=== PATIENT | female | born 1965 | race Caucasian/White ===

== ENCOUNTER 2019-02-25 14:38 | Emergency (ER) | payer OTHER, SELFPAY ==
--- NOTE | 2019-02-25 14:57 | DI.RAD.S_ITS ---
PROCEDURE: XR CHEST 2V INDICATIONS: shortness of breath TECHNIQUE: 2 views of the chest were acquired. COMPARISON: [facility], CT, CHEST ANGIO-PE, 11/30/2010, 11:03. [facility], CR, CHEST 2 VIEW, 10/16/2010, 7:54. FINDINGS: Surgical changes and devices: There is a right-sided central line seen, with the tip overlying the inferior aspect of the superior vena cava. Sternotomy wires are seen. Lungs and pleura: Interstitial prominence is seen throughout. No chelly, focal infiltrates are seen. No large pneumothorax or large pleural effusions are seen. Mediastinum: Mediastinal contours are highly abnormal, with masslike prominence seen on both sides, which has progressed over time. There is at least moderate cardiomegaly seen. Bones and chest wall: Age-appropriate bony degenerative changes are seen. No suspicious bony abnormalities. Soft tissues appear unremarkable. IMPRESSION: Cardiomegaly and any grossly abnormal mediastinal silhouette. This is felt most likely to be related to grossly enlarged pulmonary arteries. Please correlate with known patient history. If clinically appropriate, please consider a dedicated chest CT with IV contrast for further evaluation. Interstitial prominence is seen throughout. The interstitial prominence is nonspecific, yet may be related to pulmonary edema. Dictated by: Kg De Jesus M.D. on 02/25/2019 at 14:48 Approved by: Kg De Jesus M.D. on 02/25/2019 at 14:51
[2019-02-25 15:00] VITALS: BP 115/84; PULSE 96; RESP 24; O2SAT 100
[2019-02-25] MEDS: ALBUTEROL/IPRATROPIUM 3 ML AMPUL INH ×2 (15:02→15:31)
[2019-02-25 15:03] VITALS: PULSE 96; RESP 24; O2SAT 100
--- NOTE | 2019-02-25 15:14 | ED_ITS ---
HPI - General Adult General Chief complaint: Shortness of Breath/Dyspnea Stated complaint: difficulty breathing Time Seen by Provider: 02/25/19 15:02 Source: patient Mode of arrival: Ambulatory Limitations: no limitations History of Present Illness HPI narrative: 53-year-old female with a prior history of pulmonary embolisms require bring a embolectomy and subsequent diagnosis of pulmonary hypertension here for evaluation of shortness of breath. She also has a history of asthma. Has a albuterol inhaler at home that is empty and she has been using another nail that she states has not worked as well. She states that she normally has no problems with asthma. She was recently exposed to viral illness from her daughter which she thinks triggered the symptoms that brought her in today. She also just finished a course of azithromycin provided by her primary doctor for this respiratory illness Related Data Previous Rx's Medication Instructions Recorded albuterol sulfate 2 puff INHALATION Q4-6H PRN #18 02/25/19 gram prednisone 20 mg PO DAILY 5 Days #5 tab 02/25/19 Allergies Allergy/AdvReac Type Severity Reaction Status Date / Time No Known Drug Allergies Allergy Verified 02/25/19 15:29 Review of Systems Constitutional Constitutional: Denies fever(s) Cardiovascular Cardiovascular: Denies chest pain, Reports dyspnea and Reports dyspnea on exertion Respiratory Respiratory: Reports chest congestion, Reports cough, Reports excessive phlegm production, Reports dyspnea and Reports dyspnea on exertion Gastrointestinal Gastrointestinal: Denies abdominal pain, Denies nausea and Denies vomiting Genitourinary Genitourinary: Denies dysuria Musculoskeletal Musculoskeletal: Denies myalgias and Denies arthralgias Integumentary/Breasts Skin/Breast: Denies rash Neurologic Neurologic: Denies behavioral changes Psychiatric Psychiatric: Denies behavioral changes Hematologic/Lymphatic Hematologic/Lymphatic: Denies easy bleeding and Denies easy bruising Patient History Medical History Asthma (Acute) Pulmonary embolism (Acute) Pulmonary hypertension (Acute) Social History Smoking Status: Current every day smoker Exam Initial Vital Signs Initial Vital Signs: Vital Signs Pulse Rate 96 H 02/25/19 15:00 Respiratory Rate 24 02/25/19 15:00 Blood Pressure 115/84 02/25/19 15:00 Pulse Oximetry 100 02/25/19 15:00 Const General: cooperative, comfortable and well developed Orientation: alert and awake HENMT Head: normal to inspection and normocephalic Resp Effort & Inspection: labored Auscultation: rhonchi and wheezes Cardio Rate: regular rate Rhythm: regular rhythm GI Inspection: non-distended Palpation: soft Skin Lesions: no lesions Rashes: no rashes Neuro General: alert and awake Cognition: normal cognition Speech: speech normal Extrem General: normal to inspection and capillary refill normal Psych Appearance: grossly normal and well kempt Course Orders Ordered: ED Orders 02/25/19 14:57 XR chest 2V Stat Measure peak expiratory flow ONCE RT Consult Eval and Treat Now 02/25/19 15:07 Complete Blood Count AUTO DIFF Stat Comprehensive Metabolic Panel Stat Lactate (Lactic Acid) Stat 02/25/19 15:49 EKG-12 Lead Stat Discontinued Medications Albuterol/Ipratropium (Duoneb) 3 ml INH NOW ONE Stop: 02/25/19 14:59 Last Admin: 02/25/19 15:02 Dose: 3 ml Documented by: OLU Albuterol/Ipratropium (Duoneb) 3 ml INH NOW ONE Stop: 02/25/19 15:29 Last Admin: 02/25/19 15:31 Dose: 3 ml Documented by: OLU Vital Signs Vital signs: Vital Signs - 8 hr 02/25/19 15:00 02/25/19 15:03 02/25/19 15:28 Temperature 98.5 F Pulse Rate 96 H 96 H Respiratory Rate 24 24 Blood Pressure 115/84 Blood Pressure [Left Arm] Pulse Oximetry 100 100 02/25/19 15:30 02/25/19 16:08 Temperature Pulse Rate 97 H 100 H Respiratory Rate 24 29 H Blood Pressure Blood Pressure [Left Arm] 95/83 Pulse Oximetry 95 97 Medical Decision Making Lab Data Lab results reviewed: Yes I reviewed the patient's lab results. Result diagrams: 02/25/19 15:07 02/25/19 15:07 Labs: Lab Results 02/25/19 02/25/19 02/25/19 Range/Units 15:07 15:07 15:07 WBC 7.7 (4.5-11.0) X10^3/uL RBC 5.57 H (4.0-5.2) X10^6/uL Hgb 15.4 (12.0-16.0) g/dL Hct 46.7 H (36-46) % MCV 83.9 (80-100) fL MCH 27.7 (26-34) PG MCHC 33.0 (30-36) % RDW 13.8 (11.6-14.8) % Plt Count 185 (150-400) X10^3/uL Neut % (Auto) 58.3 (50-75) % Lymph % (Auto) 30.4 (25-40) % [place] % (Auto) 9.0 (3-14) % Eos % (Auto) 1.3 L (2-4) % Baso % (Auto) 1.0 (0-2) % Neut # (Auto) 4500 (1509-5582) /uL Lymph # (Auto) 2300 (5127-2567) /uL [place] # (Auto) 700 (0-900) /uL Eos # (Auto) 100 (0-450) /uL Baso # (Auto) 100 (0-100) /uL Sodium 135 L (137-145) mmol/L Potassium 4.4 (3.4-5.1) mmol/L Chloride 105 (98-107) mmol/L Carbon Dioxide 23 (22-32) mmol/L BUN 17 (7-17) mg/dL Creatinine 0.70 (0.52-1.04) mg/dL Estimated GFR > 60.0 (>60) mL/min BUN/Creatinine Ratio 24.3 H (6-22) Glucose 95 (70-100) mg/dL Lactate 1.2 (0.7-2.1) mmol/L Calcium 9.2 (8.4-10.2) mg/dL Total Bilirubin 0.7 (0.2-1.3) mg/dL AST 35 (14-36) IU/L ALT 32 (<35) IU/L Alkaline Phosphatase 53 (38-126) U/L Total Protein 6.4 (6.3-8.2) g/dL Albumin 3.8 (3.5-5.0) g/dL Globulin 2.6 (1.7-4.1) g/dL Albumin/Globulin Ratio 1.5 (1.0-2.8) Imaging Data Chest x-ray: Radiologist's impression: [place] [id number] XRay Report Signed Patient: Dagmar Lawrence EMR#: [id number] : 1965Acct:[id number] Age/Sex: 53 / FDate of Service: 02/25/19 Loc: ED Accession Number: [id number] Procedure: XR chest 2V Ordering Provider: Benigno Guerra D.O. PROCEDURE: XR CHEST 2V INDICATIONS: shortness of breath TECHNIQUE: 2 views of the chest were acquired. COMPARISON: [facility], CT, CHEST ANGIO-PE, 11/30/2010, 11:03. [facility], CR, CHEST 2 VIEW, 10/16/2010, 7:54. FINDINGS: Surgical changes and devices: There is a right-sided central line seen, with the tip overlying the inferior aspect of the superior vena cava. Sternotomy wires are seen. Lungs and pleura: Interstitial prominence is seen throughout. No chelly, focal infiltrates are seen. No large pneumothorax or large pleural effusions are seen. Mediastinum: Mediastinal contours are highly abnormal, with masslike prominence seen on both sides, which has progressed over time. There is at least moderate cardiomegaly seen. Bones and chest wall: Age-appropriate bony degenerative changes are seen. No suspicious bony abnormalities. Soft tissues appear unremarkable. IMPRESSION: Cardiomegaly and any grossly abnormal mediastinal silhouette. This is felt most likely to be related to grossly enlarged pulmonary arteries. Please correlate with known patient history. If clinically appropriate, please consider a dedicated chest CT with IV contrast for further evaluation. Interstitial prominence is seen throughout. The interstitial prominence is nonspecific, yet may be related to pulmonary edema. Dictated by: Kg De Jesus M.D. on 02/25/2019 at 14:48 Approved by: Kg De Jesus M.D. on 02/25/2019 at 14:51 ECG Data Attestation: I personally reviewed and interpreted this ECG as follows: Prior ECG tracings: not available for review Interpretation: Significant motion artifact Sinus rhythm Ventricular rate of 97 Difficult to interpret rest of EKG due to motion artifact MDM Narrative Medical decision making narrative: Patient improved after 2 nebulizers. Is not hypoxic. Patient states that she feels better. She is finishing a course of what initially she said was azithromycin but now turns out to be amoxicillin. I do feel that a short course of steroids may be beneficial for her. Will send home with a prescription for albuterol inhaler. She was given return precautions and follow-up instructions. She expressed understanding and agreement plan. Discharge Plan Departure Patient Disposition: Home Clinical Impression: Asthma with exacerbation Qualifiers: Asthma severity: unspecified severity Asthma persistence: unspecified Qualified Code(s): J45.901 - Unspecified asthma with (acute) exacerbation Instructions: DI for Asthma -- Adult Activity Restrictions/Additional Instructions: Recommend that you contact [phone] talk with the health information resources director here at the hospital to help you establish a primary provider. You can also contact the [facility] at [phone]. Use the albuterol as directed as needed. Continue the rest her medications as directed. Return to the emergency department for any new or worsening symptoms. Your prescriptions were transmitted to the [facility] here on [address] Prescriptions: New prednisone 20 mg tablet 20 mg PO DAILY 5 Days Qty: 5 RF: 0 albuterol sulfate 90 mcg/actuation HFA aerosol inhaler 2 puff INHALATION Q4-6H PRN (Reason: shortness of breath or wheezing) Qty: 18 RF: 0
[2019-02-25 15:17] LABS: Add Manual Diff / Slide Review NO; Basophils Absolute Auto 100 /uL (0-100); Eosinophils Absolute Auto 100 /uL (0-450); Eosinophils Percent Auto 1.3 % (2-4); Hematocrit 46.7 % (36-46); Hemoglobin 15.4 g/dL (12.0-16.0); Lymphocytes Absolute Auto 2300 /uL (1100-4500); Lymphocytes Percent Auto 30.4 % (25-40); Mean Corpuscular Hemoglobin 27.7 PG (26-34); Mean Corpuscular Volume 83.9 fL (80-100); Monocytes Absolute Auto 700 /uL (0-900); Neutrophils Absolute Auto 4500 /uL (1500-7000); Neutrophils Percent Auto 58.3 % (50-75); Platelet Count 185 X10^3/uL (150-400); Red Blood Cell Count 5.57 X10^6/uL (4.0-5.2); Red Cell Distribution Width 13.8 % (11.6-14.8); White Blood Cell Count 7.7 X10^3/uL (4.5-11.0)
[2019-02-25 15:28] VITALS: TEMP 36.9
[2019-02-25 15:30] VITALS: PULSE 97; RESP 24; O2SAT 95
[2019-02-25 15:33] LABS: Alanine Aminotransferase 32 IU/L (<35); Albumin 3.8 g/dL (3.5-5.0); Albumin Globulin Ratio 1.5 (1.0-2.8); Alkaline Phosphatase 53 U/L (38-126); Aspartate Aminotransferase 35 IU/L (14-36); BUN Creatinine Ratio 24.3 (6-22); Bilirubin Total 0.7 mg/dL (0.2-1.3); Blood Urea Nitrogen 17 mg/dL (7-17); Calcium 9.2 mg/dL (8.4-10.2); Carbon Dioxide 23 mmol/L (22-32); Chloride 105 mmol/L (98-107); Estimated Glomerular Filt Rate > 60.0 mL/min (>60); Globulin 2.6 g/dL (1.7-4.1); Glucose 95 mg/dL (70-100); HEMOLYSIS 19 (0-50); Potassium 4.4 mmol/L (3.4-5.1); Sodium 135 mmol/L (137-145); Total Protein 6.4 g/dL (6.3-8.2)
[2019-02-25 15:34] LABS: Lactate (Lactic Acid) 1.2 mmol/L (0.7-2.1)
--- NOTE | 2019-02-25 15:47 | PC.NURSE ---
known history of pulmonary htn.
[2019-02-25 16:08] VITALS: BP 95/83; PULSE 100; RESP 29; O2SAT 97
== END 2019-02-25 16:33 | disposition home or self-care (01) ==
PROVIDERS: Emergency Provider Emergency Medicine
DX: J45.901 Unspecified asthma with (acute) exacerbation (principal)
CPT/HCPCS: 36415; 71046; 80053; 83605; 85025; 93005; 94640; 99283; 99285

== ENCOUNTER → 2019-06-02 11:53 | Outpatient (CLI) | payer OTHER, SELFPAY | PROVIDERS: PCP Nurse Practitioner Family; Visit Provider Nurse Practitioner Family | DX: R21 Rash and other nonspecific skin eruption (principal) | CPT/HCPCS: 87220 ==

== ENCOUNTER → 2019-06-02 12:04 | Outpatient (CLI) | payer OTHER, SELFPAY ==
[2019-06-02 12:44] LABS: BUN Creatinine Ratio 24.3 (6-22); Blood Urea Nitrogen 17 mg/dL (7-17); Calcium 9.1 mg/dL (8.4-10.2); Carbon Dioxide 29 mmol/L (22-32); Chloride 102 mmol/L (98-107); Estimated Glomerular Filt Rate > 60.0 mL/min (>60); Glucose 91 mg/dL (70-100); HEMOLYSIS < 15 (0-50); Potassium 4.2 mmol/L (3.4-5.1); Sodium 138 mmol/L (137-145)
[2019-06-02 12:52] LABS: NT-proBNP (BNP-Adult 18+) 1830 pg/mL (<125)
== END ==
PROVIDERS: PCP Nurse Practitioner Family; Referring Provider Internal Medicine Cardiovascular Disease; Visit Provider Internal Medicine Cardiovascular Disease
DX: I50.22 Chronic systolic (congestive) heart failure (principal); R21 Rash and other nonspecific skin eruption
CPT/HCPCS: 36415; 80048; 83880; 87220

== ENCOUNTER → 2019-07-14 11:42 | Outpatient (CLI) | payer OTHER, SELFPAY | PROVIDERS: PCP Nurse Practitioner Family; Referring Provider Nurse Practitioner Family; Visit Provider Nurse Practitioner Family | DX: Z01.818 Encounter for other preprocedural examination (principal) | CPT/HCPCS: 80307; 80323 ==

== ENCOUNTER → 2019-10-13 12:46 | Outpatient (CLI) | payer OTHER, SELFPAY | PROVIDERS: PCP Nurse Practitioner Family; Referring Provider Nurse Practitioner Family; Visit Provider Nurse Practitioner Family | DX: Z13.820 Encounter for screening for osteoporosis (principal); Z78.0 Asymptomatic menopausal state | CPT/HCPCS: 77080 ==

== ENCOUNTER → 2019-11-06 14:42 | Outpatient (CLI) | payer OTHER, SELFPAY ==
--- NOTE | 2019-11-06 14:44 | DI.MG.S_ITS ---
BILATERAL DIGITAL SCREENING MAMMOGRAM 3D/2D WITH CAD: 11/06/2019 CLINICAL: Baseline exam. Routine screening. No prior exams were available for comparison. The tissue of both breasts is heterogeneously dense. This may lower the sensitivity of mammography. Current study was also evaluated with a Computer Aided Detection (CAD) system. There are benign calcifications in both breasts. Minimal dependent and symmetric skin thickening bilaterally. No significant masses, calcifications, or other findings are seen in either breast. IMPRESSION: There is no mammographic evidence of malignancy. Minimal dependent and symmetric skin thickening bilaterally is most likely due to mild edema in this patient scheduled for heart and lung transplant. Recommend clinical correlation. The patient was called directly by Dr. Field at 10:35 AM on 11/08/2019. The patient denies new acute symptoms of shortness of breath. A 1 year screening mammogram is recommended. This exam was interpreted at Station ID: [id number]. NOTE: For mammograms, a report in lay terms will be sent to the patient. Approximately 15% of breast malignancies will not be visualized mammographically. In the management of a palpable breast mass, a negative mammogram must not discourage biopsy of a clinically suspicious lesion. Electronically Signed By: Be Field M.D. slc/:11/08/2019 10:37:53 copy to: Surinder Saunders MD, [facility] letter sent: Normal Exam ACR BI-RADS Category 2: Benign Finding(s) 3342F
== END ==
PROVIDERS: PCP Nurse Practitioner Family; Referring Provider Nurse Practitioner Family; Visit Provider Nurse Practitioner Family
DX: Z12.31 Encounter for screening mammogram for malignant neoplasm of breast (principal)
CPT/HCPCS: 77063; 77067

== ENCOUNTER → 2020-01-05 17:47 | Outpatient (CLI) | payer OTHER, MEDICAID, SELFPAY ==
[2020-01-08 03:22] LABS: Cotinine Negative ng/mL (Cutoff=300)
== END ==
PROVIDERS: PCP Nurse Practitioner Family; Referring Provider Nurse Practitioner Family; Visit Provider Nurse Practitioner Family
DX: Z01.818 Encounter for other preprocedural examination (principal)
CPT/HCPCS: 80321

== ENCOUNTER → 2020-02-04 14:09 | Outpatient (CLI) | payer OTHER, MEDICAID, SELFPAY | PROVIDERS: PCP Nurse Practitioner Family; Referring Provider Nurse Practitioner Family; Visit Provider Nurse Practitioner Family | DX: Z01.818 Encounter for other preprocedural examination (principal); I50.20 Unspecified systolic (congestive) heart failure | CPT/HCPCS: 80307 ==

== ENCOUNTER 2020-03-31 00:04 | Emergency (ER) | payer OTHER, MEDICAID, SELFPAY ==
[2020-03-31] VITALS (44 sets, daily range): BP systolic 82–118; BP diastolic 50–65; PULSE 70–120; RESP 15–99; O2SAT 83–100
--- NOTE | 2020-03-31 00:12 | DI.RAD.S_ITS ---
PROCEDURE: XR CHEST 1V INDICATIONS: Dyspnea TECHNIQUE: One view of the chest was acquired. COMPARISON: [facility], CT, CHEST ANGIO-PE, 11/30/2010, 11:03. [facility], CR, XR CHEST 2V, 02/25/2019, 14:54. FINDINGS: Surgical changes and devices: Central venous catheter, median sternotomy wires and left neck surgical clips are stable. Lungs and pleura: Lungs are clear. No pleural effusions or pneumothorax. Mediastinum: Heart is enlarged. Marked enlargement of the central pulmonary arteries and possible aneurysmal dilatation of the descending thoracic aorta stable compared to the prior exam.. Bones and chest wall: No suspicious bony lesions. Overlying soft tissues appear unremarkable. IMPRESSION: Stable examination compared to February 25, 2019. No lung consolidation or pleural effusions. Dictated by: Tamica Yoder MD, PhD on 03/31/2020 at 9:12 Approved by: Tamica Yoder MD, PhD on 03/31/2020 at 9:14
[2020-03-31 00:29] LABS: HCO3 ABG 24 mmol/L (22-26); PCO2 ABG 44.3 mmHg (35-45); PO2 ABG 90 mmHg (80-100); TCO2 ABG 26 mmol/L (21-31); pH ABG 7.35 (7.35-7.45)
[2020-03-31 00:30] LABS: Fractionated Inspired Oxygen 50; Oxygen Saturation ABG 96 % (95-100)
[2020-03-31 00:43] LABS: Add Manual Diff / Slide Review NO; Basophils Absolute Auto 100 /uL (0-100); Basophils Percent Auto 0.7 % (0-2); Eosinophils Absolute Auto 100 /uL (0-450); Eosinophils Percent Auto 1.4 % (2-4); Hematocrit 44.1 % (36-46); Hemoglobin 14.1 g/dL (12.0-16.0); Lymphocytes Absolute Auto 1500 /uL (1100-4500); Lymphocytes Percent Auto 14.2 % (25-40); Mean Corpuscular Volume 87.5 fL (80-100); Monocytes Absolute Auto 800 /uL (0-900); Monocytes Percent Auto 7.9 % (3-14); Neutrophils Absolute Auto 7900 /uL (1500-7000); Neutrophils Percent Auto 75.8 % (50-75); Platelet Count 131 X10^3/uL (150-400); Red Blood Cell Count 5.04 X10^6/uL (4.0-5.2); Red Cell Distribution Width 14.4 % (11.6-14.8); White Blood Cell Count 10.4 X10^3/uL (4.5-11.0)
[2020-03-31 00:48] LABS: INR 1.7 (0.9-1.3); Prothrombin Time 19.9 SECONDS (10.1-12.7)
--- NOTE | 2020-03-31 00:50 | ED.SOB ---
HPI - SOB/Dyspnea <Hossein Sapp MD - Last Filed: 03/31/20 15:43> General Chief Complaint: Shortness of Breath/Dyspnea Stated Complaint: shortness of breath Time Seen by Provider: 03/31/20 00:11 Source: patient, family and EMS Mode of arrival: EMS History of Present Illness HPI Narrative: Patient brought in by ambulance from home for complaints of dyspnea. No chest pain. Was hypoxic on arrival by EMS at home. 79% room air. Improved with 6 L nasal cannula to 92%. Patient states feels much better. Is not on home oxygen. Does have history of asthma. Is on [facility] wait list for heart transplant. History of pulmonary hypertension. History of blood clots in the lungs. Is on warfarin. Patient states granddaughter was sick last week and now she has the same symptoms. Nonproductive cough. Short of breath with exertion. No chest pain. Patient speaking easily at this time with nasal cannula. Patient took home nebulizer prior to arrival. Patient states tested negative for COVID and the last week MD Complaint: shortness of breath and cough Related Data Home Medications Medication Instructions Recorded Confirmed clopidogrel 75 mg tablet 75 mg PO DAILY 04/27/19 03/31/20 remodulin SUBCUT (VIA WEARABLE INJECTR) 04/27/19 01/28/20 spironolactone PO 04/27/19 01/28/20 warfarin 6 mg tablet 6 mg PO DAILY 04/27/19 03/31/20 furosemide 20 mg tablet 20 mg PO BID 11/10/19 03/31/20 riociguat 2.5 mg tablet 2.5 mg PO ONCE 11/10/19 01/28/20 riociguat [Adempas] 2.5 mg 03/31/20 warfarin 03/31/20 Previous Rx's Medication Instructions Recorded albuterol sulfate 90 mcg/actuation 2 puff INHALATION Q4-6H PRN #18 06/07/19 aerosol inhaler gram varicella-zoster glycoE [id number] 0.5 ml IM ONCE #1 each 09/30/19 adj(PF) 50 mcg/0.5 mL IM susp, kit lorazepam 0.5 mg tablet 0.5 mg PO DAILY PRN #2 tab 01/28/20 Allergies Allergy/AdvReac Type Severity Reaction Status Date / Time adhesive tape Allergy Intermediate rash Verified 03/31/20 00:17 bupropion [From Wellbutrin] AdvReac Severe mood Verified 03/31/20 00:17 Review of Systems <Hossein Sapp MD - Last Filed: 03/31/20 15:43> Review of Systems Narrative: GENERAL: Denies chills, fatigue, malaise, fever, sweats. HEENT: Denies sinus pain, ear pain, sore throat, difficulty swallowing RESPIRATORY: Complains dyspnea, cough, no hemoptysis CARDIOVASCULAR: Denies chest pain, palpitations, edema, GASTROINTESTINAL: Denies nausea, vomiting, abdominal pain, diarrhea, constipation, melena. : Denies dysuria, frequency, hematuria MUSCULOSKELETAL: denies muscle or bony pain SKIN: Denies rash, skin lesions NEUROLOGIC: Denies weakness, headache, numbness, change in speech, confusion PSYCHIATRIC: No SI or HI or hallucinations ROS Unobtainable: All systems reviewed & are unremarkable except as noted in HPI and below Patient History <Hossein Sapp MD - Last Filed: 03/31/20 15:43> Medical History Anxiety Asthma Encounter for routine gynecological examination Encounter for wellness examination in adult History of blood clots (~2009) History of myocardial infarction (03/2019) 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 (2018) LV dysfunction (2018) Menopause Osteopenia after menopause (10/2019) Osteoporosis (10/2019) Pre-procedural examination Pulmonary embolism (2009) Pulmonary hypertension (2009) Situational anxiety Systolic heart failure (~2018) Vision disturbance (09/2019) Social History Smoking Status: Former smoker second hand exposure: No alcohol intake: current substance use type: marijuana Smoking Status: Former smoker alcohol intake frequency: a few times a week Substance Use Type: does not use Exam <Hossein Sapp MD - Last Filed: 03/31/20 15:43> Narrative Exam Narrative: GENERAL: patient appears stated age. Well-nourished, well-developed patient, in no distress, not toxic not dyspneic HEAD: Normocephalic. EYES: Pupils equal round and reactive. No scleral icterus. No injection no discharge ENT: Mucous membranes moist. No drooling no tongue elevation no trismus no malocclusion NECK: Trachea midline. Non tender CARDIOVASCULAR: Regular rate and rhythm without murmurs, gallops, or rubs. RESPIRATORY: Coarse lung sounds bilaterally. Speaking near full sentences. Breath sounds equal bilaterally. Diffuse bilateral wheezes, and rhonchi. GASTROINTESTINAL: Abdomen soft, non-tender, nondistended. EXTREMITIES: No gross deformities. BACK: Nontender without deformity or crepitance. No flank tenderness. NEURO: AOx4. SKIN: Warm and dry PSYCH: Not anxious, is cooperative Initial Vital Signs Initial Vital Signs: Vital Signs Pulse Rate 120 H 03/31/20 00:11 Respiratory Rate 26 H 03/31/20 00:11 Blood Pressure 118/64 03/31/20 00:11 Pulse Oximetry 93 03/31/20 00:11 <Keyona Joel DO - Last Filed: 03/31/20 19:04> Initial Vital Signs Initial Vital Signs: Vital Signs Pulse Rate 120 H 03/31/20 00:11 Respiratory Rate 26 H 03/31/20 00:11 Blood Pressure 118/64 03/31/20 00:11 Pulse Oximetry 93 03/31/20 00:11 Course <Hossein Sapp MD - Last Filed: 03/31/20 15:43> Course Course Narrative: Breathing easier with nasal cannula. Speaking full sentences. Family at bedside. Decision to Admit Date: 03/31/20 Decision to Admit time: 01:37 Orders Ordered: ED Orders 03/31/20 13:34 CT angio chest PE protocol Stat Heparin Sodium/Dextrose (Heparin Drip) 25,000 unit in 500 mls @ 24 mls/hr IV CONT JESSY; Protocol Last Admin: 03/31/20 18:22 Dose: 1,200 units/hr, 24 mls/hr Documented by: CARLOS Discontinued Medications Albuterol (Albuterol 2.5 Mg/3 Ml Neb (Adult)) 2.5 mg INH NOW ONE Stop: 03/31/20 03:04 Last Admin: 03/31/20 03:04 Dose: 2.5 mg Documented by: BERNICE Albuterol (Albuterol 2.5 Mg/3 Ml Neb (Adult)) 2.5 mg INH NOW ONE Stop: 03/31/20 10:49 Last Admin: 03/31/20 10:50 Dose: 2.5 mg Documented by: STEPHANIE Heparin Sodium (Porcine) (Heparin 5,000 Unit/Ml Vial) 4,800 unit 80 unit/kg (4800 unit) IV NOW ONE Stop: 03/31/20 17:30 Last Admin: 03/31/20 18:17 Dose: 4,800 unit Documented by: CARLOS Hydromorphone HCl (Hydromorphone 0.5 Mg Inj) 0.5 mg IV NOW ONE Stop: 03/31/20 08:25 Last Admin: 03/31/20 09:32 Dose: 0.5 mg Documented by: CARLOS Hydromorphone HCl (Hydromorphone 0.5 Mg Inj) 0.5 mg IV NOW ONE Stop: 03/31/20 15:49 Last Admin: 03/31/20 15:55 Dose: 0.5 mg Documented by: CARLOS Hydromorphone HCl (Hydromorphone 0.5 Mg Inj) 0.5 mg IV NOW ONE Stop: 03/31/20 19:00 Ceftriaxone Sodium/Dextrose (Rocephin) 1 gm in 50 mls @ 100 mls/hr IV NOW ONE Stop: 03/31/20 01:24 Last Infusion: 03/31/20 01:35 Dose: 0 mls/hr Documented by: Admin: 03/31/20 01:04 Dose: 100 mls/hr Documented by: GABINO Azithromycin 500 mg/ Dextrose 250 mls @ 250 mls/hr IV NOW ONE Stop: 03/31/20 00:56 Last Infusion: 03/31/20 02:53 Dose: 0 mls/hr Documented by: Admin: 03/31/20 01:37 Dose: 250 mls/hr Documented by: JOHN Methylprednisolone (Methylprednisolone 125 Mg/2 Ml Vial) 125 mg IV NOW ONE Stop: 03/31/20 00:12 Last Admin: 03/31/20 01:04 Dose: 125 mg Documented by: GABINO Morphine Sulfate (Morphine 4 Mg/Ml Inj) 4 mg IV NOW ONE Stop: 03/31/20 01:39 Last Admin: 03/31/20 01:53 Dose: 4 mg Documented by: ELTON Ondansetron HCl (Ondansetron 4 Mg/2 Ml Inj) 4 mg IV NOW ONE Stop: 03/31/20 01:45 Last Admin: 03/31/20 01:53 Dose: 4 mg Documented by: ELTON Ondansetron HCl (Ondansetron 4 Mg/2 Ml Inj) 4 mg IV NOW ONE Stop: 03/31/20 19:00 Reevaluation(s) Reevaluation #1: Reviewed results with patient and family. They agree for transfer to [facility] for continuity of care. Breathing much easier with nasal cannula. Time: 01:37 Consultations Consultation #1: Spoke with [facility] hospitalist, dr rodrigues, will accept pt but bed pending... likely 11 am Time: 03:35 Vital Signs Vital signs: Vital Signs - 8 hr 03/31/20 11:30 03/31/20 12:00 03/31/20 12:23 Pulse Rate 86 84 90 Respiratory Rate 22 24 23 Blood Pressure 100/56 L Pulse Oximetry 99 99 95 03/31/20 12:30 03/31/20 13:00 03/31/20 13:30 Pulse Rate 86 87 85 Respiratory Rate 24 18 21 Blood Pressure 97/53 L 99/52 L Pulse Oximetry 100 100 99 03/31/20 14:05 03/31/20 14:06 03/31/20 14:30 Pulse Rate 92 H 89 88 Respiratory Rate 28 H Blood Pressure 94/54 L Pulse Oximetry 96 97 95 03/31/20 15:00 03/31/20 15:15 03/31/20 15:30 Pulse Rate 82 83 84 Respiratory Rate 27 H 33 H 36 H Blood Pressure 88/52 L 86/52 L Pulse Oximetry 98 98 98 03/31/20 16:00 Pulse Rate 85 Respiratory Rate Blood Pressure 92/64 Pulse Oximetry 98 <Keyona Joel, - Last Filed: 03/31/20 19:04> Orders Ordered: ED Orders 03/31/20 13:34 CT angio chest PE protocol Stat Heparin Sodium/Dextrose (Heparin Drip) 25,000 unit in 500 mls @ 24 mls/hr IV CONT JESSY; Protocol Last Admin: 03/31/20 18:22 Dose: 1,200 units/hr, 24 mls/hr Documented by: FRANTZANCE Discontinued Medications Albuterol (Albuterol 2.5 Mg/3 Ml Neb (Adult)) 2.5 mg INH NOW ONE Stop: 03/31/20 03:04 Last Admin: 03/31/20 03:04 Dose: 2.5 mg Documented by: BERNICE Albuterol (Albuterol 2.5 Mg/3 Ml Neb (Adult)) 2.5 mg INH NOW ONE Stop: 03/31/20 10:49 Last Admin: 03/31/20 10:50 Dose: 2.5 mg Documented by: STEPHANIE Heparin Sodium (Porcine) (Heparin 5,000 Unit/Ml Vial) 4,800 unit 80 unit/kg (4800 unit) IV NOW ONE Stop: 03/31/20 17:30 Last Admin: 03/31/20 18:17 Dose: 4,800 unit Documented by: CARLOS Hydromorphone HCl (Hydromorphone 0.5 Mg Inj) 0.5 mg IV NOW ONE Stop: 03/31/20 08:25 Last Admin: 03/31/20 09:32 Dose: 0.5 mg Documented by: CARLOS Hydromorphone HCl (Hydromorphone 0.5 Mg Inj) 0.5 mg IV NOW ONE Stop: 03/31/20 15:49 Last Admin: 03/31/20 15:55 Dose: 0.5 mg Documented by: CARLOS Hydromorphone HCl (Hydromorphone 0.5 Mg Inj) 0.5 mg IV NOW ONE Stop: 03/31/20 19:00 Ceftriaxone Sodium/Dextrose (Rocephin) 1 gm in 50 mls @ 100 mls/hr IV NOW ONE Stop: 03/31/20 01:24 Last Infusion: 03/31/20 01:35 Dose: 0 mls/hr Documented by: Admin: 03/31/20 01:04 Dose: 100 mls/hr Documented by: GABINO Azithromycin 500 mg/ Dextrose 250 mls @ 250 mls/hr IV NOW ONE Stop: 03/31/20 00:56 Last Infusion: 03/31/20 02:53 Dose: 0 mls/hr Documented by: Admin: 03/31/20 01:37 Dose: 250 mls/hr Documented by: JOHN Methylprednisolone (Methylprednisolone 125 Mg/2 Ml Vial) 125 mg IV NOW ONE Stop: 03/31/20 00:12 Last Admin: 03/31/20 01:04 Dose: 125 mg Documented by: GABINO Morphine Sulfate (Morphine 4 Mg/Ml Inj) 4 mg IV NOW ONE Stop: 03/31/20 01:39 Last Admin: 03/31/20 01:53 Dose: 4 mg Documented by: ELTON Ondansetron HCl (Ondansetron 4 Mg/2 Ml Inj) 4 mg IV NOW ONE Stop: 03/31/20 01:45 Last Admin: 03/31/20 01:53 Dose: 4 mg Documented by: ELTON Ondansetron HCl (Ondansetron 4 Mg/2 Ml Inj) 4 mg IV NOW ONE Stop: 03/31/20 19:00 Vital Signs Vital signs: Vital Signs - 8 hr 03/31/20 11:30 03/31/20 12:00 03/31/20 12:23 Pulse Rate 86 84 90 Respiratory Rate 22 24 23 Blood Pressure 100/56 L Pulse Oximetry 99 99 95 03/31/20 12:30 03/31/20 13:00 03/31/20 13:30 Pulse Rate 86 87 85 Respiratory Rate 24 18 21 Blood Pressure 97/53 L 99/52 L Pulse Oximetry 100 100 99 03/31/20 14:05 03/31/20 14:06 03/31/20 14:30 Pulse Rate 92 H 89 88 Respiratory Rate 28 H Blood Pressure 94/54 L Pulse Oximetry 96 97 95 03/31/20 15:00 03/31/20 15:15 03/31/20 15:30 Pulse Rate 82 83 84 Respiratory Rate 27 H 33 H 36 H Blood Pressure 88/52 L 86/52 L Pulse Oximetry 98 98 98 03/31/20 16:00 Pulse Rate 85 Respiratory Rate Blood Pressure 92/64 Pulse Oximetry 98 MDM - SOB/Dyspnea <Hossein Sapp MD - Last Filed: 03/31/20 15:43> Differential Diagnosis Differential diagnosis: Likely congestive heart failure, community acquired pneumonia and asthma with exacerbation Lab Data Attestation: I reviewed the patient's lab results. Result diagrams: 03/31/20 00:30 03/31/20 00:30 Labs: Lab Results 03/31/20 03/31/20 03/31/20 Range/Units 00:19 00:30 00:30 WBC 10.4 (4.5-11.0) X10^3/uL RBC 5.04 (4.0-5.2) X10^6/uL Hgb 14.1 (12.0-16.0) g/dL Hct 44.1 (36-46) % MCV 87.5 (80-100) fL MCH 28.0 (26-34) PG MCHC 32.0 (30-36) % RDW 14.4 (11.6-14.8) % Plt Count 131 L (150-400) X10^3/uL Neut % (Auto) 75.8 H (50-75) % Lymph % (Auto) 14.2 L (25-40) % [place] % (Auto) 7.9 (3-14) % Eos % (Auto) 1.4 L (2-4) % Baso % (Auto) 0.7 (0-2) % Neut # (Auto) 7900 H (6907-5601) /uL Lymph # (Auto) 1500 (5298-9878) /uL [place] # (Auto) 800 (0-900) /uL Eos # (Auto) 100 (0-450) /uL Baso # (Auto) 100 (0-100) /uL PT 19.9 H (10.1-12.7) SECONDS INR 1.7 H (0.9-1.3) APTT 33 (26.4-36.2) SECONDS ABG pH 7.35 (7.35-7.45) ABG pCO2 44.3 (35-45) mmHg ABG pO2 90 (80-100) mmHg ABG HCO3 24 (22-26) mmol/L ABG Total CO2 26 (21-31) mmol/L ABG O2 Saturation 96 (95-100) % ABG Base Excess -1.0 (-2-2) mmol/L FiO2 50 Sodium (137-145) mmol/L Potassium (3.4-5.1) mmol/L Chloride (98-107) mmol/L Carbon Dioxide (22-32) mmol/L BUN (7-17) mg/dL Creatinine (0.52-1.04) mg/dL Estimated GFR (>60) mL/min BUN/Creatinine Ratio (6-22) Glucose (70-100) mg/dL Lactate (0.7-2.1) mmol/L Calcium (8.4-10.2) mg/dL Magnesium (1.6-2.3) mg/dL Total Bilirubin (0.2-1.3) mg/dL AST (14-36) IU/L ALT (<35) IU/L Alkaline Phosphatase (38-126) U/L Total Creatine Kinase (30-135) U/L CK-MB (CK-2) (<2.37) ng/mL CK-MB (CK-2) Rel Index (1.5-5.0) % Troponin I (0.01-0.034) ng/mL NT-Pro-B Natriuret Pep (<125) pg/mL Total Protein (6.3-8.2) g/dL Albumin (3.5-5.0) g/dL Globulin (1.7-4.1) g/dL Albumin/Globulin Ratio (1.0-2.8) Procalcitonin (<0.5) ng/mL COVID-19 PCR (Negative) 03/31/20 03/31/20 03/31/20 Range/Units 00:30 00:30 00:30 WBC (4.5-11.0) X10^3/uL RBC (4.0-5.2) X10^6/uL Hgb (12.0-16.0) g/dL Hct (36-46) % MCV (80-100) fL MCH (26-34) PG MCHC (30-36) % RDW (11.6-14.8) % Plt Count (150-400) X10^3/uL Neut % (Auto) (50-75) % Lymph % (Auto) (25-40) % [place] % (Auto) (3-14) % Eos % (Auto) (2-4) % Baso % (Auto) (0-2) % Neut # (Auto) (3583-0100) /uL Lymph # (Auto) (6544-9047) /uL [place] # (Auto) (0-900) /uL Eos # (Auto) (0-450) /uL Baso # (Auto) (0-100) /uL PT (10.1-12.7) SECONDS INR (0.9-1.3) APTT (26.4-36.2) SECONDS ABG pH (7.35-7.45) ABG pCO2 (35-45) mmHg ABG pO2 (80-100) mmHg ABG HCO3 (22-26) mmol/L ABG Total CO2 (21-31) mmol/L ABG O2 Saturation (95-100) % ABG Base Excess (-2-2) mmol/L FiO2 Sodium (137-145) mmol/L Potassium (3.4-5.1) mmol/L Chloride (98-107) mmol/L Carbon Dioxide (22-32) mmol/L BUN (7-17) mg/dL Creatinine (0.52-1.04) mg/dL Estimated GFR (>60) mL/min BUN/Creatinine Ratio (6-22) Glucose (70-100) mg/dL Lactate 1.3 (0.7-2.1) mmol/L Calcium (8.4-10.2) mg/dL Magnesium 2.1 (1.6-2.3) mg/dL Total Bilirubin (0.2-1.3) mg/dL AST (14-36) IU/L ALT (<35) IU/L Alkaline Phosphatase (38-126) U/L Total Creatine Kinase 103 (30-135) U/L CK-MB (CK-2) 2.28 (<2.37) ng/mL CK-MB (CK-2) Rel Index 2.2 (1.5-5.0) % Troponin I < 0.012 (0.01-0.034) ng/mL NT-Pro-B Natriuret Pep 2290 H (<125) pg/mL Total Protein (6.3-8.2) g/dL Albumin (3.5-5.0) g/dL Globulin (1.7-4.1) g/dL Albumin/Globulin Ratio (1.0-2.8) Procalcitonin < 0.05 (<0.5) ng/mL COVID-19 PCR (Negative) 03/31/20 03/31/20 Range/Units 00:30 01:05 WBC (4.5-11.0) X10^3/uL RBC (4.0-5.2) X10^6/uL Hgb (12.0-16.0) g/dL Hct (36-46) % MCV (80-100) fL MCH (26-34) PG MCHC (30-36) % RDW (11.6-14.8) % Plt Count (150-400) X10^3/uL Neut % (Auto) (50-75) % Lymph % (Auto) (25-40) % [place] % (Auto) (3-14) % Eos % (Auto) (2-4) % Baso % (Auto) (0-2) % Neut # (Auto) (7878-5119) /uL Lymph # (Auto) (2704-5794) /uL [place] # (Auto) (0-900) /uL Eos # (Auto) (0-450) /uL Baso # (Auto) (0-100) /uL PT (10.1-12.7) SECONDS INR (0.9-1.3) APTT (26.4-36.2) SECONDS ABG pH (7.35-7.45) ABG pCO2 (35-45) mmHg ABG pO2 (80-100) mmHg ABG HCO3 (22-26) mmol/L ABG Total CO2 (21-31) mmol/L ABG O2 Saturation (95-100) % ABG Base Excess (-2-2) mmol/L FiO2 Sodium 136 L (137-145) mmol/L Potassium 4.5 (3.4-5.1) mmol/L Chloride 105 (98-107) mmol/L Carbon Dioxide 24 (22-32) mmol/L BUN 33 H (7-17) mg/dL Creatinine 0.82 (0.52-1.04) mg/dL Estimated GFR > 60.0 (>60) mL/min BUN/Creatinine Ratio 40.2 H (6-22) Glucose 108 H (70-100) mg/dL Lactate (0.7-2.1) mmol/L Calcium 9.6 (8.4-10.2) mg/dL Magnesium (1.6-2.3) mg/dL Total Bilirubin 0.7 (0.2-1.3) mg/dL AST 29 (14-36) IU/L ALT 18 (<35) IU/L Alkaline Phosphatase 74 (38-126) U/L Total Creatine Kinase (30-135) U/L CK-MB (CK-2) (<2.37) ng/mL CK-MB (CK-2) Rel Index (1.5-5.0) % Troponin I (0.01-0.034) ng/mL NT-Pro-B Natriuret Pep (<125) pg/mL Total Protein 7.8 (6.3-8.2) g/dL Albumin 4.4 (3.5-5.0) g/dL Globulin 3.4 (1.7-4.1) g/dL Albumin/Globulin Ratio 1.3 (1.0-2.8) Procalcitonin (<0.5) ng/mL COVID-19 PCR Negative (Negative) Imaging Data Chest x-ray: Radiologist's Impression: X-ray results faxed. Stable enlarged cardio mediastinal silhouette with markedly abnormal contour status post median sternotomy. No pneumothorax. No pleural effusion no opacity. ECG Data Attestation: I personally reviewed and interpreted this ECG as follows: Interpretation: Sinus tachycardia rate 122. No ST elevation depression. MDM Narrative Medical decision making narrative: Appropriate transfer [facility], for continued care <Keyona Joel, - Last Filed: 03/31/20 19:04> Lab Data Attestation: I reviewed the patient's lab results. Labs: Lab Results 03/31/20 03/31/20 03/31/20 Range/Units 00:19 00:30 00:30 WBC 10.4 (4.5-11.0) X10^3/uL RBC 5.04 (4.0-5.2) X10^6/uL Hgb 14.1 (12.0-16.0) g/dL Hct 44.1 (36-46) % MCV 87.5 (80-100) fL MCH 28.0 (26-34) PG MCHC 32.0 (30-36) % RDW 14.4 (11.6-14.8) % Plt Count 131 L (150-400) X10^3/uL Neut % (Auto) 75.8 H (50-75) % Lymph % (Auto) 14.2 L (25-40) % [place] % (Auto) 7.9 (3-14) % Eos % (Auto) 1.4 L (2-4) % Baso % (Auto) 0.7 (0-2) % Neut # (Auto) 7900 H (3472-0846) /uL Lymph # (Auto) 1500 (6580-2504) /uL [place] # (Auto) 800 (0-900) /uL Eos # (Auto) 100 (0-450) /uL Baso # (Auto) 100 (0-100) /uL PT 19.9 H (10.1-12.7) SECONDS INR 1.7 H (0.9-1.3) APTT 33 (26.4-36.2) SECONDS ABG pH 7.35 (7.35-7.45) ABG pCO2 44.3 (35-45) mmHg ABG pO2 90 (80-100) mmHg ABG HCO3 24 (22-26) mmol/L ABG Total CO2 26 (21-31) mmol/L ABG O2 Saturation 96 (95-100) % ABG Base Excess -1.0 (-2-2) mmol/L FiO2 50 Sodium (137-145) mmol/L Potassium (3.4-5.1) mmol/L Chloride (98-107) mmol/L Carbon Dioxide (22-32) mmol/L BUN (7-17) mg/dL Creatinine (0.52-1.04) mg/dL Estimated GFR (>60) mL/min BUN/Creatinine Ratio (6-22) Glucose (70-100) mg/dL Lactate (0.7-2.1) mmol/L Calcium (8.4-10.2) mg/dL Magnesium (1.6-2.3) mg/dL Total Bilirubin (0.2-1.3) mg/dL AST (14-36) IU/L ALT (<35) IU/L Alkaline Phosphatase (38-126) U/L Total Creatine Kinase (30-135) U/L CK-MB (CK-2) (<2.37) ng/mL CK-MB (CK-2) Rel Index (1.5-5.0) % Troponin I (0.01-0.034) ng/mL NT-Pro-B Natriuret Pep (<125) pg/mL Total Protein (6.3-8.2) g/dL Albumin (3.5-5.0) g/dL Globulin (1.7-4.1) g/dL Albumin/Globulin Ratio (1.0-2.8) Procalcitonin (<0.5) ng/mL COVID-19 PCR (Negative) 03/31/20 03/31/20 03/31/20 Range/Units 00:30 00:30 00:30 WBC (4.5-11.0) X10^3/uL RBC (4.0-5.2) X10^6/uL Hgb (12.0-16.0) g/dL Hct (36-46) % MCV (80-100) fL MCH (26-34) PG MCHC (30-36) % RDW (11.6-14.8) % Plt Count (150-400) X10^3/uL Neut % (Auto) (50-75) % Lymph % (Auto) (25-40) % [place] % (Auto) (3-14) % Eos % (Auto) (2-4) % Baso % (Auto) (0-2) % Neut # (Auto) (6562-7207) /uL Lymph # (Auto) (1758-0503) /uL [place] # (Auto) (0-900) /uL Eos # (Auto) (0-450) /uL Baso # (Auto) (0-100) /uL PT (10.1-12.7) SECONDS INR (0.9-1.3) APTT (26.4-36.2) SECONDS ABG pH (7.35-7.45) ABG pCO2 (35-45) mmHg ABG pO2 (80-100) mmHg ABG HCO3 (22-26) mmol/L ABG Total CO2 (21-31) mmol/L ABG O2 Saturation (95-100) % ABG Base Excess (-2-2) mmol/L FiO2 Sodium (137-145) mmol/L Potassium (3.4-5.1) mmol/L Chloride (98-107) mmol/L Carbon Dioxide (22-32) mmol/L BUN (7-17) mg/dL Creatinine (0.52-1.04) mg/dL Estimated GFR (>60) mL/min BUN/Creatinine Ratio (6-22) Glucose (70-100) mg/dL Lactate 1.3 (0.7-2.1) mmol/L Calcium (8.4-10.2) mg/dL Magnesium 2.1 (1.6-2.3) mg/dL Total Bilirubin (0.2-1.3) mg/dL AST (14-36) IU/L ALT (<35) IU/L Alkaline Phosphatase (38-126) U/L Total Creatine Kinase 103 (30-135) U/L CK-MB (CK-2) 2.28 (<2.37) ng/mL CK-MB (CK-2) Rel Index 2.2 (1.5-5.0) % Troponin I < 0.012 (0.01-0.034) ng/mL NT-Pro-B Natriuret Pep 2290 H (<125) pg/mL Total Protein (6.3-8.2) g/dL Albumin (3.5-5.0) g/dL Globulin (1.7-4.1) g/dL Albumin/Globulin Ratio (1.0-2.8) Procalcitonin < 0.05 (<0.5) ng/mL COVID-19 PCR (Negative) 03/31/20 03/31/20 Range/Units 00:30 01:05 WBC (4.5-11.0) X10^3/uL RBC (4.0-5.2) X10^6/uL Hgb (12.0-16.0) g/dL Hct (36-46) % MCV (80-100) fL MCH (26-34) PG MCHC (30-36) % RDW (11.6-14.8) % Plt Count (150-400) X10^3/uL Neut % (Auto) (50-75) % Lymph % (Auto) (25-40) % [place] % (Auto) (3-14) % Eos % (Auto) (2-4) % Baso % (Auto) (0-2) % Neut # (Auto) (0867-8148) /uL Lymph # (Auto) (0367-1361) /uL [place] # (Auto) (0-900) /uL Eos # (Auto) (0-450) /uL Baso # (Auto) (0-100) /uL PT (10.1-12.7) SECONDS INR (0.9-1.3) APTT (26.4-36.2) SECONDS ABG pH (7.35-7.45) ABG pCO2 (35-45) mmHg ABG pO2 (80-100) mmHg ABG HCO3 (22-26) mmol/L ABG Total CO2 (21-31) mmol/L ABG O2 Saturation (95-100) % ABG Base Excess (-2-2) mmol/L FiO2 Sodium 136 L (137-145) mmol/L Potassium 4.5 (3.4-5.1) mmol/L Chloride 105 (98-107) mmol/L Carbon Dioxide 24 (22-32) mmol/L BUN 33 H (7-17) mg/dL Creatinine 0.82 (0.52-1.04) mg/dL Estimated GFR > 60.0 (>60) mL/min BUN/Creatinine Ratio 40.2 H (6-22) Glucose 108 H (70-100) mg/dL Lactate (0.7-2.1) mmol/L Calcium 9.6 (8.4-10.2) mg/dL Magnesium (1.6-2.3) mg/dL Total Bilirubin 0.7 (0.2-1.3) mg/dL AST 29 (14-36) IU/L ALT 18 (<35) IU/L Alkaline Phosphatase 74 (38-126) U/L Total Creatine Kinase (30-135) U/L CK-MB (CK-2) (<2.37) ng/mL CK-MB (CK-2) Rel Index (1.5-5.0) % Troponin I (0.01-0.034) ng/mL NT-Pro-B Natriuret Pep (<125) pg/mL Total Protein 7.8 (6.3-8.2) g/dL Albumin 4.4 (3.5-5.0) g/dL Globulin 3.4 (1.7-4.1) g/dL Albumin/Globulin Ratio 1.3 (1.0-2.8) Procalcitonin (<0.5) ng/mL COVID-19 PCR Negative (Negative) Imaging Data CT scan - chest: Radiologist's Impression: PROCEDURE: CT ANGIO CHEST PE PROTOCOL INDICATIONS: hypoxia TECHNIQUE: After the administration of intravenous contrast, 2 mm thick sections acquired from the pulmonary apices to the posterior costophrenic angles. 3-dimensional maximum intensity projection (MIP) coronal and sagittal reformats were then acquired through the thorax. For radiation dose reduction, the following was used: automated exposure control, adjustment of mA and/or kV according to patient size. COMPARISON: [facility], CR, XR CHEST 1V, 03/31/2020, 0:22. CT, THORAX WITH CONTRAST, 11/01/2010, 10:48. [facility], CT, CHEST ANGIO-PE, 11/30/2010, 11:03. FINDINGS: Image quality: Excellent. Pulmonary arteries: Pulmonary arteries are markedly enlarged. The main pulmonary outflow tract measures 9.1 cm in diameter. The right main pulmonary artery measures 6.3 cm and the main left pulmonary artery measures 5.3 cm. There are mural thrombi and calcification involving the main, lobar and segmental arteries bilaterally. The findings are most likely secondary to chronic central pulmonary embolism although a degree of acute pulmonary embolism superimposed on chronic pulmonary embolism may be present. Lungs and pleura: There are no findings to suggest acute pulmonary infarcts.Lungs are clear. There are right middle lobe and bilateral lower lobe atelectasis. No pleural effusions or pneumothorax. Central and peripheral airways are patent. Mediastinum: Heart size is moderately increased. There is marked right ventricular dilation. No pericardial effusion. No mediastinal or hilar adenopathy. Thoracic aorta is normal in caliber and enhancement. Esophagus is normal in caliber, without hiatal hernia. Bones and chest wall: No suspicious bony lesions. Ribs and thoracic spine appear intact throughout. Thyroid gland is normal. No axillary or supraclavicular adenopathy. Abdomen: There is contrast reflux into IVC and hepatic veins. Visualized upper abdominal solid organs appear normal in the early arterial phase of enhancement. IMPRESSION: 1. The CT findings are consistent with chronic thrombo embolic pulmonary hypertension with markedly dilated central pulmonary vasculature with the main pulmonary outflow tract measures 9 cm and main pulmonary arteries measuring 5-6 cm. There are mural thrombi within the left and right main pulmonary arteries with associated pulmonary artery wall calcification. Mild degree of acute PE superimposed on chronic PE cannot be excluded. 2. No findings to suggest acute pulmonary infarcts. 3. Right middle lobe and bilateral lower lobe atelectasis. 4. IV contrast reflux into IVC and hepatic veins consistent with right heart strain. The result was discussed with Dr. Joel. Dictated by: Claude Amaro M.D. on 03/31/2020 at 14:48 MDM Narrative Medical decision making narrative: Patient signed out to me by lance crewmember/mlrs sergeant provider. Waiting for bed to be available at 11:00 a.m.. I seen evaluated patient myself appears comfortable despite blood pressure in the 80s. Awake alert and talking states she always has low blood pressure. I was given morphine 4 mg for some abdominal pain she takes hydromorphone 2 mg tablets at home for it. She states she is not normally on home oxygen we have attempted weaning her down but is still requiring about 8 L nasal cannula. She overall appears comfortable. INR is subtherapeutic at 1.7. Will CT for PE. Discussed case with Dr. Reyes at [facility], would like to wait for CT results also no medical beds are available that there may be some ICU beds depending on her clinical status. CT does reveal possible acute on chronic multiple pulmonary emboli with markedly dilated central pulmonary vasculature with main pulmonary outflow tract measures 9 cm. I discussed case with Dr. estrada hospitalist here and requests that patient is very complicated and needs to be transferred to [facility]. Spoke with MICU doctor Dr. mead, patient is able to ambulate on 5 L nasal cannula without dropping her O2. Her baseline blood pressures are low at this time does not meet acute criteria, but does agree patient needs to be transferred to [place] Dr. Reyes finally accepts patient waiting for bed Discharge Plan Departure Patient Disposition: [facility] Clinical Impression: Hypoxia Pulmonary embolism Qualifiers: Pulmonary embolism type: unspecified Chronicity: unspecified Acute cor pulmonale presence: unspecified Qualified Code(s): I26.99 - Other pulmonary embolism without acute cor pulmonale Prescriptions: No Action albuterol sulfate 90 mcg/actuation HFA aerosol inhaler 2 puff INHALATION Q4-6H PRN (Reason: shortness of breath or wheezing) Qty: 18 RF: 0 clopidogrel [Plavix] 75 mg tablet 75 mg PO DAILY RF: 0 warfarin [Coumadin] 6 mg tablet 6 mg PO DAILY RF: 0 remodulin auto-injector subcut (via wearable injectr) RF: 0 spironolactone PO RF: 0 Adempas 2.5 mg tablet 2.5 mg PO ONCE RF: 0 furosemide 20 mg tablet 20 mg PO BID RF: 0 lorazepam 0.5 mg tablet 0.5 mg PO DAILY PRN (Reason: anxiety) Qty: 2 RF: 0 Shingrix (PF) 50 mcg/0.5 mL suspension for reconstitution 0.5 ml IM ONCE Qty: 1 RF: 0 Adempas 2.5 mg tablet 2.5 mg RF: 0 warfarin 6 mg tablet RF: 0 Referrals: Tawana Aceves ARNP [Primary Care Provider] -
[2020-03-31 00:51] LABS: PTT Partial Thromboplastin Tim 33 SECONDS (26.4-36.2)
[2020-03-31 00:53] LABS: Lactate (Lactic Acid) 1.3 mmol/L (0.7-2.1)
[2020-03-31] MEDS: CEFTRIAXONE 1 GM/50 ML FROZ.PIGGY IV (01:04)
[2020-03-31] MEDS: methylPREDNISolone 125 MG/2 ML VIAL IV (01:04)
[2020-03-31 01:09] LABS: Alanine Aminotransferase 18 IU/L (<35); Albumin 4.4 g/dL (3.5-5.0); Albumin Globulin Ratio 1.3 (1.0-2.8); Alkaline Phosphatase 74 U/L (38-126); Aspartate Aminotransferase 29 IU/L (14-36); BUN Creatinine Ratio 40.2 (6-22); Bilirubin Total 0.7 mg/dL (0.2-1.3); Blood Urea Nitrogen 33 mg/dL (7-17); Calcium 9.6 mg/dL (8.4-10.2); Carbon Dioxide 24 mmol/L (22-32); Chloride 105 mmol/L (98-107); Creatine Kinase 103 U/L (30-135); Estimated Glomerular Filt Rate > 60.0 mL/min (>60); Globulin 3.4 g/dL (1.7-4.1); Glucose 108 mg/dL (70-100); HEMOLYSIS 26 (0-50); Magnesium 2.1 mg/dL (1.6-2.3); Potassium 4.5 mmol/L (3.4-5.1); Sodium 136 mmol/L (137-145); Total Protein 7.8 g/dL (6.3-8.2)
[2020-03-31 01:21] LABS: NT-proBNP (BNP-Adult 18+) 2290 pg/mL (<125); Troponin I < 0.012 ng/mL (0.01-0.034)
[2020-03-31 01:24] LABS: CKMB % Relative Index 2.2 % (1.5-5.0); Creatine Kinase MB 2.28 ng/mL (<2.37)
[2020-03-31 01:25] LABS: Procalcitonin < 0.05 ng/mL (<0.5)
[2020-03-31] MEDS: AZITHROMYCIN 500 MG in DEXTROSE 5% IN WATER 250 ML IV (01:37)
[2020-03-31 01:49] LABS: COVID19 -Nasal RAPID Negative (Negative)
[2020-03-31] MEDS: ONDANSETRON 4 MG/2 ML INJ IV ×2 (01:53→19:03)
[2020-03-31] MEDS: MORPHINE 4 MG/ML INJ IV (01:53)
[2020-03-31] MEDS: ALBUTEROL 2.5 MG/3 ML NEB (ADULT) INH ×2 (03:04→10:50)
--- NOTE | 2020-03-31 05:55 | PC.NURSE ---
Pt's sbp in the 80s. pt denies any symptoms, states her bp is normally in the 80s. Provider aware. no new orders.
[2020-03-31] MEDS: HYDROMORPHONE 0.5 MG INJ IV ×3 (09:32→19:03)
--- NOTE | 2020-03-31 09:56 | PC.NURSE ---
patient says she would like a breathing treatment . She is aware that will let us know at 1100 what the bed situation is. Her government gauger is at the . She says she is on a lung transplant list
--- NOTE | 2020-03-31 13:16 | PC.NURSE ---
hospital staff talked with our MD Said they were still working on a bed for admission Patient made aware
--- NOTE | 2020-03-31 13:34 | DI.CT.S_ITS ---
PROCEDURE: CT ANGIO CHEST PE PROTOCOL INDICATIONS: hypoxia TECHNIQUE: After the administration of intravenous contrast, 2 mm thick sections acquired from the pulmonary apices to the posterior costophrenic angles. 3-dimensional maximum intensity projection (MIP) coronal and sagittal reformats were then acquired through the thorax. For radiation dose reduction, the following was used: automated exposure control, adjustment of mA and/or kV according to patient size. COMPARISON: [facility], CR, XR CHEST 1V, 03/31/2020, 0:22. CT, THORAX WITH CONTRAST, 11/01/2010, 10:48. [facility], CT, CHEST ANGIO-PE, 11/30/2010, 11:03. FINDINGS: Image quality: Excellent. Pulmonary arteries: Pulmonary arteries are markedly enlarged. The main pulmonary outflow tract measures 9.1 cm in diameter. The right main pulmonary artery measures 6.3 cm and the main left pulmonary artery measures 5.3 cm. There are mural thrombi and calcification involving the main, lobar and segmental arteries bilaterally. The findings are most likely secondary to chronic central pulmonary embolism although a degree of acute pulmonary embolism superimposed on chronic pulmonary embolism may be present. Lungs and pleura: There are no findings to suggest acute pulmonary infarcts.Lungs are clear. There are right middle lobe and bilateral lower lobe atelectasis. No pleural effusions or pneumothorax. Central and peripheral airways are patent. Mediastinum: Heart size is moderately increased. There is marked right ventricular dilation. No pericardial effusion. No mediastinal or hilar adenopathy. Thoracic aorta is normal in caliber and enhancement. Esophagus is normal in caliber, without hiatal hernia. Bones and chest wall: No suspicious bony lesions. Ribs and thoracic spine appear intact throughout. Thyroid gland is normal. No axillary or supraclavicular adenopathy. Abdomen: There is contrast reflux into IVC and hepatic veins. Visualized upper abdominal solid organs appear normal in the early arterial phase of enhancement. IMPRESSION: 1. The CT findings are consistent with chronic thrombo embolic pulmonary hypertension with markedly dilated central pulmonary vasculature with the main pulmonary outflow tract measures 9 cm and main pulmonary arteries measuring 5-6 cm. There are mural thrombi within the left and right main pulmonary arteries with associated pulmonary artery wall calcification. Mild degree of acute PE superimposed on chronic PE cannot be excluded. 2. No findings to suggest acute pulmonary infarcts. 3. Right middle lobe and bilateral lower lobe atelectasis. 4. IV contrast reflux into IVC and hepatic veins consistent with right heart strain. The result was discussed with Dr. Joel. Dictated by: Claude Amaro M.D. on 03/31/2020 at 14:48 Approved by: Claude Amaro M.D. on 03/31/2020 at 15:20
--- NOTE | 2020-03-31 13:43 | PC.NURSE ---
oxygen delivery per humidified at 8Lper minute with 02 sats at 100% now Turned down to 6L/minute
[2020-03-31] MEDS: HEPARIN 5,000 UNIT/ML VIAL 4800 UNIT IV (18:17)
[2020-03-31] MEDS: HEPARIN DRIP 25,000 UNIT/500 ML IV.SOLN 24 UNIT IV (18:22)
--- NOTE | 2020-05-26 14:51 | PC.NURSE ---
heparin drip started at 1730 on 03/31/20 and was infusing on admission to the floor. Stop time for being watched in ED is 1905 with 36cc infused
== END 2020-03-31 19:05 | disposition short-term general hospital (02) ==
PROVIDERS: Emergency Medicine; Emergency Provider Emergency Medicine; PCP Nurse Practitioner Family
DX: R09.02 Hypoxemia (principal); I26.99 Other pulmonary embolism without acute cor pulmonale; I27.22 Pulmonary hypertension due to left heart disease; R05 Cough; Z79.01 Long term (current) use of anticoagulants
CPT/HCPCS: 36415; 36600; 71045; 71275; 80053; 82550; 82553; 82805; 83605; 83735; 83880; 84145; 84484; 85025; 85610; 85730; 87040; 87635; 93005; 93010; 94640; 96365; 96367; 96375; 96376; 99285; J1170; J1644; J2270; J2405; J2930; J7613

== ENCOUNTER → 2020-05-04 11:27 | Outpatient (CLI) | payer OTHER, MEDICAID, SELFPAY ==
[2020-05-06 07:14] LABS: Cotinine Negative ng/mL (Cutoff=300)
== END ==
PROVIDERS: PCP Nurse Practitioner Family; Referring Provider Nurse Practitioner Family; Visit Provider Nurse Practitioner Family
DX: Z01.818 Encounter for other preprocedural examination (principal)
CPT/HCPCS: 80321

== ENCOUNTER → 2020-05-29 12:14 | Outpatient (CLI) | payer OTHER, MEDICAID, SELFPAY | PROVIDERS: PCP Nurse Practitioner Family; Visit Provider Family Medicine | DX: L02.91 Cutaneous abscess, unspecified (principal) | CPT/HCPCS: 87070; 87077; 87147; 87186; 87205 ==

== ENCOUNTER → 2020-07-10 13:01 | Outpatient (CLI) | payer OTHER, MEDICAID, SELFPAY ==
[2020-07-12 12:39] LABS: Cotinine Negative ng/mL (Cutoff=300)
== END ==
PROVIDERS: PCP Nurse Practitioner Family; Referring Provider Nurse Practitioner Family; Visit Provider Nurse Practitioner Family
DX: I27.20 Pulmonary hypertension, unspecified (principal); I50.22 Chronic systolic (congestive) heart failure; Z01.818 Encounter for other preprocedural examination
CPT/HCPCS: 80321

== ENCOUNTER → 2020-08-07 13:11 | Outpatient (CLI) | payer OTHER, MEDICAID, SELFPAY ==
[2020-08-07 16:42] LABS: COVID19 -Nasal RAPID Negative (Negative)
== END ==
PROVIDERS: PCP Family Medicine; Referring Provider Physician Assistant; Visit Provider Physician Assistant
DX: Z01.812 Encounter for preprocedural laboratory examination (principal); Z20.822 Contact with and (suspected) exposure to COVID-19
CPT/HCPCS: 87635

== ENCOUNTER → 2020-11-06 08:35 | Outpatient (CLI) | payer OTHER, MEDICAID, SELFPAY ==
[2020-11-06 12:07] LABS: COVID-19 CEPHEID PCR (VTM/NP) Negative (Negative)
== END ==
PROVIDERS: PCP Family Medicine; Visit Provider Physician Assistant
DX: Z20.822 Contact with and (suspected) exposure to COVID-19 (principal)
CPT/HCPCS: U0003

== ENCOUNTER → 2020-11-10 11:41 | Outpatient (CLI) | payer OTHER, MEDICAID, SELFPAY ==
[2020-11-10 12:48] LABS: Add Manual Diff / Slide Review NO; Basophils Absolute Auto 100 /uL (0-100); Basophils Percent Auto 1.4 % (0-2); Eosinophils Absolute Auto 100 /uL (0-450); Eosinophils Percent Auto 2.1 % (2-4); Hematocrit 44.8 % (36-46); Hemoglobin 14.3 g/dL (12.0-16.0); Lymphocytes Absolute Auto 1700 /uL (1100-4500); Lymphocytes Percent Auto 32.6 % (25-40); Mean Corpuscular HGB Conc 31.8 % (30-36); Mean Corpuscular Volume 84.6 fL (80-100); Monocytes Absolute Auto 400 /uL (0-900); Monocytes Percent Auto 8.1 % (3-14); Neutrophils Absolute Auto 3000 /uL (1500-7000); Neutrophils Percent Auto 55.8 % (50-75); Platelet Count 124 X10^3/uL (150-400); Red Blood Cell Count 5.29 X10^6/uL (4.0-5.2); Red Cell Distribution Width 14.5 % (11.6-14.8); White Blood Cell Count 5.4 X10^3/uL (4.5-11.0)
[2020-11-10 12:58] LABS: Alanine Aminotransferase 39 IU/L (<35); Albumin 4.4 g/dL (3.5-5.0); Albumin Globulin Ratio 1.5 (1.0-2.8); Alkaline Phosphatase 63 U/L (38-126); Aspartate Aminotransferase 41 IU/L (14-36); BUN Creatinine Ratio 26.5 (6-22); Bilirubin Total 0.6 mg/dL (0.2-1.3); Blood Urea Nitrogen 18 mg/dL (7-17); Calcium 9.7 mg/dL (8.4-10.2); Carbon Dioxide 29 mmol/L (22-32); Chloride 103 mmol/L (98-107); Estimated Glomerular Filt Rate > 60.0 mL/min (>60); Glucose 98 mg/dL (70-100); HEMOLYSIS < 15 (0-50); Lactate Dehydrogenase 429 U/L (313-618); Sodium 138 mmol/L (137-145); Total Protein 7.4 g/dL (6.3-8.2)
[2020-11-10 17:09] LABS: Vitamin D 25 Hydroxy (D3) 33.6 ng/mL (30.0-100.0)
== END ==
PROVIDERS: PCP Family Medicine; Referring Provider Family Medicine; Visit Provider Family Medicine
DX: I25.5 Ischemic cardiomyopathy (principal); I27.20 Pulmonary hypertension, unspecified; I50.22 Chronic systolic (congestive) heart failure
CPT/HCPCS: 36415; 80053; 82306; 83615; 85025

== ENCOUNTER → 2020-11-28 13:09 | Outpatient (CLI) | payer OTHER, MEDICAID, SELFPAY ==
--- NOTE | 2020-11-28 13:14 | DI.RAD.S_ITS ---
PROCEDURE: XR CHEST 2V INDICATIONS: CHF with fluid retention TECHNIQUE: 2 views of the chest were acquired. COMPARISON: [facility], CT, CT ANGIO CHEST PE PROTOCOL, 03/31/2020, 13:51. [facility], CR, XR CHEST 1V, 03/31/2020, 0:22. FINDINGS: Surgical changes and devices: Median sternotomy wires. Right IJ CVL redemonstrated with tip projected over the mid to lower SVC. Lungs and pleura: Lungs are clear. No pleural effusions or pneumothorax. Mediastinum: Cardiomegaly redemonstrated and there is marked enlargement of the central pulmonary arteries and aneurysmal dilatation of the descending thoracic aorta which appears similar to prior examination dated 03/31/2020. Bones and chest wall: No suspicious bony abnormalities. Soft tissues appear unremarkable. IMPRESSION: 1. Stable chest compared to 03/31/2020. Dictated by: Ethan Harris [facility] Interpreted: Kt Rojas MD on 11/28/2020 at 13:35 Transcribed by: IGNACIO on 11/28/2020 at 13:38 Approved by: Brando Body M.D. on 11/29/2020 at 13:36
[2020-11-30 07:50] LABS: Cotinine Negative ng/mL (Cutoff=300)
== END ==
PROVIDERS: PCP Family Medicine; Referring Provider Family Medicine; Visit Provider Family Medicine
DX: I25.5 Ischemic cardiomyopathy (principal); I27.20 Pulmonary hypertension, unspecified; I50.22 Chronic systolic (congestive) heart failure; I51.9 Heart disease, unspecified; I50.20 Unspecified systolic (congestive) heart failure
CPT/HCPCS: 71046; 80321

== ENCOUNTER → 2021-05-28 13:12 | Outpatient (CLI) | payer OTHER, MEDICAID, SELFPAY ==
[2021-05-28 14:08] LABS: Add Manual Diff / Slide Review NO; Basophils Absolute Auto 100 /uL (0-100); Basophils Percent Auto 1.8 % (0-2); Eosinophils Absolute Auto 100 /uL (0-450); Eosinophils Percent Auto 3.3 % (2-4); Hematocrit 44.2 % (36-46); Hemoglobin 14.3 g/dL (12.0-16.0); Lymphocytes Absolute Auto 1500 /uL (1100-4500); Lymphocytes Percent Auto 32.4 % (25-40); Mean Corpuscular HGB Conc 32.3 % (30-36); Mean Corpuscular Hemoglobin 27.3 PG (26-34); Mean Corpuscular Volume 84.5 fL (80-100); Monocytes Absolute Auto 300 /uL (0-900); Neutrophils Absolute Auto 2500 /uL (1500-7000); Neutrophils Percent Auto 55.5 % (50-75); Platelet Count 114 X10^3/uL (150-400); Red Blood Cell Count 5.23 X10^6/uL (4.0-5.2); White Blood Cell Count 4.5 X10^3/uL (4.5-11.0)
[2021-05-28 14:30] LABS: Alanine Aminotransferase 27 IU/L (<35); Albumin 4.3 g/dL (3.5-5.0); Albumin Globulin Ratio 1.5 (1.0-2.8); Alkaline Phosphatase 47 U/L (38-126); Aspartate Aminotransferase 34 IU/L (14-36); Bilirubin Total 0.7 mg/dL (0.2-1.3); Blood Urea Nitrogen 15 mg/dL (7-17); Calcium 9.1 mg/dL (8.4-10.2); Carbon Dioxide 32 mmol/L (22-32); Chloride 102 mmol/L (98-107); Estimated Glomerular Filt Rate > 60.0 mL/min (>60); Globulin 2.8 g/dL (1.7-4.1); Glucose 82 mg/dL (70-100); HEMOLYSIS 32 (0-50); Potassium 4.9 mmol/L (3.4-5.1); Sodium 138 mmol/L (137-145); Total Protein 7.1 g/dL (6.3-8.2)
== END ==
PROVIDERS: PCP Family Medicine; Referring Provider Family Medicine; Visit Provider Family Medicine
DX: I51.9 Heart disease, unspecified (principal); Z78.0 Asymptomatic menopausal state; Z79.01 Long term (current) use of anticoagulants; I50.22 Chronic systolic (congestive) heart failure
CPT/HCPCS: 36415; 80053; 85025

== ENCOUNTER → 2021-10-11 13:14 | Outpatient (CLI) | payer OTHER, MEDICAID, SELFPAY ==
--- NOTE | 2021-10-11 13:17 | DI.RAD.S_ITS ---
PROCEDURE: XR CHEST 2V INDICATIONS: asthma exasterbation in COPD TECHNIQUE: 2 views of the chest were acquired. COMPARISON: [facility], CT, CT ANGIO CHEST PE PROTOCOL, 03/31/2020, 13:51. [facility], CR, XR CHEST 2V, 11/28/2020, 13:16. [facility], CR, XR CHEST 1V, 03/31/2020, 0:22. FINDINGS: Surgical changes and devices: Right internal jugular central venous catheter tip projects near the superior cavoatrial junction. Median sternotomy wires are present. Lungs and pleura: No definite acute airspace opacity visualized. No pleural effusion or pneumothorax. Mediastinum: Mediastinal and hilar contours appear similar to before with marked enlargement of the main and both pulmonary arteries better visualized by CT. Cardiac silhouette is enlarged as before. Bones and chest wall: No suspicious bony abnormalities. Soft tissues appear unremarkable. IMPRESSION: No acute cardiopulmonary abnormality. Dictated by: Artie Womack M.D. on 10/11/2021 at 16:55 Approved by: Artie Womack M.D. on 10/11/2021 at 17:01
== END ==
PROVIDERS: PCP Family Medicine; Referring Provider Nurse Practitioner; Visit Provider Nurse Practitioner
DX: J44.1 Chronic obstructive pulmonary disease with (acute) exacerbation (principal)
CPT/HCPCS: 71046

== ENCOUNTER 2021-10-11 19:57 | Inpatient (IN) | payer OTHER, SELFPAY ==
[2021-10-11] VITALS (13 sets, daily range): BP systolic 105–127; BP diastolic 66–79; PULSE 107–115; RESP 10–31; TEMP 36.9; O2SAT 91–98; BMI 21.8
--- NOTE | 2021-10-11 20:05 | DI.RAD.S_ITS ---
PROCEDURE: XR CHEST 1V INDICATIONS: shortness of breath TECHNIQUE: One view of the chest was acquired. COMPARISON: [facility], CR, XR CHEST 2V, 11/28/2020, 13:16. [facility], CT, CT ANGIO CHEST PE PROTOCOL, 03/31/2020, 13:51. [facility], CR, XR CHEST 2V, 10/11/2021, 13:13. FINDINGS: Surgical changes and devices: Postsurgical changes redemonstrated in the mediastinum. A right internal jugular catheter appears unchanged in position. Lungs and pleura: There is hyperinflation of the lungs with flattening of the hemidiaphragms compatible with COPD. There are medial right basilar opacities redemonstrated likely representing atelectasis or scarring. No definite acute consolidation. No pleural effusions or pneumothorax. Mediastinum: Mediastinal contours appear unchanged, with marked enlargement of the pulmonary arteries redemonstrated as seen on prior CT. Heart size is enlarged. Bones and chest wall: No suspicious bony lesions. Overlying soft tissues appear unremarkable. IMPRESSION: 1. Findings compatible with COPD redemonstrated without definite acute airspace opacities. 2. Indistinct medial right basilar opacities redemonstrated likely representing atelectasis or scarring. 3. Marked enlargement of the pulmonary arteries redemonstrated as seen on the prior CT. Dictated by: Miles Barker M.D. on 10/11/2021 at 20:59 Approved by: Miles Barker M.D. on 10/11/2021 at 21:06
[2021-10-11] MEDS: ALBUTEROL/IPRATROPIUM 3 ML AMPUL INH (20:10)
[2021-10-11] MEDS: ALBUTEROL 2.5 MG/3 ML NEB (ADULT) INH ×2 (20:10→23:06)
--- NOTE | 2021-10-11 20:13 | ED_ITS ---
HPI - SOB/Dyspnea General Chief Complaint: Shortness of Breath/Dyspnea Stated Complaint: Difficulty breathing,hx asthma/COPD Time Seen by Provider: 10/11/21 20:06 History of Present Illness HPI Narrative: Patient brought in by ambulance. at bedside. Complains of asthma exacerbation for the past 3 days. Has as needed nasal cannula oxygen at home but has been requiring continuously. Has been using her breathing treatments extensively without resolved. Denies any recent illness fever chills cough cold or congestion. She states it has been the weather that has triggered her asthma that started this past weekend with very hot weather and prior to that the rainy weather but now the wind has really made her asthma worse. 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 Received DuoNeb by EMS prior to arrival. Is on monitor. Receiving another breathing treatment by respiratory therapy now. Solu-Medrol ordered. Patient is sitting up. Protecting airway. In no distress. Has audible wheezing though. Related Data Home Medications Medication Instructions Recorded Confirmed remodulin See Rx Instructions .Route .COMPLEX 04/27/19 10/12/21 riociguat 2.5 mg tablet (Adempas) 2.5 mg PO BID 11/10/19 10/12/21 rosuvastatin 20 mg tablet 20 mg PO DAILY 11/10/20 10/12/21 sacubitril 24 mg-valsartan 26 mg 1 tab PO BID 11/10/20 10/12/21 tablet (Entresto) cholecalciferol (vitamin D3) 25 25 mcg PO DAILY 06/12/21 10/12/21 mcg (1,000 unit) capsule (Vitamin D3) warfarin 6 mg tablet See Rx Instructions .Route .COMPLEX 08/20/21 10/12/21 clopidogrel 75 mg PO DAILY 10/12/21 10/12/21 Previous Rx's Medication Instructions Recorded alendronate 70 mg tablet 70 mg PO QWEEK #56 tabs 11/10/20 furosemide 20 mg tablet See Rx Instructions .Route 09/10/21 .COMPLEX #180 tabs hydromorphone 2 mg tablet 2 mg PO Q6H PRN pain #90 tabs 09/25/21 albuterol sulfate 90 mcg/actuation See Rx Instructions .Route 10/03/21 aerosol inhaler .COMPLEX #18 grams albuterol sulfate 2.5 mg/3 mL 2.5 mg (3 mL) inhalation Q4-6H PRN 10/11/21 (0.083 %) solution for nebulization shortness of breath or wheezing, cough #180 mL benzonatate 100 mg capsule 100 mg PO BID-TID PRN cough #20 10/11/21 caps doxycycline hyclate 100 mg capsule 100 mg PO BID #20 caps 10/11/21 prednisone 20 mg tablet 40 mg PO DAILY #8 tabs 10/11/21 Allergies Allergy/AdvReac Type Severity Reaction Status Date / Time adhesive tape Allergy Intermediate rash Verified 08/22/21 13:45 bupropion [From Wellbutrin] AdvReac Severe mood Verified 08/22/21 13:45 Review of Systems Review of Systems Narrative: GENERAL: Denies chills, fatigue, malaise, fever, sweats. HEENT: Denies sinus pain, ear pain, sore throat RESPIRATORY: Positive for dyspnea, and wheezing CARDIOVASCULAR: Denies chest pain, palpitations GASTROINTESTINAL: Denies nausea, vomiting, abdominal pain : Denies dysuria, frequency, hematuria MUSCULOSKELETAL: denies muscle or bony pain SKIN: Denies rash, skin lesions NEUROLOGIC: Denies weakness, numbness ROS Unobtainable: All systems reviewed & are unremarkable except as noted in HPI and below Patient History Medical History Anxiety Asthma Chronic back pain Encounter for routine gynecological examination Encounter for wellness examination in adult History of blood clots (~2009) History of myocardial infarction (03/2019) 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 LV dysfunction (2018) Menopause Osteopenia after menopause (10/2019) Osteoporosis (10/2019) Pre-procedural examination Pulmonary embolism (2009) Pulmonary hypertension (2009) Situational anxiety Systolic heart failure (~2018) Vision disturbance (09/2019) Social History household members: significant other Smoking Status: Former smoker second hand exposure: No alcohol intake: former substance use type: marijuana Smoking Status: Former smoker alcohol intake frequency: a few times a week Substance Use Type: does not use Exam Narrative Exam Narrative: GENERAL: in no distress, not toxic not dyspneic HEAD: Normocephalic. EYES: Pupils equal round No scleral icterus. ENT: Mucous membranes moist. NECK: Trachea midline. CARDIOVASCULAR: Regular rate and rhythm without murmurs RESPIRATORY: Diminished lung sounds bilaterally upper and lower lobes with diffuse wheezing. Speaking near full sentences. GASTROINTESTINAL: Abdomen soft, non-tender EXTREMITIES: No gross deformities. BACK: No flank tenderness. NEURO: AOx4. SKIN: Warm and dry PSYCH: Not anxious, is cooperative Initial Vital Signs Initial Vital Signs: Vital Signs Temperature 98.5 F 10/11/21 20:02 Pulse Rate 113 H 10/11/21 20:02 Respiratory Rate 28 H 10/11/21 20:02 Blood Pressure 112/79 10/11/21 20:02 Pulse Oximetry 97 10/11/21 20:02 Oxygen Delivery Method 10/11/21 20:02 Oxygen Flow Rate 3 10/11/21 20:02 Course Course Course Narrative: No new issues during course of stay Decision to Admit Date: 10/11/21 Decision to Admit time: 23:33 Orders Ordered: Acetaminophen (Acetaminophen 325 Mg Tablet) 650 mg PO Q6HR PRN PRN Reason: Fever/Mild Pain (1-3) Last Admin: 10/17/21 05:59 Dose: 650 mg Documented By: Admin: 10/16/21 20:41 Dose: 650 mg Documented By: RAFA Albuterol (Albuterol 2.5 Mg/3 Ml Neb (Adult)) 2.5 mg INH [id number] PRN PRN Reason: Shortness Of Breath Last Admin: 10/15/21 02:03 Dose: 2.5 mg Documented By: KALLIE Albuterol/Ipratropium (Albuterol/Ipratropium 3 Ml Ampul) 3 ml INH [id number] JESSY Last Admin: 10/17/21 07:07 Dose: 3 ml Documented By: Admin: 10/16/21 22:43 Dose: 3 ml Documented By: Admin: 10/16/21 19:10 Dose: 3 ml Documented By: Admin: 10/16/21 15:26 Dose: 3 ml Documented By: Admin: 10/16/21 11:14 Dose: 3 ml Documented By: Admin: 10/16/21 08:25 Dose: 3 ml Documented By: Admin: 10/15/21 22:40 Dose: 3 ml Documented By: Admin: 10/15/21 19:16 Dose: 3 ml Documented By: Admin: 10/15/21 15:20 Dose: 3 ml Documented By: Admin: 10/15/21 11:19 Dose: 3 ml Documented By: Admin: 10/15/21 08:21 Dose: 3 ml Documented By: Admin: 10/14/21 23:18 Dose: 3 ml Documented By: Admin: 10/14/21 19:12 Dose: 3 ml Documented By: Admin: 10/14/21 13:41 Dose: 3 ml Documented By: Admin: 10/14/21 11:19 Dose: 3 ml Documented By: Admin: 10/14/21 08:17 Dose: 3 ml Documented By: Admin: 10/14/21 07:32 Dose: Not Given Documented By: Admin: 10/13/21 19:57 Dose: 3 ml Documented By: Admin: 10/13/21 15:31 Dose: 3 ml Documented By: Admin: 10/13/21 10:49 Dose: 3 ml Documented By: Admin: 10/13/21 08:45 Dose: 3 ml Documented By: Admin: 10/13/21 02:46 Dose: 3 ml Documented By: Admin: 10/12/21 23:56 Dose: 3 ml Documented By: Admin: 10/12/21 23:53 Dose: 3 ml Documented By: Admin: 10/12/21 18:11 Dose: 3 ml Documented By: Admin: 10/12/21 14:14 Dose: 3 ml Documented By: Admin: 10/12/21 11:24 Dose: 3 ml Documented By: Admin: 10/12/21 06:56 Dose: 3 ml Documented By: KALLIE Atorvastatin Calcium (Atorvastatin 20 Mg Tablet) 40 mg PO DAILY JESSY Last Admin: 10/17/21 08:26 Dose: 40 mg Documented By: Admin: 10/16/21 09:43 Dose: 40 mg Documented By: Admin: 10/15/21 10:22 Dose: 40 mg Documented By: Admin: 10/14/21 08:18 Dose: 40 mg Documented By: Admin: 10/13/21 09:25 Dose: 40 mg Documented By: Admin: 10/12/21 08:20 Dose: 40 mg Documented By: JLN Benzonatate (Benzonatate 100 Mg Capsule) 100 mg PO TID PRN PRN Reason: Cough Last Admin: 10/15/21 16:48 Dose: 100 mg Documented By: Admin: 10/15/21 10:37 Dose: 100 mg Documented By: Admin: 10/14/21 11:08 Dose: 100 mg Documented By: Admin: 10/13/21 02:46 Dose: 100 mg Documented By: Admin: 10/12/21 08:20 Dose: 100 mg Documented By: Admin: 10/12/21 02:41 Dose: 100 mg Documented By: MIKALA Budesonide (Budesonide 0.5 Mg/2 Ml Neb) 0.5 mg INH RTBID REPLACED BY [facility] Last Admin: 10/17/21 07:07 Dose: 0.5 mg Documented By: Admin: 10/16/21 19:10 Dose: 0.5 mg Documented By: KAYLEY Guaifenesin (Guaifenesin Er 600 Mg Tab) 1,200 mg PO BID REPLACED BY [facility] Last Admin: 10/17/21 08:26 Dose: 1,200 mg Documented By: Admin: 10/16/21 20:41 Dose: 1,200 mg Documented By: Admin: 10/16/21 09:43 Dose: 1,200 mg Documented By: Admin: 10/15/21 21:47 Dose: 1,200 mg Documented By: Admin: 10/15/21 14:23 Dose: 600 mg Documented By: MARIVEL Heparin Sodium (Porcine) (Heparin Flush (Cl/Picc/Mid-Line) 50 Unit/5 Ml Syringe) 50 unit IV BID REPLACED BY [facility] Last Admin: 10/17/21 08:26 Dose: 50 unit Documented By: Admin: 10/16/21 20:47 Dose: 50 unit Documented By: RAFA Hydromorphone HCl (Hydromorphone 2 Mg Tablet) 2 mg PO Q6H PRN PRN Reason: pain Last Admin: 10/14/21 11:08 Dose: 2 mg Documented By: Admin: 10/13/21 10:38 Dose: 2 mg Documented By: Admin: 10/13/21 00:00 Dose: 2 mg Documented By: Admin: 10/12/21 14:16 Dose: 2 mg Documented By: Admin: 10/12/21 08:19 Dose: 2 mg Documented By: Admin: 10/12/21 02:41 Dose: 2 mg Documented By: MIKALA Dextrose (D10w) 250 mls @ 999 mls/hr IV PRN PRN PRN Reason: Hypoglycemia Last Infusion: 10/14/21 11:16 Dose: 0 mls/hr Documented By: Admin: 10/14/21 10:53 Dose: 999 mls/hr Documented By: LIZ Multivitamins 10 ml/ Chromium/Copper/Manganese/Seleni/Zn 1 ml/ Amino Acids/Electrolytes 1,011 mls @ 42.125 mls/hr IV 1800 JESSY Stop: 10/17/21 17:59 Last Admin: 10/16/21 17:55 Dose: 42.125 mls/hr Documented By: CAMI Lorazepam (Lorazepam 1 Mg Tablet) 1 mg PO Q6HR PRN PRN Reason: Anxiety Last Admin: 10/17/21 01:58 Dose: 1 mg Documented By: Admin: 10/15/21 16:45 Dose: 1 mg Documented By: Admin: 10/15/21 11:00 Dose: 1 mg Documented By: Admin: 10/14/21 15:53 Dose: 1 mg Documented By: Admin: 10/14/21 08:15 Dose: 1 mg Documented By: Admin: 10/13/21 22:29 Dose: 1 mg Documented By: Admin: 10/13/21 11:23 Dose: 1 mg Documented By: Admin: 10/13/21 00:00 Dose: 1 mg Documented By: Admin: 10/12/21 14:16 Dose: 1 mg Documented By: HILDA Morphine Sulfate (Morphine 2 Mg/Ml Inj) 2 mg IV Q2HR PRN PRN Reason: Pain, Moderate (4-6) Last Admin: 10/15/21 17:08 Dose: 2 mg Documented By: Admin: 10/15/21 09:09 Dose: 1 mg Documented By: Admin: 10/14/21 02:29 Dose: 2 mg Documented By: Admin: 10/14/21 00:00 Dose: 2 mg Documented By: Admin: 10/13/21 21:58 Dose: 2 mg Documented By: Admin: 10/13/21 18:18 Dose: 2 mg Documented By: Admin: 10/13/21 03:03 Dose: 2 mg Documented By: MIKALA Adempas (Riociguat) (2.5 Mg Tab) 2.5 mg PO BID JESSY Last Admin: 10/17/21 08:27 Dose: 2.5 mg Documented By: Admin: 10/16/21 20:44 Dose: 2.5 mg Documented By: Admin: 10/16/21 09:44 Dose: 2.5 mg Documented By: Admin: 10/15/21 21:24 Dose: Not Given Documented By: Admin: 10/15/21 10:23 Dose: 2.5 mg Documented By: Admin: 10/14/21 20:22 Dose: 2.5 mg Documented By: Admin: 10/14/21 08:18 Dose: 2.5 mg Documented By: Admin: 10/13/21 21:51 Dose: 2.5 mg Documented By: Admin: 10/13/21 09:26 Dose: 2.5 mg Documented By: Admin: 10/12/21 19:48 Dose: 2.5 mg Documented By: Admin: 10/12/21 14:27 Dose: 2.5 mg Documented By: HILDA Entresto (Sacubitril -Valsartan 24-26 Mg Tab) 1 tab PO BID REPLACED BY [facility] Last Admin: 10/17/21 08:27 Dose: 1 tab Documented By: Admin: 10/16/21 20:43 Dose: 1 tab Documented By: Admin: 10/16/21 09:44 Dose: 1 tab Documented By: Admin: 10/15/21 21:24 Dose: Not Given Documented By: Admin: 10/15/21 10:23 Dose: 1 tab Documented By: Admin: 10/14/21 20:22 Dose: 1 tab Documented By: Admin: 10/14/21 08:18 Dose: 1 tab Documented By: Admin: 10/13/21 21:50 Dose: 1 tab Documented By: Admin: 10/13/21 09:27 Dose: 1 tab Documented By: Admin: 10/12/21 19:48 Dose: 1 tab Documented By: Admin: 10/12/21 14:27 Dose: 1 tab Documented By: HILDA Remodulin ( (Treprostinil) Pump) 0 each IV CONT JESSY Last Admin: 10/12/21 11:49 Dose: Not Given Documented By: HILDA Home Med Storage 0 each PO PRN PRN PRN Reason: HOME MED STORAGE Ondansetron HCl (Ondansetron 4 Mg/2 Ml Inj) 4 mg IV Q8HR PRN PRN Reason: Nausea And Vomiting Last Admin: 10/16/21 13:27 Dose: 4 mg Documented By: Admin: 10/13/21 18:23 Dose: 4 mg Documented By: Admin: 10/13/21 11:18 Dose: 4 mg Documented By: Admin: 10/13/21 01:12 Dose: 4 mg Documented By: MIKALA Sodium Chloride (Sodium Chloride 0.9% Flush) 10 ml IV PRN PRN PRN Reason: Flush Last Admin: 10/14/21 02:29 Dose: 10 ml Documented By: Admin: 10/14/21 00:01 Dose: 10 ml Documented By: Admin: 10/13/21 21:59 Dose: 10 ml Documented By: LILIBETH Sodium Chloride (Sodium Chloride 0.9% Flush) 10 ml IV BID REPLACED BY [facility] Last Admin: 10/17/21 08:29 Dose: 10 ml Documented By: Admin: 10/16/21 21:56 Dose: 10 ml Documented By: Admin: 10/16/21 09:44 Dose: 10 ml Documented By: Admin: 10/15/21 21:48 Dose: 10 ml Documented By: Admin: 10/15/21 11:20 Dose: 10 ml Documented By: Admin: 10/14/21 20:50 Dose: 10 ml Documented By: Admin: 10/14/21 08:17 Dose: 10 ml Documented By: Admin: 10/13/21 21:51 Dose: 10 ml Documented By: Admin: 10/13/21 09:27 Dose: 10 ml Documented By: Admin: 10/12/21 19:49 Dose: 10 ml Documented By: Admin: 10/12/21 08:21 Dose: 10 ml Documented By: HILDA Warfarin Sodium (Warfarin 2 Mg Tablet) 6 mg PO 1700 REPLACED BY [facility] Last Admin: 10/16/21 17:53 Dose: 6 mg Documented By: CAMI Discontinued Medications Albuterol (Albuterol 2.5 Mg/3 Ml Neb (Adult)) 2.5 mg INH NOW ONE Stop: 10/11/21 20:11 Last Admin: 10/11/21 20:10 Dose: 2.5 mg Documented By: TV Albuterol (Albuterol 2.5 Mg/3 Ml Neb (Adult)) 5 mg INH NOW ONE Stop: 10/11/21 20:55 Last Admin: 10/11/21 21:00 Dose: 5 mg Documented By: TV Albuterol (Albuterol 2.5 Mg/3 Ml Neb (Adult)) 2.5 mg INH [id number] PRN PRN Reason: Shortness Of Breath Last Admin: 10/11/21 23:06 Dose: 2.5 mg Documented By: TV Albuterol (Albuterol Hfa Mdi 60 Puff/8 Gm Inhaler) 2 puff INH RTQ4HR PRN PRN Reason: Shortness Of Breath Or Wheezing Albuterol (Albuterol 2.5 Mg/3 Ml Neb (Adult)) 2.5 mg INH Q4H PRN PRN Reason: shortness of breath or wheezing, cough Last Admin: 10/12/21 08:38 Dose: 2.5 mg Documented By: Admin: 10/12/21 02:30 Dose: 2.5 mg Documented By: TV Albuterol (Albuterol 2.5 Mg/3 Ml Neb (Adult)) 2.5 mg INH [id number] JESSY Last Admin: 10/12/21 10:31 Dose: Not Given Documented By: KALLIE Albuterol/Ipratropium (Albuterol/Ipratropium 3 Ml Ampul) 3 ml INH NOW ONE Stop: 10/11/21 20:11 Last Admin: 10/11/21 20:10 Dose: 3 ml Documented By: KAYLEY Albuterol/Ipratropium (Albuterol/Ipratropium 3 Ml Ampul) 3 ml INH RTQ4HR PRN PRN Reason: Shortness Of Breath Dextrose (Dextrose 50 % In Water 25 Gm/50 Ml Syringe) 25 gm IV NOW ONE Stop: 10/14/21 09:48 Last Admin: 10/14/21 11:21 Dose: Not Given Documented By: LIZ Diphenhydramine HCl (Diphenhydramine 25 Mg Tablet) 25 mg PO NOW ONE Stop: 10/16/21 09:48 Last Admin: 10/16/21 09:59 Dose: 25 mg Documented By: CAMI Enoxaparin Sodium (Enoxaparin 30 Mg/0.3 Ml Syringe) 30 mg SUBCUT DAILY REPLACED BY [facility] Furosemide (Furosemide 20 Mg/2 Ml Vial) 20 mg IV DAILY REPLACED BY [facility] Last Admin: 10/14/21 08:19 Dose: 20 mg Documented By: Admin: 10/13/21 09:25 Dose: 20 mg Documented By: Guaifenesin (Guaifenesin Er 600 Mg Tab) 600 mg PO Q12HR PRN PRN Reason: Cough Last Admin: 10/14/21 00:00 Dose: 600 mg Documented By: Admin: 10/13/21 11:18 Dose: 600 mg Documented By: Sodium Chloride (Normal Saline 0.9%) 1,000 mls @ 60 mls/hr IV CONT JESSY Last Infusion: 10/12/21 06:58 Dose: 0 mls/hr Documented By: Admin: 10/12/21 04:13 Dose: 60 mls/hr Documented By: MIKALA Azithromycin 500 mg/ Dextrose 250 mls @ 250 mls/hr IV Q24H JESSY Stop: 10/16/21 11:59 Last Infusion: 10/16/21 14:43 Dose: 0 mls/hr Documented By: Admin: 10/16/21 11:42 Dose: 250 mls/hr Documented By: Infusion: 10/15/21 17:09 Dose: 0 mls/hr Documented By: Admin: 10/15/21 10:27 Dose: 250 mls/hr Documented By: Infusion: 10/14/21 14:33 Dose: 0 mls/hr Documented By: Admin: 10/14/21 13:14 Dose: 250 mls/hr Documented By: Infusion: 10/13/21 20:03 Dose: 0 mls/hr Documented By: Admin: 10/13/21 10:39 Dose: 250 mls/hr Documented By: Infusion: 10/12/21 12:45 Dose: 0 mls/hr Documented By: Admin: 10/12/21 11:42 Dose: 250 mls/hr Documented By: HILDA Calcium Gluconate 4.65 meq/ (Sodium Chloride) 60 mls @ 180 mls/hr IV NOW ONE Stop: 10/14/21 10:06 Last Infusion: 10/14/21 11:21 Dose: 0 mls/hr Documented By: Admin: 10/14/21 10:58 Dose: 180 mls/hr Documented By: LIZ Dextrose (Dextrose 5% Water) 1,000 mls @ 75 mls/hr IV CONT JESSY Stop: 10/14/21 14:59 Last Infusion: 10/14/21 16:10 Dose: 0 mls/hr Documented By: Admin: 10/14/21 11:10 Dose: 75 mls/hr Documented By: LIZ Insulin Human Regular (Insulin Regular 100 Unit/Ml 3 Ml Vial) 10 unit IV NOW ONE Stop: 10/14/21 09:48 Last Admin: 10/14/21 10:58 Dose: 10 unit Documented By: LIZ Co-signed By: MARIVEL Lorazepam (Lorazepam 2 Mg/Ml Inj) 0.5 mg IV NOW ONE Stop: 10/11/21 21:44 Last Admin: 10/11/21 21:47 Dose: 0.5 mg Documented By: GETACHEW Methylprednisolone (Methylprednisolone 125 Mg/2 Ml Vial) 125 mg IV NOW ONE Stop: 10/11/21 20:11 Last Admin: 10/11/21 20:14 Dose: 125 mg Documented By: JATINDER Midodrine (Midodrine Hcl 5 Mg Tablet) 5 mg PO NOW ONE Stop: 10/15/21 21:18 Last Admin: 10/15/21 21:47 Dose: 5 mg Documented By: RAFA Morphine Sulfate (Morphine 4 Mg/Ml Inj) 2 mg IV NOW ONE Stop: 10/11/21 20:41 Last Admin: 10/11/21 20:43 Dose: 2 mg Documented By: JATINDER Ondansetron HCl (Ondansetron 4 Mg/2 Ml Inj) 4 mg IV NOW ONE Stop: 10/11/21 20:41 Last Admin: 10/11/21 20:43 Dose: 4 mg Documented By: JATINDER Prednisone (Prednisone 20 Mg Tablet) 40 mg PO DAILY REPLACED BY [facility] Stop: 10/16/21 08:59 Last Admin: 10/15/21 10:22 Dose: 40 mg Documented By: Admin: 10/14/21 08:19 Dose: 40 mg Documented By: Admin: 10/13/21 09:25 Dose: 40 mg Documented By: Admin: 10/12/21 08:19 Dose: 40 mg Documented By: HILDA Warfarin Sodium (Warfarin 1 Mg Tablet) 3 mg PO DAILY@1700 REPLACED BY [facility] Warfarin Sodium (Warfarin 1 Mg Tablet) 3 mg PO DAILY@1700 REPLACED BY [facility] Stop: 10/15/21 17:01 Last Admin: 10/15/21 17:11 Dose: 3 mg Documented By: MARIVEL Reevaluation(s) Reevaluation #1: Patient and partner agree for admit. Patient protecting airway without difficulty. Tolerating BiPAP. Consultations Consultation #1: Reviewed with hospitalist, michelle Sawyer admit Time: 23:34 Vital Signs Vital signs: Vital Signs - 8 hr 10/11/21 20:02 10/11/21 20:30 10/11/21 20:10 Temperature 98.5 F Pulse Rate 113 H 115 H Respiratory Rate 28 H 30 H Blood Pressure 112/79 127/71 Pulse Oximetry 97 94 94 Oxygen Delivery Method Nasal Cannula Nasal Cannula Nasal Cannula Oxygen Flow Rate 3 2 Fraction of Inspired Oxygen 10/11/21 21:00 10/11/21 21:00 10/11/21 20:52 Temperature Pulse Rate 111 H Respiratory Rate 28 H Blood Pressure Pulse Oximetry 98 97 Oxygen Delivery Method BiPAP Oxygen Flow Rate Fraction of Inspired Oxygen 28 28 10/11/21 21:00 10/11/21 21:00 10/11/21 21:30 Temperature Pulse Rate 109 H Respiratory Rate 29 H Blood Pressure 124/69 112/72 Pulse Oximetry 98 Oxygen Delivery Method Oxygen Flow Rate Fraction of Inspired Oxygen 10/11/21 21:30 10/11/21 22:33 10/11/21 22:35 Temperature Pulse Rate 109 H Respiratory Rate 26 H Blood Pressure Pulse Oximetry 96 93 Oxygen Delivery Method BiPAP Oxygen Flow Rate Fraction of Inspired Oxygen 35 35 10/11/21 23:07 10/11/21 23:07 Temperature Pulse Rate Respiratory Rate Blood Pressure Pulse Oximetry 93 Oxygen Delivery Method BiPAP Oxygen Flow Rate Fraction of Inspired Oxygen 35 35 MDM - SOB/Dyspnea Differential Diagnosis Differential diagnosis: Likely acute exacerbation of chronic obstructive airways disease, congestive heart failure, community acquired pneumonia, asthma with exacerbation, pulmonary embolism and other (Asthma exacerbation) Lab Data Result diagrams: 10/17/21 05:40 10/17/21 05:40 Labs: Lab Results 10/11/21 10/11/21 10/11/21 Range/Units 20:03 20:03 20:03 WBC 7.0 (4.5-11.0) X10^3/uL RBC 5.12 (4.0-5.2) X10^6/uL Hgb 14.3 (12.0-16.0) g/dL Hct 43.9 (36-46) % MCV 85.8 (80-100) fL MCH 27.9 (26-34) PG MCHC 32.5 (30-36) % RDW 14.5 (11.6-14.8) % Plt Count 110 L (150-400) X10^3/uL Neut % (Auto) 71.8 (50-75) % Lymph % (Auto) 18.3 L (25-40) % Henry % (Auto) 8.1 (3-14) % Eos % (Auto) 0.8 L (2-4) % Baso % (Auto) 1.0 (0-2) % Neut # (Auto) 5000 (5515-0005) /uL Lymph # (Auto) 1300 (7214-1738) /uL Henry # (Auto) 600 (0-900) /uL Eos # (Auto) 100 (0-450) /uL Baso # (Auto) 100 (0-100) /uL PT 66.4 H (10.1-12.7) SECONDS INR 5.7 H* (0.9-1.3) ABG pH (7.35-7.45) ABG pCO2 (35-45) mmHg ABG pO2 (80-100) mmHg ABG HCO3 (22-26) mmol/L ABG Total CO2 (21-31) mmol/L ABG O2 Saturation (95-100) % ABG Base Excess (-2-2) mmol/L FiO2 Sodium 138 (137-145) mmol/L Potassium 4.1 (3.4-5.1) mmol/L Chloride 101 (98-107) mmol/L Carbon Dioxide 31 (22-32) mmol/L BUN 21 H (7-17) mg/dL Creatinine 0.69 (0.52-1.04) mg/dL Estimated GFR > 60 (>60) mL/min BUN/Creatinine Ratio 30.4 H (6-22) Glucose 97 (70-100) mg/dL Lactate (0.7-2.1) mmol/L Calcium 9.0 (8.4-10.2) mg/dL Total Bilirubin 0.6 (0.2-1.3) mg/dL AST 28 (14-36) IU/L ALT 20 (<35) IU/L Alkaline Phosphatase 63 (38-126) U/L NT-Pro-B Natriuret Pep 1720 H (<125) pg/mL Total Protein 7.5 (6.3-8.2) g/dL Albumin 4.6 (3.5-5.0) g/dL Globulin 2.9 (1.7-4.1) g/dL Albumin/Globulin Ratio 1.6 (1.0-2.8) Chlamy pneumoniae PCR (Not Detect) Adenovirus (PCR) (Not Detect) B. pertussis DNA (PCR) (Not Detecte) B.parapertussis DNA PCR (Not Detecte) Coronavirus OC43 (PCR) (Not Detect) Coronavirus HKU1 (PCR) (Not Detect) Coronavirus 229E (PCR) (Not Detect) SARS-CoV-2 (PCR) (Negative) Coronavirus NL63 (PCR) (Not Detect) Human Metapneumovir PCR (Not Detect) Influenza Type A (PCR) (Not Detect) Influenza Type B (PCR) (Not Detect) M. pneumoniae (PCR) (Not Detect) Parainfluenza 1 (PCR) (Not Detect) Parainfluenza 2 (PCR) (Not Detect) Parainfluenza 3 (PCR) (Not Detect) Parainfluenza 4 (PCR) (Not Detect) RSV (PCR) (Not Detect) Entero/Rhino (PCR) (Not Detect) 10/11/21 10/11/21 10/11/21 Range/Units 20:03 20:03 20:29 WBC (4.5-11.0) X10^3/uL RBC (4.0-5.2) X10^6/uL Hgb (12.0-16.0) g/dL Hct (36-46) % MCV (80-100) fL MCH (26-34) PG MCHC (30-36) % RDW (11.6-14.8) % Plt Count (150-400) X10^3/uL Neut % (Auto) (50-75) % Lymph % (Auto) (25-40) % Henry % (Auto) (3-14) % Eos % (Auto) (2-4) % Baso % (Auto) (0-2) % Neut # (Auto) (7325-7323) /uL Lymph # (Auto) (0595-6903) /uL Henry # (Auto) (0-900) /uL Eos # (Auto) (0-450) /uL Baso # (Auto) (0-100) /uL PT (10.1-12.7) SECONDS INR (0.9-1.3) ABG pH (7.35-7.45) ABG pCO2 (35-45) mmHg ABG pO2 (80-100) mmHg ABG HCO3 (22-26) mmol/L ABG Total CO2 (21-31) mmol/L ABG O2 Saturation (95-100) % ABG Base Excess (-2-2) mmol/L FiO2 Sodium (137-145) mmol/L Potassium (3.4-5.1) mmol/L Chloride (98-107) mmol/L Carbon Dioxide (22-32) mmol/L BUN (7-17) mg/dL Creatinine (0.52-1.04) mg/dL Estimated GFR (>60) mL/min BUN/Creatinine Ratio (6-22) Glucose (70-100) mg/dL Lactate 1.4 (0.7-2.1) mmol/L Calcium (8.4-10.2) mg/dL Total Bilirubin (0.2-1.3) mg/dL AST (14-36) IU/L ALT (<35) IU/L Alkaline Phosphatase (38-126) U/L NT-Pro-B Natriuret Pep (<125) pg/mL Total Protein (6.3-8.2) g/dL Albumin (3.5-5.0) g/dL Globulin (1.7-4.1) g/dL Albumin/Globulin Ratio (1.0-2.8) Chlamy pneumoniae PCR Not detected (Not Detect) Adenovirus (PCR) Not detected (Not Detect) B. pertussis DNA (PCR) Not detected (Not Detecte) B.parapertussis DNA PCR Not detected (Not Detecte) Coronavirus OC43 (PCR) Not detected (Not Detect) Coronavirus HKU1 (PCR) Not detected (Not Detect) Coronavirus 229E (PCR) Not detected (Not Detect) SARS-CoV-2 (PCR) Negative Not detected (Negative) Coronavirus NL63 (PCR) Not detected (Not Detect) Human Metapneumovir PCR Not detected (Not Detect) Influenza Type A (PCR) Not detected (Not Detect) Influenza Type B (PCR) Not detected (Not Detect) M. pneumoniae (PCR) Not detected (Not Detect) Parainfluenza 1 (PCR) Not detected (Not Detect) Parainfluenza 2 (PCR) Not detected (Not Detect) Parainfluenza 3 (PCR) Not detected (Not Detect) Parainfluenza 4 (PCR) Not detected (Not Detect) RSV (PCR) Not detected (Not Detect) Entero/Rhino (PCR) Not detected (Not Detect) 10/11/21 Range/Units 22:45 WBC (4.5-11.0) X10^3/uL RBC (4.0-5.2) X10^6/uL Hgb (12.0-16.0) g/dL Hct (36-46) % MCV (80-100) fL MCH (26-34) PG MCHC (30-36) % RDW (11.6-14.8) % Plt Count (150-400) X10^3/uL Neut % (Auto) (50-75) % Lymph % (Auto) (25-40) % Henry % (Auto) (3-14) % Eos % (Auto) (2-4) % Baso % (Auto) (0-2) % Neut # (Auto) (6864-6553) /uL Lymph # (Auto) (0569-7517) /uL Henry # (Auto) (0-900) /uL Eos # (Auto) (0-450) /uL Baso # (Auto) (0-100) /uL PT (10.1-12.7) SECONDS INR (0.9-1.3) ABG pH 7.27 L* (7.35-7.45) ABG pCO2 71.1 H* (35-45) mmHg ABG pO2 90 (80-100) mmHg ABG HCO3 33 H (22-26) mmol/L ABG Total CO2 35 H (21-31) mmol/L ABG O2 Saturation 95 (95-100) % ABG Base Excess 6.0 H (-2-2) mmol/L FiO2 35 Sodium (137-145) mmol/L Potassium (3.4-5.1) mmol/L Chloride (98-107) mmol/L Carbon Dioxide (22-32) mmol/L BUN (7-17) mg/dL Creatinine (0.52-1.04) mg/dL Estimated GFR (>60) mL/min BUN/Creatinine Ratio (6-22) Glucose (70-100) mg/dL Lactate (0.7-2.1) mmol/L Calcium (8.4-10.2) mg/dL Total Bilirubin (0.2-1.3) mg/dL AST (14-36) IU/L ALT (<35) IU/L Alkaline Phosphatase (38-126) U/L NT-Pro-B Natriuret Pep (<125) pg/mL Total Protein (6.3-8.2) g/dL Albumin (3.5-5.0) g/dL Globulin (1.7-4.1) g/dL Albumin/Globulin Ratio (1.0-2.8) Chlamy pneumoniae PCR (Not Detect) Adenovirus (PCR) (Not Detect) B. pertussis DNA (PCR) (Not Detecte) B.parapertussis DNA PCR (Not Detecte) Coronavirus OC43 (PCR) (Not Detect) Coronavirus HKU1 (PCR) (Not Detect) Coronavirus 229E (PCR) (Not Detect) SARS-CoV-2 (PCR) (Negative) Coronavirus NL63 (PCR) (Not Detect) Human Metapneumovir PCR (Not Detect) Influenza Type A (PCR) (Not Detect) Influenza Type B (PCR) (Not Detect) M. pneumoniae (PCR) (Not Detect) Parainfluenza 1 (PCR) (Not Detect) Parainfluenza 2 (PCR) (Not Detect) Parainfluenza 3 (PCR) (Not Detect) Parainfluenza 4 (PCR) (Not Detect) RSV (PCR) (Not Detect) Entero/Rhino (PCR) (Not Detect) Imaging Data Chest x-ray: Radiologist's Impression: [address] [address] XRay Report Signed Patient: Dagmar Lawrence MR#: [id number] : 1965 Acct:[id number] Age/Sex: 56 / F Date of Service: 10/11/21 Loc: ED Accession Number: [id number] ?? Procedure: XR chest 2V Ordering Provider: Hossein Sapp MD PROCEDURE:? XR CHEST 1V ? INDICATIONS:? shortness of breath ? TECHNIQUE:? One view of the chest was acquired.? ? COMPARISON:? [facility], CR, XR CHEST 2V, 11/28/2020, 13:16.? [facility], CT, CT ANGIO CHEST PE PROTOCOL, 03/31/2020, 13:51.? [facility], CR, XR CHEST 2V, 10/11/2021, 13:13. ? FINDINGS:? ? Surgical changes and devices:? Postsurgical changes redemonstrated in the mediastinum.? A right internal jugular catheter appears unchanged in position. ? Lungs and pleura:? There is hyperinflation of the lungs with flattening of the hemidiaphragms compatible with COPD.? There are medial right basilar opacities redemonstrated likely representing atelectasis or scarring.? No definite acute consolidation.? No pleural effusions or pneumothorax.? ? Mediastinum:? Mediastinal contours appear unchanged, with marked enlargement of the pulmonary arteries redemonstrated as seen on prior CT.? Heart size is enlarged.? ? Bones and chest wall:? No suspicious bony lesions.? Overlying soft tissues appear unremarkable.? ? IMPRESSION:? ? 1. Findings compatible with COPD redemonstrated without definite acute airspace opacities.? ? 2. Indistinct medial right basilar opacities redemonstrated likely representing atelectasis or scarring. ? 3. Marked enlargement of the pulmonary arteries redemonstrated as seen on the prior CT. ? ? Dictated by: Miles Barker M.D. on 10/11/2021 at 20:59 ? ? Approved by: Miles Barker M.D. on 10/11/2021 at 21:06 ? ECG Data Interpretation: Sinus tachycardia rate [address] elevation depression MDM Narrative Medical decision making narrative: Appropriate for admission to ICU as patient requiring supportive care/BiPAP. Patient tolerating BiPAP very well. She does not want to be intubated. She would like to try BiPAP. Reviewed with hospitalist and agrees for admit for ICU. Critical Care Time Critical Care Time Attestation: Critical Care Time 35 minutes: Critical care time is separate from other billable procedures. This critical care time includes consultation with family and other consulting doctors, review of records, and interpretation of data from labs, EKGs, imaging, etc. Discharge Plan Departure Patient Disposition: Admitted as Observation Clinical Impression: Asthma exacerbation, Respiratory failure Admit Date/Time: 10/11/21 23:33 Admit Provider: Digna Clemons
[2021-10-11 20:14] LABS: Add Manual Diff / Slide Review NO; Basophils Absolute Auto 100 /uL (0-100); Eosinophils Absolute Auto 100 /uL (0-450); Eosinophils Percent Auto 0.8 % (2-4); Hematocrit 43.9 % (36-46); Hemoglobin 14.3 g/dL (12.0-16.0); Lymphocytes Absolute Auto 1300 /uL (1100-4500); Lymphocytes Percent Auto 18.3 % (25-40); Mean Corpuscular HGB Conc 32.5 % (30-36); Mean Corpuscular Hemoglobin 27.9 PG (26-34); Mean Corpuscular Volume 85.8 fL (80-100); Monocytes Absolute Auto 600 /uL (0-900); Monocytes Percent Auto 8.1 % (3-14); Neutrophils Absolute Auto 5000 /uL (1500-7000); Neutrophils Percent Auto 71.8 % (50-75); Platelet Count 110 X10^3/uL (150-400); Red Blood Cell Count 5.12 X10^6/uL (4.0-5.2); Red Cell Distribution Width 14.5 % (11.6-14.8)
[2021-10-11] MEDS: methylPREDNISolone 125 MG/2 ML VIAL IV (20:14)
[2021-10-11 20:19] LABS: Prothrombin Time 66.4 SECONDS (10.1-12.7)
[2021-10-11 20:21] LABS: INR 5.7 (0.9-1.3)
[2021-10-11 20:23] LABS: Alanine Aminotransferase 20 IU/L (<35); Albumin 4.6 g/dL (3.5-5.0); Albumin Globulin Ratio 1.6 (1.0-2.8); Alkaline Phosphatase 63 U/L (38-126); Aspartate Aminotransferase 28 IU/L (14-36); BUN Creatinine Ratio 30.4 (6-22); Bilirubin Total 0.6 mg/dL (0.2-1.3); Blood Urea Nitrogen 21 mg/dL (7-17); Carbon Dioxide 31 mmol/L (22-32); Chloride 101 mmol/L (98-107); Estimated Glomerular Filt Rate > 60 mL/min (>60); Globulin 2.9 g/dL (1.7-4.1); Glucose 97 mg/dL (70-100); HEMOLYSIS < 15 (0-50); Lactate (Lactic Acid) 1.4 mmol/L (0.7-2.1); Potassium 4.1 mmol/L (3.4-5.1); Sodium 138 mmol/L (137-145); Total Protein 7.5 g/dL (6.3-8.2)
[2021-10-11 20:27] LABS: COVID19 -Nasal RAPID Negative (Negative)
[2021-10-11 20:32] LABS: NT-proBNP (BNP-Adult 18+) 1720 pg/mL (<125)
[2021-10-11] MEDS: MORPHINE 4 MG/ML INJ 2 MG IV (20:43)
[2021-10-11] MEDS: ONDANSETRON 4 MG/2 ML INJ IV (20:43)
--- NOTE | 2021-10-11 20:49 | PC.NURSE ---
RT at bedside applying BIPAP to pt. Pt SOB is improving and pt reports improvement in ease of breathing. Pt's wheezing is no longer audible from across the room and she is able to speak in short phrases. Pt continues to be tachypneic at 33bpm and continues to tripod.
[2021-10-11] MEDS: ALBUTEROL 2.5 MG/3 ML NEB (ADULT) 5 MG INH (21:00)
[2021-10-11] MEDS: LORazepam 2 MG/ML INJ 0.5 MG IV (21:47)
[2021-10-11 22:11] LABS: Adenovirus Not Detected (Not Detect); B. parapertussis Not Detected (Not Detecte); Bordetella pertussis Not Detected (Not Detecte); Chlamydophila pneumoniae Not Detected (Not Detect); Coronavirus 229E Not Detected (Not Detect); Coronavirus HKU1 Not Detected (Not Detect); Coronavirus NL 63 Not Detected (Not Detect); Coronavirus OC43 Not Detected (Not Detect); Human Metapneumovirus Not Detected (Not Detect); Human Rhinovirus/Enterovirus Not Detected (Not Detect); Influenza A Not Detected (Not Detect); Influenza B Not Detected (Not Detect); Mycoplasma pneumoniae Not Detected (Not Detect); Parainfluenza Virus 1 Not Detected (Not Detect); Parainfluenza Virus 2 Not Detected (Not Detect); Parainfluenza Virus 3 Not Detected (Not Detect); Parainfluenza Virus 4 Not Detected (Not Detect); Respiratory Syncytial Virus Not Detected (Not Detect); SARS- CoV-2 Not Detected (Not Detecte)
[2021-10-11 23:03] LABS: Fractionated Inspired Oxygen 35; HCO3 ABG 33 mmol/L (22-26); Oxygen Saturation ABG 95 % (95-100); PCO2 ABG 71.1 mmHg (35-45); PO2 ABG 90 mmHg (80-100); TCO2 ABG 35 mmol/L (21-31); pH ABG 7.27 (7.35-7.45)
[2021-10-12] VITALS (25 sets, daily range): BP systolic 91–111; BP diastolic 55–70; PULSE 91–105; RESP 10–30; TEMP 36.7–37.3; O2SAT 91–98; BMI 21.9
--- NOTE | 2021-10-12 02:00 | PC.ADMIT ---
[email or web address] Admission Note: The patient,Dagmar Lawrence,56 y/o, was given written information regarding hospital policies, unit procedures and contact persons. Patient's smoking status: Former smoker. Vital Signs - 8 hr 10/11/21 20:02 10/11/21 20:30 10/11/21 20:10 Temperature 98.5 F Pulse Rate 113 H 115 H Respiratory Rate 28 H 30 H Blood Pressure 112/79 127/71 Pulse Oximetry 97 94 94 Oxygen Delivery Method Nasal Cannula Nasal Cannula Nasal Cannula Oxygen Flow Rate 3 2 Fraction of Inspired Oxygen 10/11/21 21:00 10/11/21 21:00 10/11/21 20:52 Temperature Pulse Rate 111 H Respiratory Rate 28 H Blood Pressure Pulse Oximetry 98 97 Oxygen Delivery Method BiPAP Oxygen Flow Rate Fraction of Inspired Oxygen 28 28 10/11/21 21:00 10/11/21 21:00 10/11/21 21:30 Temperature Pulse Rate 109 H Respiratory Rate 29 H Blood Pressure 124/69 112/72 Pulse Oximetry 98 Oxygen Delivery Method Oxygen Flow Rate Fraction of Inspired Oxygen 10/11/21 21:30 10/11/21 22:33 10/11/21 22:35 Temperature Pulse Rate 109 H Respiratory Rate 26 H Blood Pressure Pulse Oximetry 96 93 Oxygen Delivery Method BiPAP Oxygen Flow Rate Fraction of Inspired Oxygen 35 35 10/11/21 23:07 10/11/21 23:07 10/11/21 22:00 Temperature Pulse Rate 107 H Respiratory Rate 27 H Blood Pressure 111/70 Pulse Oximetry 93 95 Oxygen Delivery Method BiPAP BiPAP Oxygen Flow Rate Fraction of Inspired Oxygen 35 35 10/11/21 22:30 10/11/21 23:00 10/11/21 23:30 Temperature 98.5 F Pulse Rate 109 H 110 H 107 H Respiratory Rate 25 H 27 H 21 Blood Pressure 105/66 107/73 105/67 Pulse Oximetry 91 95 97 Oxygen Delivery Method BiPAP BiPAP Oxygen Flow Rate Fraction of Inspired Oxygen 10/12/21 00:00 10/12/21 00:11 10/12/21 00:11 Temperature Pulse Rate 103 H 104 H Respiratory Rate 16 26 H Blood Pressure 105/63 103/70 Pulse Oximetry 94 95 Oxygen Delivery Method BiPAP Oxygen Flow Rate Fraction of Inspired Oxygen 10/12/21 00:30 10/12/21 01:00 10/12/21 01:00 Temperature Pulse Rate 103 H 99 H Respiratory Rate 24 18 Blood Pressure 102/64 Pulse Oximetry 95 94 Oxygen Delivery Method Oxygen Flow Rate Fraction of Inspired Oxygen 10/12/21 00:15 Temperature Pulse Rate Respiratory Rate Blood Pressure Pulse Oximetry Oxygen Delivery Method BiPAP Oxygen Flow Rate Fraction of Inspired Oxygen Patient Admitted to ICU Room 226 at 0015, A/Ox4. Bi-pap on .35 FIO2, 14/5, RR 20s, SpO2 95%, coarse inspiratory and expiratory wheezes throughout, able to speak in short sentences, HOB high Fowlers. ST with BBB rate 103, BP 98/78. Able to review medication list, then wanted to rest, will finish Admit Assessment when patient able to converse better.
[2021-10-12] MEDS: ALBUTEROL 2.5 MG/3 ML NEB (ADULT) INH ×2 (02:30→08:38)
[2021-10-12] MEDS: HYDROMORPHONE 2 MG TABLET PO ×3 (02:41→14:16)
[2021-10-12] MEDS: BENZONATATE 100 MG CAPSULE PO ×2 (02:41→08:20)
[2021-10-12] MEDS: SODIUM CHLORIDE 0.9% 1,000 ML 60 ML IV (04:13)
[2021-10-12 05:28] LABS: Prothrombin Time 61.9 SECONDS (10.1-12.7)
[2021-10-12 05:34] LABS: INR 5.2 (0.9-1.3)
--- NOTE | 2021-10-12 05:53 | PM.HP.1 ---
History of Present Illness History of Present Illness Date Patient Seen: 10/12/21 Time Patient Seen: 00:44 Chief complaint: Difficulty breathing,hx asthma/COPD Narrative: Dagmar Lawrence is a 56-year-old female with a history of anxiety, asthma, COPD, ischemic cardiomyopathy, history MD, history of PE, pulmonary hypertension, systolic heart failure who presented to the ED complaining of COPD/asthma exacerbation for the past 3 days.? Patient had been seen by internal medicine Sophie lou LOBBYIST on 10/11/2021 for COPD asthma exacerbation. She has been requiring her PRN home 02 continuously, and more frequent home nebulizer treatment without improvement. Patient denies chest pain, recent illness, abdominal pain, nausea, vomiting, fever, chills cough cold or congestion.? The patient notes the extreme changes between hot and rainy weather have exacerbated her respiratory distress. Patient does condone cough, denies congestion, ear or eye issues, bowel or bladder issues. In the ED department patient's oxygen demand continued to escalate the patient did not wish to be intubated and so was placed on BiPAP. Because patient is on BiPAP (mask) was unable to obtain clearly family history and past surgical history. Upon admit to the floor patient is successfully on BiPAP with an O2 saturation of 97%. Temp 98.5?, BP 105/67, HR 107, R 21. ABGs in ED pH 7.27, pCO2 71.1, PO2 90, HC03 33, total CO2 35, saturation 95%, BE 6.0, FiO2 of 35. Patient's CBC is mostly within normal limits with the exception of platelets of 110, BUN of 21 BNP 1720, respiratory panel is negative, should be noted the patient's PT is 66.4 with an INR of 5.7 patient on long-term Coumadin anticoagulation. Patient admitted to the ICU for acute respiratory failure, metabolic alkalosis with respiratory acidosis exacerbation COPD asthma. Patient History Medical History Anxiety Asthma Chronic back pain Encounter for routine gynecological examination Encounter for wellness examination in adult History of blood clots (~2009) History of myocardial infarction (03/2019) 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 (2018) custodial current use of anticoagulant therapy LV dysfunction (2018) Menopause Osteopenia after menopause (10/2019) Osteoporosis (10/2019) Pre-procedural examination Pulmonary embolism (2010) Pulmonary hypertension (2010) Situational anxiety Systolic heart failure (~2018) Vision disturbance (09/2019) Family & Social History Social History: household members significant other Safety & Behavioral: Feels Safe in Current Yes Environment Been Physically Hurt or No Threatened By a Person Tobacco & Substance use: Smoking Status Former smoker alcohol intake current alcohol intake frequency a few times a week Substance Use Type does not use Meds Home Medications and Allergies Home Medications Medication Instructions Recorded Confirmed Type remodulin subcut (via wearable injectr) 04/27/19 10/11/21 History riociguat 2.5 mg tablet (Adempas) 2.5 mg PO BID 11/10/19 10/12/21 History alendronate 70 mg tablet 70 mg PO QWEEK #56 tabs 11/10/20 10/12/21 Rx rosuvastatin 20 mg tablet 20 mg PO DAILY 11/10/20 10/12/21 History sacubitril 24 mg-valsartan 26 mg 1 tab PO BID 11/10/20 10/12/21 History tablet (Entresto) cholecalciferol (vitamin D3) 25 25 mcg PO DAILY 06/12/21 10/12/21 History mcg (1,000 unit) capsule (Vitamin D3) warfarin 6 mg tablet See Rx Instructions .Route .COMPLEX 08/20/21 10/12/21 History furosemide 20 mg tablet See Rx Instructions .Route 09/10/21 10/12/21 Rx .COMPLEX #180 tabs hydromorphone 2 mg tablet 2 mg PO Q6H PRN pain #90 tabs 09/25/21 10/12/21 Rx albuterol sulfate 90 mcg/actuation See Rx Instructions .Route 10/03/21 10/12/21 Rx aerosol inhaler .COMPLEX #18 grams albuterol sulfate 2.5 mg/3 mL 2.5 mg (3 mL) inhalation Q4-6H PRN 10/11/21 10/12/21 Rx (0.083 %) solution for nebulization shortness of breath or wheezing, cough #180 mL benzonatate 100 mg capsule 100 mg PO BID-TID PRN cough #20 10/11/21 10/12/21 Rx caps doxycycline hyclate 100 mg capsule 100 mg PO BID #20 caps 10/11/21 10/12/21 Rx prednisone 20 mg tablet 40 mg PO DAILY #8 tabs 10/11/21 10/12/21 Rx clopidogrel 75 mg PO DAILY 10/12/21 10/12/21 History Allergies Allergy/AdvReac Type Severity Reaction Status Date / Time adhesive tape Allergy Intermediate rash Verified 08/22/21 13:45 bupropion [From Wellbutrin] AdvReac Severe mood Verified 08/22/21 13:45 Review of Systems Review of Systems Narrative: All 12 point systems reviewed with the patient and are negative except otherwise documented. Exam Vital Signs (past 8 hours): - 10/11/21 22:33 10/11/21 22:35 10/11/21 23:07 Temperature Pulse Rate Respiratory Rate Blood Pressure Pulse Oximetry 93 Oxygen Delivery Method BiPAP Fraction of Inspired Oxygen 35 35 35 10/11/21 23:07 10/11/21 22:00 10/11/21 22:30 Temperature Pulse Rate 107 H 109 H Respiratory Rate 27 H 25 H Blood Pressure 111/70 105/66 Pulse Oximetry 93 95 91 Oxygen Delivery Method BiPAP BiPAP Fraction of Inspired Oxygen 35 10/11/21 23:00 10/11/21 23:30 10/12/21 00:00 Temperature 98.5 F Pulse Rate 110 H 107 H 103 H Respiratory Rate 27 H 21 16 Blood Pressure 107/73 105/67 105/63 Pulse Oximetry 95 97 94 Oxygen Delivery Method BiPAP BiPAP BiPAP Fraction of Inspired Oxygen 10/12/21 00:11 10/12/21 00:11 10/12/21 00:30 Temperature Pulse Rate 104 H 103 H Respiratory Rate 26 H 24 Blood Pressure 103/70 Pulse Oximetry 95 95 Oxygen Delivery Method Fraction of Inspired Oxygen 10/12/21 01:00 10/12/21 01:00 10/12/21 00:15 Temperature Pulse Rate 99 H Respiratory Rate 18 Blood Pressure 102/64 Pulse Oximetry 94 Oxygen Delivery Method BiPAP Fraction of Inspired Oxygen 10/12/21 01:30 10/12/21 02:00 10/12/21 02:00 Temperature Pulse Rate 98 H 97 H Respiratory Rate 16 18 Blood Pressure 104/65 Pulse Oximetry 95 96 Oxygen Delivery Method Fraction of Inspired Oxygen 10/12/21 02:30 10/12/21 02:30 10/12/21 03:00 Temperature Pulse Rate 98 H 96 H Respiratory Rate 27 H 19 Blood Pressure Pulse Oximetry 91 96 Oxygen Delivery Method Fraction of Inspired Oxygen 35 10/12/21 03:30 10/12/21 03:53 10/12/21 03:53 Temperature Pulse Rate 93 H 95 H Respiratory Rate 16 26 H Blood Pressure 111/68 Pulse Oximetry 98 92 Oxygen Delivery Method Fraction of Inspired Oxygen 10/12/21 04:00 10/12/21 04:20 10/12/21 04:30 Temperature Pulse Rate 93 H 91 H Respiratory Rate 17 15 Blood Pressure Pulse Oximetry 95 96 Oxygen Delivery Method BiPAP Fraction of Inspired Oxygen 10/12/21 05:00 Temperature Pulse Rate 98 H Respiratory Rate 19 Blood Pressure Pulse Oximetry 97 Oxygen Delivery Method Fraction of Inspired Oxygen Fraction of Inspired Oxygen 35 Oxygen Delivery Method BiPAP Oxygen Flow Rate 2 Narrative Exam Narrative: General: Patient is a well-developed, well-nourished female, unable to comfortably remove BiPAP mask without developing respiratory distress at this time. Patient is resting comfortably on BiPAP at this time. HEENT: Normocephalic, atraumatic, extraocular muscles intact, oral pharynx is clear and mucous membranes are moist. Neck is supple and symmetric, trachea is midline, no adenopathy, no thyroid enlargement, nontender, no masses palpated. Negative for JVD Chest: Normal AP diameter and contour without kyphoscoliosis, no nasal flaring, retractions. Mild tachypneic labored breathing. Lungs: Auscultation of all lung khan lung sounds are coarse decreased dry but equal with occasional expiratory wheeze and in bilateral bases, without rhonchi, or rales. Cardio: regular rate and rhythm without murmur, rubs, or gallops, no carotid bruit, no cardiac pulsations present. Abdomen: Soft nontender, negative for organomegaly, or masses. Bowel sounds are present in all 4 quadrants without guarding or rebound, no CVA tenderness. Musculoskeletal: Muscle strength and tone are equal within normal limits, no deformity, crepitus, effusions, cyanosis, clubbing or edema present. Full range of motion intact radial and pedal pulses are normal. Skin: Warm dry and intact without rashes, ulcerations or petechiae. Neuro: Alert and orientated x3, strength is +5/5 in all extremities, sensation to touch intact, no gross deficits noted of cranial nerves. Psych: Patient has a well-kept appearance, appropriate affect, mental status attitude thought context and judgment are appropriate for age. Objective Labs Result Diagrams: 10/11/21 20:03 10/11/21 20:03 Labs: Laboratory Results - last 24 hr 10/11/21 10/11/21 10/11/21 20:03 20:03 20:03 WBC 7.0 RBC 5.12 Hgb 14.3 Hct 43.9 MCV 85.8 MCH 27.9 MCHC 32.5 RDW 14.5 Plt Count 110 L Neut % (Auto) 71.8 Lymph % (Auto) 18.3 L [place] % (Auto) 8.1 Eos % (Auto) 0.8 L Baso % (Auto) 1.0 Neut # (Auto) 5000 Lymph # (Auto) 1300 [place] # (Auto) 600 Eos # (Auto) 100 Baso # (Auto) 100 PT 66.4 H INR 5.7 H* ABG pH ABG pCO2 ABG pO2 ABG HCO3 ABG Total CO2 ABG O2 Saturation ABG Base Excess FiO2 Sodium 138 Potassium 4.1 Chloride 101 Carbon Dioxide 31 BUN 21 H Creatinine 0.69 Estimated GFR > 60 BUN/Creatinine Ratio 30.4 H Glucose 97 Lactate Calcium 9.0 Magnesium Total Bilirubin 0.6 AST 28 ALT 20 Alkaline Phosphatase 63 NT-Pro-B Natriuret Pep 1720 H Total Protein 7.5 Albumin 4.6 Globulin 2.9 Albumin/Globulin Ratio 1.6 Nasal Screen MRSA (PCR) Chlamy pneumoniae PCR Adenovirus (PCR) B. pertussis DNA (PCR) B.parapertussis DNA PCR Coronavirus OC43 (PCR) Coronavirus HKU1 (PCR) Coronavirus 229E (PCR) SARS-CoV-2 (PCR) Coronavirus NL63 (PCR) Human Metapneumovir PCR Influenza Type A (PCR) Influenza Type B (PCR) M. pneumoniae (PCR) Parainfluenza 1 (PCR) Parainfluenza 2 (PCR) Parainfluenza 3 (PCR) Parainfluenza 4 (PCR) RSV (PCR) Entero/Rhino (PCR) 10/11/21 10/11/21 10/11/21 20:03 20:03 20:29 WBC RBC Hgb Hct MCV MCH MCHC RDW Plt Count Neut % (Auto) Lymph % (Auto) [place] % (Auto) Eos % (Auto) Baso % (Auto) Neut # (Auto) Lymph # (Auto) [place] # (Auto) Eos # (Auto) Baso # (Auto) PT INR ABG pH ABG pCO2 ABG pO2 ABG HCO3 ABG Total CO2 ABG O2 Saturation ABG Base Excess FiO2 Sodium Potassium Chloride Carbon Dioxide BUN Creatinine Estimated GFR BUN/Creatinine Ratio Glucose Lactate 1.4 Calcium Magnesium Total Bilirubin AST ALT Alkaline Phosphatase NT-Pro-B Natriuret Pep Total Protein Albumin Globulin Albumin/Globulin Ratio Nasal Screen MRSA (PCR) Chlamy pneumoniae PCR Not detected Adenovirus (PCR) Not detected B. pertussis DNA (PCR) Not detected B.parapertussis DNA PCR Not detected Coronavirus OC43 (PCR) Not detected Coronavirus HKU1 (PCR) Not detected Coronavirus 229E (PCR) Not detected SARS-CoV-2 (PCR) Negative Not detected Coronavirus NL63 (PCR) Not detected Human Metapneumovir PCR Not detected Influenza Type A (PCR) Not detected Influenza Type B (PCR) Not detected M. pneumoniae (PCR) Not detected Parainfluenza 1 (PCR) Not detected Parainfluenza 2 (PCR) Not detected Parainfluenza 3 (PCR) Not detected Parainfluenza 4 (PCR) Not detected RSV (PCR) Not detected Entero/Rhino (PCR) Not detected 10/11/21 10/12/21 10/12/21 22:45 00:30 04:54 WBC RBC Hgb Hct MCV MCH MCHC RDW Plt Count Neut % (Auto) Lymph % (Auto) [place] % (Auto) Eos % (Auto) Baso % (Auto) Neut # (Auto) Lymph # (Auto) [place] # (Auto) Eos # (Auto) Baso # (Auto) PT INR ABG pH 7.27 L* ABG pCO2 71.1 H* ABG pO2 90 ABG HCO3 33 H ABG Total CO2 35 H ABG O2 Saturation 95 ABG Base Excess 6.0 H FiO2 35 Sodium Potassium Chloride Carbon Dioxide BUN Creatinine Estimated GFR BUN/Creatinine Ratio Glucose Lactate Calcium Magnesium 2.0 Total Bilirubin AST ALT Alkaline Phosphatase NT-Pro-B Natriuret Pep Total Protein Albumin Globulin Albumin/Globulin Ratio Nasal Screen MRSA (PCR) Negative for mrsa Chlamy pneumoniae PCR Adenovirus (PCR) B. pertussis DNA (PCR) B.parapertussis DNA PCR Coronavirus OC43 (PCR) Coronavirus HKU1 (PCR) Coronavirus 229E (PCR) SARS-CoV-2 (PCR) Coronavirus NL63 (PCR) Human Metapneumovir PCR Influenza Type A (PCR) Influenza Type B (PCR) M. pneumoniae (PCR) Parainfluenza 1 (PCR) Parainfluenza 2 (PCR) Parainfluenza 3 (PCR) Parainfluenza 4 (PCR) RSV (PCR) Entero/Rhino (PCR) 10/12/21 04:54 WBC RBC Hgb Hct MCV MCH MCHC RDW Plt Count Neut % (Auto) Lymph % (Auto) [place] % (Auto) Eos % (Auto) Baso % (Auto) Neut # (Auto) Lymph # (Auto) [place] # (Auto) Eos # (Auto) Baso # (Auto) PT 61.9 H INR 5.2 H* ABG pH ABG pCO2 ABG pO2 ABG HCO3 ABG Total CO2 ABG O2 Saturation ABG Base Excess FiO2 Sodium Potassium Chloride Carbon Dioxide BUN Creatinine Estimated GFR BUN/Creatinine Ratio Glucose Lactate Calcium Magnesium Total Bilirubin AST ALT Alkaline Phosphatase NT-Pro-B Natriuret Pep Total Protein Albumin Globulin Albumin/Globulin Ratio Nasal Screen MRSA (PCR) Chlamy pneumoniae PCR Adenovirus (PCR) B. pertussis DNA (PCR) B.parapertussis DNA PCR Coronavirus OC43 (PCR) Coronavirus HKU1 (PCR) Coronavirus 229E (PCR) SARS-CoV-2 (PCR) Coronavirus NL63 (PCR) Human Metapneumovir PCR Influenza Type A (PCR) Influenza Type B (PCR) M. pneumoniae (PCR) Parainfluenza 1 (PCR) Parainfluenza 2 (PCR) Parainfluenza 3 (PCR) Parainfluenza 4 (PCR) RSV (PCR) Entero/Rhino (PCR) Assessment & Plan Assessment & Plan narrative: Dagmar Lawrence is a 56-year-old female with a history of anxiety, asthma, COPD, ischemic cardiomyopathy, history MD, history of PE, pulmonary hypertension, systolic heart failure who presented to the ED complaining of COPD/asthma exacerbation for the past 3 days.? Patient had been seen by internal medicine Sophie lou LOBBYIST on 10/11/2021 for COPD asthma exacerbation. Patient admitted to the ICU for acute respiratory failure, metabolic alkalosis with respiratory acidosis exacerbation COPD asthma requiring BiPAP. 1. Acute respiratory failure(respiratory acidosis/metabolic alkalosis), requiring BiPAP, secondary to COPD/asthma exacerbation, acute on chronic, present on admission -continue patient's albuterol inhaler, continue albuterol nebulizing treatments, prednisone 40 mg p.o. q.day x4 days -respiratory consult, management of BiPAP -repeat ABGs in the a.m. 2. Long-term anticoagulation therapy, acute on chronic, present on admission -PT 66.4, INR 5.7 -patient is currently on Coumadin- Will Hold until INR return to therapeutic level. -repeat PT INR tomorrow morning 3. Systolic heart failure with pulmonary hypertension, chronic, present on admission -Continue Riociguat, Entresto 4. Hyperlipidemia, chronic, present on admission -continue atorvastatin Code status:Full -DNI Surrogate decision maker: Partner Garth TALBOT PCR:Negative DVT/VTE prophylaxis:Love 30mg & scd's Disposition: Patient admitted to ICU observation, expected length of stay less than 2 midnights I have utilized all available immediate resources to obtain, update, or review the patient's current medications. I confirmed that the patient's advanced care plan is present, Code status is documented and/or surrogate decision maker is listed in the patient's medical record. Time Spent With Patient Critical Care time: I spent a total of [] minutes of critical care time on this patient's care today; this time is exclusive of procedural time.
[2021-10-12] MEDS: ALBUTEROL/IPRATROPIUM 3 ML AMPUL INH ×6 (06:56→23:56)
[2021-10-12 07:27] LABS: Fractionated Inspired Oxygen 35; HCO3 ABG 32 mmol/L (22-26); Oxygen Saturation ABG 97 % (95-100); PO2 ABG 98 mmHg (80-100); TCO2 ABG 34 mmol/L (21-31); pH ABG 7.31 (7.35-7.45)
[2021-10-12 07:30] LABS: PCO2 ABG 63.3 mmHg (35-45)
[2021-10-12] MEDS: predniSONE 20 MG TABLET 40 MG PO (08:19)
[2021-10-12] MEDS: ATORVASTATIN 20 MG TABLET 40 MG PO (08:20)
[2021-10-12] MEDS: SODIUM CHLORIDE 0.9% FLUSH 10 ML IV ×2 (08:21→19:49)
--- NOTE | 2021-10-12 09:02 | DIET.CONS2 ---
Dietary Inpatient Consultation Note Admission Date: 10/11/2021 23:33 56y F admitted for SOB referred to nutrition for BMI 22.0. Upon chart review, pt at baseline weight which is in healthy BMI range for age. Sending up ONS Ensure Original once daily to support protein and calorie needs while hospitalized secondary to SOB. Diet: 10/12/21 Breakfast Heart Healthy Diet Diet Modifications: Electronically Signed by: Elva Woodruff 10/12/21 09:02 Clinical Dietitian [address] [address]
--- NOTE | 2021-10-12 09:35 | DI.ECHO.S_ITS ---
[place] [facility]---------+ [facility] +---------+ : : [address] : : : : [id number] : : : : Phone: [phone] Echocardiogram Report + + :Name: LELIA STEPHENS Study Date: 10/12/2021 Height: 65 in : :[facility] ReadingLocation: Weight: 132 lb : : Gender: Female BSA: 1.7 m2 : :: 1965 Age: 56 yrs BP: 107/65 mmHg: :Reason For Study: Congestive Heart Failure : :Ordering Physician: : :CUCO RONQUILLO Performed By: Benji Woods : :Referring: CUCO RONQUILLO : + + Interpretation Summary The left ventricle is mildly dilated. The ejection fraction is estimated to be 25-30%. Diastolic function cannot be graded. The interventricular septum is flattened, consistent with a right ventricular pressure/volume condition. The right ventricle is severely dilated. Right ventricular systolic function is moderate to severely reduced. There is severe biatrial enlargement. There is severe mitral regurgitation. Pulmonary artery pressures cannot be estimated. Severe pulmonary artery dilation. Patient has known history of CTEPH with pulmonary artery dilation and there is evidence of pulmonary artery encroachment on the atria and even ventricles. Procedure: A two-dimensional transthoracic echocardiogram with color flow and Doppler was performed. The study quality was technically adequate. Comparison is made with the echocardiogram of 12/13/2010. Left Ventricle: The left ventricle is mildly dilated. There is normal left ventricular wall thickness. The ejection fraction is estimated to be 25-30%. The interventricular septum is flattened, consistent with a right ventricular pressure/volume condition. Diastolic function could not be accurately assessed due to unobtainable data. Right Ventricle: The right ventricle is severely dilated. Right ventricular systolic function is moderate to severely reduced. Atria: There is severe biatrial enlargement. The interatrial septum grossly appears intact with no obvious evidence for an atrial septal defect. Mitral Valve: There is mild mitral annular calcification. There is severe mitral regurgitation. The mitral regurgitant jet is eccentrically directed. Aortic Valve: There is mild aortic valve sclerosis. There is no aortic valve stenosis. There is trace aortic regurgitation. Tricuspid Valve: The tricuspid valve is normal in structure and function. There is trace tricuspid regurgitation. Pulmonary artery pressures cannot be estimated because of the lack of a measurable TR jet velocity. Pulmonic Valve: The pulmonic valve leaflets appear thickened, but open well. There is moderate pulmonic regurgitation. Great Vessels: The aortic root is normal size. The dimensions of the ascending aorta are normal. Severe pulmonary artery dilation. Patient has known history of CTEPH with pulmonary artery dilation and there is evidence of pulmonary artery encroachment on the atria and even ventricles. The IVC is dilated (diameter is greater than 2.1 cm) and it collapses less than 50% with a sniff. This suggests a high right atrial pressure of 15 mm Hg. Pericardium/ Pleura There is no pericardial effusion. There is no pleural effusion. MMode/2D Measurements & Calculations LVIDd: 5.5 cm LVOT diam: 2.0 cm LVIDs: 4.3 cm Ao root diam: 3.0 cm FS: 20.7 % asc Aorta Diam: 2.6 cm IVSd: 0.64 cm LVPWd: 0.60 cm LV wooten. diameter/BSA (cm/m^2): 3.3 LV sys. diameter/BSA (cm/m^2): 2.6 LA A2 area: 23.2 cm2 RA long axis: 6.2 cm LA A4 area: 32.0 cm2 RA area: 22.1 cm2 LA length (vol): 5.8 cm RA vol: 66.5 ml LA vol: 108.1 ml RA : 40.1 ml/m2 LA vol index: 65.2 ml/m2 IVC diam: 2.6 cm TAPSE: 1.9 cm Doppler Measurements & Calculations Ao V2 max: 110.0 cm/sec LVOT Max Zach: 71.1 cm/sec Ao V2 mean: 84.6 cm/sec LV V1 max P.0 mmHg Ao max P.8 mmHg LV V1 VTI: 10.0 cm Ao mean P.1 mmHg PRASANTH(I,D): 1.8 cm2 Ao V2 VTI: 16.3 cm PRASANTH(V,D): 1.9 cm2 sev ratio: 0.61 PRASANTH indexed to BSA (cm^2/m^2): 1.1 SV(LVOT): 29.9 ml Reading Physician:01:29 PM
[2021-10-12 09:57] LABS: D Dimer 986 ng/mL (<230)
--- NOTE | 2021-10-12 10:05 | P.TELICUCN_ITS ---
History of Present Illness Consult details If camera was activated, add TeleICU A-V Statement: audio/visual connection established Chief complaint: Difficulty breathing,hx asthma/COPD Narrative: 56 year old female with PMHx of asthma, COPD, ischemic cardiomyopathy, history NV, history of PE, pulmonary hypertension, systolic heart failure admitted to ICU for acute resp failure likely 2/2 to COPD exacerbation with hypercapnea, increase mucous prodcution and shortness of breath no fevers noted at home . [facility] Medical History Anxiety Asthma Chronic back pain Encounter for routine gynecological examination Encounter for wellness examination in adult History of blood clots (~2009) History of myocardial infarction (03/2019) 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 (2018) residential current use of anticoagulant therapy LV dysfunction (2018) Menopause Osteopenia after menopause (10/2019) Osteoporosis (10/2019) Pre-procedural examination Pulmonary embolism (2009) Pulmonary hypertension (2009) Situational anxiety Systolic heart failure (~2018) Vision disturbance (09/2019) Social History household members: significant other Smoking Status: Former smoker second hand exposure: No alcohol intake: former substance use type: marijuana Current Medications Current Medications Medications: Home Medications remodulin See Rx Instructions .Route .COMPLEX 04/27/19 [History Confirmed 10/12/21] riociguat 2.5 mg tablet (Adempas) 2.5 mg PO BID 11/10/19 [History Confirmed 10/12/21] alendronate 70 mg tablet 70 mg PO QWEEK #56 tabs 11/10/20 [Rx Confirmed 10/12/21] rosuvastatin 20 mg tablet 20 mg PO DAILY 11/10/20 [History Confirmed 10/12/21] sacubitril 24 mg-valsartan 26 mg tablet (Entresto) 1 tab PO BID 11/10/20 [History Confirmed 10/12/21] cholecalciferol (vitamin D3) 25 mcg (1,000 unit) capsule (Vitamin D3) 25 mcg PO DAILY 06/12/21 [History Confirmed 10/12/21] warfarin 6 mg tablet See Rx Instructions .Route .COMPLEX 08/20/21 [History Confirmed 10/12/21] furosemide 20 mg tablet See Rx Instructions .Route .COMPLEX #180 tabs 09/10/21 [Rx Confirmed 10/12/21] hydromorphone 2 mg tablet 2 mg PO Q6H PRN pain #90 tabs 09/25/21 [Rx Confirmed 10/12/21] albuterol sulfate 90 mcg/actuation aerosol inhaler See Rx Instructions .Route .COMPLEX #18 grams 10/03/21 [Rx Confirmed 10/12/21] albuterol sulfate 2.5 mg/3 mL (0.083 %) solution for nebulization 2.5 mg (3 mL) inhalation Q4-6H PRN shortness of breath or wheezing, cough #180 mL 10/11/21 [Rx Confirmed 10/12/21] benzonatate 100 mg capsule 100 mg PO BID-TID PRN cough #20 caps 10/11/21 [Rx Confirmed 10/12/21] doxycycline hyclate 100 mg capsule 100 mg PO BID #20 caps 10/11/21 [Rx Confirmed 10/12/21] prednisone 20 mg tablet 40 mg PO DAILY #8 tabs 10/11/21 [Rx Confirmed 10/12/21] clopidogrel 75 mg PO DAILY 10/12/21 [History Confirmed 10/12/21] Visit Medications (administered) Generic Name Dose Route Start Last Admin Trade Name Freq PRN Reason Stop Dose Admin Albuterol/Ipratropium 3 ml 10/12/21 07:00 10/12/21 06:56 Albuterol/Ipratropium 3 Ml Ampul INH 3 ml [id number] JESSY Administration Atorvastatin Calcium 40 mg 10/12/21 09:00 10/12/21 08:20 Atorvastatin 20 Mg Tablet PO 40 mg DAILY JESSY Administration Benzonatate 100 mg 10/12/21 00:56 10/12/21 08:20 Benzonatate 100 Mg Capsule PO 100 mg TID PRN Administration Cough Hydromorphone HCl 2 mg 10/12/21 02:21 10/12/21 08:19 Hydromorphone 2 Mg Tablet PO 2 mg Q6H PRN Administration pain Prednisone 40 mg 10/12/21 09:00 10/12/21 08:19 Prednisone 20 Mg Tablet PO 10/16/21 08:59 40 mg DAILY JESSY Administration Sodium Chloride 10 ml 10/12/21 09:00 10/12/21 08:21 Sodium Chloride 0.9% Flush IV 10 ml BID JESSY Administration Exam Vital Signs (past 8 hours): - 10/12/21 02:30 10/12/21 02:30 10/12/21 03:00 Temperature Pulse Rate 98 H 96 H Respiratory Rate 27 H 19 Blood Pressure Pulse Oximetry 91 96 Oxygen Delivery Method Oxygen Flow Rate Fraction of Inspired Oxygen 35 10/12/21 03:30 10/12/21 03:53 10/12/21 03:53 Temperature Pulse Rate 93 H 95 H Respiratory Rate 16 26 H Blood Pressure 111/68 Pulse Oximetry 98 92 Oxygen Delivery Method Oxygen Flow Rate Fraction of Inspired Oxygen 10/12/21 04:00 10/12/21 04:20 10/12/21 04:30 Temperature Pulse Rate 93 H 91 H Respiratory Rate 17 15 Blood Pressure Pulse Oximetry 95 96 Oxygen Delivery Method BiPAP Oxygen Flow Rate Fraction of Inspired Oxygen 10/12/21 05:00 10/12/21 06:58 10/12/21 07:02 Temperature Pulse Rate 98 H Respiratory Rate 19 Blood Pressure 111/68 Pulse Oximetry 97 96 Oxygen Delivery Method BiPAP Oxygen Flow Rate Fraction of Inspired Oxygen 35 35 10/12/21 07:55 10/12/21 08:38 10/12/21 08:01 Temperature 98.9 F Pulse Rate 93 H 95 H Respiratory Rate 17 22 Blood Pressure 107/65 Pulse Oximetry 97 96 Oxygen Delivery Method Nasal Cannula Nasal Cannula Oxygen Flow Rate 3 3 Fraction of Inspired Oxygen Fraction of Inspired Oxygen 35 Oxygen Delivery Method Nasal Cannula Oxygen Flow Rate 3 Objective Labs Result Diagrams: 10/11/21 20:03 10/11/21 20:03 Labs: Laboratory Results - last 24 hr 10/11/21 10/11/21 10/11/21 20:03 20:03 20:03 WBC 7.0 RBC 5.12 Hgb 14.3 Hct 43.9 MCV 85.8 MCH 27.9 MCHC 32.5 RDW 14.5 Plt Count 110 L Neut % (Auto) 71.8 Lymph % (Auto) 18.3 L [place] % (Auto) 8.1 Eos % (Auto) 0.8 L Baso % (Auto) 1.0 Neut # (Auto) 5000 Lymph # (Auto) 1300 [place] # (Auto) 600 Eos # (Auto) 100 Baso # (Auto) 100 PT 66.4 H INR 5.7 H* D-Dimer ABG pH ABG pCO2 ABG pO2 ABG HCO3 ABG Total CO2 ABG O2 Saturation ABG Base Excess FiO2 Sodium 138 Potassium 4.1 Chloride 101 Carbon Dioxide 31 BUN 21 H Creatinine 0.69 Estimated GFR > 60 BUN/Creatinine Ratio 30.4 H Glucose 97 Lactate Calcium 9.0 Magnesium Total Bilirubin 0.6 AST 28 ALT 20 Alkaline Phosphatase 63 NT-Pro-B Natriuret Pep 1720 H Total Protein 7.5 Albumin 4.6 Globulin 2.9 Albumin/Globulin Ratio 1.6 Nasal Screen MRSA (PCR) Chlamy pneumoniae PCR Adenovirus (PCR) B. pertussis DNA (PCR) B.parapertussis DNA PCR Coronavirus OC43 (PCR) Coronavirus HKU1 (PCR) Coronavirus 229E (PCR) SARS-CoV-2 (PCR) Coronavirus NL63 (PCR) Human Metapneumovir PCR Influenza Type A (PCR) Influenza Type B (PCR) M. pneumoniae (PCR) Parainfluenza 1 (PCR) Parainfluenza 2 (PCR) Parainfluenza 3 (PCR) Parainfluenza 4 (PCR) RSV (PCR) Entero/Rhino (PCR) 10/11/21 10/11/21 10/11/21 20:03 20:03 20:29 WBC RBC Hgb Hct MCV MCH MCHC RDW Plt Count Neut % (Auto) Lymph % (Auto) [place] % (Auto) Eos % (Auto) Baso % (Auto) Neut # (Auto) Lymph # (Auto) [place] # (Auto) Eos # (Auto) Baso # (Auto) PT INR D-Dimer ABG pH ABG pCO2 ABG pO2 ABG HCO3 ABG Total CO2 ABG O2 Saturation ABG Base Excess FiO2 Sodium Potassium Chloride Carbon Dioxide BUN Creatinine Estimated GFR BUN/Creatinine Ratio Glucose Lactate 1.4 Calcium Magnesium Total Bilirubin AST ALT Alkaline Phosphatase NT-Pro-B Natriuret Pep Total Protein Albumin Globulin Albumin/Globulin Ratio Nasal Screen MRSA (PCR) Chlamy pneumoniae PCR Not detected Adenovirus (PCR) Not detected B. pertussis DNA (PCR) Not detected B.parapertussis DNA PCR Not detected Coronavirus OC43 (PCR) Not detected Coronavirus HKU1 (PCR) Not detected Coronavirus 229E (PCR) Not detected SARS-CoV-2 (PCR) Negative Not detected Coronavirus NL63 (PCR) Not detected Human Metapneumovir PCR Not detected Influenza Type A (PCR) Not detected Influenza Type B (PCR) Not detected M. pneumoniae (PCR) Not detected Parainfluenza 1 (PCR) Not detected Parainfluenza 2 (PCR) Not detected Parainfluenza 3 (PCR) Not detected Parainfluenza 4 (PCR) Not detected RSV (PCR) Not detected Entero/Rhino (PCR) Not detected 10/11/21 10/12/21 10/12/21 22:45 00:30 04:54 WBC RBC Hgb Hct MCV MCH MCHC RDW Plt Count Neut % (Auto) Lymph % (Auto) [place] % (Auto) Eos % (Auto) Baso % (Auto) Neut # (Auto) Lymph # (Auto) [place] # (Auto) Eos # (Auto) Baso # (Auto) PT INR D-Dimer ABG pH 7.27 L* ABG pCO2 71.1 H* ABG pO2 90 ABG HCO3 33 H ABG Total CO2 35 H ABG O2 Saturation 95 ABG Base Excess 6.0 H FiO2 35 Sodium Potassium Chloride Carbon Dioxide BUN Creatinine Estimated GFR BUN/Creatinine Ratio Glucose Lactate Calcium Magnesium 2.0 Total Bilirubin AST ALT Alkaline Phosphatase NT-Pro-B Natriuret Pep Total Protein Albumin Globulin Albumin/Globulin Ratio Nasal Screen MRSA (PCR) Negative for mrsa Chlamy pneumoniae PCR Adenovirus (PCR) B. pertussis DNA (PCR) B.parapertussis DNA PCR Coronavirus OC43 (PCR) Coronavirus HKU1 (PCR) Coronavirus 229E (PCR) SARS-CoV-2 (PCR) Coronavirus NL63 (PCR) Human Metapneumovir PCR Influenza Type A (PCR) Influenza Type B (PCR) M. pneumoniae (PCR) Parainfluenza 1 (PCR) Parainfluenza 2 (PCR) Parainfluenza 3 (PCR) Parainfluenza 4 (PCR) RSV (PCR) Entero/Rhino (PCR) 10/12/21 10/12/21 10/12/21 04:54 04:54 06:52 WBC RBC Hgb Hct MCV MCH MCHC RDW Plt Count Neut % (Auto) Lymph % (Auto) [place] % (Auto) Eos % (Auto) Baso % (Auto) Neut # (Auto) Lymph # (Auto) [place] # (Auto) Eos # (Auto) Baso # (Auto) PT 61.9 H INR 5.2 H* D-Dimer 986 H ABG pH 7.31 L ABG pCO2 63.3 H* ABG pO2 98 ABG HCO3 32 H ABG Total CO2 34 H ABG O2 Saturation 97 ABG Base Excess 5.0 H FiO2 35 Sodium Potassium Chloride Carbon Dioxide BUN Creatinine Estimated GFR BUN/Creatinine Ratio Glucose Lactate Calcium Magnesium Total Bilirubin AST ALT Alkaline Phosphatase NT-Pro-B Natriuret Pep Total Protein Albumin Globulin Albumin/Globulin Ratio Nasal Screen MRSA (PCR) Chlamy pneumoniae PCR Adenovirus (PCR) B. pertussis DNA (PCR) B.parapertussis DNA PCR Coronavirus OC43 (PCR) Coronavirus HKU1 (PCR) Coronavirus 229E (PCR) SARS-CoV-2 (PCR) Coronavirus NL63 (PCR) Human Metapneumovir PCR Influenza Type A (PCR) Influenza Type B (PCR) M. pneumoniae (PCR) Parainfluenza 1 (PCR) Parainfluenza 2 (PCR) Parainfluenza 3 (PCR) Parainfluenza 4 (PCR) RSV (PCR) Entero/Rhino (PCR) Assessment & Plan Assessment & Plan narrative: patient seen with bedside nurse and provider chart/labs/imaging reviewed currently afebrile, HD stable, mental status intact labs significant for resp acidosis on abg which has improved to 7.31//28 inr 5.7 suggest -nebs -steroids -add azithromycin for anti-inflammatory effect in copd -if fever can add rocephin -hold Coumadin for now, check inr daily, restart when under 3 -home meds for pulm htn -check echo -check serial ekg/trop -pulm to follow as output, prn if needed in house -keep glucose 140-180s -monitor ins/outs -replace lytes prn -gi/dvt ppx -please call eICU if condition changes Time Spent With Patient Critical Care time: I spent a total of [] minutes of critical care time on this patient's care today; this time is exclusive of procedural time.
[2021-10-12] MEDS: AZITHROMYCIN 500 MG in DEXTROSE 5% IN WATER 250 ML 250 MG IV (11:42)
[2021-10-12] MEDS: LORazepam 1 MG TABLET PO (14:16)
[2021-10-12] MEDS: ENTRESTO 1 EACH PO ×2 (14:27→19:48)
[2021-10-12] MEDS: ADEMPAS 2.5 MG 2.5 EACH PO ×2 (14:27→19:48)
--- NOTE | 2021-10-12 14:47 | PC.NURSE ---
Rec'd order for CT chest with contrast. Pt states that she feels unable to lay flat for even 3-4 minutes due to dyspnea when supine. Offered pt PRN rx for anxiety which she is agreeable to but states that she still does not want to have CT of chest. She states that her pulmonary issues are well known and if anything additionally is found, she would not opt for any sort of intervention beyond her current regimen. She states her primary goal for this hospitalization is improvement in breathing. Pt is tearful and anxious. Offered emotional support and provided PRN rx per pt request. Update given to hospitalist re: pt's refusal of CT. He states he will come and see her, discuss plan of care. Discussed with hospitalist pt's remodulin dosing (med is weight-based and dosed to 80 kg, pt's current weight is 59.9 kg). Also reported that Pt states she has not seen pulmonology in ~ 1 year.
--- NOTE | 2021-10-12 20:28 | PM.ICURNDS ---
- :: This patient was seen via real time interactive two-way audiovisual telecommunication. Note: Patient admitted for acute hypoxemia respiratory failure on BiPAP 14/5 FiO2 35%. Currently improving slowly with NIVVP. On prednisone and azithromycin. Start gentle diuresis to seek net negative fluid balance. Monitor I/O. D/w JESSICA.
--- NOTE | 2021-10-12 23:58 | RT ---
Addendum entered by Serg Arora 10/13/21 03:48: Patient placed back on BiPAP at 0435 Original Note: Patient wore BiPAP from 8PM until 11:45 PM, Tollerated well. Patient informed to call RT if they want the BiPAP on again.
[2021-10-13] VITALS (14 sets, daily range): BP systolic 85–96; BP diastolic 52–67; PULSE 81–97; RESP 10–22; TEMP 36.5–37.3; O2SAT 88–98
[2021-10-13] MEDS: ONDANSETRON 4 MG/2 ML INJ IV ×3 (01:12→18:23)
[2021-10-13] MEDS: ALBUTEROL/IPRATROPIUM 3 ML AMPUL INH ×5 (02:46→19:57)
[2021-10-13] MEDS: BENZONATATE 100 MG CAPSULE PO (02:46)
[2021-10-13] MEDS: MORPHINE 2 MG/ML INJ IV ×3 (03:03→21:58)
[2021-10-13 05:27] LABS: Prothrombin Time 62.5 SECONDS (10.1-12.7)
[2021-10-13 05:41] LABS: INR 5.4 (0.9-1.3)
--- NOTE | 2021-10-13 06:28 | PC.NURSE ---
Shift Note-Patient used Bi-pap most of the night, FIO2 35%, /, took a break from it for few hours, was on 3L NC, lung sounds coarse rhonchi, with intermittent audible wheezes. PO Dilaudid for pain, PO Ativan for anxiety, IV morphine for ease of breathing, Tesselon Perles for cough, IV Zofran for nausea and abdominal discomfort, all prn meds effective. 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
--- NOTE | 2021-10-13 08:06 | P.PN_ITS ---
Subjective Subjective Date Patient Seen: 10/13/21 Time Patient Seen: 09:00 Interval history: Patient feeling better today. She said she slept very well for the first time in a long time. On bipap most of night. Reports ongoing cough. Now at baseline 3L NC. Exam Vital Signs (past 8 hours): - 10/13/21 02:59 10/13/21 03:15 10/13/21 03:45 Temperature Pulse Rate Respiratory Rate Blood Pressure Pulse Oximetry Oxygen Delivery Method Nasal Cannula Nasal Cannula Oxygen Flow Rate Fraction of Inspired Oxygen 35 10/13/21 04:00 10/13/21 07:25 Temperature 98.1 F Pulse Rate 96 H Respiratory Rate 21 Blood Pressure 96/54 L Pulse Oximetry 88 L Oxygen Delivery Method Oxygen Flow Rate 3 Fraction of Inspired Oxygen 35 Fraction of Inspired Oxygen 35 Oxygen Delivery Method Nasal Cannula Oxygen Flow Rate 3 Narrative Exam Narrative: General:? Patient is a well-developed, well-nourished female, slightly labored breathing on NC. HEENT:? Normocephalic, atraumatic, extraocular muscles intact, oral pharynx is clear and mucous membranes are moist.? Neck is supple and symmetric, trachea is midline, no adenopathy, no thyroid enlargement, nontender, no masses palpated.? Negative for JVD Chest:? Normal AP diameter and contour without kyphoscoliosis, no nasal flaring, retractions. Mild labored breathing. Midline sternotomy scar. Lungs:? Auscultation of all lung khan lung sounds are coarse. Cardio:? regular rate and rhythm without murmur, rubs, or gallops, no carotid bruit, no cardiac pulsations present. No peripheral edema. Abdomen:? Soft nontender, negative for organomegaly, or masses.? Bowel sounds are present in all 4 quadrants without guarding or rebound, no CVA tenderness. Musculoskeletal:? Muscle strength and tone are equal within normal limits, no deformity, crepitus, effusions, cyanosis, clubbing or edema present.? Full range of motion intact radial and pedal pulses are normal. Skin:? Warm dry and intact without rashes, ulcerations or petechiae.? Neuro:? Alert and orientated x3, strength is +5/5 in all extremities, sensation to touch intact, no gross deficits noted of cranial nerves. Psych:? Patient has a well-kept appearance, appropriate affect, mental status attitude thought context and judgment are appropriate for age. 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 LV dysfunction (2018) Menopause Osteopenia after menopause (10/2019) Osteoporosis (10/2019) Pre-procedural examination Pulmonary embolism (2009) Pulmonary hypertension (2009) Situational anxiety Systolic heart failure (~2018) Vision disturbance (09/2019) Social History household members: significant other Smoking Status: Former smoker second hand exposure: No alcohol intake: former substance use type: marijuana Assessment & Plan Assessment & Plan narrative: Dagmar Lawrence is a 56-year-old female with a history of anxiety, asthma, COPD, ischemic cardiomyopathy EF 25-330%, CTEPH with severely dilated pulmonary arteries, and former 20 pack year smoker who presented to the ED complaining of dyspnea, cough and wheezes. #Acute hypercapnic respiratory failure, secondary to COPD/asthma exacerbation, acute on chronic, present on admission -continue nebulizing treatments, prednisone 40 mg p.o. q.day x4 days -Mucinex and tessalon perles -Now at baseline 2.5L O2 -Wean bipap at night if able #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 with EF 25-30%, severe mitral regurg -Per echo on 10/12 -Continue entresto -Consider beta kirsten if BP allows -IV lasix 20mg daily #Long-term anticoagulation therapy, acute on chronic, present on admission -PT 66.4, INR 5.7 -patient is currently on Coumadin- Will Hold until INR return to therapeutic lev el. -Monitor INR #Systolic heart failure with pulmonary hypertension, chronic, present on admission -Continue Riociguat, Entresto #Hyperlipidemia, chronic, present on admission -continue atorvastatin Code status: No compressions, intubation ok Surrogate decision maker: Partner Garth TALBOT PCR: Negative? DVT/VTE prophylaxis: Love 30mg & scd's I have utilized all available immediate resources to obtain, update, or review the patient's current medications. I confirmed that the patient's advanced care plan is present, Code status is documented and/or surrogate decision maker is listed in the patient's medical record. Time Spent With Patient Critical Care time: I spent a total of [] minutes of critical care time on this patient's care today; this time is exclusive of procedural time.
[2021-10-13] MEDS: predniSONE 20 MG TABLET 40 MG PO (09:25)
[2021-10-13] MEDS: ATORVASTATIN 20 MG TABLET 40 MG PO (09:25)
[2021-10-13] MEDS: FUROSEMIDE 20 MG/2 ML VIAL IV (09:25)
[2021-10-13] MEDS: ADEMPAS 2.5 MG 2.5 EACH PO ×2 (09:26→21:51)
[2021-10-13] MEDS: ENTRESTO 1 EACH PO ×2 (09:27→21:50)
[2021-10-13] MEDS: SODIUM CHLORIDE 0.9% FLUSH 10 ML IV ×3 (09:27→21:59)
--- NOTE | 2021-10-13 09:55 | P.TELICUPN_ITS ---
Subjective Subjective Interval history: no acute events overnight require bipap for work of breathing otherwise better Current Medications Current Medications Medications: Home Medications remodulin See Rx Instructions .Route .COMPLEX 04/27/19 [History Confirmed 10/12/21] riociguat 2.5 mg tablet (Adempas) 2.5 mg PO BID 11/10/19 [History Confirmed 10/12/21] alendronate 70 mg tablet 70 mg PO QWEEK #56 tabs 11/10/20 [Rx Confirmed 10/12/21] rosuvastatin 20 mg tablet 20 mg PO DAILY 11/10/20 [History Confirmed 10/12/21] sacubitril 24 mg-valsartan 26 mg tablet (Entresto) 1 tab PO BID 11/10/20 [Hist ory Confirmed 10/12/21] cholecalciferol (vitamin D3) 25 mcg (1,000 unit) capsule (Vitamin D3) 25 mcg PO DAILY 06/12/21 [History Confirmed 10/12/21] warfarin 6 mg tablet See Rx Instructions .Route .COMPLEX 08/20/21 [History Confirmed 10/12/21] furosemide 20 mg tablet See Rx Instructions .Route .COMPLEX #180 tabs 09/10/21 [Rx Confirmed 10/12/21] hydromorphone 2 mg tablet 2 mg PO Q6H PRN pain #90 tabs 09/25/21 [Rx Confirmed 10/12/21] albuterol sulfate 90 mcg/actuation aerosol inhaler See Rx Instructions .Route .COMPLEX #18 grams 10/03/21 [Rx Confirmed 10/12/21] albuterol sulfate 2.5 mg/3 mL (0.083 %) solution for nebulization 2.5 mg (3 mL) inhalation Q4-6H PRN shortness of breath or wheezing, cough #180 mL 10/11/21 [Rx Confirmed 10/12/21] benzonatate 100 mg capsule 100 mg PO BID-TID PRN cough #20 caps 10/11/21 [Rx Confirmed 10/12/21] doxycycline hyclate 100 mg capsule 100 mg PO BID #20 caps 10/11/21 [Rx Confirmed 10/12/21] prednisone 20 mg tablet 40 mg PO DAILY #8 tabs 10/11/21 [Rx Confirmed 10/12/21] clopidogrel 75 mg PO DAILY 10/12/21 [History Confirmed 10/12/21] Visit Medications (administered) Generic Name Dose Route Start Last Admin Trade Name Freq PRN Reason Stop Dose Admin Albuterol/Ipratropium 3 ml 10/12/21 07:00 10/13/21 08:45 Albuterol/Ipratropium 3 Ml Ampul INH 3 ml [id number] JESSY Administration Atorvastatin Calcium 40 mg 10/12/21 09:00 10/13/21 09:25 Atorvastatin 20 Mg Tablet PO 40 mg DAILY JESSY Administration Benzonatate 100 mg 10/12/21 00:56 10/13/21 02:46 Benzonatate 100 Mg Capsule PO 100 mg TID PRN Administration Cough Furosemide 20 mg 10/13/21 09:00 10/13/21 09:25 Furosemide 20 Mg/2 Ml Vial IV 20 mg DAILY JESSY Administration Hydromorphone HCl 2 mg 10/12/21 02:21 10/13/21 00:00 Hydromorphone 2 Mg Tablet PO 2 mg Q6H PRN Administration pain Azithromycin 500 mg/ Dextrose 250 mls @ 250 mls/hr 10/12/21 11:00 10/12/21 12:45 IV 10/16/21 11:59 Infused Q24H JESSY Infusion Lorazepam 1 mg 10/12/21 02:23 10/13/21 00:00 Lorazepam 1 Mg Tablet PO 1 mg Q6HR PRN Administration Anxiety Morphine Sulfate 2 mg 10/12/21 15:04 10/13/21 03:03 Morphine 2 Mg/Ml Inj IV 2 mg Q2HR PRN Administration Pain, Moderate (4-6) Non-Formulary 2.5 mg 10/12/21 09:00 10/13/21 09:26 Medication Adempas ( PO 2.5 mg Riociguat) 2.5 Mg BID JESSY Administration Tab Non-Formulary Med: 1 tab 10/12/21 09:00 10/13/21 09:27 Entresto (Sacubitril PO 1 tab -Valsartan 24-26 Mg BID JESSY Administration Tab) Remodulin ( 0 each 10/12/21 09:45 10/12/21 11:49 Treprostinil) Pump IV Not Given CONT JESSY Ondansetron HCl 4 mg 10/12/21 00:56 10/13/21 01:12 Ondansetron 4 Mg/2 Ml Inj IV 4 mg Q8HR PRN Administration Nausea And Vomiting Prednisone 40 mg 10/12/21 09:00 10/13/21 09:25 Prednisone 20 Mg Tablet PO 10/16/21 08:59 40 mg DAILY JESSY Administration Sodium Chloride 10 ml 10/12/21 09:00 10/13/21 09:27 Sodium Chloride 0.9% Flush IV 10 ml BID JESSY Administration Objective Ventilator Parameters: Ventilator Settings FiO2 35 Positive End Expiratory 10 Pressure Labs Result Diagrams: 10/11/21 20:03 10/11/21 20:03 Labs: Laboratory Results - last 24 hr 10/12/21 10/13/21 04:54 05:05 PT 62.5 H INR 5.4 H* D-Dimer 986 H Exam Vital Signs (past 8 hours): - 10/13/21 02:59 10/13/21 03:15 10/13/21 03:45 Temperature Pulse Rate Respiratory Rate Blood Pressure Pulse Oximetry Oxygen Delivery Method Nasal Cannula Nasal Cannula Oxygen Flow Rate Fraction of Inspired Oxygen 35 10/13/21 04:00 10/13/21 07:25 10/13/21 08:45 Temperature 98.1 F Pulse Rate 96 H 90 Respiratory Rate 21 20 Blood Pressure 96/54 L Pulse Oximetry 88 L 98 Oxygen Delivery Method High Flow Nasal Cannula Oxygen Flow Rate 3 3 Fraction of Inspired Oxygen 35 10/13/21 09:00 10/13/21 07:00 Temperature 97.7 F Pulse Rate 90 Respiratory Rate 18 Blood Pressure 86/53 L Pulse Oximetry 94 Oxygen Delivery Method Nasal Cannula BiPAP Oxygen Flow Rate 3 Fraction of Inspired Oxygen Fraction of Inspired Oxygen 35 Oxygen Delivery Method High Flow Nasal Cannula Oxygen Flow Rate 3 Assessment & Plan Assessment & Plan narrative: patient seen with bedside nurse and provider chart/labs/imaging reviewed currently afebrile, HD stable sbp 90s today, mental status intact no abs today except INR of 5.1 suggest -minimize opiod use -cont nebs -continue steroids -diretics w/ lasix -bipap prn, pt on baseline 3Lnc -cont azithromycin, does not appear toxic, can hold off on adding abx -echo reviewed, EF 20% w/ right side failure, mitral reurge, needs cardio/pulm to eval, pt was on xplan list in the past -cont hold Coumadin for now, check inr daily, restart when under 3 -home meds for pulm htn -keep glucose 140-180s -monitor ins/outs -replace lytes prn -gi/dvt ppx -please call eICU if condition changes Time Spent With Patient Critical Care time: I spent a total of [] minutes of critical care time on this patient's care today; this time is exclusive of procedural time.
[2021-10-13] MEDS: HYDROMORPHONE 2 MG TABLET PO ×2 (10:38)
[2021-10-13] MEDS: AZITHROMYCIN 500 MG in DEXTROSE 5% IN WATER 250 ML 250 MG IV (10:39)
[2021-10-13] MEDS: guaiFENesin ER 600 MG TAB PO (11:18)
[2021-10-13] MEDS: LORazepam 1 MG TABLET PO ×3 (11:23→22:29)
--- NOTE | 2021-10-13 14:16 | CM.DANOTE ---
Patient is a 56 yo female who was admitted on 10/11/21 for Difficulty breathing. Pt has [email or web address] for insurance and her PCP is Dr. Vj Sullivan. EMR was reviewed. Per MD, pt with COPD exacerbation and required bipap last night but improving but keeping ICU status as she likely will need bipap again tonight. Pt to have more diuresis today. Per RT, pt back to her baseline of 3LO2. Per RN, pt has been up independent in room and steady gait and no d/c concerns at this time. SW met bedside with pt and explained role and pt confirms she lives in [place] with her Sig Other and mostly independent with ADL's and denies hx of HH or SNF. Pt confirms she is feeling better and looking forward to discharging home when stable. Pt does not anticipate any needs and confirms she has transport at d/c. Plan: SW to follow closely for plan of d/c home with Sig Other when medically stable and any further identified needs. DARON Rojas Discharge Planning/Care Management Advanced directive, confirm from CLINIC Start: 10/12/21 07:34 Freq: Q24H Status: Active Protocol: Document 10/12/21 07:34 JLN (Rec: 10/12/21 09:23 HILDA [id number]) Advance Directive, confirm on record Time 09:23 Person contacted pt Copy received No Document 10/13/21 07:34 MS (Rec: 10/13/21 09:16 MS [id number]) Advance Directive, confirm on record Time 09:23 Person contacted pt Copy received No Time 09:16 Person contacted pt Copy received No
--- NOTE | 2021-10-13 20:21 | PM.ICURNDS ---
- :: This patient was seen via real time interactive two-way audiovisual telecommunication. Note: Tolerated off BiPAP this evening and now on 3 liters NC. Added PEP therapy. Seek early mobility to decrease IS. Cont BiPAP nightly. D/w RN and RT.
--- NOTE | 2021-10-13 22:54 | RT ---
Patient prefers not to wear BiPAP tonight. patient appears Anxious.
[2021-10-14] VITALS (19 sets, daily range): BP systolic 83–110; BP diastolic 51–65; PULSE 90–109; RESP 10–37; TEMP 36.6–37.6; O2SAT 93–95
[2021-10-14] MEDS: guaiFENesin ER 600 MG TAB PO
[2021-10-14] MEDS: SODIUM CHLORIDE 0.9% FLUSH 10 ML IV ×4 (00:01→20:50)
[2021-10-14] MEDS: MORPHINE 2 MG/ML INJ IV ×2 (02:29)
--- NOTE | 2021-10-14 07:22 | PC.NURSE ---
Pt. was restless last night, lung sounds beg. of shift sounds very coarse ins/exp ronchi and had received several neb treatments by RT. Pt. also was anxious and requested Ativan which she received, also was dyspneic with increase WOB so administered Morphine 3x through the night. Was finally able to doze off around 0300 this am. Pt's HR remains sinus tach with SBP in the 80's. Pt. refused to wear Bipap and refused PEEP therapy per RT. This morning, since pt. is resting her 02 Sats remain in the high 90's on 3L NC. Cont. with treatment.
[2021-10-14] MEDS: LORazepam 1 MG TABLET PO ×2 (08:15→15:53)
[2021-10-14] MEDS: ALBUTEROL/IPRATROPIUM 3 ML AMPUL INH ×5 (08:17→23:18)
[2021-10-14] MEDS: ADEMPAS 2.5 MG 2.5 EACH PO ×2 (08:18→20:22)
[2021-10-14] MEDS: ATORVASTATIN 20 MG TABLET 40 MG PO (08:18)
[2021-10-14] MEDS: ENTRESTO 1 EACH PO ×2 (08:18→20:22)
[2021-10-14] MEDS: FUROSEMIDE 20 MG/2 ML VIAL IV (08:19)
[2021-10-14] MEDS: predniSONE 20 MG TABLET 40 MG PO (08:19)
[2021-10-14 08:23] LABS: Add Manual Diff / Slide Review NO; Basophils Absolute Auto 0 /uL (0-100); Basophils Percent Auto 0.3 % (0-2); Eosinophils Absolute Auto 0 /uL (0-450); Eosinophils Percent Auto 0.2 % (2-4); Hemoglobin 14.1 g/dL (12.0-16.0); Lymphocytes Absolute Auto 1800 /uL (1100-4500); Lymphocytes Percent Auto 18.9 % (25-40); Mean Corpuscular HGB Conc 32.1 % (30-36); Mean Corpuscular Hemoglobin 27.6 PG (26-34); Mean Corpuscular Volume 86.2 fL (80-100); Monocytes Absolute Auto 700 /uL (0-900); Monocytes Percent Auto 7.7 % (3-14); Neutrophils Absolute Auto 7000 /uL (1500-7000); Neutrophils Percent Auto 72.9 % (50-75); Platelet Count 100 X10^3/uL (150-400); Red Blood Cell Count 5.11 X10^6/uL (4.0-5.2); Red Cell Distribution Width 14.7 % (11.6-14.8); White Blood Cell Count 9.6 X10^3/uL (4.5-11.0)
[2021-10-14 08:35] LABS: Alanine Aminotransferase 22 IU/L (<35); Albumin 4.2 g/dL (3.5-5.0); Albumin Globulin Ratio 1.5 (1.0-2.8); Alkaline Phosphatase 51 U/L (38-126); Aspartate Aminotransferase 33 IU/L (14-36); BUN Creatinine Ratio 29.3 (6-22); Bilirubin Total 0.7 mg/dL (0.2-1.3); Blood Urea Nitrogen 34 mg/dL (7-17); Carbon Dioxide 36 mmol/L (22-32); Chloride 96 mmol/L (98-107); Estimated Glomerular Filt Rate 55 mL/min (>60); Globulin 2.8 g/dL (1.7-4.1); Glucose 101 mg/dL (70-100); HEMOLYSIS < 15 (0-50); Magnesium 2.1 mg/dL (1.6-2.3); Sodium 135 mmol/L (137-145)
[2021-10-14 08:38] LABS: Potassium 5.6 mmol/L (3.4-5.1)
[2021-10-14 09:05] LABS: Thyroid Stimulating Hormone 1.84 uIU/mL (0.47-4.68)
--- NOTE | 2021-10-14 09:44 | P.TELICUPN_ITS ---
Subjective Subjective Interval history: now acute events overnight feels dizzy this am Current Medications Current Medications Medications: Home Medications remodulin See Rx Instructions .Route .COMPLEX 04/27/19 [History Confirmed 10/12/21] riociguat 2.5 mg tablet (Adempas) 2.5 mg PO BID 11/10/19 [History Confirmed 10/12/21] alendronate 70 mg tablet 70 mg PO QWEEK #56 tabs 11/10/20 [Rx Confirmed 10/12/21] rosuvastatin 20 mg tablet 20 mg PO DAILY 11/10/20 [History Confirmed 10/12/21] sacubitril 24 mg-valsartan 26 mg tablet (Entresto) 1 tab PO BID 11/10/20 [History Confirmed 10/12/21] cholecalciferol (vitamin D3) 25 mcg (1,000 unit) capsule (Vitamin D3) 25 mcg PO DAILY 06/12/21 [History Confirmed 10/12/21] warfarin 6 mg tablet See Rx Instructions .Route .COMPLEX 08/20/21 [History Confirmed 10/12/21] furosemide 20 mg tablet See Rx Instructions .Route .COMPLEX #180 tabs 09/10/21 [Rx Confirmed 10/12/21] hydromorphone 2 mg tablet 2 mg PO Q6H PRN pain #90 tabs 09/25/21 [Rx Confirmed 10/12/21] albuterol sulfate 90 mcg/actuation aerosol inhaler See Rx Instructions .Route .COMPLEX #18 grams 10/03/21 [Rx Confirmed 10/12/21] albuterol sulfate 2.5 mg/3 mL (0.083 %) solution for nebulization 2.5 mg (3 mL) inhalation Q4-6H PRN shortness of breath or wheezing, cough #180 mL 10/11/21 [Rx Confirmed 10/12/21] benzonatate 100 mg capsule 100 mg PO BID-TID PRN cough #20 caps 10/11/21 [Rx Confirmed 10/12/21] doxycycline hyclate 100 mg capsule 100 mg PO BID #20 caps 10/11/21 [Rx Confirmed 10/12/21] prednisone 20 mg tablet 40 mg PO DAILY #8 tabs 10/11/21 [Rx Confirmed 10/12/21] clopidogrel 75 mg PO DAILY 10/12/21 [History Confirmed 10/12/21] Visit Medications (administered) Generic Name Dose Route Start Last Admin Trade Name Freq PRN Reason Stop Dose Admin Albuterol/Ipratropium 3 ml 10/12/21 07:00 10/14/21 08:17 Albuterol/Ipratropium 3 Ml Ampul INH 3 ml [id number] JESSY Administration Atorvastatin Calcium 40 mg 10/12/21 09:00 10/14/21 08:18 Atorvastatin 20 Mg Tablet PO 40 mg DAILY JESSY Administration Benzonatate 100 mg 10/12/21 00:56 10/13/21 02:46 Benzonatate 100 Mg Capsule PO 100 mg TID PRN Administration Cough Guaifenesin 600 mg 10/13/21 09:24 10/14/21 00:00 Guaifenesin Er 600 Mg Tab PO 600 mg Q12HR PRN Administration Cough Hydromorphone HCl 2 mg 10/12/21 02:21 10/13/21 10:38 Hydromorphone 2 Mg Tablet PO 2 mg Q6H PRN Administration pain Azithromycin 500 mg/ Dextrose 250 mls @ 250 mls/hr 10/12/21 11:00 10/13/21 20:03 IV 10/16/21 11:59 Infused Q24H JESSY Infusion Lorazepam 1 mg 10/12/21 02:23 10/14/21 08:15 Lorazepam 1 Mg Tablet PO 1 mg Q6HR PRN Administration Anxiety Morphine Sulfate 2 mg 10/12/21 15:04 10/14/21 02:29 Morphine 2 Mg/Ml Inj IV 2 mg Q2HR PRN Administration Pain, Moderate (4-6) Non-Formulary 2.5 mg 10/12/21 09:00 10/14/21 08:18 Medication Adempas ( PO 2.5 mg Riociguat) 2.5 Mg BID JESSY Administration Tab Non-Formulary Med: 1 tab 10/12/21 09:00 10/14/21 08:18 Entresto (Sacubitril PO 1 tab -Valsartan 24-26 Mg BID JESSY Administration Tab) Remodulin ( 0 each 10/12/21 09:45 10/12/21 11:49 Treprostinil) Pump IV Not Given CONT JESSY Ondansetron HCl 4 mg 10/12/21 00:56 10/13/21 18:23 Ondansetron 4 Mg/2 Ml Inj IV 4 mg Q8HR PRN Administration Nausea And Vomiting Prednisone 40 mg 10/12/21 09:00 10/14/21 08:19 Prednisone 20 Mg Tablet PO 10/16/21 08:59 40 mg DAILY JESSY Administration Sodium Chloride 10 ml 10/12/21 00:41 10/14/21 02:29 Sodium Chloride 0.9% Flush IV 10 ml PRN PRN Administration Flush Sodium Chloride 10 ml 10/12/21 09:00 10/14/21 08:17 Sodium Chloride 0.9% Flush IV 10 ml BID JESSY Administration Objective Ventilator Parameters: Ventilator Settings FiO2 35 Positive End Expiratory 10 Pressure Labs Result Diagrams: 10/14/21 08:08 10/14/21 08:08 Labs: Laboratory Results - last 24 hr 10/14/21 10/14/21 10/14/21 08:08 08:08 08:08 WBC 9.6 RBC 5.11 Hgb 14.1 Hct 44.0 MCV 86.2 MCH 27.6 MCHC 32.1 RDW 14.7 Plt Count 100 L Neut % (Auto) 72.9 Lymph % (Auto) 18.9 L Esmeralda % (Auto) 7.7 Eos % (Auto) 0.2 L Baso % (Auto) 0.3 Neut # (Auto) 7000 Lymph # (Auto) 1800 Esmeralda # (Auto) 700 Eos # (Auto) 0 Baso # (Auto) 0 Sodium 135 L Potassium 5.6 H D Chloride 96 L Carbon Dioxide 36 H BUN 34 H Creatinine 1.16 H Estimated GFR 55 L BUN/Creatinine Ratio 29.3 H Glucose 101 H Calcium 9.0 Magnesium 2.1 Total Bilirubin 0.7 AST 33 ALT 22 Alkaline Phosphatase 51 Total Protein 7.0 Albumin 4.2 Globulin 2.8 Albumin/Globulin Ratio 1.5 TSH 1.84 Exam Vital Signs (past 8 hours): - 10/14/21 04:00 10/14/21 04:44 10/14/21 08:17 Temperature 97.9 F Pulse Rate 105 H 102 H Respiratory Rate 24 20 Blood Pressure 86/54 L Pulse Oximetry 95 95 Oxygen Delivery Method Nasal Cannula Nasal Cannula Oxygen Flow Rate 3 10/14/21 08:38 Temperature Pulse Rate 101 H Respiratory Rate 24 Blood Pressure 97/52 L Pulse Oximetry 94 Oxygen Delivery Method Oxygen Flow Rate 3 Fraction of Inspired Oxygen 35 Oxygen Delivery Method Nasal Cannula Oxygen Flow Rate 3 Assessment & Plan Assessment & Plan narrative: patient seen with bedside nurse and provider chart/labs/imaging reviewed currently afebrile, HD stable, HR 100s sbp ental status intact labs significant for bicarb 36, creat 1.6, potassium 5.4 suggest -minimize opiod use -cont nebs -continue steroids -dc lasix -tx hyperK -check ekg -repeat bmp if creat continues to rise, would give ivf -check renal sono -bipap prn - pt on baseline 3Lnc -cont azithromycin total 5 days -hold coumadin, check inr -suggest oob to chair/ambulation -home meds for pulm htn -keep glucose 140-180s -monitor ins/outs -replace lytes prn -gi/dvt ppx -please call eICU if condition changes Time Spent With Patient Critical Care time: I spent a total of [] minutes of critical care time on this patient's care today; this time is exclusive of procedural time.
--- NOTE | 2021-10-14 10:52 | P.PN_ITS ---
Subjective Subjective Date Patient Seen: 10/14/21 Time Patient Seen: 09:00 Interval history: Patient slept terribly and feels very tired this morning. Otherwise no complaints. Exam Vital Signs (past 8 hours): - 10/14/21 04:00 10/14/21 04:44 10/14/21 08:17 Temperature 97.9 F Pulse Rate 105 H 102 H Respiratory Rate 24 20 Blood Pressure 86/54 L Pulse Oximetry 95 95 Oxygen Delivery Method Nasal Cannula Nasal Cannula Oxygen Flow Rate 3 10/14/21 08:38 10/14/21 08:00 Temperature Pulse Rate 101 H Respiratory Rate 24 Blood Pressure 97/52 L Pulse Oximetry 94 Oxygen Delivery Method High Flow Nasal Cannula Oxygen Flow Rate 3 Fraction of Inspired Oxygen 35 Oxygen Delivery Method Nasal Cannula Oxygen Flow Rate 3 Narrative Exam Narrative: General:? Patient is a well-developed, well-nourished female, slightly labored breathing on NC. HEENT:? Normocephalic, atraumatic, extraocular muscles intact, oral pharynx is clear and mucous membranes are moist.? Neck is supple and symmetric, trachea is midline, no adenopathy, no thyroid enlargement, nontender, no masses palpated.? Negative for JVD Chest:? Normal AP diameter and contour without kyphoscoliosis, no nasal flaring, retractions. Mild labored breathing. Midline sternotomy scar. Lungs:? Auscultation of all lung khan lung sounds are improved coarseness but increased wheezes. Cardio:? regular rate and rhythm without murmur, rubs, or gallops, no carotid bruit, no cardiac pulsations present. No peripheral edema. Abdomen:? Soft nontender, negative for organomegaly, or masses.? Bowel sounds are present in all 4 quadrants without guarding or rebound, no CVA tenderness. Musculoskeletal:? Muscle strength and tone are equal within normal limits, no deformity, crepitus, effusions, cyanosis, clubbing or edema present.? Full range of motion intact radial and pedal pulses are normal. Skin:? Warm dry and intact without rashes, ulcerations or petechiae.? Neuro:? Alert and orientated x3, strength is +5/5 in all extremities, sensation to touch intact, no gross deficits noted of cranial nerves. Psych:? Patient has a well-kept appearance, appropriate affect, mental status attitude thought context and judgment are appropriate for age. Objective Labs Result Diagrams: 10/14/21 08:08 10/14/21 08:08 Labs: Laboratory Results - last 24 hr 10/14/21 10/14/21 10/14/21 08:08 08:08 08:08 WBC 9.6 RBC 5.11 Hgb 14.1 Hct 44.0 MCV 86.2 MCH 27.6 MCHC 32.1 RDW 14.7 Plt Count 100 L Neut % (Auto) 72.9 Lymph % (Auto) 18.9 L [place] % (Auto) 7.7 Eos % (Auto) 0.2 L Baso % (Auto) 0.3 Neut # (Auto) 7000 Lymph # (Auto) 1800 [place] # (Auto) 700 Eos # (Auto) 0 Baso # (Auto) 0 Sodium 135 L Potassium 5.6 H D Chloride 96 L Carbon Dioxide 36 H BUN 34 H Creatinine 1.16 H Estimated GFR 55 L BUN/Creatinine Ratio 29.3 H Glucose 101 H Calcium 9.0 Magnesium 2.1 Total Bilirubin 0.7 AST 33 ALT 22 Alkaline Phosphatase 51 Total Protein 7.0 Albumin 4.2 Globulin 2.8 Albumin/Globulin Ratio 1.5 TSH 1.84 PFSH Medical History Anxiety Asthma Chronic back pain Encounter for routine gynecological examination Encounter for wellness examination in adult History of blood clots (~2009) History of myocardial infarction (03/2019) 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 (2018) 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 LV dysfunction (2018) Menopause Osteopenia after menopause (10/2019) Osteoporosis (10/2019) Pre-procedural examination Pulmonary embolism (2009) Pulmonary hypertension (2009) Situational anxiety Systolic heart failure (~2018) Vision disturbance (09/2019) Social History household members: significant other Smoking Status: Former smoker second hand exposure: No alcohol intake: former substance use type: marijuana Assessment & Plan Assessment & Plan narrative: Dagmar Lawrence is a 56-year-old female with a history of anxiety, asthma, COPD , ischemic cardiomyopathy EF 25-330%, CTEPH with severely dilated pulmonary arteries, and former 20 pack year smoker who presented to the ED complaining of dyspnea, cough and wheezes. #Acute hypercapnic respiratory failure, secondary to COPD/asthma exacerbation, acute on chronic, present on admission -continue nebulizing treatments, prednisone 40 mg p.o. q.day x4 days -Mucinex and tessalon perles -Now at baseline 2.5L O2 -Did not need bipap overnight #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 with EF 25-30%, severe mitral regurg, chronic -Per echo on 10/12 -Continue entresto -Consider beta kirsten if BP allows -s/p IV lasix, dc today due to Cr and BUN rising #Hyperkalemia, not present on admission -K 5.6 today -Check ECG -Give calc gluc, insulin reg 10 and D50 -Repeat BMP at 1400 #Long-term anticoagulation therapy, acute on chronic, present on admission -PT 66.4, INR 5.7 -patient is currently on Coumadin- Will Hold until INR return to therapeutic level. -Monitor INR #Systolic heart failure with pulmonary hypertension, chronic, present on admission -Continue Riociguat, Entresto #Hyperlipidemia, chronic, present on admission -continue atorvastatin Code status: No compressions, intubation ok Surrogate decision maker: Partner Garth TALBOT PCR: Negative? DVT/VTE prophylaxis: Love 30mg & scd's I have utilized all available immediate resources to obtain, update, or review the patient's current medications. I confirmed that the patient's advanced care plan is present, Code status is documented and/or surrogate decision maker is listed in the patient's medical record. Time Spent With Patient Critical Care time: I spent a total of [] minutes of critical care time on this patient's care today; this time is exclusive of procedural time.
[2021-10-14] MEDS: DEXTROSE 10 % IN WATER 250 ML 999 ML IV (10:53)
[2021-10-14] MEDS: INSULIN REGULAR 100 UNIT/ML 3 ML VIAL 10 UNIT IV (10:58)
[2021-10-14] MEDS: CALCIUM GLUCONATE 4.65 MEQ in SODIUM CHLORIDE 0.9% 50 ML 180 MEQ IV (10:58)
[2021-10-14] MEDS: BENZONATATE 100 MG CAPSULE PO (11:08)
[2021-10-14] MEDS: HYDROMORPHONE 2 MG TABLET PO (11:08)
[2021-10-14] MEDS: DEXTROSE 5% WATER 1,000 ML 75 ML IV (11:10)
[2021-10-14] MEDS: AZITHROMYCIN 500 MG in DEXTROSE 5% IN WATER 250 ML 250 MG IV (13:14)
[2021-10-14 14:33] LABS: Prothrombin Time 34.1 SECONDS (10.1-12.7)
[2021-10-14 14:37] LABS: BUN Creatinine Ratio 35.1 (6-22); Blood Urea Nitrogen 33 mg/dL (7-17); Carbon Dioxide 33 mmol/L (22-32); Chloride 94 mmol/L (98-107); Estimated Glomerular Filt Rate > 60 mL/min (>60); Glucose 144 mg/dL (70-100); HEMOLYSIS < 15 (0-50); Potassium 5.3 mmol/L (3.4-5.1); Sodium 134 mmol/L (137-145)
--- NOTE | 2021-10-14 16:35 | PC.NURSE ---
Addendum entered by Karla Sands R.N. 10/14/21 18:09: Patient requested to be off bipap at 1800, bipap removed and [facility] Pt sitting up on side of bed eating dinner. Reports feeling better. Denies pain, denies anxiety. Original Note: Day Shift Note Patient fatigued this AM, flat affect. Reports anxiety and difficulty breathing, resolved moderately with ativan PO and breathing treatments. On 3L HFNC with SpO2 95-97% at rest, desats to upper 80s with activity. Lungs are coarse with wheezes throughout. Hoarse cough, nonproductive. K 5.6 on AM labs and Cr 2.1, reviewed with Tele-leather flesher (Dr. Ching) and hospitalist (Dr. Frausto). Calcium gluconate, D10W 250 ml, and 10 units regular insulin given IV per MD orders. K and Cr improved on lab recheck. INR at 3.0, reviewed with MD, warfarin to be held another day. At about 1520 pt reported having a hard time getting breaths in and requested the bipap. MD notified and RT placed pt on bipap 14/5, FIO2 35% at 1525. Pt reports breathing is more comfortable at this time, SpO2 92%. HR in the 90s. BP stable 90s/50s. Up independent to BSC as needed. Patient's own medication pump (remodulin) infusing. Call light within reach, using appropriately to make needs known.
--- NOTE | 2021-10-14 20:30 | PM.ICURNDS ---
- :: This patient was seen via real time interactive two-way audiovisual telecommunication. Note: Patient is more short of breath and sound more coarse. Off BiPAP this evening. Restarted back on remodulin pump. During night round she exhibited severe shortness of breath and placed back on BiPAP. Recommend transferring patient to [facility] center. D/w JESSICA Sawyer, and patient.
--- NOTE | 2021-10-14 21:15 | PC.NURSE ---
Addendum entered by Isidra Edwards R.N. 10/15/21 02:10: Patient awake, taking off her BiPAP to go to BSC, O2 Sats dropped into the 60s, in less than a minute. Placed back on BiPAP, audible wheezing. Called RT, FiO2 increased to 50% on BiPAP, patient given PRN albuterol treatment. On FiO2 50% BiPAP patient recovered to O2 Sats 94%. Patient remained calm, did get to BSC with BiPAP on. Discussed with patient about using a purewick to help decrease activity to BSC. Patient agreed, purewick will be used or bedpan. Addendum entered by Isidra Edwards R.N. 10/15/21 00:56: Patient resting quietly with BIPAP 14/5, FiO2 35%, O2 Sats 92%. During assessment up to BSC with stand by assist, voided 300ml clear pale urine. Tolerated activity on NC 3L with little SOB. Placed back on BIPAP, SR 88. Calm, Cooperative, denies pain. Remodulin pump checked, continues to infuse at 45ml/24hr. Warm blankets placed over patient per request. Original Note: During rounds at [address] Correa patient is on a Remodulin pump, pump found turned off during my assessment at beginning of shift. Tubing to pump inserted into Right upper chest, covered with 2X2 non occlusive dressing with transparent covering. Patient was able to turn pump on, does not know why pump was turned off. The Remodulin module was verified to be in the pump at a rate of 45ml/24hr and is now running at this rate. recommends transferring patient to the [facility] and was given ZACH Rizo cell to call. ZACH Rizo was also updated by this RN about Remodulin pump and that patient is on BiPAP 14/5 at 35% with O2 Sats 94%. RR labored.
[2021-10-15] VITALS (31 sets, daily range): BP systolic 76–98; BP diastolic 47–59; PULSE 84–107; RESP 10–33; TEMP 36–37.1; O2SAT 82–100
[2021-10-15] MEDS: ALBUTEROL 2.5 MG/3 ML NEB (ADULT) INH (02:03)
[2021-10-15 05:22] LABS: Add Manual Diff / Slide Review NO; Basophils Absolute Auto 0 /uL (0-100); Basophils Percent Auto 0.4 % (0-2); Eosinophils Absolute Auto 0 /uL (0-450); Eosinophils Percent Auto 0.5 % (2-4); Hematocrit 43.8 % (36-46); Hemoglobin 14.4 g/dL (12.0-16.0); INR 2.6 (0.9-1.3); Lymphocytes Absolute Auto 1400 /uL (1100-4500); Lymphocytes Percent Auto 18.6 % (25-40); Mean Corpuscular HGB Conc 32.9 % (30-36); Mean Corpuscular Hemoglobin 27.9 PG (26-34); Mean Corpuscular Volume 84.9 fL (80-100); Monocytes Absolute Auto 800 /uL (0-900); Monocytes Percent Auto 10.7 % (3-14); Neutrophils Absolute Auto 5300 /uL (1500-7000); Neutrophils Percent Auto 69.8 % (50-75); Platelet Count 95 X10^3/uL (150-400); Prothrombin Time 29.2 SECONDS (10.1-12.7); Red Blood Cell Count 5.15 X10^6/uL (4.0-5.2); Red Cell Distribution Width 14.5 % (11.6-14.8); White Blood Cell Count 7.6 X10^3/uL (4.5-11.0)
[2021-10-15 05:29] LABS: BUN Creatinine Ratio 44.9 (6-22); Blood Urea Nitrogen 31 mg/dL (7-17); Calcium 8.9 mg/dL (8.4-10.2); Carbon Dioxide 37 mmol/L (22-32); Chloride 94 mmol/L (98-107); Estimated Glomerular Filt Rate > 60 mL/min (>60); Glucose 103 mg/dL (70-100); HEMOLYSIS < 15 (0-50); Potassium 4.8 mmol/L (3.4-5.1); Sodium 133 mmol/L (137-145)
[2021-10-15 05:38] LABS: NT-proBNP (BNP-Adult 18+) 2080 pg/mL (<125)
[2021-10-15] MEDS: ALBUTEROL/IPRATROPIUM 3 ML AMPUL INH ×5 (08:21→22:40)
--- NOTE | 2021-10-15 08:38 | PM.PN.1 ---
Exam Vital Signs (past 8 hours): - 10/15/21 01:00 10/15/21 01:09 10/15/21 01:09 Pulse Rate 87 Respiratory Rate 17 Blood Pressure 84/55 L Pulse Oximetry 92 Oxygen Delivery Method Fraction of Inspired Oxygen 0.35 10/15/21 01:34 10/15/21 02:03 10/15/21 02:00 Pulse Rate 89 Respiratory Rate 17 Blood Pressure Pulse Oximetry 90 L 91 Oxygen Delivery Method BiPAP Fraction of Inspired Oxygen 50 0.50 10/15/21 02:00 10/15/21 02:00 10/15/21 02:12 Pulse Rate 104 H 98 H Respiratory Rate 33 H 26 H Blood Pressure 98/59 L Pulse Oximetry 82 L 95 Oxygen Delivery Method Fraction of Inspired Oxygen 10/15/21 04:00 10/15/21 03:00 10/15/21 03:00 Pulse Rate 95 H Respiratory Rate 17 Blood Pressure 95/59 L Pulse Oximetry 97 Oxygen Delivery Method Fraction of Inspired Oxygen 0.50 10/15/21 04:00 10/15/21 04:00 10/15/21 04:15 Pulse Rate 101 H 96 H Respiratory Rate 27 H 21 Blood Pressure 95/56 L Pulse Oximetry 86 L 95 Oxygen Delivery Method Fraction of Inspired Oxygen 10/15/21 04:00 10/15/21 05:00 10/15/21 05:00 Pulse Rate 93 H Respiratory Rate 19 Blood Pressure 89/54 L Pulse Oximetry 94 Oxygen Delivery Method BiPAP Fraction of Inspired Oxygen 10/15/21 05:18 10/15/21 05:00 10/15/21 06:00 Pulse Rate 99 H 93 H Respiratory Rate 28 H 19 Blood Pressure 89/54 L Pulse Oximetry 88 L 94 Oxygen Delivery Method Fraction of Inspired Oxygen 0.50 10/15/21 06:00 10/15/21 06:00 10/15/21 06:21 Pulse Rate 97 H 101 H Respiratory Rate 23 23 Blood Pressure 84/53 L Pulse Oximetry 96 93 Oxygen Delivery Method Fraction of Inspired Oxygen 10/15/21 03:12 10/15/21 08:22 Pulse Rate 97 H Respiratory Rate 21 Blood Pressure 98/54 L Pulse Oximetry 93 Oxygen Delivery Method Nasal Cannula Fraction of Inspired Oxygen 50 Fraction of Inspired Oxygen 0.50 Oxygen Delivery Method Nasal Cannula Oxygen Flow Rate 3 Narrative Exam Narrative: General:? Patient is a well-developed, well-nourished female, appears tired with labored breathing. HEENT:? Normocephalic, atraumatic, extraocular muscles intact, oral pharynx is clear and mucous membranes are moist.? Neck is supple and symmetric, trachea is midline, no adenopathy, no thyroid enlargement, nontender, no masses palpated.? Negative for JVD Chest:? Normal AP diameter and contour without kyphoscoliosis, no nasal flaring, retractions. Mild labored breathing. Midline sternotomy scar. Lungs:? Auscultation of all lung khan lung sounds with coarse rhonchi. Cardio:? regular rate and rhythm without murmur, rubs, or gallops, no carotid bruit, no cardiac pulsations present. No peripheral edema. Abdomen:? Soft nontender, negative for organomegaly, or masses.? Bowel sounds are present in all 4 quadrants without guarding or rebound, no CVA tenderness. Musculoskeletal:? Muscle strength and tone are equal within normal limits, no deformity, crepitus, effusions, cyanosis, clubbing or edema present.? Full range of motion intact radial and pedal pulses are normal. Skin:? Warm dry and intact without rashes, ulcerations or petechiae.? Neuro:? Alert and orientated x3, strength is +5/5 in all extremities, sensation to touch intact, no gross deficits noted of cranial nerves. Psych:? Patient has a well-kept appearance, appropriate affect, mental status attitude thought context and judgment are appropriate for age. Objective Labs Result Diagrams: 10/15/21 04:50 10/15/21 04:50 Labs: Laboratory Results - last 24 hr 10/14/21 10/14/21 10/14/21 08:08 08:08 14:16 WBC RBC Hgb Hct MCV MCH MCHC RDW Plt Count Neut % (Auto) Lymph % (Auto) [place] % (Auto) Eos % (Auto) Baso % (Auto) Neut # (Auto) Lymph # (Auto) [place] # (Auto) Eos # (Auto) Baso # (Auto) PT INR Sodium 135 L 134 L Potassium 5.6 H D 5.3 H Chloride 96 L 94 L Carbon Dioxide 36 H 33 H BUN 34 H 33 H Creatinine 1.16 H 0.94 Estimated GFR 55 L > 60 BUN/Creatinine Ratio 29.3 H 35.1 H Glucose 101 H 144 H Calcium 9.0 9.0 Magnesium 2.1 Total Bilirubin 0.7 AST 33 ALT 22 Alkaline Phosphatase 51 NT-Pro-B Natriuret Pep Total Protein 7.0 Albumin 4.2 Globulin 2.8 Albumin/Globulin Ratio 1.5 TSH 1.84 10/14/21 10/15/21 10/15/21 14:16 04:50 04:50 WBC RBC Hgb Hct MCV MCH MCHC RDW Plt Count Neut % (Auto) Lymph % (Auto) [place] % (Auto) Eos % (Auto) Baso % (Auto) Neut # (Auto) Lymph # (Auto) [place] # (Auto) Eos # (Auto) Baso # (Auto) PT 34.1 H D INR 3.0 H Sodium Potassium Chloride Carbon Dioxide BUN Creatinine Estimated GFR BUN/Creatinine Ratio Glucose Calcium Magnesium 2.0 Total Bilirubin AST ALT Alkaline Phosphatase NT-Pro-B Natriuret Pep 2080 H Total Protein Albumin Globulin Albumin/Globulin Ratio TSH 10/15/21 10/15/21 10/15/21 04:50 04:50 04:50 WBC 7.6 RBC 5.15 Hgb 14.4 Hct 43.8 MCV 84.9 MCH 27.9 MCHC 32.9 RDW 14.5 Plt Count 95 L Neut % (Auto) 69.8 Lymph % (Auto) 18.6 L [place] % (Auto) 10.7 Eos % (Auto) 0.5 L Baso % (Auto) 0.4 Neut # (Auto) 5300 Lymph # (Auto) 1400 [place] # (Auto) 800 Eos # (Auto) 0 Baso # (Auto) 0 PT 29.2 H INR 2.6 H Sodium 133 L Potassium 4.8 Chloride 94 L Carbon Dioxide 37 H BUN 31 H Creatinine 0.69 Estimated GFR > 60 BUN/Creatinine Ratio 44.9 H Glucose 103 H Calcium 8.9 Magnesium Total Bilirubin AST ALT Alkaline Phosphatase NT-Pro-B Natriuret Pep Total Protein Albumin Globulin Albumin/Globulin Ratio TSH PFSH Medical History Anxiety Asthma Chronic back pain Encounter for routine gynecological examination Encounter for wellness examination in adult History of blood clots (~2009) History of myocardial infarction (03/2019) 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 (2018) 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 LV dysfunction (2018) Menopause Osteopenia after menopause (10/2019) Osteoporosis (10/2019) Pre-procedural examination Pulmonary embolism (2010) Pulmonary hypertension (2010) Situational anxiety Systolic heart failure (~2018) Vision disturbance (09/2019) Social History household members: significant other Smoking Status: Former smoker second hand exposure: No alcohol intake: former substance use type: marijuana Assessment & Plan Assessment & Plan narrative: Dagmar Lawrence is a 56-year-old female with a history of anxiety, asthma, COPD, ischemic cardiomyopathy EF 25-330%, CTEPH with severely dilated pulmonary arteries, and former 20 pack year smoker who presented to the ED complaining of dyspnea, cough and wheezes. #Acute hypercapnic respiratory failure, secondary to COPD/asthma exacerbation, acute on chronic, present on admission -continue nebulizing treatments, prednisone 40 mg p.o. q.day x4 days -Mucinex and tessalon perles -Start chest physiotherapy -Requiring bipap more frequently due to labored breathing and mild resp distress -Transfer to initiated, awaiting acceptance. If no transfer is able will need to have palliative discussion. -GOC discussion had with Garth who said patient is accepting she may not get better #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 with EF 25-30%, severe mitral regurg, chronic -Per echo on 10/12 -Continue entresto #Hyperkalemia, not present on admission, resolved #Long-term anticoagulation therapy, acute on chronic, present on admission -INR 2.7 on 10/15 -Restart warfarin -Monitor INR daily #Systolic heart failure with pulmonary hypertension, chronic, present on admission -Continue Riociguat, Entresto #Hyperlipidemia, chronic, present on admission -continue atorvastatin Code status: No compressions, intubation ok Surrogate decision maker: Partner Garth Aragon DAHIANA PCR: Negative? DVT/VTE prophylaxis: Warfarin I have utilized all available immediate resources to obtain, update, or review the patient's current medications. I confirmed that the patient's advanced care plan is present, Code status is documented and/or surrogate decision maker is listed in the patient's medical record. Time Spent With Patient Critical Care time: I spent a total of [] minutes of critical care time on this patient's care today; this time is exclusive of procedural time.
[2021-10-15 08:42] LABS: pH ABG 7.38 (7.35-7.45)
[2021-10-15 08:43] LABS: Fractionated Inspired Oxygen 32; HCO3 ABG 37 mmol/L (22-26); Oxygen Saturation ABG 91 % (95-100); PCO2 ABG 63.6 mmHg (35-45); PO2 ABG 64 mmHg (80-100); TCO2 ABG 39 mmol/L (21-31)
[2021-10-15] MEDS: MORPHINE 2 MG/ML INJ IV ×2 (09:09→17:08)
[2021-10-15 09:19] LABS: Procalcitonin 0.04 ng/mL (<0.5)
--- NOTE | 2021-10-15 09:49 | PM.PN.EICU ---
Subjective Subjective Interval history: no acute evets overnight Current Medications Current Medications Medications: Home Medications remodulin See Rx Instructions .Route .COMPLEX 04/27/19 [History Confirmed 10/12/21] riociguat 2.5 mg tablet (Adempas) 2.5 mg PO BID 11/10/19 [History Confirmed 10/12/21] alendronate 70 mg tablet 70 mg PO QWEEK #56 tabs 11/10/20 [Rx Confirmed 10/12/21] rosuvastatin 20 mg tablet 20 mg PO DAILY 11/10/20 [History Confirmed 10/12/21] sacubitril 24 mg-valsartan 26 mg tablet (Entresto) 1 tab PO BID 11/10/20 [History Confirmed 10/12/21] cholecalciferol (vitamin D3) 25 mcg (1,000 unit) capsule (Vitamin D3) 25 mcg PO DAILY 06/12/21 [History Confirmed 10/12/21] warfarin 6 mg tablet See Rx Instructions .Route .COMPLEX 08/20/21 [History Confirmed 10/12/21] furosemide 20 mg tablet See Rx Instructions .Route .COMPLEX #180 tabs 09/10/21 [Rx Confirmed 10/12/21] hydromorphone 2 mg tablet 2 mg PO Q6H PRN pain #90 tabs 09/25/21 [Rx Confirmed 10/12/21] albuterol sulfate 90 mcg/actuation aerosol inhaler See Rx Instructions .Route .COMPLEX #18 grams 10/03/21 [Rx Confirmed 10/12/21] albuterol sulfate 2.5 mg/3 mL (0.083 %) solution for nebulization 2.5 mg (3 mL) inhalation Q4-6H PRN shortness of breath or wheezing, cough #180 mL 10/11/21 [Rx Confirmed 10/12/21] benzonatate 100 mg capsule 100 mg PO BID-TID PRN cough #20 caps 10/11/21 [Rx Confirmed 10/12/21] doxycycline hyclate 100 mg capsule 100 mg PO BID #20 caps 10/11/21 [Rx Confirmed 10/12/21] prednisone 20 mg tablet 40 mg PO DAILY #8 tabs 10/11/21 [Rx Confirmed 10/12/21] clopidogrel 75 mg PO DAILY 10/12/21 [History Confirmed 10/12/21] Visit Medications (administered) Generic Name Dose Route Start Last Admin Trade Name Freq PRN Reason Stop Dose Admin Albuterol 2.5 mg 10/12/21 10:32 10/15/21 02:03 Albuterol 2.5 Mg/3 Ml Neb (Adult) INH 2.5 mg [id number] PRN Administration Shortness Of Breath Albuterol/Ipratropium 3 ml 10/12/21 07:00 10/15/21 08:21 Albuterol/Ipratropium 3 Ml Ampul INH 3 ml [id number] Administration Atorvastatin Calcium 40 mg 10/12/21 09:00 10/14/21 08:18 Atorvastatin 20 Mg Tablet PO 40 mg DAILY JESSY Administration Benzonatate 100 mg 10/12/21 00:56 10/14/21 11:08 Benzonatate 100 Mg Capsule PO 100 mg TID PRN Administration Cough Guaifenesin 600 mg 10/13/21 09:24 10/14/21 00:00 Guaifenesin Er 600 Mg Tab PO 600 mg Q12HR PRN Administration Cough Hydromorphone HCl 2 mg 10/12/21 02:21 10/14/21 11:08 Hydromorphone 2 Mg Tablet PO 2 mg Q6H PRN Administration pain Azithromycin 500 mg/ Dextrose 250 mls @ 250 mls/hr 10/12/21 11:00 10/14/21 14:33 IV 10/16/21 11:59 Infused Q24H JESSY Infusion Dextrose 250 mls @ 999 mls/hr 10/14/21 10:49 10/14/21 11:16 D10w IV Infused PRN PRN Infusion Hypoglycemia Lorazepam 1 mg 10/12/21 02:23 10/14/21 15:53 Lorazepam 1 Mg Tablet PO 1 mg Q6HR PRN Administration Anxiety Morphine Sulfate 2 mg 10/12/21 15:04 10/15/21 09:09 Morphine 2 Mg/Ml Inj IV 1 mg Q2HR PRN Administration Pain, Moderate (4-6) Non-Formulary 2.5 mg 10/12/21 09:00 10/14/21 20:22 Medication Adempas ( PO 2.5 mg Riociguat) 2.5 Mg BID JESSY Administration Tab Non-Formulary Med: 1 tab 10/12/21 09:00 10/14/21 20:22 Entresto (Sacubitril PO 1 tab -Valsartan 24-26 Mg BID JESSY Administration Tab) Remodulin ( 0 each 10/12/21 09:45 10/12/21 11:49 Treprostinil) Pump IV Not Given CONT JESSY Ondansetron HCl 4 mg 10/12/21 00:56 10/13/21 18:23 Ondansetron 4 Mg/2 Ml Inj IV 4 mg Q8HR PRN Administration Nausea And Vomiting Prednisone 40 mg 10/12/21 09:00 10/14/21 08:19 Prednisone 20 Mg Tablet PO 10/16/21 08:59 40 mg DAILY JESSY Administration Sodium Chloride 10 ml 10/12/21 00:41 10/14/21 02:29 Sodium Chloride 0.9% Flush IV 10 ml PRN PRN Administration Flush Sodium Chloride 10 ml 10/12/21 09:00 10/14/21 20:50 Sodium Chloride 0.9% Flush IV 10 ml BID JESSY Administration Objective Ventilator Parameters: Ventilator Settings FiO2 35 Positive End Expiratory 10 Pressure Labs Result Diagrams: 10/15/21 04:50 10/15/21 04:50 Labs: Laboratory Results - last 24 hr 10/14/21 10/14/21 10/15/21 14:16 14:16 04:50 WBC RBC Hgb Hct MCV MCH MCHC RDW Plt Count Neut % (Auto) Lymph % (Auto) [place] % (Auto) Eos % (Auto) Baso % (Auto) Neut # (Auto) Lymph # (Auto) [place] # (Auto) Eos # (Auto) Baso # (Auto) PT 34.1 H D INR 3.0 H ABG pH ABG pCO2 ABG pO2 ABG HCO3 ABG Total CO2 ABG O2 Saturation ABG Base Excess FiO2 Sodium 134 L Potassium 5.3 H Chloride 94 L Carbon Dioxide 33 H BUN 33 H Creatinine 0.94 Estimated GFR > 60 BUN/Creatinine Ratio 35.1 H Glucose 144 H Calcium 9.0 Magnesium NT-Pro-B Natriuret Pep 2080 H Procalcitonin 10/15/21 10/15/21 10/15/21 04:50 04:50 04:50 WBC 7.6 RBC 5.15 Hgb 14.4 Hct 43.8 MCV 84.9 MCH 27.9 MCHC 32.9 RDW 14.5 Plt Count 95 L Neut % (Auto) 69.8 Lymph % (Auto) 18.6 L [place] % (Auto) 10.7 Eos % (Auto) 0.5 L Baso % (Auto) 0.4 Neut # (Auto) 5300 Lymph # (Auto) 1400 [place] # (Auto) 800 Eos # (Auto) 0 Baso # (Auto) 0 PT 29.2 H INR 2.6 H ABG pH ABG pCO2 ABG pO2 ABG HCO3 ABG Total CO2 ABG O2 Saturation ABG Base Excess FiO2 Sodium Potassium Chloride Carbon Dioxide BUN Creatinine Estimated GFR BUN/Creatinine Ratio Glucose Calcium Magnesium 2.0 NT-Pro-B Natriuret Pep Procalcitonin 10/15/21 10/15/21 10/15/21 04:50 08:32 Unknown WBC RBC Hgb Hct MCV MCH MCHC RDW Plt Count Neut % (Auto) Lymph % (Auto) [place] % (Auto) Eos % (Auto) Baso % (Auto) Neut # (Auto) Lymph # (Auto) [place] # (Auto) Eos # (Auto) Baso # (Auto) PT INR ABG pH 7.38 ABG pCO2 63.6 H* ABG pO2 64 L ABG HCO3 37 H ABG Total CO2 39 H ABG O2 Saturation 91 L ABG Base Excess 12.0 H FiO2 32 Sodium 133 L Potassium 4.8 Chloride 94 L Carbon Dioxide 37 H BUN 31 H Creatinine 0.69 Estimated GFR > 60 BUN/Creatinine Ratio 44.9 H Glucose 103 H Calcium 8.9 Magnesium NT-Pro-B Natriuret Pep Procalcitonin 0.04 Exam Vital Signs (past 8 hours): - 10/15/21 02:03 10/15/21 02:00 10/15/21 02:00 Temperature Pulse Rate Respiratory Rate Blood Pressure 98/59 L Pulse Oximetry 91 Oxygen Delivery Method BiPAP Oxygen Flow Rate Fraction of Inspired Oxygen 50 0.50 10/15/21 02:00 10/15/21 02:12 10/15/21 04:00 Temperature Pulse Rate 104 H 98 H Respiratory Rate 33 H 26 H Blood Pressure Pulse Oximetry 82 L 95 Oxygen Delivery Method Oxygen Flow Rate Fraction of Inspired Oxygen 0.50 10/15/21 03:00 10/15/21 03:00 10/15/21 04:00 Temperature Pulse Rate 95 H 101 H Respiratory Rate 17 27 H Blood Pressure 95/59 L Pulse Oximetry 97 86 L Oxygen Delivery Method Oxygen Flow Rate Fraction of Inspired Oxygen 10/15/21 04:00 10/15/21 04:15 10/15/21 04:00 Temperature Pulse Rate 96 H Respiratory Rate 21 Blood Pressure 95/56 L Pulse Oximetry 95 Oxygen Delivery Method BiPAP Oxygen Flow Rate Fraction of Inspired Oxygen 10/15/21 05:00 10/15/21 05:00 10/15/21 05:18 Temperature Pulse Rate 93 H 99 H Respiratory Rate 19 28 H Blood Pressure 89/54 L Pulse Oximetry 94 88 L Oxygen Delivery Method Oxygen Flow Rate Fraction of Inspired Oxygen 10/15/21 05:00 10/15/21 06:00 10/15/21 06:00 Temperature Pulse Rate 93 H Respiratory Rate 19 Blood Pressure 89/54 L 84/53 L Pulse Oximetry 94 Oxygen Delivery Method Oxygen Flow Rate Fraction of Inspired Oxygen 0.50 10/15/21 06:00 10/15/21 06:21 10/15/21 03:12 Temperature Pulse Rate 97 H 101 H Respiratory Rate 23 23 Blood Pressure 98/54 L Pulse Oximetry 96 93 Oxygen Delivery Method Oxygen Flow Rate Fraction of Inspired Oxygen 50 10/15/21 08:22 10/15/21 09:01 10/15/21 08:00 Temperature 98.8 F Pulse Rate 97 H 103 H Respiratory Rate 21 17 Blood Pressure 84/47 L Pulse Oximetry 93 89 L Oxygen Delivery Method Nasal Cannula Oxygen Flow Rate 2 Fraction of Inspired Oxygen 35 Fraction of Inspired Oxygen 35 Oxygen Delivery Method Nasal Cannula Oxygen Flow Rate 2 Assessment & Plan Assessment & Plan narrative: patient seen with bedside nurse and provider chart/labs/imaging reviewed on bipap this am comfortable currently afebrile, HD stable, HR 100s mental status intact INR 2.5 -creat .96 abg compensated hypercapneic failure suggest -minimize opiod use, if increased work of breathing suggest to adjust bipap setting and or consider intubation -cont nebs -continue steroids -hold lasix -hyperk resovled, check labs daily -bipap prn - pt on baseline 3Lnc -cont azithromycin total 5 days -restarting coumadin, check levels daily -cont oob to chair/ambulation -home meds for pulm htn, remodulin -keep glucose 140-180s -monitor ins/outs -replace lytes prn -gi/dvt ppx -suggest transfer for txof pulm htn -please call eICU if condition changes Time Spent With Patient Critical Care time: I spent a total of [] minutes of critical care time on this patient's care today; this time is exclusive of procedural time.
[2021-10-15] MEDS: predniSONE 20 MG TABLET 40 MG PO (10:22)
[2021-10-15] MEDS: ATORVASTATIN 20 MG TABLET 40 MG PO (10:22)
[2021-10-15] MEDS: ENTRESTO 1 EACH PO (10:23)
[2021-10-15] MEDS: ADEMPAS 2.5 MG 2.5 EACH PO (10:23)
[2021-10-15] MEDS: AZITHROMYCIN 500 MG in DEXTROSE 5% IN WATER 250 ML 250 MG IV (10:27)
[2021-10-15] MEDS: BENZONATATE 100 MG CAPSULE PO ×2 (10:37→16:48)
[2021-10-15] MEDS: LORazepam 1 MG TABLET PO ×2 (11:00→16:45)
[2021-10-15] MEDS: SODIUM CHLORIDE 0.9% FLUSH 10 ML IV ×2 (11:20→21:48)
--- NOTE | 2021-10-15 11:26 | PC.NURSE ---
Addendum entered by Digna Contreras R.N. 10/15/21 13:26: Approached goals of care conversation with Pt. She repeats I am just so tired, I want to go home Reviewed palliative care options, Hospice, SO states, I don't want you to just give up! Allowing time for private conversation. Allowed adult son a brief in person visit, All parties tearful discussing goals of care and desire to be home with additional family. Original Note: AM shift Pt has had some SOB increased WOB lungs sound quite coarse, exp. wheeze, RR 24, requesting to come off bipap, settings 50% 14/5 when removed NC to 3L, to allow for water and PO meds. Pt reports that she is fatiguing quickly, and is tired. Discussed attempting transfer for where Pt's pulmonary team is at. Challenge d/t bed availability. Pt taking PO meds, as well as Morphine, as requested by Pt, given 1mg dose per request, I can try the bipap again but it's hard to stay on it Discussed options for oxygen delivery, Pt would like to try bipap again to get a break ~30 min after receiving Morphine. During Rounds, Tele ICU Dr Ramsay expresses desire to not use Morphine for WOB as Pt is not on comfort care and doesn't wish to decrease respiratory drive. Declined to D/C order. Pt is aware, and after rounds states, I think it made me feel better Education about resp. drive and Pt underrstands cautious use. Dr Frausto updated and is agreeable with light use of narcotics for Pt to tolerate her current treatment. Lengthy discussion about goals of care, as does not have bed at this time. SO at bedside.
--- NOTE | 2021-10-15 12:59 | CM.DPNOTE ---
DCP Note Patient discussed in multidisciplinary rounds this morning- Patient being evaluated for trilogy per Dr Frausto; and yet, if no signs of improvement over next 24 hrs, Dr Frausto wondering if patient may benefit from a goals of care conversation. This CM team following closely for support to patient/family and medical team; also following for coordination of the safest DCP currently available to patient and family JW
[2021-10-15] MEDS: guaiFENesin ER 600 MG TAB 1200 MG PO ×2 (14:23→21:47)
[2021-10-15] MEDS: WARFARIN 1 MG TABLET 3 MG PO (17:11)
--- NOTE | 2021-10-15 20:27 | PM.ICURNDS ---
- :: This patient was seen via real time interactive two-way audiovisual telecommunication. Note: No acute issues today. Feels better overall. Remains on remodulin therapy. Awaiting open bed at [facility]. Cont titrating down supplemental O2 to maintain goal SpO2 > 90%. Seek early mobility as tolerated. D/w RN and hospitalist.
--- NOTE | 2021-10-15 21:16 | PC.NURSE ---
Addendum entered by Isidra Edwards R.N. 10/16/21 06:04: End of shift note. Patient slept well during the night on HF NC 4L, O2 Sats 94-98%. When HF NC slips off, O2 Sats quickly drop into the 80s. Patient tolerating getting up to BSC to void. SR 90s, with BBB. Original Note: Called Dr. Correa and informed BP 79/50 (60), HR 90s. Orders are to Hold Adempas and Entresto and a new order to give Midodrine 5mg po X 1 now. Called and informed Dr. Dameon Mariscal.
[2021-10-15] MEDS: MIDODRINE HCL 5 MG TABLET PO (21:47)
[2021-10-16] VITALS (44 sets, daily range): BP systolic 79–103; BP diastolic 43–65; PULSE 86–105; RESP 4–44; TEMP 36.3–37.3; O2SAT 80–99
[2021-10-16 05:22] LABS: Prothrombin Time 22.1 SECONDS (10.1-12.7)
[2021-10-16 05:26] LABS: Add Manual Diff / Slide Review NO; Basophils Absolute Auto 0 /uL (0-100); Basophils Percent Auto 0.2 % (0-2); Eosinophils Absolute Auto 0 /uL (0-450); Eosinophils Percent Auto 0.1 % (2-4); Hematocrit 44.3 % (36-46); Hemoglobin 14.3 g/dL (12.0-16.0); Lymphocytes Absolute Auto 1400 /uL (1100-4500); Lymphocytes Percent Auto 16.2 % (25-40); Mean Corpuscular HGB Conc 32.4 % (30-36); Mean Corpuscular Hemoglobin 27.6 PG (26-34); Mean Corpuscular Volume 85.2 fL (80-100); Monocytes Absolute Auto 800 /uL (0-900); Monocytes Percent Auto 9.9 % (3-14); Neutrophils Absolute Auto 6300 /uL (1500-7000); Neutrophils Percent Auto 73.6 % (50-75); Platelet Count 103 X10^3/uL (150-400); White Blood Cell Count 8.6 X10^3/uL (4.5-11.0)
[2021-10-16 05:32] LABS: Alanine Aminotransferase 21 IU/L (<35); Albumin 3.8 g/dL (3.5-5.0); Albumin Globulin Ratio 1.4 (1.0-2.8); Alkaline Phosphatase 45 U/L (38-126); Aspartate Aminotransferase 31 IU/L (14-36); BUN Creatinine Ratio 34.9 (6-22); Bilirubin Total 1.2 mg/dL (0.2-1.3); Blood Urea Nitrogen 22 mg/dL (7-17); Calcium 8.9 mg/dL (8.4-10.2); Carbon Dioxide 37 mmol/L (22-32); Chloride 96 mmol/L (98-107); Estimated Glomerular Filt Rate > 60 mL/min (>60); Globulin 2.7 g/dL (1.7-4.1); Glucose 104 mg/dL (70-100); HEMOLYSIS < 15 (0-50); Potassium 5.2 mmol/L (3.4-5.1); Sodium 136 mmol/L (137-145); Total Protein 6.5 g/dL (6.3-8.2)
--- NOTE | 2021-10-16 07:13 | P.PN_ITS ---
Subjective Subjective Date Patient Seen: 10/16/21 Time Patient Seen: 10:00 Interval history: Patient slept decently and did not need bipap. Currently breathing is better. and son are at bedside for GOC discussion. Exam Vital Signs (past 8 hours): - 10/16/21 00:00 10/16/21 00:00 10/16/21 00:00 Temperature Pulse Rate 89 Respiratory Rate 17 Blood Pressure 96/58 L Pulse Oximetry 96 Oxygen Delivery Method Oxygen Flow Rate 4 10/16/21 00:50 10/16/21 01:29 10/16/21 02:00 Temperature Pulse Rate 92 H Respiratory Rate 19 Blood Pressure Pulse Oximetry 93 95 Oxygen Delivery Method High Flow Nasal Cannula Oxygen Flow Rate 3 4 10/16/21 02:00 10/16/21 02:00 10/16/21 02:04 Temperature Pulse Rate 92 H 91 H Respiratory Rate 44 H 16 Blood Pressure 103/55 L Pulse Oximetry 95 96 Oxygen Delivery Method Oxygen Flow Rate 10/16/21 00:00 10/16/21 04:00 10/16/21 04:00 Temperature Pulse Rate 94 H Respiratory Rate 30 H Blood Pressure Pulse Oximetry 92 Oxygen Delivery Method High Flow Nasal Cannula Oxygen Flow Rate 4 10/16/21 04:00 10/16/21 04:44 10/16/21 04:00 Temperature Pulse Rate 96 H Respiratory Rate 35 H Blood Pressure 92/51 L Pulse Oximetry 97 Oxygen Delivery Method High Flow Nasal Cannula Oxygen Flow Rate 10/16/21 06:00 10/16/21 06:00 10/16/21 06:00 Temperature 97.6 F Pulse Rate 90 Respiratory Rate 17 Blood Pressure 93/60 Pulse Oximetry 98 Oxygen Delivery Method Oxygen Flow Rate 4 10/16/21 06:06 Temperature Pulse Rate 91 H Respiratory Rate 18 Blood Pressure Pulse Oximetry 98 Oxygen Delivery Method Oxygen Flow Rate Fraction of Inspired Oxygen 35 Oxygen Delivery Method High Flow Nasal Cannula Oxygen Flow Rate 4 Narrative Exam Narrative: General:? Patient is a well-developed, well-nourished female, appears tired with labored breathing. HEENT:? Normocephalic, atraumatic, extraocular muscles intact, oral pharynx is clear and mucous membranes are moist.? Neck is supple and symmetric, trachea is midline, no adenopathy, no thyroid enlargement, nontender, no masses palpated.? Negative for JVD Chest:? Normal AP diameter and contour without kyphoscoliosis, no nasal flaring, retractions. Mild labored breathing. Midline sternotomy scar. Lungs:? Auscultation of all lung khan lung sounds with coarse rhonchi. Cardio:? regular rate and rhythm without murmur, rubs, or gallops, no carotid bruit, no cardiac pulsations present. No peripheral edema. Abdomen:? Soft nontender, negative for organomegaly, or masses.? Bowel sounds are present in all 4 quadrants without guarding or rebound, no CVA tenderness. Musculoskeletal:? Muscle strength and tone are equal within normal limits, no deformity, crepitus, effusions, cyanosis, clubbing or edema present.? Full range of motion intact radial and pedal pulses are normal. Skin:? Warm dry and intact without rashes, ulcerations or petechiae.? Neuro:? Alert and orientated x3, strength is +5/5 in all extremities, sensation to touch intact, no gross deficits noted of cranial nerves. Psych:? Patient has a well-kept appearance, appropriate affect, mental status attitude thought context and judgment are appropriate for age. Objective Labs Result Diagrams: 10/16/21 04:55 10/16/21 04:55 Labs: Laboratory Results - last 24 hr 10/15/21 10/15/21 10/16/21 08:32 Unknown 04:55 WBC 8.6 RBC 5.20 Hgb 14.3 Hct 44.3 MCV 85.2 MCH 27.6 MCHC 32.4 RDW 14.0 Plt Count 103 L Neut % (Auto) 73.6 Lymph % (Auto) 16.2 L [place] % (Auto) 9.9 Eos % (Auto) 0.1 L Baso % (Auto) 0.2 Neut # (Auto) 6300 Lymph # (Auto) 1400 [place] # (Auto) 800 Eos # (Auto) 0 Baso # (Auto) 0 PT INR ABG pH 7.38 ABG pCO2 63.6 H* ABG pO2 64 L ABG HCO3 37 H ABG Total CO2 39 H ABG O2 Saturation 91 L ABG Base Excess 12.0 H FiO2 32 Sodium Potassium Chloride Carbon Dioxide BUN Creatinine Estimated GFR BUN/Creatinine Ratio Glucose Calcium Total Bilirubin AST ALT Alkaline Phosphatase Total Protein Albumin Globulin Albumin/Globulin Ratio Procalcitonin 0.04 10/16/21 10/16/21 04:55 04:55 WBC RBC Hgb Hct MCV MCH MCHC RDW Plt Count Neut % (Auto) Lymph % (Auto) [place] % (Auto) Eos % (Auto) Baso % (Auto) Neut # (Auto) Lymph # (Auto) [place] # (Auto) Eos # (Auto) Baso # (Auto) PT 22.1 H D INR 2.0 H ABG pH ABG pCO2 ABG pO2 ABG HCO3 ABG Total CO2 ABG O2 Saturation ABG Base Excess FiO2 Sodium 136 L Potassium 5.2 H Chloride 96 L Carbon Dioxide 37 H BUN 22 H Creatinine 0.63 Estimated GFR > 60 BUN/Creatinine Ratio 34.9 H Glucose 104 H Calcium 8.9 Total Bilirubin 1.2 AST 31 ALT 21 Alkaline Phosphatase 45 Total Protein 6.5 Albumin 3.8 Globulin 2.7 Albumin/Globulin Ratio 1.4 Procalcitonin [facility] Medical History Anxiety Asthma Chronic back pain Encounter for routine gynecological examination Encounter for wellness examination in adult History of blood clots (~2009) History of myocardial infarction (03/2019) 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 (2018) [facility] current use of anticoagulant therapy LV dysfunction (2018) Menopause Osteopenia after menopause (10/2019) Osteoporosis (10/2019) Pre-procedural examination Pulmonary embolism (2009) Pulmonary hypertension (2009) Situational anxiety Systolic heart failure (~2018) Vision disturbance (09/2019) Social History household members: significant other Smoking Status: Former smoker second hand exposure: No alcohol intake: former substance use type: marijuana Assessment & Plan Assessment & Plan narrative: Dagmar Lawrence is a 56-year-old female with a history of anxiety, asthma, COPD, ischemic cardiomyopathy EF 25-330%, CTEPH with severely dilated pulmonary arteries, and former 20 pack year smoker who presented to the ED complaining of dyspnea, cough and wheezes. #Acute hypercapnic respiratory failure, secondary to COPD/asthma exacerbation, acute on chronic, present on admission -continue nebulizing treatments, prednisone 40 mg p.o. q.day x5 days -Mucinex and tessalon perles -Continue chest physiotherapy, patient able to expel some dark brown sputum. Culture growing normal pat. -More stable today, did not need bipap overnight -GOC discussion had with Garth and son Kendall on 10/16, they agreed if has nothing to offer than no need to transfer there. [facility] called and stated they don't recommend transfer, but would accept if patient wanted to go there for further workup. Patient electing to not transfer. She reports understanding that she may not have much time left given her need for a new heart and lung, but she does not want to go home on hospice at this time. Patient is willing to go home with home bipap support and return to the hospital if needed for steroids or antibiotics, but does not want to be intubated. She is willing to see her pulmonologists at to discuss getting back on the transplant list (taken off due to nicotine use). -Code status changed to DNR/DNI -Continue bipap PRN, home bipap being setup by RT #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 with EF 25-30%, severe mitral regurg, chronic -Per echo on 10/12 -Continue entresto -Appears euvolemic # hypotension due to remodulin use -monitor #Hyperkalemia, not present on admission, resolved #Long-term anticoagulation therapy, acute on chronic, present on admission -Restart warfarin at home dose 6mg daily -Monitor INR daily #Systolic heart failure with pulmonary hypertension, chronic, present on admission -Continue Riociguat, Entresto #Hyperlipidemia, chronic, present on admission -continue atorvastatin Code status: DNR/DNI Surrogate decision maker: Partner Garth Khans COVCORINE PCR: Negative? DVT/VTE prophylaxis: Warfarin I have utilized all available immediate resources to obtain, update, or review the patient's current medications. I confirmed that the patient's advanced care plan is present, Code status is documented and/or surrogate decision maker is listed in the patient's medical record. Time Spent With Patient Critical Care time: I spent a total of [] minutes of critical care time on this patient's care today; this time is exclusive of procedural time.
[2021-10-16] MEDS: ALBUTEROL/IPRATROPIUM 3 ML AMPUL INH ×5 (08:25→22:43)
[2021-10-16] MEDS: ATORVASTATIN 20 MG TABLET 40 MG PO (09:43)
[2021-10-16] MEDS: guaiFENesin ER 600 MG TAB 1200 MG PO ×2 (09:43→20:41)
[2021-10-16] MEDS: SODIUM CHLORIDE 0.9% FLUSH 10 ML IV ×2 (09:44→21:56)
[2021-10-16] MEDS: ENTRESTO 1 EACH PO ×2 (09:44→20:43)
[2021-10-16] MEDS: ADEMPAS 2.5 MG 2.5 EACH PO ×2 (09:44→20:44)
[2021-10-16] MEDS: diphenhydrAMINE 25 MG TABLET PO (09:59)
--- NOTE | 2021-10-16 10:19 | PM.PN.EICU ---
Subjective Subjective If camera was activated, add TeleICU A-V statement: Patient seen and evaluated utilizing AV technology 10/16/2021 0900 Sitting upright in BED, in NAD, on 3L LFNC O2 States she feels 60-70% back to baseline. Some chest tightness otherwise no complaints. BM yesterday per RN. OOB to commode with some dyspnea Awaiting transfer to tertiary center Current Medications Current Medications Medications: Home Medications remodulin See Rx Instructions .Route .COMPLEX 04/27/19 [History Confirmed 10/12/21] riociguat 2.5 mg tablet (Adempas) 2.5 mg PO BID 11/10/19 [History Confirmed 10/12/21] alendronate 70 mg tablet 70 mg PO QWEEK #56 tabs 11/10/20 [Rx Confirmed 10/12/21] rosuvastatin 20 mg tablet 20 mg PO DAILY 11/10/20 [History Confirmed 10/12/21] sacubitril 24 mg-valsartan 26 mg tablet (Entresto) 1 tab PO BID 11/10/20 [History Confirmed 10/12/21] cholecalciferol (vitamin D3) 25 mcg (1,000 unit) capsule (Vitamin D3) 25 mcg PO DAILY 06/12/21 [History Confirmed 10/12/21] warfarin 6 mg tablet See Rx Instructions .Route .COMPLEX 08/20/21 [History Confirmed 10/12/21] furosemide 20 mg tablet See Rx Instructions .Route .COMPLEX #180 tabs 09/10/21 [Rx Confirmed 10/12/21] hydromorphone 2 mg tablet 2 mg PO Q6H PRN pain #90 tabs 09/25/21 [Rx Confirmed 10/12/21] albuterol sulfate 90 mcg/actuation aerosol inhaler See Rx Instructions .Route .COMPLEX #18 grams 10/03/21 [Rx Confirmed 10/12/21] albuterol sulfate 2.5 mg/3 mL (0.083 %) solution for nebulization 2.5 mg (3 mL) inhalation Q4-6H PRN shortness of breath or wheezing, cough #180 mL 10/11/21 [Rx Confirmed 10/12/21] benzonatate 100 mg capsule 100 mg PO BID-TID PRN cough #20 caps 10/11/21 [Rx Confirmed 10/12/21] doxycycline hyclate 100 mg capsule 100 mg PO BID #20 caps 10/11/21 [Rx Confirmed 10/12/21] prednisone 20 mg tablet 40 mg PO DAILY #8 tabs 10/11/21 [Rx Confirmed 10/12/21] clopidogrel 75 mg PO DAILY 10/12/21 [History Confirmed 10/12/21] Visit Medications (administered) Generic Name Dose Route Start Last Admin Trade Name Freq PRN Reason Stop Dose Admin Albuterol 2.5 mg 10/12/21 10:32 10/15/21 02:03 Albuterol 2.5 Mg/3 Ml Neb (Adult) INH 2.5 mg [id number] PRN Administration Shortness Of Breath Albuterol/Ipratropium 3 ml 10/12/21 07:00 10/16/21 08:25 Albuterol/Ipratropium 3 Ml Ampul INH 3 ml [id number] JESSY Administration Atorvastatin Calcium 40 mg 10/12/21 09:00 10/16/21 09:43 Atorvastatin 20 Mg Tablet PO 40 mg DAILY JESSY Administration Benzonatate 100 mg 10/12/21 00:56 10/15/21 16:48 Benzonatate 100 Mg Capsule PO 100 mg TID PRN Administration Cough Guaifenesin 600 mg 10/13/21 09:24 10/14/21 00:00 Guaifenesin Er 600 Mg Tab PO 600 mg Q12HR PRN Administration Cough Guaifenesin 1,200 mg 10/15/21 11:15 10/16/21 09:43 Guaifenesin Er 600 Mg Tab PO 1,200 mg BID JESSY Administration Hydromorphone HCl 2 mg 10/12/21 02:21 10/14/21 11:08 Hydromorphone 2 Mg Tablet PO 2 mg Q6H PRN Administration pain Azithromycin 500 mg/ Dextrose 250 mls @ 250 mls/hr 10/12/21 11:00 10/15/21 17:09 IV 10/16/21 11:59 Infused Q24H JESSY Infusion Dextrose 250 mls @ 999 mls/hr 10/14/21 10:49 10/14/21 11:16 D10w IV Infused PRN PRN Infusion Hypoglycemia Lorazepam 1 mg 10/12/21 02:23 10/15/21 16:45 Lorazepam 1 Mg Tablet PO 1 mg Q6HR PRN Administration Anxiety Morphine Sulfate 2 mg 10/12/21 15:04 10/15/21 17:08 Morphine 2 Mg/Ml Inj IV 2 mg Q2HR PRN Administration Pain, Moderate (4-6) Adempas (Riociguat) 2.5 mg 10/12/21 09:00 10/16/21 09:44 2.5 Mg Tab PO 2.5 mg BID JESSY Administration Entresto (Sacubitril 1 tab 10/12/21 09:00 10/16/21 09:44 -Valsartan 24-26 Mg PO 1 tab Tab) BID JESSY Administration Remodulin ( 0 each 10/12/21 09:45 10/12/21 11:49 Treprostinil) Pump IV Not Given CONT JESSY Ondansetron HCl 4 mg 10/12/21 00:56 10/13/21 18:23 Ondansetron 4 Mg/2 Ml Inj IV 4 mg Q8HR PRN Administration Nausea And Vomiting Sodium Chloride 10 ml 10/12/21 00:41 10/14/21 02:29 Sodium Chloride 0.9% Flush IV 10 ml PRN PRN Administration Flush Sodium Chloride 10 ml 10/12/21 09:00 10/16/21 09:44 Sodium Chloride 0.9% Flush IV 10 ml BID JESSY Administration Objective Ventilator Parameters: Ventilator Settings FiO2 35 Positive End Expiratory 10 Pressure Labs Result Diagrams: 10/16/21 04:55 10/16/21 04:55 Labs: Laboratory Results - last 24 hr 10/16/21 10/16/21 10/16/21 04:55 04:55 04:55 WBC 8.6 RBC 5.20 Hgb 14.3 Hct 44.3 MCV 85.2 MCH 27.6 MCHC 32.4 RDW 14.0 Plt Count 103 L Neut % (Auto) 73.6 Lymph % (Auto) 16.2 L [place] % (Auto) 9.9 Eos % (Auto) 0.1 L Baso % (Auto) 0.2 Neut # (Auto) 6300 Lymph # (Auto) 1400 [place] # (Auto) 800 Eos # (Auto) 0 Baso # (Auto) 0 PT 22.1 H D INR 2.0 H Sodium 136 L Potassium 5.2 H Chloride 96 L Carbon Dioxide 37 H BUN 22 H Creatinine 0.63 Estimated GFR > 60 BUN/Creatinine Ratio 34.9 H Glucose 104 H Calcium 8.9 Total Bilirubin 1.2 AST 31 ALT 21 Alkaline Phosphatase 45 Total Protein 6.5 Albumin 3.8 Globulin 2.7 Albumin/Globulin Ratio 1.4 Exam Vital Signs (past 8 hours): - 10/16/21 04:00 10/16/21 04:00 10/16/21 04:00 Temperature Pulse Rate 94 H Respiratory Rate 30 H Blood Pressure 92/51 L Pulse Oximetry 92 Oxygen Delivery Method Oxygen Flow Rate 4 10/16/21 04:44 10/16/21 04:00 10/16/21 06:00 Temperature 97.6 F Pulse Rate 96 H Respiratory Rate 35 H Blood Pressure Pulse Oximetry 97 Oxygen Delivery Method High Flow Nasal Cannula Oxygen Flow Rate 4 10/16/21 06:00 10/16/21 06:00 10/16/21 06:06 Temperature Pulse Rate 90 91 H Respiratory Rate 17 18 Blood Pressure 93/60 Pulse Oximetry 98 98 Oxygen Delivery Method Oxygen Flow Rate 10/16/21 06:30 10/16/21 07:00 10/16/21 07:30 Temperature Pulse Rate 90 88 86 Respiratory Rate 20 20 18 Blood Pressure Pulse Oximetry 99 98 99 Oxygen Delivery Method Oxygen Flow Rate 10/16/21 08:00 10/16/21 08:35 10/16/21 08:52 Temperature Pulse Rate 93 H Respiratory Rate 21 Blood Pressure 98/65 Pulse Oximetry 91 91 Oxygen Delivery Method Nasal Cannula High Flow Nasal Cannula Oxygen Flow Rate 4 Fraction of Inspired Oxygen 35 Oxygen Delivery Method High Flow Nasal Cannula Oxygen Flow Rate 4 Narrative Exam Narrative: Seen by AV technology, in NAD, A&Ox3, speaking in full sentences, no focal deficits appreciated, normal affect Assessment & Plan Assessment & Plan narrative: Exacerbation of underlying asthma/COPD Improving Continue Duonebs Add pulmicort BID, rinse after use Completed prednisone BiPap as needed Hypercapnia noted, compensated, likely chronic hypercapnic respiratory failure Limit opiate usage Acute on chronic hypoxic respiratory failure Secondary to exacerbation of asthma/COPD, acute on chronic systolic heart failure and exacerbation of underlying severe pulmonary HTN Continue to optimize breathing treatments Continue supplemental O2 for goal SPO2 >92% Goal euvolemia Severe Pulmonary HTN Reportedly 2/2 CTEPH Continue home riociguat and remodulin Plan is for transfer to tertiary center for further management Goals of care discussion today Remainder of care plan per hospitalist team Time Spent With Patient Critical Care time: I spent a total of [50] minutes of critical care time on this patient's care today; this time is exclusive of procedural time.
[2021-10-16 11:34] LABS: Magnesium 2.1 mg/dL (1.6-2.3); Phosphorous 3.9 mg/dL (2.5-4.5)
[2021-10-16] MEDS: AZITHROMYCIN 500 MG in DEXTROSE 5% IN WATER 250 ML 250 MG IV (11:42)
[2021-10-16] MEDS: ONDANSETRON 4 MG/2 ML INJ IV (13:27)
--- NOTE | 2021-10-16 13:46 | DI.RAD.S_ITS ---
PROCEDURE: XR CHEST FOR PICC 1V INDICATIONS: picc placement COMPARISON: [facility], , XR CHEST 1V, 10/11/2021, 20:26. FINDINGS: PICC was placed by the intravenous therapy team from the left side. Fluoroscopic spot film demonstrates the tip of PICC projecting to the area of cavoatrial junction. IMPRESSION: Tip of PICC projects to the area of cavoatrial junction. Dictated by: Lanie Maria M.D. on 10/16/2021 at 15:18 Approved by: Lanie Maria M.D. on 10/16/2021 at 15:18
--- NOTE | 2021-10-16 14:05 | DIET.CONS ---
Dietary Consultation Note Admission Date: 10/11/2021 23:33 Assessment: 56y F admitted to ICU for acute respiratory failure, metabolic alkalosis with respiratory acidosis exacerbation COPD asthma referred to nutrition for TPN. Pt with marginal POs x5d as she quickly decompensates when removing bipap. Goals of Care conference results indicate artificial nutrition within GOC, request for TPN as NG tubing reduce seal of bipap mask. Pt encouraged to continue with PO intake to support GI function, however, pt will meet nutritional needs with TPN. Pt awaiting transfer to for higher level care. Ht: 165.1 cm Wt: 61.1 kg BMI: 21.9 UBW: 61kg Last BM: 10/16/21 (10/16/21 08:50) Jacob Score: 17 Diet: 10/12/21 Breakfast Heart Healthy Diet Diet Modifications: ensure original once daily Nutrition Percent Meal Consumed 50% 10/16/21 09:57 Percent Meal Consumed 0% 10/15/21 17:00 Percent Meal Consumed 0% 10/15/21 13:43 Percent Meal Consumed 50% 10/14/21 18:42 Percent Meal Consumed Pt wanted to hold dinner, still 10/14/21 18:03 resting Percent Meal Consumed whole ensure 10/14/21 15:18 Labs: RBC 5.20 X10^6/uL (4.0-5.2) 10/16/21 04:55 Hgb 14.3 g/dL (12.0-16.0) 10/16/21 04:55 Hct 44.3 % (36-46) 10/16/21 04:55 Creatinine 0.63 mg/dL (0.52-1.04) 10/16/21 04:55 Lactate 1.4 mmol/L (0.7-2.1) 10/11/21 20:03 NT-Pro-B Natriuret Pep 2080 pg/mL (<125) H 10/15/21 04:50 Nutrition Diagnosis: inadequate oral intake r/t bipap reliance aeb pt meeting <50% EER x5d, pt quickly decompensates with removal of bipap limiting ability to consume PO, pt starting TPN nutrition support. Interventions: 1. Recc continuous TPN via PICC with progression as follows: Day 1: 1L Clinimix E running at 42mL/h. Day 2: 1.5L Clinimix E running at 62mL/h. Day 3 (GOAL): 1.5L Clinimix E running at 62mL/h with 250mL IVFE on M, W, F providing 85% kcal and 94% protein needs. 2. Recc refeeding labs daily, currently pt on high side normal for K+, Mg, phos. If pt shows signs of refeeding, do not advance feeding rate and replete as necessary. 3. Recc continuing ONS Ensure Original once daily to support gut function and nutrition gap daily of 250kcal and 5g PRO. EER: 1800kcals (30kcal/kg), 80g PRO (1.3g/kg) Monitoring/Evaluations: following daily Electronically Signed by: Elva Woodruff 10/16/21 14:05 Clinical Dietitian [address] [address]
[2021-10-16] MEDS: WARFARIN 2 MG TABLET 6 MG PO (17:53)
[2021-10-16] MEDS: AA 5 %/CALCIUM/LYTES/DEXT 20 % 1,000 ML with MULTIVITAMIN 10 ML, TRACE ELEMENTS 1 ML 42.125 ML IV (17:55)
[2021-10-16] MEDS: BUDESONIDE 0.5 MG/2 ML NEB INH (19:10)
--- NOTE | 2021-10-16 20:13 | PM.ICURNDS ---
- :: This patient was seen via real time interactive two-way audiovisual telecommunication. patitremayne BP remains boirderlien today, but no signs of hypoperfusion present. per nurse, will was possible off remodulin pump for two day,s which would hep explain her low pressures. Currently on pump right now, and to be given Po meds as well. Will monitor BP and UO overnight. if thee any signs of hypoperfusion, can start vasopressin via PICC line. Currently she is now DNR, and she no longe wants trasnfer to . Rec pall care eval at this point. Contniue high flow overnight.
[2021-10-16] MEDS: ACETAMINOPHEN 325 MG TABLET 650 MG PO (20:41)
[2021-10-17] VITALS (23 sets, daily range): BP systolic 80–119; BP diastolic 49–79; PULSE 84–97; RESP 10–28; TEMP 36.1–36.3; O2SAT 91–100
[2021-10-17] MEDS: LORazepam 1 MG TABLET PO (01:58)
[2021-10-17] MEDS: ACETAMINOPHEN 325 MG TABLET 650 MG PO (05:59)
[2021-10-17 06:04] LABS: Add Manual Diff / Slide Review NO; Basophils Absolute Auto 100 /uL (0-100); Basophils Percent Auto 0.8 % (0-2); Eosinophils Absolute Auto 100 /uL (0-450); Eosinophils Percent Auto 1.4 % (2-4); Hematocrit 41.7 % (36-46); Hemoglobin 13.5 g/dL (12.0-16.0); Lymphocytes Absolute Auto 1700 /uL (1100-4500); Lymphocytes Percent Auto 25.9 % (25-40); Mean Corpuscular HGB Conc 32.3 % (30-36); Mean Corpuscular Hemoglobin 27.7 PG (26-34); Mean Corpuscular Volume 85.5 fL (80-100); Monocytes Absolute Auto 700 /uL (0-900); Neutrophils Absolute Auto 4100 /uL (1500-7000); Neutrophils Percent Auto 61.9 % (50-75); Platelet Count 88 X10^3/uL (150-400); Red Blood Cell Count 4.87 X10^6/uL (4.0-5.2); Red Cell Distribution Width 14.1 % (11.6-14.8); White Blood Cell Count 6.6 X10^3/uL (4.5-11.0)
[2021-10-17 06:08] LABS: INR 2.1 (0.9-1.3); Prothrombin Time 23.4 SECONDS (10.1-12.7)
[2021-10-17 06:12] LABS: BUN Creatinine Ratio 33.9 (6-22); Blood Urea Nitrogen 20 mg/dL (7-17); Calcium 8.1 mg/dL (8.4-10.2); Carbon Dioxide 39 mmol/L (22-32); Chloride 94 mmol/L (98-107); Estimated Glomerular Filt Rate > 60 mL/min (>60); Glucose 103 mg/dL (70-100); HEMOLYSIS < 15 (0-50); Potassium 4.5 mmol/L (3.4-5.1); Sodium 136 mmol/L (137-145)
--- NOTE | 2021-10-17 06:43 | PC.NURSE ---
End of shift note. Care of patient from [id number]. Patient AAOX4, c/o leg pain relieved with Tylenol and this am c/o LUE pain at new PICC insertion site, medicated with tylenol. On high flow NC 4L O2 Sats 92-97%. Had one tearful episode during the night, c/o being anxious, gave Ativan 1mg po, patient resting quietly after ativan. Up to BSC voiding, had a small formed brown BM, passing flatus. SR 90s with 1st AVB.
[2021-10-17] MEDS: ALBUTEROL/IPRATROPIUM 3 ML AMPUL INH ×5 (07:07→21:43)
[2021-10-17] MEDS: BUDESONIDE 0.5 MG/2 ML NEB INH ×2 (07:07→19:52)
[2021-10-17] MEDS: guaiFENesin ER 600 MG TAB 1200 MG PO ×2 (08:26→21:00)
[2021-10-17] MEDS: ATORVASTATIN 20 MG TABLET 40 MG PO (08:26)
[2021-10-17] MEDS: ENTRESTO 1 EACH PO ×2 (08:27→21:00)
[2021-10-17] MEDS: ADEMPAS 2.5 MG 2.5 EACH PO ×2 (08:27→21:00)
[2021-10-17] MEDS: SODIUM CHLORIDE 0.9% FLUSH 10 ML IV ×2 (08:29→21:01)
--- NOTE | 2021-10-17 10:46 | DIET.CONS2 ---
Dietary Inpatient Consultation Note Admission Date: 10/11/2021 23:33 Pt now on NC able to eat PO, stopping TPN as pt no longer desires transfer for higher level of care. Diet: 10/12/21 Breakfast Heart Healthy Diet Diet Modifications: ensure original once daily Nutrition Percent Meal Consumed 15% 10/17/21 08:48 Percent Meal Consumed 50% 10/16/21 09:57 Percent Meal Consumed 0% 10/15/21 17:00 Percent Meal Consumed 0% 10/15/21 13:43 Electronically Signed by: Elva Woodruff 10/17/21 10:47 Clinical Dietitian [address] [id number]
--- NOTE | 2021-10-17 13:28 | PM.PN.EICU ---
Subjective Subjective If camera was activated, add TeleICU A-V statement: Seen and evaluated by AV technology Seen sleeping this morning and this afternoon, at bedside this afternoon. On 4l LFNC Made DNR and refused transfer to tertiary center yesterday PICC line placed 10/16 Primary team obtaniing home NIV Current Medications Current Medications Medications: Home Medications remodulin See Rx Instructions .Route .COMPLEX 04/27/19 [History Confirmed 10/12/21] riociguat 2.5 mg tablet (Adempas) 2.5 mg PO BID 11/10/19 [History Confirmed 10/12/21] alendronate 70 mg tablet 70 mg PO QWEEK #56 tabs 11/10/20 [Rx Confirmed 10/12/21] rosuvastatin 20 mg tablet 20 mg PO DAILY 11/10/20 [History Confirmed 10/12/21] sacubitril 24 mg-valsartan 26 mg tablet (Entresto) 1 tab PO BID 11/10/20 [History Confirmed 10/12/21] cholecalciferol (vitamin D3) 25 mcg (1,000 unit) capsule (Vitamin D3) 25 mcg PO DAILY 06/12/21 [History Confirmed 10/12/21] warfarin 6 mg tablet See Rx Instructions .Route .COMPLEX 08/20/21 [History Confirmed 10/12/21] furosemide 20 mg tablet See Rx Instructions .Route .COMPLEX #180 tabs 09/10/21 [Rx Confirmed 10/12/21] hydromorphone 2 mg tablet 2 mg PO Q6H PRN pain #90 tabs 09/25/21 [Rx Confirmed 10/12/21] albuterol sulfate 90 mcg/actuation aerosol inhaler See Rx Instructions .Route .COMPLEX #18 grams 10/03/21 [Rx Confirmed 10/12/21] albuterol sulfate 2.5 mg/3 mL (0.083 %) solution for nebulization 2.5 mg (3 mL) inhalation Q4-6H PRN shortness of breath or wheezing, cough #180 mL 10/11/21 [Rx Confirmed 10/12/21] benzonatate 100 mg capsule 100 mg PO BID-TID PRN cough #20 caps 10/11/21 [Rx Confirmed 10/12/21] doxycycline hyclate 100 mg capsule 100 mg PO BID #20 caps 10/11/21 [Rx Confirmed 10/12/21] prednisone 20 mg tablet 40 mg PO DAILY #8 tabs 10/11/21 [Rx Confirmed 10/12/21] clopidogrel 75 mg PO DAILY 10/12/21 [History Confirmed 10/12/21] Visit Medications (administered) Generic Name Dose Route Start Last Admin Trade Name Freq PRN Reason Stop Dose Admin Acetaminophen 650 mg 10/12/21 00:56 10/17/21 05:59 Acetaminophen 325 Mg Tablet PO 650 mg Q6HR PRN Administration Fever/Mild Pain (1-3) Albuterol 2.5 mg 10/12/21 10:32 10/15/21 02:03 Albuterol 2.5 Mg/3 Ml Neb (Adult) INH 2.5 mg [id number] PRN Administration Shortness Of Breath Albuterol/Ipratropium 3 ml 10/12/21 07:00 10/17/21 11:09 Albuterol/Ipratropium 3 Ml Ampul INH 3 ml [id number] JESSY Administration Atorvastatin Calcium 40 mg 10/12/21 09:00 10/17/21 08:26 Atorvastatin 20 Mg Tablet PO 40 mg DAILY JESSY Administration Benzonatate 100 mg 10/12/21 00:56 10/15/21 16:48 Benzonatate 100 Mg Capsule PO 100 mg TID PRN Administration Cough Budesonide 0.5 mg 10/16/21 20:00 10/17/21 07:07 Budesonide 0.5 Mg/2 Ml Neb INH 0.5 mg RTBID JESSY Administration Guaifenesin 1,200 mg 10/15/21 11:15 10/17/21 08:26 Guaifenesin Er 600 Mg Tab PO 1,200 mg BID JESSY Administration Heparin Sodium (Porcine) 50 unit 10/16/21 21:00 10/17/21 08:26 Heparin Flush (Cl/Picc/Mid-Line) 50 Unit/5 Ml Syringe IV 50 unit BID JESSY Administration Hydromorphone HCl 2 mg 10/12/21 02:21 10/14/21 11:08 Hydromorphone 2 Mg Tablet PO 2 mg Q6H PRN Administration pain Dextrose 250 mls @ 999 mls/hr 10/14/21 10:49 10/14/21 11:16 D10w IV Infused PRN PRN Infusion Hypoglycemia Multivitamins 10 ml/ Chromium/ 1,011 mls @ 42.125 mls/hr 10/16/21 18:00 10/16/21 17:55 Copper/Manganese/Seleni/Zn 1 IV 10/17/21 17:59 42.125 mls/hr ml/ Amino Acids/Electrolytes 1800 JESSY Administration Lorazepam 1 mg 10/12/21 02:23 10/17/21 01:58 Lorazepam 1 Mg Tablet PO 1 mg Q6HR PRN Administration Anxiety Morphine Sulfate 2 mg 10/12/21 15:04 10/15/21 17:08 Morphine 2 Mg/Ml Inj IV 2 mg Q2HR PRN Administration Pain, Moderate (4-6) Adempas (Riociguat) 2.5 mg 10/12/21 09:00 10/17/21 08:27 2.5 Mg Tab PO 2.5 mg BID JESSY Administration Entresto (Sacubitril 1 tab 10/12/21 09:00 10/17/21 08:27 -Valsartan 24-26 Mg PO 1 tab Tab) BID JESSY Administration Remodulin ( 0 each 10/12/21 09:45 10/12/21 11:49 Treprostinil) Pump IV Not Given CONT JESSY Ondansetron HCl 4 mg 10/12/21 00:56 10/16/21 13:27 Ondansetron 4 Mg/2 Ml Inj IV 4 mg Q8HR PRN Administration Nausea And Vomiting Sodium Chloride 10 ml 10/12/21 00:41 10/14/21 02:29 Sodium Chloride 0.9% Flush IV 10 ml PRN PRN Administration Flush Sodium Chloride 10 ml 10/12/21 09:00 10/17/21 08:29 Sodium Chloride 0.9% Flush IV 10 ml BID JESSY Administration Warfarin Sodium 6 mg 10/16/21 17:00 10/16/21 17:53 Warfarin 2 Mg Tablet PO 6 mg 1700 JESSY Administration Objective Ventilator Parameters: Ventilator Settings FiO2 35 Positive End Expiratory 10 Pressure Labs Result Diagrams: 10/17/21 05:40 10/17/21 05:40 Labs: Laboratory Results - last 24 hr 10/17/21 10/17/21 10/17/21 05:40 05:40 05:40 WBC 6.6 RBC 4.87 Hgb 13.5 Hct 41.7 MCV 85.5 MCH 27.7 MCHC 32.3 RDW 14.1 Plt Count 88 L Neut % (Auto) 61.9 Lymph % (Auto) 25.9 [place] % (Auto) 10.0 Eos % (Auto) 1.4 L Baso % (Auto) 0.8 Neut # (Auto) 4100 Lymph # (Auto) 1700 [place] # (Auto) 700 Eos # (Auto) 100 Baso # (Auto) 100 PT 23.4 H INR 2.1 H Sodium 136 L Potassium 4.5 Chloride 94 L Carbon Dioxide 39 H BUN 20 H Creatinine 0.59 Estimated GFR > 60 BUN/Creatinine Ratio 33.9 H Glucose 103 H Calcium 8.1 L Exam Vital Signs (past 8 hours): - 10/17/21 06:00 10/17/21 07:07 10/17/21 07:00 Temperature Pulse Rate 87 94 H 93 H Respiratory Rate 20 22 Blood Pressure 119/79 Pulse Oximetry 97 91 94 Oxygen Delivery Method High Flow Nasal Cannula Oxygen Flow Rate 4 4 Fraction of Inspired Oxygen 36 10/17/21 07:30 10/17/21 08:00 10/17/21 08:00 Temperature 97.4 F L Pulse Rate 88 89 Respiratory Rate Blood Pressure 104/58 L Pulse Oximetry 95 94 Oxygen Delivery Method Oxygen Flow Rate Fraction of Inspired Oxygen 10/17/21 08:00 10/17/21 09:00 10/17/21 10:00 Temperature Pulse Rate 88 Respiratory Rate Blood Pressure 84/49 L Pulse Oximetry 94 Oxygen Delivery Method High Flow Nasal Cannula Oxygen Flow Rate Fraction of Inspired Oxygen 10/17/21 10:00 10/17/21 11:09 10/17/21 11:56 Temperature Pulse Rate 92 H 92 H Respiratory Rate 22 Blood Pressure Pulse Oximetry 94 91 Oxygen Delivery Method High Flow Nasal Cannula High Flow Nasal Cannula Oxygen Flow Rate 8 Fraction of Inspired Oxygen 10/17/21 11:00 10/17/21 12:00 10/17/21 12:00 Temperature Pulse Rate 88 90 Respiratory Rate Blood Pressure 84/52 L Pulse Oximetry 93 99 Oxygen Delivery Method Oxygen Flow Rate Fraction of Inspired Oxygen Fraction of Inspired Oxygen 36 Oxygen Delivery Method High Flow Nasal Cannula Oxygen Flow Rate 8 Narrative Exam Narrative: Resting comfortably, in NAD Assessment & Plan Assessment & Plan narrative: Exacerbation of underlying asthma/COPD Improved Continue Duonebs Continue pulmicort BID, rinse after use Completed prednisone Resume home inhaled therapies at time of discharge BiPap as needed, would benefit from home use Hypercapnia noted, compensated, likely chronic hypercapnic respiratory failure Limit opiate usage Acute on chronic hypoxic respiratory failure Secondary to exacerbation of asthma/COPD, acute on chronic systolic heart failure and exacerbation of underlying severe pulmonary HTN Continue to optimize breathing treatments Continue supplemental O2 for goal SPO2 >92% Goal euvolemia 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
--- NOTE | 2021-10-17 13:56 | P.PN_ITS ---
Subjective Subjective Date Patient Seen: 10/17/21 Interval history: Patient continues to feel improved, plan for going home potentially with BIPAP machine. Working to facilitate this. Was given TPN but patient tolerating more oral intake today. Exam Vital Signs (past 8 hours): - 10/17/21 06:00 10/17/21 07:07 10/17/21 07:00 Temperature Pulse Rate 87 94 H 93 H Respiratory Rate 20 22 Blood Pressure 119/79 Pulse Oximetry 97 91 94 Oxygen Delivery Method High Flow Nasal Cannula Oxygen Flow Rate 4 4 Fraction of Inspired Oxygen 36 10/17/21 07:30 10/17/21 08:00 10/17/21 08:00 Temperature 97.4 F L Pulse Rate 88 89 Respiratory Rate Blood Pressure 104/58 L Pulse Oximetry 95 94 Oxygen Delivery Method Oxygen Flow Rate Fraction of Inspired Oxygen 10/17/21 08:00 10/17/21 09:00 10/17/21 10:00 Temperature Pulse Rate 88 Respiratory Rate Blood Pressure 84/49 L Pulse Oximetry 94 Oxygen Delivery Method High Flow Nasal Cannula Oxygen Flow Rate Fraction of Inspired Oxygen 10/17/21 10:00 10/17/21 11:09 10/17/21 11:56 Temperature Pulse Rate 92 H 92 H Respiratory Rate 22 Blood Pressure Pulse Oximetry 94 91 Oxygen Delivery Method High Flow Nasal Cannula High Flow Nasal Cannula Oxygen Flow Rate 8 Fraction of Inspired Oxygen 10/17/21 11:00 10/17/21 12:00 10/17/21 12:00 Temperature Pulse Rate 88 90 Respiratory Rate Blood Pressure 84/52 L Pulse Oximetry 93 99 Oxygen Delivery Method Oxygen Flow Rate Fraction of Inspired Oxygen Fraction of Inspired Oxygen 36 Oxygen Delivery Method High Flow Nasal Cannula Oxygen Flow Rate 8 Narrative Exam Narrative: General:? Patient is a well-developed, well-nourished female, appears tired with labored breathing. HEENT:? Normocephalic, atraumatic, extraocular muscles intact, oral pharynx is clear and mucous membranes are moist.? Neck is supple and symmetric, trachea is midline, no adenopathy, no thyroid enlargement, nontender, no masses palpated.? Negative for JVD Chest:? Normal AP diameter and contour without kyphoscoliosis, no nasal flaring, retractions. Mild labored breathing. Midline sternotomy scar. Lungs:? Auscultation of all lung khan lung sounds with coarse rhonchi. Cardio:? regular rate and rhythm without murmur, rubs, or gallops, no carotid bruit, no cardiac pulsations present. No peripheral edema. Abdomen:? Soft nontender, negative for organomegaly, or masses.? Bowel sounds are present in all 4 quadrants without guarding or rebound, no CVA tenderness. Musculoskeletal:? Muscle strength and tone are equal within normal limits, no deformity, crepitus, effusions, cyanosis, clubbing or edema present.? Full range of motion intact radial and pedal pulses are normal. Skin:? Warm dry and intact without rashes, ulcerations or petechiae.? Neuro:? Alert and orientated x3, strength is +5/5 in all extremities, sensation to touch intact, no gross deficits noted of cranial nerves. Psych:? Patient has a well-kept appearance, appropriate affect, mental status attitude thought context and judgment are appropriate for age. Objective Labs Result Diagrams: 10/17/21 05:40 10/17/21 05:40 Labs: Laboratory Results - last 24 hr 10/17/21 10/17/21 10/17/21 05:40 05:40 05:40 WBC 6.6 RBC 4.87 Hgb 13.5 Hct 41.7 MCV 85.5 MCH 27.7 MCHC 32.3 RDW 14.1 Plt Count 88 L Neut % (Auto) 61.9 Lymph % (Auto) 25.9 [place] % (Auto) 10.0 Eos % (Auto) 1.4 L Baso % (Auto) 0.8 Neut # (Auto) 4100 Lymph # (Auto) 1700 [place] # (Auto) 700 Eos # (Auto) 100 Baso # (Auto) 100 PT 23.4 H INR 2.1 H Sodium 136 L Potassium 4.5 Chloride 94 L Carbon Dioxide 39 H BUN 20 H Creatinine 0.59 Estimated GFR > 60 BUN/Creatinine Ratio 33.9 H Glucose 103 H Calcium 8.1 L PFSH Medical History Anxiety Asthma Chronic back pain Encounter for routine gynecological examination Encounter for wellness examination in adult History of blood clots (~2009) History of myocardial infarction (03/2019) 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 (2018) [facility] current use of anticoagulant therapy LV dysfunction (2018) Menopause Osteopenia after menopause (10/2019) Osteoporosis (10/2019) Pre-procedural examination Pulmonary embolism (2010) Pulmonary hypertension (2010) Situational anxiety Systolic heart failure (~2018) Vision disturbance (09/2019) Social History household members: significant other Smoking Status: Former smoker second hand exposure: No alcohol intake: former substance use type: marijuana Assessment & Plan Assessment & Plan narrative: Dagmar Lawrence is a 56-year-old female with a history of anxiety, asthma, COPD, ischemic cardiomyopathy EF 25-330%, CTEPH with severely dilated pulmonary arteries, and former 20 pack year smoker who presented to the ED complaining of dyspnea, cough and wheezes. #Acute hypercapnic respiratory failure, secondary to COPD/asthma exacerbation, acute on chronic, present on admission -continue nebulizing treatments, prednisone 40 mg p.o. q.day x5 days -Mucinex and tessalon perles -Continue chest physiotherapy, patient able to expel some dark brown sputum. Culture growing normal pat. -More stable today, did not need bipap overnight -[facility] discussion had with Garth and son Kendall on 10/16, they agreed if has nothing to offer than no need to transfer there. called and stated they don't recommend transfer, but would accept if patient wanted to go there for further workup. Patient electing to not transfer. She reports understanding that she may not have much time left given her need for a new heart and lung, but she does not want to go home on hospice at this time. Patient is willing to go home with home bipap support and return to the hospital if needed for steroids or antibiotics, but does not want to be intubated. She is willing to see her pulmonologists at to discuss getting back on the transplant list (taken off due to nicotine use). -Code status changed to DNR/DNI -Continue bipap PRN, home bipap being setup by RT #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 with EF 25-30%, severe mitral regurg, chronic -Per echo on 10/12 -Continue entresto -Appears euvolemic # hypotension due to remodulin use -monitor #Hyperkalemia, not present on admission, resolved #Long-term anticoagulation therapy, acute on chronic, present on admission -Restart warfarin at home dose 6mg daily -Monitor INR daily #Systolic heart failure with pulmonary hypertension, chronic, present on admission -Continue Riociguat, Entresto #Hyperlipidemia, chronic, present on admission -continue atorvastatin #nutrition- patient was given TPN for decreased oral intake. Now tolerating more of a diet and has lessening bipap requirements. Can discontinue PICC line and stop TPN. Code status: DNR/DNI Surrogate decision maker: Partner Garth TALBOT PCR: Negative? DVT/VTE prophylaxis: Warfarin I have utilized all available immediate resources to obtain, update, or review the patient's current medications. I confirmed that the patient's advanced care plan is present, Code status is documented and/or surrogate decision maker is listed in the patient's medical record.\ Dispo: plan for discharge home once home BiPAP is ready. Time Spent With Patient Critical Care time: I spent a total of [] minutes of critical care time on this patient's care today; this time is exclusive of procedural time.
[2021-10-17] MEDS: WARFARIN 2 MG TABLET 6 MG PO (16:35)
[2021-10-17] MEDS: LORazepam 1 MG TABLET 0.5 MG PO (21:01)
--- NOTE | 2021-10-17 21:45 | RT ---
RT called to Patient bedside because Pt request for breathing tx. On arrival, Pt noted to be sitting in tripod position, sweating and using accessory muscles. Pt stated that the sob just came on all of a sudden. Bipap was restarted 03/18, 35%, however Pt asked for more air. IPAP increased to 15. Pt is comfortable at this time and scheduled 2300 duoneb given early.
[2021-10-18] VITALS (13 sets, daily range): BP systolic 86–111; BP diastolic 52–58; PULSE 91–104; RESP 10–29; TEMP 36.7–37.3; O2SAT 93–98
--- NOTE | 2021-10-18 01:40 | PM.ICURNDS ---
- :: This patient was seen via real time interactive two-way audiovisual telecommunication. patent refusing bipap this evening. remains on her remodulin pump. bp remains borderline but acceptable. on TPN. remains DNR
[2021-10-18 06:14] LABS: Add Manual Diff / Slide Review NO; Basophils Absolute Auto 100 /uL (0-100); Basophils Percent Auto 0.8 % (0-2); Eosinophils Absolute Auto 200 /uL (0-450); Eosinophils Percent Auto 2.2 % (2-4); Hematocrit 40.6 % (36-46); Hemoglobin 13.1 g/dL (12.0-16.0); Lymphocytes Absolute Auto 1200 /uL (1100-4500); Lymphocytes Percent Auto 16.2 % (25-40); Mean Corpuscular HGB Conc 32.3 % (30-36); Mean Corpuscular Hemoglobin 27.7 PG (26-34); Mean Corpuscular Volume 85.8 fL (80-100); Monocytes Absolute Auto 700 /uL (0-900); Monocytes Percent Auto 9.9 % (3-14); Neutrophils Absolute Auto 5400 /uL (1500-7000); Neutrophils Percent Auto 70.9 % (50-75); Platelet Count 83 X10^3/uL (150-400); Red Blood Cell Count 4.73 X10^6/uL (4.0-5.2); Red Cell Distribution Width 13.9 % (11.6-14.8); White Blood Cell Count 7.6 X10^3/uL (4.5-11.0)
--- NOTE | 2021-10-18 06:19 | PC.NURSE ---
Senior Mobile Web Developer Note-Patient has dozed intermittently, used Bi-pap most of the night per her request. Also requested Ativan at HS and frequent RT tx. Denied need for pain medication or Tesselon Perles for cough. Having loose stools.
[2021-10-18 06:28] LABS: BUN Creatinine Ratio 29.6 (6-22); Blood Urea Nitrogen 16 mg/dL (7-17); Calcium 8.4 mg/dL (8.4-10.2); Carbon Dioxide 37 mmol/L (22-32); Chloride 97 mmol/L (98-107); Estimated Glomerular Filt Rate > 60 mL/min (>60); Glucose 84 mg/dL (70-100); HEMOLYSIS < 15 (0-50); Potassium 4.3 mmol/L (3.4-5.1); Sodium 137 mmol/L (137-145)
[2021-10-18] MEDS: ALBUTEROL/IPRATROPIUM 3 ML AMPUL INH ×4 (06:57→19:29)
[2021-10-18] MEDS: BUDESONIDE 0.5 MG/2 ML NEB INH ×2 (06:58→19:37)
[2021-10-18] MEDS: FUROSEMIDE 20 MG/2 ML VIAL IV (08:13)
[2021-10-18] MEDS: ATORVASTATIN 20 MG TABLET 40 MG PO (08:17)
[2021-10-18] MEDS: guaiFENesin ER 600 MG TAB 1200 MG PO ×2 (08:17→20:45)
[2021-10-18] MEDS: ENTRESTO 1 EACH PO ×2 (08:18→20:45)
[2021-10-18] MEDS: ADEMPAS 2.5 MG 2.5 EACH PO ×2 (08:18→20:45)
--- NOTE | 2021-10-18 08:23 | P.TELICUPN_ITS ---
Subjective Subjective If camera was activated, add TeleICU A-V statement: Seen and evaluated by AV technology. Sitting upright at bedside. Complains of chest congestion and wheeze. Feels she would benefit from home lasix which has been held (20 po BID). Improved po intake so TPN held. Current Medications Current Medications Medications: Home Medications remodulin See Rx Instructions .Route .COMPLEX 04/27/19 [History Confirmed 10/12/21] riociguat 2.5 mg tablet (Adempas) 2.5 mg PO BID 11/10/19 [History Confirmed 10/12/21] alendronate 70 mg tablet 70 mg PO QWEEK #56 tabs 11/10/20 [Rx Confirmed 10/12/21] rosuvastatin 20 mg tablet 20 mg PO DAILY 11/10/20 [History Confirmed 10/12/21] sacubitril 24 mg-valsartan 26 mg tablet (Entresto) 1 tab PO BID 11/10/20 [History Confirmed 10/12/21] cholecalciferol (vitamin D3) 25 mcg (1,000 unit) capsule (Vitamin D3) 25 mcg PO DAILY 06/12/21 [History Confirmed 10/12/21] warfarin 6 mg tablet See Rx Instructions .Route .COMPLEX 08/20/21 [History Confirmed 10/12/21] furosemide 20 mg tablet See Rx Instructions .Route .COMPLEX #180 tabs 09/10/21 [Rx Confirmed 10/12/21] hydromorphone 2 mg tablet 2 mg PO Q6H PRN pain #90 tabs 09/25/21 [Rx Confirmed 10/12/21] albuterol sulfate 90 mcg/actuation aerosol inhaler See Rx Instructions .Route .COMPLEX #18 grams 10/03/21 [Rx Confirmed 10/12/21] albuterol sulfate 2.5 mg/3 mL (0.083 %) solution for nebulization 2.5 mg (3 mL) inhalation Q4-6H PRN shortness of breath or wheezing, cough #180 mL 10/11/21 [Rx Confirmed 10/12/21] benzonatate 100 mg capsule 100 mg PO BID-TID PRN cough #20 caps 10/11/21 [Rx Confirmed 10/12/21] doxycycline hyclate 100 mg capsule 100 mg PO BID #20 caps 10/11/21 [Rx Confirmed 10/12/21] prednisone 20 mg tablet 40 mg PO DAILY #8 tabs 10/11/21 [Rx Confirmed 10/12/21] clopidogrel 75 mg PO DAILY 10/12/21 [History Confirmed 10/12/21] Visit Medications (administered) Generic Name Dose Route Start Last Admin Trade Name Freq PRN Reason Stop Dose Admin Acetaminophen 650 mg 10/12/21 00:56 10/17/21 05:59 Acetaminophen 325 Mg Tablet PO 650 mg Q6HR PRN Administration Fever/Mild Pain (1-3) Albuterol 2.5 mg 10/12/21 10:32 10/15/21 02:03 Albuterol 2.5 Mg/3 Ml Neb (Adult) INH 2.5 mg [id number] PRN Administration Shortness Of Breath Albuterol/Ipratropium 3 ml 10/12/21 07:00 10/18/21 06:57 Albuterol/Ipratropium 3 Ml Ampul INH 3 ml [id number] JESSY Administration Atorvastatin Calcium 40 mg 10/12/21 09:00 10/18/21 08:17 Atorvastatin 20 Mg Tablet PO 40 mg DAILY JESSY Administration Benzonatate 100 mg 10/12/21 00:56 10/15/21 16:48 Benzonatate 100 Mg Capsule PO 100 mg TID PRN Administration Cough Budesonide 0.5 mg 10/16/21 20:00 10/18/21 06:58 Budesonide 0.5 Mg/2 Ml Neb INH 0.5 mg RTBID JESSY Administration Guaifenesin 1,200 mg 10/15/21 11:15 10/18/21 08:17 Guaifenesin Er 600 Mg Tab PO 1,200 mg BID JESSY Administration Heparin Sodium (Porcine) 50 unit 10/16/21 21:00 10/18/21 08:17 Heparin Flush (Cl/Picc/Mid-Line) 50 Unit/5 Ml Syringe IV 50 unit BID JESSY Administration Hydromorphone HCl 2 mg 10/12/21 02:21 10/14/21 11:08 Hydromorphone 2 Mg Tablet PO 2 mg Q6H PRN Administration pain Dextrose 250 mls @ 999 mls/hr 10/14/21 10:49 10/14/21 11:16 D10w IV Infused PRN PRN Infusion Hypoglycemia Lorazepam 0.5 mg 10/17/21 16:44 10/17/21 21:01 Lorazepam 1 Mg Tablet PO 0.5 mg Q6HR PRN Administration Anxiety Morphine Sulfate 2 mg 10/12/21 15:04 10/15/21 17:08 Morphine 2 Mg/Ml Inj IV 2 mg Q2HR PRN Administration Pain, Moderate (4-6) Adempas (Riociguat) 2.5 mg 10/12/21 09:00 10/18/21 08:18 2.5 Mg Tab PO 2.5 mg BID JESSY Administration Entresto (Sacubitril 1 tab 10/12/21 09:00 10/18/21 08:18 -Valsartan 24-26 Mg PO 1 tab Tab) BID JESSY Administration Remodulin ( 0 each 10/12/21 09:45 10/12/21 11:49 Treprostinil) Pump IV Not Given CONT JESSY Ondansetron HCl 4 mg 10/12/21 00:56 10/16/21 13:27 Ondansetron 4 Mg/2 Ml Inj IV 4 mg Q8HR PRN Administration Nausea And Vomiting Sodium Chloride 10 ml 10/12/21 00:41 10/14/21 02:29 Sodium Chloride 0.9% Flush IV 10 ml PRN PRN Administration Flush Sodium Chloride 10 ml 10/12/21 09:00 10/17/21 21:01 Sodium Chloride 0.9% Flush IV 10 ml BID JESSY Administration Warfarin Sodium 6 mg 10/16/21 17:00 10/17/21 16:35 Warfarin 2 Mg Tablet PO 6 mg 1700 JESSY Administration Objective Ventilator Parameters: Ventilator Settings FiO2 35 Positive End Expiratory 10 Pressure Labs Result Diagrams: 10/18/21 06:05 10/18/21 06:05 Labs: Laboratory Results - last 24 hr 10/18/21 10/18/21 06:05 06:05 WBC 7.6 RBC 4.73 Hgb 13.1 Hct 40.6 MCV 85.8 MCH 27.7 MCHC 32.3 RDW 13.9 Plt Count 83 L Neut % (Auto) 70.9 Lymph % (Auto) 16.2 L [place] % (Auto) 9.9 Eos % (Auto) 2.2 Baso % (Auto) 0.8 Neut # (Auto) 5400 Lymph # (Auto) 1200 [place] # (Auto) 700 Eos # (Auto) 200 Baso # (Auto) 100 Sodium 137 Potassium 4.3 Chloride 97 L Carbon Dioxide 37 H BUN 16 Creatinine 0.54 Estimated GFR > 60 BUN/Creatinine Ratio 29.6 H Glucose 84 Calcium 8.4 Exam Vital Signs (past 8 hours): - 10/18/21 00:51 10/18/21 01:20 10/18/21 01:20 Pulse Rate Respiratory Rate Pulse Oximetry 98 96 Oxygen Delivery Method Nasal Cannula BiPAP Oxygen Flow Rate 5 Fraction of Inspired Oxygen 35 35 10/18/21 04:00 10/18/21 04:00 10/18/21 06:58 Pulse Rate 93 H 91 H Respiratory Rate 20 20 Pulse Oximetry 96 96 Oxygen Delivery Method BiPAP High Flow Nasal Cannula Oxygen Flow Rate 5 Fraction of Inspired Oxygen 40 Fraction of Inspired Oxygen 40 Oxygen Delivery Method High Flow Nasal Cannula Oxygen Flow Rate 5 Narrative Exam Narrative: Sitting upright in bed, in NAD, A&Ox3, RN reports rhonchi and wheeze Assessment & Plan Assessment & Plan narrative: Exacerbation of underlying asthma/COPD Improve overall though some wheeze/rhonchi on exam today Continue Duonebs Continue pulmicort BID, rinse after use Completed prednisone, solumedrol 40 mg IV x 1 and reassess Resume home inhaled therapies at time of discharge BiPap as needed, benefitted from use today, see below Hypercapnia noted, compensated, likely chronic hypercapnic respiratory failure Limit opiate usage Acute on chronic hypoxic respiratory failure Secondary to exacerbation of asthma/COPD, acute on chronic systolic heart failure and exacerbation of underlying severe pulmonary HTN Continue to optimize breathing treatments Resume lasix, 20 mg IV now then 20 mg po BID this evening Continue supplemental O2 for goal SPO2 >92% Goal euvolemia Acute on chronic hypercapnic respiratory failure Improved overall ABG show compensated likely chronic hypercapnia, further supported by elevated serum HCO3 Would benefit from home chronic non-invasive positive pressure ventilation as needed by mouthpiece during daytime/awake hours and full facemask qHS at time of sleep Will need outpatient pulmonary follow-up 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
[2021-10-18] MEDS: SODIUM CHLORIDE 0.9% FLUSH 10 ML IV ×3 (09:46→23:30)
[2021-10-18] MEDS: LORazepam 1 MG TABLET 0.5 MG PO ×2 (11:24→20:45)
[2021-10-18] MEDS: MORPHINE 2 MG/ML INJ IV ×4 (13:25→23:30)
--- NOTE | 2021-10-18 13:33 | PC.NURSE ---
Addendum entered by Jaycee Worrell R.N. 10/18/21 17:56: Per Dr Carrasco use Morphine 2mg PRN for work of breathing Original Note: Day shift note Pt needing frequent breathing tx, on and off of BiPap PRN, per Dr Carrasco ok to use Morphine for WOB, Dr Lazaro carbon brusher assembler ordered Lasix and solumedrol to help with wheezing. Pt requesting Ativan for restlessness. Bed low and locked, call light within reach, will continue to treat and monitor
--- NOTE | 2021-10-18 15:47 | CM.DPNOTE ---
DCP Note According to Dr Carrasco, patient expected to remain admitted until Trilogy (or comparable machine) is secured for patient's DC home. Per RT Ethan, this is expected to take at least 48+ hrs d/t patient's coverage Per Dr Carrasco/RT- Patient cannot safely DC w/o Bipap or Trilogy RN Jaycee and RT have reviewed medical POC w/patient, the need to remain admitted while Trilogy type machine is secured..and patient agreeable; patient does not want Hospice at this time Placed call to Za at [facility]- they do not accept . Will attempt other agencies, and will review DCP w/patient over the next 24 hrs JW
--- NOTE | 2021-10-18 15:58 | P.PN_ITS ---
Subjective Subjective Date Patient Seen: 10/17/21 Interval history: Had to be put on BiPAP today and overnight. Intermittent use still. Improved breathing with morphine and ativan. She complains of left pleuritic lung pain. Exam Vital Signs (past 8 hours): - 10/18/21 08:00 10/18/21 08:00 10/18/21 09:23 Temperature 98.0 F Pulse Rate 92 H Respiratory Rate 20 Blood Pressure 91/53 L Pulse Oximetry 98 Oxygen Delivery Method Nasal Cannula BiPAP Oxygen Flow Rate 5 Fraction of Inspired Oxygen 35 10/18/21 11:05 10/18/21 12:00 10/18/21 12:00 Temperature 98.2 F Pulse Rate 97 H Respiratory Rate 20 Blood Pressure 91/53 L 111/58 L Pulse Oximetry 98 Oxygen Delivery Method Nasal Cannula BiPAP Oxygen Flow Rate 5 Fraction of Inspired Oxygen 35 10/18/21 15:14 Temperature Pulse Rate 104 H Respiratory Rate 22 Blood Pressure Pulse Oximetry 93 Oxygen Delivery Method High Flow Nasal Cannula Oxygen Flow Rate 5 Fraction of Inspired Oxygen Fraction of Inspired Oxygen 35 Oxygen Delivery Method High Flow Nasal Cannula Oxygen Flow Rate 5 Narrative Exam Narrative: General:? Patient is a well-developed, well-nourished female, appears tired with labored breathing. HEENT:? Normocephalic, atraumatic, extraocular muscles intact, oral pharynx is clear and mucous membranes are moist.? Neck is supple and symmetric, trachea is midline, no adenopathy, no thyroid enlargement, nontender, no masses palpated.? Negative for JVD Chest:? Normal AP diameter and contour without kyphoscoliosis, no nasal flaring, retractions. Mild labored breathing. Midline sternotomy scar. Lungs:? Auscultation of all lung khan lung sounds with coarse rhonchi. Cardio:? regular rate and rhythm without murmur, rubs, or gallops, no carotid bruit, no cardiac pulsations present. No peripheral edema. Abdomen:? Soft nontender, negative for organomegaly, or masses.? Bowel sounds are present in all 4 quadrants without guarding or rebound, no CVA tenderness. Musculoskeletal:? Muscle strength and tone are equal within normal limits, no deformity, crepitus, effusions, cyanosis, clubbing or edema present.? Full range of motion intact radial and pedal pulses are normal. Skin:? Warm dry and intact without rashes, ulcerations or petechiae.? Neuro:? Alert and orientated x3, strength is +5/5 in all extremities, sensation to touch intact, no gross deficits noted of cranial nerves. Psych:? Patient has a well-kept appearance, appropriate affect, mental status attitude thought context and judgment are appropriate for age. Objective Labs Result Diagrams: 10/18/21 06:05 10/18/21 06:05 Labs: Laboratory Results - last 24 hr 10/18/21 10/18/21 06:05 06:05 WBC 7.6 RBC 4.73 Hgb 13.1 Hct 40.6 MCV 85.8 MCH 27.7 MCHC 32.3 RDW 13.9 Plt Count 83 L Neut % (Auto) 70.9 Lymph % (Auto) 16.2 L [place] % (Auto) 9.9 Eos % (Auto) 2.2 Baso % (Auto) 0.8 Neut # (Auto) 5400 Lymph # (Auto) 1200 [place] # (Auto) 700 Eos # (Auto) 200 Baso # (Auto) 100 Sodium 137 Potassium 4.3 Chloride 97 L Carbon Dioxide 37 H BUN 16 Creatinine 0.54 Estimated GFR > 60 BUN/Creatinine Ratio 29.6 H Glucose 84 Calcium 8.4 PFSH Medical History Anxiety Asthma Chronic back pain Encounter for routine gynecological examination Encounter for wellness examination in adult History of blood clots (~2009) History of myocardial infarction (03/2019) 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 (2018) 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 LV dysfunction (2018) Menopause Osteopenia after menopause (10/2019) Osteoporosis (10/2019) Pre-procedural examination Pulmonary embolism (2009) Pulmonary hypertension (2009) Situational anxiety Systolic heart failure (~2018) Vision disturbance (09/2019) Social History household members: significant other Smoking Status: Former smoker second hand exposure: No alcohol intake: former substance use type: marijuana Assessment & Plan Assessment & Plan narrative: Exacerbation of underlying asthma/COPD Improved overall though still requiring intermittent oxygen above 6 L with BiPAP and other methods as tolerated. BiPAP was considered and deemed insufficient for disease progression of her chronic hypercapnic respiratory failure, trying to proceed forward with home ventilator at this time. Continue Duonebs Continue pulmicort BID, rinse after use Completed prednisone, solumedrol 40 mg IV x 1 and reassess Resume home inhaled therapies at time of discharge BiPap as needed for now Hypercapnia noted, compensated, likely chronic hypercapnic respiratory failure Limit opiate usage Acute on chronic hypoxic respiratory failure Secondary to exacerbation of asthma/COPD, acute on chronic systolic heart failure and exacerbation of underlying severe pulmonary HTN Continue to optimize breathing treatments Continue lasix 20 mg BID, if worsening still later today as far as O2 needs repeat CXR and consider increased dose depending on results. She seems to have improved breathing with pain and anxiety control as well, continue morphine / ativan as needed with caution for respiratory depression. 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
[2021-10-18] MEDS: FUROSEMIDE 20 MG TABLET PO (16:43)
[2021-10-18] MEDS: WARFARIN 2 MG TABLET 6 MG PO (16:43)
--- NOTE | 2021-10-18 20:13 | PM.ICURNDS ---
- :: This patient was seen via real time interactive two-way audiovisual telecommunication. remians on NC, on AC and lasix started today. remains on her pulm htn reigmen inckuding remodulin pump. monitor Uo overnight, wean down fio2 as tolerated. PT/OT as tolerated. Currently refusing transfer. as her fio2 imrpoved start dc planning
[2021-10-18] MEDS: BENZONATATE 100 MG CAPSULE PO (22:14)
[2021-10-19] VITALS (11 sets, daily range): BP systolic 81–91; BP diastolic 51–61; PULSE 79–84; RESP 18–22; TEMP 36.5–36.6; O2SAT 93–98
[2021-10-19] MEDS: ALBUTEROL 2.5 MG/3 ML NEB (ADULT) INH (02:32)
--- NOTE | 2021-10-19 02:35 | RT ---
Patient refused BiPAP tonight
[2021-10-19] MEDS: MORPHINE 2 MG/ML INJ IV ×4 (02:53→19:32)
[2021-10-19] MEDS: SODIUM CHLORIDE 0.9% FLUSH 10 ML IV ×3 (02:53→21:02)
[2021-10-19 05:45] LABS: Add Manual Diff / Slide Review NO; Basophils Absolute Auto 0 /uL (0-100); Basophils Percent Auto 0.3 % (0-2); Eosinophils Absolute Auto 100 /uL (0-450); Eosinophils Percent Auto 1.3 % (2-4); Hematocrit 39.7 % (36-46); Hemoglobin 12.7 g/dL (12.0-16.0); INR 2.6 (0.9-1.3); Lymphocytes Absolute Auto 1700 /uL (1100-4500); Mean Corpuscular HGB Conc 32.1 % (30-36); Mean Corpuscular Hemoglobin 27.3 PG (26-34); Mean Corpuscular Volume 85.2 fL (80-100); Monocytes Absolute Auto 1000 /uL (0-900); Monocytes Percent Auto 11.3 % (3-14); Neutrophils Absolute Auto 6000 /uL (1500-7000); Neutrophils Percent Auto 68.1 % (50-75); Platelet Count 77 X10^3/uL (150-400); Prothrombin Time 29.6 SECONDS (10.1-12.7); Red Blood Cell Count 4.66 X10^6/uL (4.0-5.2); Red Cell Distribution Width 14.1 % (11.6-14.8); White Blood Cell Count 8.8 X10^3/uL (4.5-11.0)
[2021-10-19 05:50] LABS: BUN Creatinine Ratio 28.6 (6-22); Blood Urea Nitrogen 18 mg/dL (7-17); Calcium 8.5 mg/dL (8.4-10.2); Chloride 95 mmol/L (98-107); Estimated Glomerular Filt Rate > 60 mL/min (>60); Glucose 104 mg/dL (70-100); HEMOLYSIS < 15 (0-50); Sodium 138 mmol/L (137-145)
[2021-10-19 06:19] LABS: Carbon Dioxide 40 mmol/L (22-32)
--- NOTE | 2021-10-19 07:32 | DIET.CONS2 ---
Dietary Inpatient Consultation Note Admission Date: 10/11/2021 23:33 Pt discontinued TPN as better able to consume POs on NC during the daytime. Pt's POs much improved since early in admit, averaging 50-100% of meal trays with daily ONS Ensure. Pt awaiting d/c c Trilogy or bipap for home use. Diet: 10/12/21 Breakfast Heart Healthy Diet Diet Modifications: ensure original once daily Nutrition Percent Meal Consumed 75% 10/18/21 22:28 Percent Meal Consumed refused dinner 10/18/21 18:00 Percent Meal Consumed 50% 10/18/21 14:41 Percent Meal Consumed 75% 10/18/21 09:24 Percent Meal Consumed 10% 10/17/21 17:48 Percent Meal Consumed 100% 10/17/21 13:10 Percent Meal Consumed 15% 10/17/21 08:48 Electronically Signed by: Elva Woodruff 10/19/21 07:32 Clinical Dietitian [address] [id number]
[2021-10-19] MEDS: ADEMPAS 2.5 MG 2.5 EACH PO ×2 (08:18→20:59)
[2021-10-19] MEDS: guaiFENesin ER 600 MG TAB 1200 MG PO ×2 (08:20→20:59)
[2021-10-19] MEDS: BENZONATATE 100 MG CAPSULE PO (08:21)
[2021-10-19] MEDS: ATORVASTATIN 20 MG TABLET 40 MG PO (08:21)
[2021-10-19] MEDS: ENTRESTO 1 EACH PO (08:24)
[2021-10-19] MEDS: ALBUTEROL/IPRATROPIUM 3 ML AMPUL INH ×4 (08:25→20:46)
[2021-10-19] MEDS: BUDESONIDE 0.5 MG/2 ML NEB INH ×2 (08:25→20:46)
--- NOTE | 2021-10-19 08:28 | PC.ADMIT ---
[email or web address] Admission Note: The patient,Dagmar Lawrence,56 y/o, was given written information regarding hospital policies, unit procedures and contact persons. Patient's smoking status: Former smoker. Vital Signs - 8 hr 10/19/21 02:33 10/19/21 05:30 10/19/21 05:30 Temperature 97.9 F Pulse Rate 84 Respiratory Rate 22 Blood Pressure 81/51 L Pulse Oximetry 95 Oxygen Delivery Method Nasal Cannula High Flow Nasal Cannula Oxygen Flow Rate 4 10/19/21 08:26 Temperature Pulse Rate Respiratory Rate Blood Pressure Pulse Oximetry 95 Oxygen Delivery Method Nasal Cannula Oxygen Flow Rate 4
--- NOTE | 2021-10-19 08:55 | PC.NURSE ---
Am shift Pt is A/o x4, calm and reports resp status improved from last time this RN had cared for Pt. Reporting thick sputum with use of expectorant. Lungs remain coarse, with exertional wheeze, rhonchi, L>R. Pt reporting sleeping well, but continued fatigue. Goals of shower today with staff assist. Indep to BSC, reporting occasional loose stool. BT + Active. Bp remains soft. Med adjustments per Dr Correa Pt is awaiting Trilogy or similar machine for home use. Then plan to DC home with HH for a palliative approoach , Pt has declined Hospice this stay.
[2021-10-19] MEDS: FUROSEMIDE 20 MG TABLET PO ×2 (09:24→17:48)
--- NOTE | 2021-10-19 09:26 | P.TELICUPN_ITS ---
Subjective Subjective Interval history: Cough remains productive. Wears BiPAP for a couple hours overnight. On 4 liters NC. Appetite is improving. Current Medications Current Medications Medications: Home Medications remodulin See Rx Instructions .Route .COMPLEX 04/27/19 [History Confirmed 10/12/21] riociguat 2.5 mg tablet (Adempas) 2.5 mg PO BID 11/10/19 [History Confirmed 10/12/21] alendronate 70 mg tablet 70 mg PO QWEEK #56 tabs 11/10/20 [Rx Confirmed 10/12/21] rosuvastatin 20 mg tablet 20 mg PO DAILY 11/10/20 [History Confirmed 10/12/21] sacubitril 24 mg-valsartan 26 mg tablet (Entresto) 1 tab PO BID 11/10/20 [History Confirmed 10/12/21] cholecalciferol (vitamin D3) 25 mcg (1,000 unit) capsule (Vitamin D3) 25 mcg PO DAILY 06/12/21 [History Confirmed 10/12/21] warfarin 6 mg tablet See Rx Instructions .Route .COMPLEX 08/20/21 [History Confirmed 10/12/21] furosemide 20 mg tablet See Rx Instructions .Route .COMPLEX #180 tabs 09/10/21 [Rx Confirmed 10/12/21] hydromorphone 2 mg tablet 2 mg PO Q6H PRN pain #90 tabs 09/25/21 [Rx Confirmed 10/12/21] albuterol sulfate 90 mcg/actuation aerosol inhaler See Rx Instructions .Route .COMPLEX #18 grams 10/03/21 [Rx Confirmed 10/12/21] albuterol sulfate 2.5 mg/3 mL (0.083 %) solution for nebulization 2.5 mg (3 mL) inhalation Q4-6H PRN shortness of breath or wheezing, cough #180 mL 10/11/21 [Rx Confirmed 10/12/21] benzonatate 100 mg capsule 100 mg PO BID-TID PRN cough #20 caps 10/11/21 [Rx Confirmed 10/12/21] doxycycline hyclate 100 mg capsule 100 mg PO BID #20 caps 10/11/21 [Rx Confirmed 10/12/21] prednisone 20 mg tablet 40 mg PO DAILY #8 tabs 10/11/21 [Rx Confirmed 10/12/21] clopidogrel 75 mg PO DAILY 10/12/21 [History Confirmed 10/12/21] Visit Medications (administered) Generic Name Dose Route Start Last Admin Trade Name Freq PRN Reason Stop Dose Admin Acetaminophen 650 mg 10/12/21 00:56 10/17/21 05:59 Acetaminophen 325 Mg Tablet PO 650 mg Q6HR PRN Administration Fever/Mild Pain (1-3) Albuterol 2.5 mg 10/12/21 10:32 10/19/21 02:32 Albuterol 2.5 Mg/3 Ml Neb (Adult) INH 2.5 mg [id number] PRN Administration Shortness Of Breath Albuterol/Ipratropium 3 ml 10/12/21 07:00 10/19/21 08:25 Albuterol/Ipratropium 3 Ml Ampul INH 3 ml [id number] JESSY Administration Atorvastatin Calcium 40 mg 10/12/21 09:00 10/19/21 08:21 Atorvastatin 20 Mg Tablet PO 40 mg DAILY JESSY Administration Benzonatate 100 mg 10/12/21 00:56 10/19/21 08:21 Benzonatate 100 Mg Capsule PO 100 mg TID PRN Administration Cough Budesonide 0.5 mg 10/16/21 20:00 10/19/21 08:25 Budesonide 0.5 Mg/2 Ml Neb INH 0.5 mg RTBID JESSY Administration Furosemide 20 mg 10/18/21 17:00 10/19/21 09:24 Furosemide 20 Mg Tablet PO 20 mg 0800,1700 JESSY Administration Guaifenesin 1,200 mg 10/15/21 11:15 10/19/21 08:20 Guaifenesin Er 600 Mg Tab PO 1,200 mg BID JESSY Administration Heparin Sodium (Porcine) 50 unit 10/16/21 21:00 10/19/21 08:23 Heparin Flush (Cl/Picc/Mid-Line) 50 Unit/5 Ml Syringe IV 50 unit BID JESSY Administration Heparin Sodium (Porcine) 50 unit 10/17/21 19:31 10/18/21 23:30 Heparin Flush (Cl/Picc/Mid-Line) 50 Unit/5 Ml Syringe IV 50 unit PRN PRN Administration Flush Hydromorphone HCl 2 mg 10/12/21 02:21 10/14/21 11:08 Hydromorphone 2 Mg Tablet PO 2 mg Q6H PRN Administration pain Dextrose 250 mls @ 999 mls/hr 10/14/21 10:49 10/14/21 11:16 D10w IV Infused PRN PRN Infusion Hypoglycemia Lorazepam 0.5 mg 10/17/21 16:44 10/18/21 20:45 Lorazepam 1 Mg Tablet PO 0.5 mg Q6HR PRN Administration Anxiety Morphine Sulfate 2 mg 10/12/21 15:04 10/19/21 02:53 Morphine 2 Mg/Ml Inj IV 2 mg Q2HR PRN Administration Pain, Moderate (4-6) Adempas (Riociguat) 2.5 mg 10/12/21 09:00 10/19/21 08:18 2.5 Mg Tab PO 2.5 mg BID JESSY Administration Entresto (Sacubitril 1 tab 10/12/21 09:00 10/19/21 08:24 -Valsartan 24-26 Mg PO 1 tab Tab) BID JESSY Administration Remodulin ( 0 each 10/12/21 09:45 10/12/21 11:49 Treprostinil) Pump IV Not Given CONT JESSY Ondansetron HCl 4 mg 10/12/21 00:56 10/16/21 13:27 Ondansetron 4 Mg/2 Ml Inj IV 4 mg Q8HR PRN Administration Nausea And Vomiting Sodium Chloride 10 ml 10/12/21 00:41 10/19/21 02:53 Sodium Chloride 0.9% Flush IV 10 ml PRN PRN Administration Flush Sodium Chloride 10 ml 10/12/21 09:00 10/19/21 09:24 Sodium Chloride 0.9% Flush IV 10 ml BID JESSY Administration Warfarin Sodium 6 mg 10/16/21 17:00 10/18/21 16:43 Warfarin 2 Mg Tablet PO 6 mg 1700 JESSY Administration Objective Ventilator Parameters: Ventilator Settings FiO2 35 Positive End Expiratory 10 Pressure Labs Result Diagrams: 10/19/21 05:30 10/19/21 05:30 Labs: Laboratory Results - last 24 hr 10/19/21 10/19/21 10/19/21 05:30 05:30 05:30 WBC 8.8 RBC 4.66 Hgb 12.7 Hct 39.7 MCV 85.2 MCH 27.3 MCHC 32.1 RDW 14.1 Plt Count 77 L Neut % (Auto) 68.1 Lymph % (Auto) 19.0 L [place] % (Auto) 11.3 Eos % (Auto) 1.3 L Baso % (Auto) 0.3 Neut # (Auto) 6000 Lymph # (Auto) 1700 [place] # (Auto) 1000 H Eos # (Auto) 100 Baso # (Auto) 0 PT 29.6 H D INR 2.6 H Sodium 138 Potassium 4.0 Chloride 95 L Carbon Dioxide 40 H* BUN 18 H Creatinine 0.63 Estimated GFR > 60 BUN/Creatinine Ratio 28.6 H Glucose 104 H Calcium 8.5 Exam Vital Signs (past 8 hours): - 10/19/21 02:33 10/19/21 05:30 10/19/21 05:30 Temperature 97.9 F Pulse Rate 84 Respiratory Rate 22 Blood Pressure 81/51 L Pulse Oximetry 95 Oxygen Delivery Method Nasal Cannula High Flow Nasal Cannula Oxygen Flow Rate 4 10/19/21 08:26 10/19/21 08:47 10/19/21 08:00 Temperature Pulse Rate Respiratory Rate Blood Pressure 88/59 L Pulse Oximetry 95 Oxygen Delivery Method Nasal Cannula High Flow Nasal Cannula Oxygen Flow Rate 4 10/19/21 09:25 Temperature Pulse Rate Respiratory Rate Blood Pressure 90/61 Pulse Oximetry Oxygen Delivery Method Oxygen Flow Rate Fraction of Inspired Oxygen 35 Oxygen Delivery Method High Flow Nasal Cannula Oxygen Flow Rate 4 Assessment & Plan Assessment & Plan narrative: NEURO: # Decondition -- Seek PT/OT consultation -- Early mobility as tolerated RESP: # Acute on chronic hypoxemia respiratory failure -- Considered multfactorial due to severe pulmonary edema, ? airway reactive disease, volume overload, and atelectasis -- Cont gentle diuresis to seek net negative fluid balance -- PH rx as below -- Encourage IS -- Cont BiPAP as needed for increased WOB -- is currently working to get patient approve for home trilogy -- HOB elevation -- Aspiration precaution --Early mobility # Pulmonary hypertension -- On adempas and remodulin -- Refused to be transfer to tertiary care -- Avoid net positive fluid balance -- Low Na diet - On coumadin [facility]: # Hypotension -- Secondary to severe PH and entresto -- DC entresto -- Cont gentle diuresis with holding parameters -- Added midodrine mg TID -- MAP goal > : # Contraction alkalosis -- Secondary to lasix and space ventilation -- If Co2 remains above tomorrow then will orderd diamox 250 mg IV once -- Daily BMP ENDO: -- Goal BS < 180 D/w hospitalist and RN at bedside Time Spent With Patient Critical Care time: I spent a total of [] minutes of critical care time on this patient's care today; this time is exclusive of procedural time.
[2021-10-19] MEDS: MIDODRINE HCL 5 MG TABLET 10 MG PO ×2 (13:08→17:49)
--- NOTE | 2021-10-19 15:34 | P.PN_ITS ---
Subjective Subjective Date Patient Seen: 10/19/21 Interval history: Improved breathing and pain today with morphine and ativan. No BiPAP needed thus far today. Does have slightly worsened cough today but non-productive thus far. Exam Vital Signs (past 8 hours): - 10/19/21 08:26 10/19/21 08:47 10/19/21 08:00 Temperature Pulse Rate Respiratory Rate Blood Pressure 88/59 L Pulse Oximetry 95 Oxygen Delivery Method Nasal Cannula High Flow Nasal Cannula Oxygen Flow Rate 4 10/19/21 09:25 10/19/21 09:36 10/19/21 11:14 Temperature 97.8 F Pulse Rate 82 Respiratory Rate 18 Blood Pressure 90/61 Pulse Oximetry 95 93 Oxygen Delivery Method Nasal Cannula Oxygen Flow Rate 4 3 10/19/21 14:20 10/19/21 14:28 Temperature Pulse Rate Respiratory Rate Blood Pressure 85/51 L Pulse Oximetry 96 Oxygen Delivery Method Nasal Cannula Oxygen Flow Rate 4 Fraction of Inspired Oxygen 35 Oxygen Delivery Method Nasal Cannula Oxygen Flow Rate 4 Narrative Exam Narrative: General:? Patient is a well-developed, well-nourished female, appears tired with labored breathing. HEENT:? Normocephalic, atraumatic, extraocular muscles intact, oral pharynx is clear and mucous membranes are moist.? Neck is supple and symmetric, trachea is midline, no adenopathy, no thyroid enlargement, nontender, no masses palpated.? Negative for JVD Chest:? Normal AP diameter and contour without kyphoscoliosis, no nasal flaring, retractions. Mild labored breathing. Midline sternotomy scar. Lungs:? Auscultation of all lung khan lung sounds with coarse rhonchi. Cardio:? regular rate and rhythm without murmur, rubs, or gallops, no carotid bruit, no cardiac pulsations present. No peripheral edema. Abdomen:? Soft nontender, negative for organomegaly, or masses.? Bowel sounds are present in all 4 quadrants without guarding or rebound, no CVA tenderness. Musculoskeletal:? Muscle strength and tone are equal within normal limits, no deformity, crepitus, effusions, cyanosis, clubbing or edema present.? Full range of motion intact radial and pedal pulses are normal. Skin:? Warm dry and intact without rashes, ulcerations or petechiae.? Neuro:? Alert and orientated x3, strength is +5/5 in all extremities, sensation to touch intact, no gross deficits noted of cranial nerves. Psych:? Patient has a well-kept appearance, appropriate affect, mental status attitude thought context and judgment are appropriate for age. Objective Labs Result Diagrams: 10/19/21 05:30 10/19/21 05:30 Labs: Laboratory Results - last 24 hr 10/19/21 10/19/21 10/19/21 05:30 05:30 05:30 WBC 8.8 RBC 4.66 Hgb 12.7 Hct 39.7 MCV 85.2 MCH 27.3 MCHC 32.1 RDW 14.1 Plt Count 77 L Neut % (Auto) 68.1 Lymph % (Auto) 19.0 L [place] % (Auto) 11.3 Eos % (Auto) 1.3 L Baso % (Auto) 0.3 Neut # (Auto) 6000 Lymph # (Auto) 1700 [place] # (Auto) 1000 H Eos # (Auto) 100 Baso # (Auto) 0 PT 29.6 H D INR 2.6 H Sodium 138 Potassium 4.0 Chloride 95 L Carbon Dioxide 40 H* BUN 18 H Creatinine 0.63 Estimated GFR > 60 BUN/Creatinine Ratio 28.6 H Glucose 104 H Calcium 8.5 PFSH Medical History Anxiety Asthma Chronic back pain Encounter for routine gynecological examination Encounter for wellness examination in adult History of blood clots (~2009) History of myocardial infarction (03/2019) 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 (2018) [facility] current use of anticoagulant therapy LV dysfunction (2018) Menopause Osteopenia after menopause (10/2019) Osteoporosis (10/2019) Pre-procedural examination Pulmonary embolism (2009) Pulmonary hypertension (2009) Situational anxiety Systolic heart failure (~2018) Vision disturbance (09/2019) Social History household members: significant other Smoking Status: Former smoker second hand exposure: No alcohol intake: former substance use type: marijuana Assessment & Plan Assessment & Plan narrative: Exacerbation of underlying asthma/COPD Improved overall though still requiring intermittent oxygen above 6 L with BiPAP and other methods as tolerated. BiPAP was considered and deemed insufficient for disease progression of her chronic hypercapnic respiratory failure, trying to proceed forward with home ve ntilator at this time. Continue Duonebs Continue pulmicort BID, rinse after use Completed prednisone, solumedrol 40 mg IV x 1 and reassess Resume home inhaled therapies at time of discharge BiPap as needed for now Hypercapnia noted, compensated, likely chronic hypercapnic respiratory failure Limit opiate usage Acute on chronic hypoxic respiratory failure Secondary to exacerbation of asthma/COPD, acute on chronic systolic heart failure and exacerbation of underlying severe pulmonary HTN Continue to optimize breathing treatments Continue lasix 20 mg BID, if worsening still later today as far as O2 needs repeat CXR and consider increased dose depending on results. She seems to have improved breathing with pain and anxiety control as well, continue morphine / ativan as needed with caution for respiratory depression. 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 Continue home riociguat and remodulin Midodrine prn SBP >90 Appears well perfused Resume home lasix as above Would benefit from home NIVPPV such as trilogy device as outlined above Patient reportedly refused transfer to tertiary center DNR Palliative approach is appropriate Acute on chronic systolic heart failure stop entresto given hypotension continue home furosemide, now euvolemic unable to tolerate beta kirsten or turpti/arb therapy given hypotension at this time. Continue to adjust. Thrombocytopenia continues to decline over admission, unclear etiology but will continue to monit or. No evidence of bleeding currently. Case was discussed with patient's RNKaren Remainder of care plan per hospitalist team Time Spent With Patient Critical Care time: I spent a total of [] minutes of critical care time on this patient's care today; this time is exclusive of procedural time.
[2021-10-19] MEDS: WARFARIN 2 MG TABLET 6 MG PO (17:51)
--- NOTE | 2021-10-19 20:22 | PM.ICURNDS ---
- :: This patient was seen via real time interactive two-way audiovisual telecommunication. Note: No acute issues. I/O not well documented. Patient is comfortable on 4 liters NC. Refused to go back on BiPAP. Cont supportive care. D/w RN.
[2021-10-19] MEDS: LORazepam 1 MG TABLET 0.5 MG PO (21:00)
[2021-10-20 01:57] VITALS: BP 104/56; PULSE 76; RESP 18; TEMP 36.2; O2SAT 92
[2021-10-20] MEDS: MIDODRINE HCL 5 MG TABLET 10 MG PO (05:45)
[2021-10-20] MEDS: SODIUM CHLORIDE 0.9% FLUSH 10 ML IV ×2 (05:46→08:46)
[2021-10-20 06:07] LABS: INR 3.3 (0.9-1.3); Prothrombin Time 37.8 SECONDS (10.1-12.7)
[2021-10-20 06:13] LABS: Add Manual Diff / Slide Review NO; Alanine Aminotransferase 23 IU/L (<35); Albumin 3.5 g/dL (3.5-5.0); Albumin Globulin Ratio 1.4 (1.0-2.8); Alkaline Phosphatase 45 U/L (38-126); Aspartate Aminotransferase 32 IU/L (14-36); BUN Creatinine Ratio 26.2 (6-22); Basophils Absolute Auto 0 /uL (0-100); Basophils Percent Auto 0.6 % (0-2); Bilirubin Total 0.6 mg/dL (0.2-1.3); Blood Urea Nitrogen 17 mg/dL (7-17); Calcium 8.2 mg/dL (8.4-10.2); Carbon Dioxide 38 mmol/L (22-32); Chloride 97 mmol/L (98-107); Eosinophils Absolute Auto 300 /uL (0-450); Eosinophils Percent Auto 3.6 % (2-4); Estimated Glomerular Filt Rate > 60 mL/min (>60); Globulin 2.5 g/dL (1.7-4.1); Glucose 86 mg/dL (70-100); HEMOLYSIS < 15 (0-50); Hematocrit 40.8 % (36-46); Lymphocytes Absolute Auto 1800 /uL (1100-4500); Lymphocytes Percent Auto 22.7 % (25-40); Mean Corpuscular HGB Conc 31.9 % (30-36); Mean Corpuscular Hemoglobin 27.2 PG (26-34); Mean Corpuscular Volume 85.4 fL (80-100); Monocytes Absolute Auto 700 /uL (0-900); Monocytes Percent Auto 8.7 % (3-14); Neutrophils Absolute Auto 5100 /uL (1500-7000); Neutrophils Percent Auto 64.4 % (50-75); Platelet Count 84 X10^3/uL (150-400); Potassium 4.2 mmol/L (3.4-5.1); Red Blood Cell Count 4.78 X10^6/uL (4.0-5.2); Red Cell Distribution Width 14.3 % (11.6-14.8); Sodium 137 mmol/L (137-145)
[2021-10-20] MEDS: ALBUTEROL/IPRATROPIUM 3 ML AMPUL INH ×2 (07:50→12:29)
[2021-10-20 07:54] VITALS: PULSE 82; RESP 22; O2SAT 94
[2021-10-20] MEDS: BUDESONIDE 0.5 MG/2 ML NEB INH (07:54)
[2021-10-20 08:03] VITALS: PULSE 79; RESP 20
[2021-10-20 08:05] VITALS: BP 104/68; PULSE 76; RESP 20; TEMP 37.1; O2SAT 97
[2021-10-20] MEDS: guaiFENesin ER 600 MG TAB 1200 MG PO (08:45)
[2021-10-20] MEDS: FUROSEMIDE 20 MG TABLET PO (08:45)
[2021-10-20] MEDS: ATORVASTATIN 20 MG TABLET 40 MG PO (08:45)
[2021-10-20] MEDS: MORPHINE IR 15 MG TABLET PO (08:45)
[2021-10-20] MEDS: ADEMPAS 2.5 MG 2.5 EACH PO (08:46)
--- NOTE | 2021-10-20 09:17 | P.TELICUPN_ITS ---
Subjective Subjective Interval history: No acute issues overnight. Refused to wear BiPAP overnight. Feels like she is back to her home baseline. Able to get get up to chair. Current Medications Current Medications Medications: Home Medications remodulin See Rx Instructions .Route .COMPLEX 04/27/19 [History Confirmed 10/12/21] riociguat 2.5 mg tablet (Adempas) 2.5 mg PO BID 11/10/19 [History Confirmed 10/12/21] alendronate 70 mg tablet 70 mg PO QWEEK #56 tabs 11/10/20 [Rx Confirmed 10/12/21] rosuvastatin 20 mg tablet 20 mg PO DAILY 11/10/20 [History Confirmed 10/12/21] sacubitril 24 mg-valsartan 26 mg tablet (Entresto) 1 tab PO BID 11/10/20 [History Confirmed 10/12/21] cholecalciferol (vitamin D3) 25 mcg (1,000 unit) capsule (Vitamin D3) 25 mcg PO DAILY 06/12/21 [History Confirmed 10/12/21] warfarin 6 mg tablet See Rx Instructions .Route .COMPLEX 08/20/21 [History Confirmed 10/12/21] furosemide 20 mg tablet See Rx Instructions .Route .COMPLEX #180 tabs 09/10/21 [Rx Confirmed 10/12/21] hydromorphone 2 mg tablet 2 mg PO Q6H PRN pain #90 tabs 09/25/21 [Rx Confirmed 10/12/21] albuterol sulfate 90 mcg/actuation aerosol inhaler See Rx Instructions .Route .COMPLEX #18 grams 10/03/21 [Rx Confirmed 10/12/21] albuterol sulfate 2.5 mg/3 mL (0.083 %) solution for nebulization 2.5 mg (3 mL) inhalation Q4-6H PRN shortness of breath or wheezing, cough #180 mL 10/11/21 [Rx Confirmed 10/12/21] benzonatate 100 mg capsule 100 mg PO BID-TID PRN cough #20 caps 10/11/21 [Rx Confirmed 10/12/21] doxycycline hyclate 100 mg capsule 100 mg PO BID #20 caps 10/11/21 [Rx Confirmed 10/12/21] prednisone 20 mg tablet 40 mg PO DAILY #8 tabs 10/11/21 [Rx Confirmed 10/12/21] clopidogrel 75 mg PO DAILY 10/12/21 [History Confirmed 10/12/21] Visit Medications (administered) Generic Name Dose Route Start Last Admin Trade Name Freq PRN Reason Stop Dose Admin Acetaminophen 650 mg 10/12/21 00:56 10/17/21 05:59 Acetaminophen 325 Mg Tablet PO 650 mg Q6HR PRN Administration Fever/Mild Pain (1-3) Albuterol 2.5 mg 10/12/21 10:32 10/19/21 02:32 Albuterol 2.5 Mg/3 Ml Neb (Adult) INH 2.5 mg [id number] PRN Administration Shortness Of Breath Albuterol/Ipratropium 3 ml 10/12/21 07:00 10/20/21 07:50 Albuterol/Ipratropium 3 Ml Ampul INH 3 ml [id number] Administration Atorvastatin Calcium 40 mg 10/12/21 09:00 10/20/21 08:45 Atorvastatin 20 Mg Tablet PO 40 mg DAILY JESSY Administration Benzonatate 100 mg 10/12/21 00:56 10/19/21 08:21 Benzonatate 100 Mg Capsule PO 100 mg TID PRN Administration Cough Budesonide 0.5 mg 10/16/21 20:00 10/20/21 07:54 Budesonide 0.5 Mg/2 Ml Neb INH 0.5 mg RTBID JESSY Administration Furosemide 20 mg 10/18/21 17:00 10/20/21 08:45 Furosemide 20 Mg Tablet PO 20 mg 0800,1700 JESSY Administration Guaifenesin 1,200 mg 10/15/21 11:15 10/20/21 08:45 Guaifenesin Er 600 Mg Tab PO 1,200 mg BID JESSY Administration Heparin Sodium (Porcine) 50 unit 10/16/21 21:00 10/20/21 08:46 Heparin Flush (Cl/Picc/Mid-Line) 50 Unit/5 Ml Syringe IV 50 unit BID JESSY Administration Heparin Sodium (Porcine) 50 unit 10/17/21 19:31 10/20/21 05:45 Heparin Flush (Cl/Picc/Mid-Line) 50 Unit/5 Ml Syringe IV 50 unit PRN PRN Administration Flush Hydromorphone HCl 2 mg 10/12/21 02:21 10/14/21 11:08 Hydromorphone 2 Mg Tablet PO 2 mg Q6H PRN Administration pain Dextrose 250 mls @ 999 mls/hr 10/14/21 10:49 10/14/21 11:16 D10w IV Infused PRN PRN Infusion Hypoglycemia Lorazepam 0.5 mg 10/17/21 16:44 10/19/21 21:00 Lorazepam 1 Mg Tablet PO 0.5 mg Q6HR PRN Administration Anxiety Midodrine 10 mg 10/19/21 12:00 10/20/21 05:45 Midodrine Hcl 5 Mg Tablet PO 10 mg 0600,1200,1800 JESSY Administration Morphine Sulfate 15 mg 10/20/21 08:34 10/20/21 08:45 Morphine Ir 15 Mg Tablet PO 15 mg Q4HR PRN Administration Pain, Moderate (4-6) Adempas (Riociguat) 2.5 mg 10/12/21 09:00 10/20/21 08:46 2.5 Mg Tab PO 2.5 mg BID JESSY Administration Remodulin ( 0 each 10/12/21 09:45 10/12/21 11:49 Treprostinil) Pump IV Not Given CONT JESSY Ondansetron HCl 4 mg 10/12/21 00:56 10/16/21 13:27 Ondansetron 4 Mg/2 Ml Inj IV 4 mg Q8HR PRN Administration Nausea And Vomiting Sodium Chloride 10 ml 10/12/21 00:41 10/20/21 05:46 Sodium Chloride 0.9% Flush IV 10 ml PRN PRN Administration Flush Sodium Chloride 10 ml 10/12/21 09:00 10/20/21 08:46 Sodium Chloride 0.9% Flush IV 10 ml BID JESSY Administration Warfarin Sodium 6 mg 10/16/21 17:00 10/19/21 17:51 Warfarin 2 Mg Tablet PO 6 mg 1700 JESSY Administration Objective Ventilator Parameters: Ventilator Settings FiO2 35 Positive End Expiratory 10 Pressure Labs Result Diagrams: 10/20/21 05:30 10/20/21 05:30 Labs: Laboratory Results - last 24 hr 10/20/21 10/20/21 10/20/21 05:30 05:30 05:30 WBC 8.0 RBC 4.78 Hgb 13.0 Hct 40.8 MCV 85.4 MCH 27.2 MCHC 31.9 RDW 14.3 Plt Count 84 L Neut % (Auto) 64.4 Lymph % (Auto) 22.7 L [place] % (Auto) 8.7 Eos % (Auto) 3.6 Baso % (Auto) 0.6 Neut # (Auto) 5100 Lymph # (Auto) 1800 [place] # (Auto) 700 Eos # (Auto) 300 Baso # (Auto) 0 PT 37.8 H D INR 3.3 H Sodium 137 Potassium 4.2 Chloride 97 L Carbon Dioxide 38 H BUN 17 Creatinine 0.65 Estimated GFR > 60 BUN/Creatinine Ratio 26.2 H Glucose 86 Calcium 8.2 L Total Bilirubin 0.6 AST 32 ALT 23 Alkaline Phosphatase 45 Total Protein 6.0 L Albumin 3.5 Globulin 2.5 Albumin/Globulin Ratio 1.4 Exam Vital Signs (past 8 hours): - 10/20/21 01:57 10/20/21 07:54 10/20/21 08:03 Temperature 97.1 F L Pulse Rate 76 82 79 Respiratory Rate 18 22 20 Blood Pressure 104/56 L Pulse Oximetry 92 94 Oxygen Delivery Method Nasal Cannula Nasal Cannula Oxygen Flow Rate 4 4 4 Fraction of Inspired Oxygen 35 Oxygen Delivery Method Nasal Cannula Oxygen Flow Rate 4 Assessment & Plan Assessment & Plan narrative: NEURO: # Decondition -- Cont PT/OT and OOB as tolerated RESP: # Chronic hypoxemia respiratory failure -- Considered multfactorial due to severe pulmonary edema, ? airway reactive di sease, volume overload, and atelectasis -- Back to baseline home O2 therapy -- Cont gentle diuresis to seek net even to negative fluid balance -- PH rx as below -- Encourage IS -- [place]ai[place] for home trilogy approval -- Recommend checking 6 minute walk test -- HOB elevation -- Aspiration precaution --Early mobility # Pulmonary hypertension -- On adempas and remodulin -- On lasix 20 mg PO daily -- Avoid net positive fluid balance -- Low Na diet - On coumadin [facility]: # Hypotension -- Resolved -- Avoid restarting entresto?while patient is on midodrine -- MAP goal > 65 : # Contraction alkalosis -- Secondary to lasix and space ventilation -- Co2 38 today -- Daily BMP ENDO: -- Goal BS < 180 D/w hospitalist and RN Time Spent With Patient Critical Care time: I spent a total of [] minutes of critical care time on this patient's care today; this time is exclusive of procedural time.
--- NOTE | 2021-10-20 10:39 | PM.DS.1 ---
History of Present Illness History of Present Illness Date Patient Seen: 10/20/21 Chief complaint: Difficulty breathing,hx asthma/COPD Narrative: Per Digna Clemons, [facility]: Dagmar Lawrence is a 56-year-old female with a history of anxiety, asthma, COPD, ischemic cardiomyopathy, history NE, history of PE, pulmonary hypertension, systolic heart failure who presented to the ED complaining of COPD/asthma exacerbation for the past 3 days.? Patient had been seen by internal medicine Sophie lou SORTER PRICER on 10/11/2021 for COPD asthma exacerbation. She has been requiring her PRN home 02 continuously, and more frequent home nebulizer treatment without improvement. Patient denies chest pain, recent illness, abdominal pain, nausea, vomiting, fever, chills cough cold or congestion.? The patient notes the extreme changes between hot and rainy weather have exacerbated her respiratory distress. Patient does condone cough, denies congestion, ear or eye issues, bowel or bladder issues. In the ED department patient's oxygen demand continued to escalate the patient did not wish to be intubated and so was placed on BiPAP. Because patient is on BiPAP (mask) was unable to obtain clearly family history and past surgical history. Upon admit to the floor patient is successfully on BiPAP with an O2 saturation of 97%. Temp 98.5?, BP 105/67, HR 107, R 21. ABGs in ED pH 7.27, pCO2 71.1, PO2 90, HC03 33, total CO2 35, saturation 95%, BE 6.0, FiO2 of 35. Patient's CBC is mostly within normal limits with the exception of platelets of 110, BUN of 21 BNP 1720, respiratory panel is negative, should be noted the patient's PT is 66.4 with an INR of 5.7 patient on long-term Coumadin anticoagulation. Patient admitted to the ICU for acute respiratory failure, metabolic alkalosis with respiratory acidosis exacerbation COPD asthma. Discharge Providers Provider Date of admission: 10/11/21 23:33 Discharge Date: 10/20/21 Primary care physician: Vj Sullivan MD Consults: 10/12/21 00:56 Consult to Dietitian, Adult Routine Comment: Reason For Exam: BMI 21.8 Consult to Tele-beam press operator Routine Comment: Consulting Provider: Paola Tele-intensivists Reason for consultation: Rn Psychiatric services Has provider been notified: No 10/17/21 06:40 Consult to Inpatient Wound Care Nurse Routine Comment: Need Bio Patch and Sorbaview dressing Reason for consultation: PICC line dressing change. bloody drainge at insertion site. Discharge provider: Kamaljit Carrasco DO Summary Hospital Course Discharge Diagnosis: Exacerbation of underlying asthma/COPD Acute on chronic hypoxic respiratory failure Acute on chronic hypercapnic respiratory failure Severe Pulmonary HTN Acute on chronic systolic heart failure Thrombocytopenia Hospital Course: This is a 48-year-old female with a past medical history of systolic heart failure, severe pulmonary hypertension, chronic hypoxemic and hypercapnic respiratory failure, and COPD who was previously pending heart and lung transplants, on a remodulin pump who was admitted with acute on chronic hypoxemic and hypercapnic respiratory failure. She required BiPAP therapy throughout the course of her stay intermittently. She was treated for COPD exacerbation with steroids and diuresed for an acute on chronic systolic heart failure exacerbation. She continue to intermittently require advanced oxygen therapies, which will likely be her new baseline. She seemed to be much better with pain control with morphine and as needed Ativan for anxiety. Paperwork was initiated for home ventilator therapy given the patient's intermittent need for an IPPV or possible high-flow oxygen. Ideally, the patient would remain in the hospital given her intermittent need, however she did not want to do this and wanted to be discharged home. At the time of discharge she had not been on advanced oxygen therapy including an IPPV or high-flow for greater than 48 hours. I recommend that she continue to follow-up with her outpatient providers for continued management and medical optimization. Goals of care discussions over the course of her stay clarified her goals of care. Patient did not want a transfer to a tertiary center and she opted to change her code status to DNR. Time Spent with Patient Time spent: Greater than 30 minutes Exam Vital Signs (past 8 hours): - 10/20/21 07:54 10/20/21 08:03 10/20/21 08:05 Temperature 98.8 F Pulse Rate 82 79 76 Respiratory Rate 22 20 200 H Blood Pressure 104/68 Pulse Oximetry 94 97 Oxygen Delivery Method Nasal Cannula Nasal Cannula Oxygen Flow Rate 4 4 4 Fraction of Inspired Oxygen 35 Oxygen Delivery Method Nasal Cannula Oxygen Flow Rate 4 Narrative Exam Narrative: General:? Patient is a well-developed, well-nourished female, appears tired with labored breathing. HEENT:? Normocephalic, atraumatic, extraocular muscles intact, oral pharynx is clear and mucous membranes are moist.? Neck is supple and symmetric, trachea is midline, no adenopathy, no thyroid enlargement, nontender, no masses palpated.? Negative for JVD Chest:? Normal AP diameter and contour without kyphoscoliosis, no nasal flaring, retractions. Mild labored breathing. Midline sternotomy scar. Lungs:? Auscultation of all lung khan lung sounds with coarse rhonchi. Cardio:? regular rate and rhythm without murmur, rubs, or gallops, no carotid bruit, no cardiac pulsations present. No peripheral edema. Abdomen:? Soft nontender, negative for organomegaly, or masses.? Bowel sounds are present in all 4 quadrants without guarding or rebound, no CVA tenderness. Musculoskeletal:? Muscle strength and tone are equal within normal limits, no deformity, crepitus, effusions, cyanosis, clubbing or edema present.? Full range of motion intact radial and pedal pulses are normal. Skin:? Warm dry and intact without rashes, ulcerations or petechiae.? Neuro:? Alert and orientated x3, strength is +5/5 in all extremities, sensation to touch intact, no gross deficits noted of cranial nerves. Psych:? Patient has a well-kept appearance, appropriate affect, mental status attitude thought context and judgment are appropriate for age. Objective Labs Result Diagrams: 10/20/21 05:30 10/20/21 05:30 Labs: Laboratory Results - last 24 hr 10/20/21 10/20/21 10/20/21 05:30 05:30 05:30 WBC 8.0 RBC 4.78 Hgb 13.0 Hct 40.8 MCV 85.4 MCH 27.2 MCHC 31.9 RDW 14.3 Plt Count 84 L Neut % (Auto) 64.4 Lymph % (Auto) 22.7 L [place] % (Auto) 8.7 Eos % (Auto) 3.6 Baso % (Auto) 0.6 Neut # (Auto) 5100 Lymph # (Auto) 1800 [place] # (Auto) 700 Eos # (Auto) 300 Baso # (Auto) 0 PT 37.8 H D INR 3.3 H Sodium 137 Potassium 4.2 Chloride 97 L Carbon Dioxide 38 H BUN 17 Creatinine 0.65 Estimated GFR > 60 BUN/Creatinine Ratio 26.2 H Glucose 86 Calcium 8.2 L Total Bilirubin 0.6 AST 32 ALT 23 Alkaline Phosphatase 45 Total Protein 6.0 L Albumin 3.5 Globulin 2.5 Albumin/Globulin Ratio 1.4 PFS Medical History Anxiety Asthma Chronic back pain Encounter for routine gynecological examination Encounter for wellness examination in adult History of blood clots (~2009) History of myocardial infarction (03/2019) 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 (2018) intermediate current use of anticoagulant therapy LV dysfunction (2018) Menopause Osteopenia after menopause (10/2019) Osteoporosis (10/2019) Pre-procedural examination Pulmonary embolism (2009) Pulmonary hypertension (2009) Situational anxiety Systolic heart failure (~2018) Vision disturbance (09/2019) Social History household members: significant other Smoking Status: Former smoker second hand exposure: No alcohol intake: former substance use type: marijuana Discharge Plan Discharge Plan Patient Disposition: Home Provider Discharge Comment: You were admitted to the hospital with difficulty breathing. This improved with treatments. We are awaiting authorization for a home ventilator. Should you have difficulty breathing do not hesitate to call EMS as you may need more oxygen than you can get safely at home. Continue morphine and ativan cautiously, and avoid taking them within a few hours of each other at home. Be cautious of getting too sleepy. Also sent a prescription for reversal of opiates should you get too tired. Nursing Discharge Comment: It has been a pleasure taking care of you, although I hope not to see you back anytime soon! Take care and don't forget to take breaks when you get tired. You got this! -Digna Discharge orders & Medications Prescriptions: New acetaminophen 325 mg Tablet 650 mg PO Q6HR PRN (Reason: Fever/Mild Pain (1-3)) Qty: 60 0RF lorazepam 0.5 mg tablet 0.5 mg PO Q6HR PRN (Reason: Anxiety) 7 Days Qty: 28 0RF midodrine 10 mg tablet 10 mg PO 0600,1200,1800 30 Days Qty: 90 0RF morphine 15 mg Tablet 15 mg PO Q4HR PRN (Reason: Pain, Moderate (4-6)) 7 Days Qty: 40 0RF naloxone [Narcan] 4 mg/actuation spray,non-aerosol 4 mg intranasal Q2M PRN (Reason: opioid overdose) 30 Days Qty: 2 0RF Rx Instructions: spray 1 dose into ONE nostril; alternate nostrils w each dose until help arrives Continued furosemide 20 mg tablet See Rx Instructions .ROUTE .COMPLEX Qty: 180 0RF Dose Instruction: TAKE 1 TABLET BY MOUTH TWICE DAILY Rx Instructions: TAKE 1 TABLET BY MOUTH IN AM PER PATIENT hydromorphone 2 mg tablet 2 mg PO Q6H PRN (Reason: pain) Qty: 90 0RF albuterol sulfate 90 mcg/actuation HFA aerosol inhaler See Rx Instructions .ROUTE .COMPLEX Qty: 18 3RF Dose Instruction: INHALE 2 PUFFS BY MOUTH EVERY 4 TO 6 HOURS NEEDED FOR SHORTNESS OF BREATH OR WHEEZING Rx Instructions: INHALE 2 PUFFS BY MOUTH EVERY 4 TO 6 HOURS NEEDED FOR SHORTNESS OF BREATH OR WHEEZING remodulin auto-injector See Rx Instructions .ROUTE .COMPLEX Rx Instructions: 39 ng/kg/min subcutaneously using wearable injector Adempas 2.5 mg tablet 2.5 mg PO BID rosuvastatin 20 mg tablet 20 mg PO DAILY alendronate 70 mg tablet 70 mg PO QWEEK Qty: 56 0RF warfarin 6 mg tablet See Rx Instructions .ROUTE .COMPLEX Dose Instruction: TAKE 1 TABLET BY MOUTH EVERY DAY OR DIRECTED Rx Instructions: TAKE 1 TABLET BY MOUTH EVERY DAY OR DIRECTED doxycycline hyclate 100 mg capsule 100 mg PO BID Qty: 20 0RF Rx Instructions: Take 1 tab twice per day for 10 days prednisone 20 mg tablet 40 mg PO DAILY Qty: 8 0RF Rx Instructions: Take 2 tabs with food before 2pm daily to prevent insomnia benzonatate 100 mg capsule 100 mg PO BID-TID PRN (Reason: cough) Qty: 20 1RF Rx Instructions: Take 1 tab 2-3 times per day (do not bite or crush) as needed for cough albuterol sulfate 2.5 mg /3 mL (0.083 %) solution for nebulization 2.5 mg inhalation Q4-6H PRN (Reason: shortness of breath or wheezing, cough) Qty: 180 3RF cholecalciferol (vitamin D3) [Vitamin D3] 25 mcg (1,000 unit) Capsule 25 mcg PO DAILY clopidogrel 75 mg PO DAILY Discontinued Entresto 24-26 mg tablet 1 tab PO BID Follow up/Referrals: Vj Sullivan MD [Primary Care Provider] - Diet/Activity/Treatments Diet: Diet as Tolerated Activity: As tolerated Visit Report/Discharge Packet Instructions: Pulmonary Hypertension -- Adult, DI for Shortness of Breath, How to Manage Shortness of Breath, Doxycycline (By mouth) Discharge Data Primary Care Provider: Vj Sullivan
--- NOTE | 2021-10-20 10:46 | PC.NURSE ---
Addendum entered by Digna Contreras R.N. 10/20/21 16:25: Pt ready to DC home after [facility] review of DC plan and medication changes. Pt and SO aware of changes, and follow up plan for INR and FU visit with PCP Friday. [facility] will be following for trilogy and continued home O2. PICC line removed, Compression dressing applied. WC to private vehicle. Pt expresses thanks for her care, and is tearful leaving. I don't know what I would have done if I had to transfer away from here, thank you all Original Note: Assisted Pt with shower, able to tolerate 4L NC, and minimal assist by this RN. Spo2 spot checked multiple times during showering, did not drop below 85% Spo2. Pt fatigued at this point but sitting upright in bed. Pleased with improvement in POC and plan to DC home later today. Pt had PO Morphine this am, no further request for narcotic this am. Lungs remain with coarse rhonchi and throughout productive cough with thick sputum. PICC line to LUE flushing well. Taking PO meds well. Update to Dr Carrasco and DC planning continues. Still working to get outpatiet trilogy or similar to home.
[2021-10-20] MEDS: MORPHINE 2 MG/ML INJ IV ×2 (11:24→14:15)
[2021-10-20 12:00] VITALS: BP 106/69; PULSE 76; RESP 21; TEMP 37.2; O2SAT 98
[2021-10-20 12:29] VITALS: PULSE 81; RESP 20; O2SAT 96
--- NOTE | 2021-10-20 13:54 | CM.DPNOTE ---
Discharge Planning note: Met with patient and reviewed her needs in light of her discharge today. Discussed need to establish with a decorator hand as her previous one has retired and she does not like the replacement. Reviewed that she has O2 at home provided by [facility]. Patient lives with partner and is ready for discharge she states. Also discussed case with her nurse who states patient tolerated shower today. Apparently her sister is coming into town and will be helpful for patient, the patient does not want Home Health. She has been on 4 LPM O2 and has not used Bipap for past 2 nights. RT states that she has refused the Bipap. Spoke with Tl at [facility] to whom was sent the paperwork by for [facility] respirator. Tl states they will need to get an authorization for and this could take time. They will continue to work on. P: Patient to dc home later this afternoon. Taryn Negro RN/DCP
== END 2021-10-20 16:40 | disposition home or self-care (01) | DRG 189 ==
LOC: ED 23:33 → ICU 10-12 08:00 → AC 10-19 11:14
PROVIDERS: Internal Medicine; Student in an Organized Health Care Education/Training Program; Admitting Provider Nurse Practitioner Family; Emergency Provider Emergency Medicine; PCP Family Medicine; Visit Provider Nurse Practitioner Family
DX: J96.21 Acute and chronic respiratory failure with hypoxia (principal); J44.1 Chronic obstructive pulmonary disease with (acute) exacerbation; E87.4 Mixed disorder of acid-base balance; I50.22 Chronic systolic (congestive) heart failure; J45.901 Unspecified asthma with (acute) exacerbation; J96.22 Acute and chronic respiratory failure with hypercapnia; I27.20 Pulmonary hypertension, unspecified; I25.5 Ischemic cardiomyopathy; I34.0 Nonrheumatic mitral (valve) insufficiency; E87.5 Hyperkalemia; I95.2 Hypotension due to drugs; T46.3X5A Adverse effect of coronary vasodilators, initial encounter; E78.5 Hyperlipidemia, unspecified; M81.0 Age-related osteoporosis without current pathological fracture; D69.6 Thrombocytopenia, unspecified; F41.9 Anxiety disorder, unspecified; Z87.891 Personal history of nicotine dependence; Z66 Do not resuscitate; Z79.01 Long term (current) use of anticoagulants; Z20.822 Contact with and (suspected) exposure to COVID-19
CPT/HCPCS: 36415; 36569; 36592; 36600; 71046; 80048; 80053; 82805; 83605; 83735; 83880; 84100; 84145; 84443; 85025; 85379; 85610; 87070; 87205; 87633; 87635; 87797; 93005; 93010; 93306; 94640; 94660; 94667; 94668; 94760; 96374; 96375; 99285; 99291; C9803; A9270; B4189; J0610; J1642; J1940; J2060; J2270; J2405; J2920; J2930; J7613

== ENCOUNTER → 2021-10-31 11:40 | Outpatient (CLI) | payer OTHER, SELFPAY ==
[2021-10-12 08:33] VITALS: BMI 21.9
[2021-10-18 11:05] VITALS: PULSE 98; RESP 29; O2SAT 93
[2021-10-31 12:37] LABS: Add Manual Diff / Slide Review NO; Basophils Absolute Auto 100 /uL (0-100); Basophils Percent Auto 0.9 % (0-2); Eosinophils Absolute Auto 100 /uL (0-450); Eosinophils Percent Auto 1.7 % (2-4); Hematocrit 41.2 % (36-46); Hemoglobin 13.3 g/dL (12.0-16.0); Lymphocytes Absolute Auto 1400 /uL (1100-4500); Lymphocytes Percent Auto 25.8 % (25-40); Mean Corpuscular HGB Conc 32.2 % (30-36); Mean Corpuscular Hemoglobin 27.2 PG (26-34); Mean Corpuscular Volume 84.4 fL (80-100); Monocytes Absolute Auto 400 /uL (0-900); Neutrophils Absolute Auto 3500 /uL (1500-7000); Neutrophils Percent Auto 63.6 % (50-75); Platelet Count 140 X10^3/uL (150-400); Red Blood Cell Count 4.88 X10^6/uL (4.0-5.2); Red Cell Distribution Width 14.2 % (11.6-14.8); White Blood Cell Count 5.5 X10^3/uL (4.5-11.0)
[2021-10-31 12:53] LABS: Alanine Aminotransferase 23 IU/L (<35); Albumin 4.2 g/dL (3.5-5.0); Albumin Globulin Ratio 1.7 (1.0-2.8); Alkaline Phosphatase 53 U/L (38-126); Aspartate Aminotransferase 28 IU/L (14-36); BUN Creatinine Ratio 24.2 (6-22); Bilirubin Total 0.5 mg/dL (0.2-1.3); Blood Urea Nitrogen 16 mg/dL (7-17); Carbon Dioxide 33 mmol/L (22-32); Chloride 100 mmol/L (98-107); Estimated Glomerular Filt Rate > 60 mL/min (>60); Globulin 2.5 g/dL (1.7-4.1); Glucose 91 mg/dL (70-100); HEMOLYSIS < 15 (0-50); Potassium 4.2 mmol/L (3.4-5.1); Sodium 140 mmol/L (137-145); Total Protein 6.7 g/dL (6.3-8.2)
== END ==
PROVIDERS: PCP Family Medicine; Referring Provider Family Medicine; Visit Provider Family Medicine
DX: D69.6 Thrombocytopenia, unspecified (principal); F41.9 Anxiety disorder, unspecified; I27.20 Pulmonary hypertension, unspecified; I50.22 Chronic systolic (congestive) heart failure; J96.90 Respiratory failure, unspecified, unspecified whether with hypoxia or hypercapnia
CPT/HCPCS: 36415; 80053; 85025

== ENCOUNTER 2022-04-13 11:27 | Emergency (ER) | payer OTHER, MEDICAID, SELFPAY ==
[2021-10-12 08:33] VITALS: BMI 21.9
[2021-10-18 11:05] VITALS: PULSE 98; RESP 29; O2SAT 93
[2022-04-13 11:51] VITALS: BP 109/57; PULSE 102; RESP 20; TEMP 37.2; O2SAT 96; BMI 20.9
--- NOTE | 2022-04-13 12:51 | PC.NURSE ---
called patient x 2 , no answer. will keep trying.
--- NOTE | 2022-04-13 13:26 | DI.RAD.S_ITS ---
PROCEDURE: XR CHEST 1V INDICATIONS: Suspected sepsis TECHNIQUE: One view of the chest was acquired. COMPARISON: [facility], CT, CT ANGIO CHEST PE PROTOCOL, 03/31/2020, 13:51. [facility], CR, XR CHEST 1V, 10/11/2021, 20:26. FINDINGS: Severe bilateral pulmonary artery enlargement severe cardiomegaly. No definite pleural effusion. No findings of pneumothorax. No obvious airspace disease although the marked cardiac and pulmonary artery enlargement limits evaluation of the lungs. IMPRESSION: Limited lung evaluation due to severe cardiomegaly and severe pulmonary artery enlargement. No acute airspace opacity identified. Dictated by: Bert Douglass M.D. on 04/13/2022 at 14:34 Approved by: Bert Douglass M.D. on 04/13/2022 at 14:38
[2022-04-13 14:14] LABS: Add Manual Diff / Slide Review NO; Basophils Absolute Auto 100 /uL (0-100); Basophils Percent Auto 1.2 % (0-2); Eosinophils Absolute Auto 0 /uL (0-450); Eosinophils Percent Auto 0.5 % (2-4); Hematocrit 43.9 % (36-46); Hemoglobin 14.1 g/dL (12.0-16.0); Lymphocytes Absolute Auto 1100 /uL (1100-4500); Lymphocytes Percent Auto 17.5 % (25-40); Mean Corpuscular HGB Conc 32.2 % (30-36); Mean Corpuscular Volume 80.8 fL (80-100); Monocytes Absolute Auto 600 /uL (0-900); Monocytes Percent Auto 9.6 % (3-14); Neutrophils Absolute Auto 4400 /uL (1500-7000); Neutrophils Percent Auto 71.2 % (50-75); Platelet Count 92 X10^3/uL (150-400); Red Blood Cell Count 5.44 X10^6/uL (4.0-5.2); Red Cell Distribution Width 14.8 % (11.6-14.8); White Blood Cell Count 6.1 X10^3/uL (4.5-11.0)
[2022-04-13 14:17] VITALS: BP 99/64; PULSE 101; RESP 24; TEMP 37.3; O2SAT 93
[2022-04-13 14:27] LABS: PTT Partial Thromboplastin Tim 39 SECONDS (26-36)
[2022-04-13 14:29] LABS: Alanine Aminotransferase 20 IU/L (<35); Albumin 4.5 g/dL (3.5-5.0); Albumin Globulin Ratio 1.3 (1.0-2.8); Alkaline Phosphatase 78 U/L (38-126); Aspartate Aminotransferase 28 IU/L (14-36); BUN Creatinine Ratio 32.8 (6-22); Bilirubin Total 0.9 mg/dL (0.2-1.3); Blood Urea Nitrogen 21 mg/dL (7-17); Calcium 9.1 mg/dL (8.4-10.2); Carbon Dioxide 31 mmol/L (22-32); Chloride 96 mmol/L (98-107); Estimated Glomerular Filt Rate > 60 mL/min (>60); Globulin 3.4 g/dL (1.7-4.1); Glucose 95 mg/dL (70-100); HEMOLYSIS < 15 (0-50); Lipase 94 U/L (23-300); Potassium 4.3 mmol/L (3.4-5.1); Sodium 138 mmol/L (137-145); Total Protein 7.9 g/dL (6.3-8.2)
[2022-04-13] MEDS: SODIUM CHLORIDE 0.9% 1,000 ML 1000 ML IV (14:43)
[2022-04-13 14:48] LABS: Procalcitonin 0.06 ng/mL (<0.5)
--- NOTE | 2022-04-13 15:06 | PC.NURSE ---
Pt alert and oriented x4, speaking in clear and coherent sentences. Breathing even and unlabored. States I have an infection, has left central line site for infusions. Slight swelling and redness noted to site. Pt states I need antibiotics, updated on wait and plan of care.
--- NOTE | 2022-04-13 15:43 | ED.SKABFB ---
HPI - Skin/Abscess/Foreign Bdy General Chief complaint: Skin/Abscess/Foreign Body Stated complaint: PORT IS INFECTED NEEDS ANTIBOTICS Time Seen by Provider: 04/13/22 15:13 Source: patient Mode of arrival: Family Vehicle Limitations: no limitations History of Present Illness HPI narrative: Patient 56-year-old female history of pulmonary hypertension, she is a chronic indwelling catheter in her right chest presents today with swelling and redness. She is not had any fever or chills. She started noticing some discomfort there last night but feels like today it is gotten significantly worse. It hurts to touch it. She is followed by [facility] cardiology team for chronic pulmonary hypertension. She manages a chronic continuous infusion through the catheter. She denies any chest pain worsening shortness of breath nausea vomiting or any other symptoms. Related Data Home Medications Medication Instructions Recorded Confirmed remodulin See Rx Instructions .Route .COMPLEX 04/27/19 11/29/21 riociguat 2.5 mg tablet (Adempas) 2.5 mg PO BID 11/10/19 11/29/21 rosuvastatin 20 mg tablet 20 mg PO DAILY 11/10/20 11/29/21 cholecalciferol (vitamin D3) 25 25 mcg PO DAILY 06/12/21 11/29/21 mcg (1,000 unit) capsule (Vitamin D3) warfarin 6 mg tablet See Rx Instructions .Route .COMPLEX 08/20/21 11/29/21 clopidogrel 75 mg PO DAILY 10/12/21 11/29/21 Previous Rx's Medication Instructions Recorded alendronate 70 mg tablet 70 mg PO QWEEK #56 tabs 11/10/20 albuterol sulfate 2.5 mg/3 mL 2.5 mg (3 mL) inhalation Q4-6H PRN 10/11/21 (0.083 %) solution for nebulization shortness of breath or wheezing, cough #180 mL benzonatate 100 mg capsule 100 mg PO BID-TID PRN cough #20 10/11/21 caps doxycycline hyclate 100 mg capsule 100 mg PO BID #20 caps 10/11/21 prednisone 20 mg tablet 40 mg PO DAILY #8 tabs 10/11/21 acetaminophen 325 mg tablet 650 mg PO Q6HR PRN Fever/Mild Pain 10/20/21 (1-3) #60 tabs furosemide 20 mg tablet See Rx Instructions .Route 12/07/21 .COMPLEX #180 tabs albuterol sulfate 90 mcg/actuation See Rx Instructions .Route 03/05/22 aerosol inhaler .COMPLEX #18 grams ipratropium 20 mcg-albuterol 100 1 puff inhalation Q4H #4 grams 03/05/22 mcg/actuation mist for inhalation (Combivent Respimat) lorazepam 0.5 mg tablet 0.5 mg PO BID PRN anxiety #60 tabs 03/19/22 hydromorphone 2 mg tablet 2 mg PO Q6H PRN pain #90 tabs 04/02/22 cephalexin 500 mg capsule 500 mg PO TID #21 caps 04/13/22 Allergies Allergy/AdvReac Type Severity Reaction Status Date / Time adhesive tape Allergy Intermediate rash Verified 04/13/22 11:44 bupropion [From Wellbutrin] AdvReac Severe mood Verified 04/13/22 11:44 Review of Systems Review of Systems ROS Unobtainable: All systems reviewed & are unremarkable except as noted in HPI and below Patient History Medical History Anxiety Asthma Chronic back pain Encounter for routine gynecological examination Encounter for wellness examination in adult History of blood clots (~2009) History of myocardial infarction (03/2019) 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 (2018) 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 LV dysfunction (2018) Menopause Osteopenia after menopause (10/2019) Osteoporosis (10/2019) Pre-procedural examination Pulmonary embolism (2009) Pulmonary hypertension (2009) Situational anxiety Systolic heart failure (~2018) Vision disturbance (09/2019) Social History household members: significant other Smoking Status: Former smoker second hand exposure: No alcohol intake: former substance use type: marijuana Smoking Status: Former smoker tobacco type: cigarettes alcohol intake frequency: a few times a week Substance Use Type: does not use Exam Initial Vital Signs Initial Vital Signs: Vital Signs Temperature 98.9 F 04/13/22 11:51 Pulse Rate 102 H 04/13/22 11:51 Respiratory Rate 20 04/13/22 11:51 Blood Pressure 109/57 L 04/13/22 11:51 Pulse Oximetry 96 04/13/22 11:51 Oxygen Delivery Method 04/13/22 11:51 GENERAL: Alert well-appearing 56-year-old female and in no acute distress. HEENT: Head atraumatic,EOMI, pupils reactive, face symmetric, moist mucous membranes CARDIOVASCULAR: Regular rate and rhythm without murmurs, rubs or gallops. RESPIRATORY: Breath sounds equal bilaterally, no wheezes rales or rhonchi. ABDOMEN: Soft, nontender. Normoactive bowel sounds all 4 quadrants. No guarding or rebound. EXTREMITIES: Normal range of motion, no clubbing or edema. Neurovascularly intact NEUROLOGICAL: Alert and oriented x4.Normal gait and speech. SKIN: Catheter in right chest mild swelling just superior the catheter kind over the clavicle there is obvious swelling minimal erythema no obvious fluctuation tender to touch Course Orders Ordered: Discontinued Medications Cefazolin Sodium (Cephalexin 250 Mg Prepack) 1 bottle MISC SEEINSTR ONE Stop: 04/13/22 18:34 Last Admin: 04/13/22 18:38 Dose: 500 mg Documented By: AT Sodium Chloride (Normal Saline 0.9%) 1,000 mls @ 1,000 mls/hr IV BOLUS ONE Stop: 04/13/22 14:25 Last Infusion: 04/13/22 17:19 Dose: 0 mls/hr Documented By: Admin: 04/13/22 14:43 Dose: 1,000 mls/hr Documented By: AT Ondansetron HCl (Ondansetron 4 Mg/2 Ml Inj) 4 mg IV NOW PRN PRN Reason: Nausea And Vomiting Ondansetron HCl (Ondansetron 4 Mg Odt) 4 mg SL NOW PRN PRN Reason: Nausea And Vomiting Vital Signs Vital signs: Vital Signs - 8 hr 04/13/22 11:51 04/13/22 14:17 Temperature 98.9 F 99.2 F Pulse Rate 102 H 101 H Respiratory Rate 20 24 Blood Pressure 109/57 L 99/64 Pulse Oximetry 96 93 Oxygen Delivery Method Room Air Room Air MDM - Skin/Abscess/Foreign Bdy Lab Data Result diagrams: 04/13/22 13:49 04/13/22 13:49 Labs: Lab Results 04/13/22 04/13/22 04/13/22 Range/Units 13:49 13:49 13:49 WBC 6.1 (4.5-11.0) X10^3/uL RBC 5.44 H (4.0-5.2) X10^6/uL Hgb 14.1 (12.0-16.0) g/dL Hct 43.9 (36-46) % MCV 80.8 (80-100) fL MCH 26.0 (26-34) PG MCHC 32.2 (30-36) % RDW 14.8 (11.6-14.8) % Plt Count 92 L (150-400) X10^3/uL Neut % (Auto) 71.2 (50-75) % Lymph % (Auto) 17.5 L (25-40) % Gem % (Auto) 9.6 (3-14) % Eos % (Auto) 0.5 L (2-4) % Baso % (Auto) 1.2 (0-2) % Neut # (Auto) 4400 (6530-7681) /uL Lymph # (Auto) 1100 (2745-6453) /uL Gem # (Auto) 600 (0-900) /uL Eos # (Auto) 0 (0-450) /uL Baso # (Auto) 100 (0-100) /uL PT 35.0 H (10.1-12.7) SECONDS INR 3.0 H (0.9-1.3) APTT 39 H (26-36) SECONDS Sodium 138 (137-145) mmol/L Potassium 4.3 (3.4-5.1) mmol/L Chloride 96 L (98-107) mmol/L Carbon Dioxide 31 (22-32) mmol/L BUN 21 H (7-17) mg/dL Creatinine 0.64 (0.52-1.04) mg/dL Estimated GFR > 60 (>60) mL/min BUN/Creatinine Ratio 32.8 H (6-22) Glucose 95 (70-100) mg/dL Lactate (0.7-2.1) mmol/L Calcium 9.1 (8.4-10.2) mg/dL Total Bilirubin 0.9 (0.2-1.3) mg/dL AST 28 (14-36) IU/L ALT 20 (<35) IU/L Alkaline Phosphatase 78 (38-126) U/L Total Protein 7.9 (6.3-8.2) g/dL Albumin 4.5 (3.5-5.0) g/dL Globulin 3.4 (1.7-4.1) g/dL Albumin/Globulin Ratio 1.3 (1.0-2.8) Lipase 94 (23-300) U/L Procalcitonin 0.06 (<0.5) ng/mL 04/13/22 04/13/22 Range/Units 13:49 17:39 WBC (4.5-11.0) X10^3/uL RBC (4.0-5.2) X10^6/uL Hgb (12.0-16.0) g/dL Hct (36-46) % MCV (80-100) fL MCH (26-34) PG MCHC (30-36) % RDW (11.6-14.8) % Plt Count (150-400) X10^3/uL Neut % (Auto) (50-75) % Lymph % (Auto) (25-40) % Gem % (Auto) (3-14) % Eos % (Auto) (2-4) % Baso % (Auto) (0-2) % Neut # (Auto) (0020-9187) /uL Lymph # (Auto) (5027-1517) /uL Gem # (Auto) (0-900) /uL Eos # (Auto) (0-450) /uL Baso # (Auto) (0-100) /uL PT 40.3 H D (10.1-12.7) SECONDS INR 3.5 H (0.9-1.3) APTT (26-36) SECONDS Sodium (137-145) mmol/L Potassium (3.4-5.1) mmol/L Chloride (98-107) mmol/L Carbon Dioxide (22-32) mmol/L BUN (7-17) mg/dL Creatinine (0.52-1.04) mg/dL Estimated GFR (>60) mL/min BUN/Creatinine Ratio (6-22) Glucose (70-100) mg/dL Lactate 1.0 (0.7-2.1) mmol/L Calcium (8.4-10.2) mg/dL Total Bilirubin (0.2-1.3) mg/dL AST (14-36) IU/L ALT (<35) IU/L Alkaline Phosphatase (38-126) U/L Total Protein (6.3-8.2) g/dL Albumin (3.5-5.0) g/dL Globulin (1.7-4.1) g/dL Albumin/Globulin Ratio (1.0-2.8) Lipase (23-300) U/L Procalcitonin (<0.5) ng/mL Imaging Data Chest x-ray: Radiologist's Impression: [place] [address] XRay Report Signed Patient: Dagmar Lawrence MR#: [id number] : 1965 Acct:[id number] Age/Sex: 56 / F Date of Service: 04/13/22 Loc: ED Accession Number: [id number] ?? Procedure: XR chest 1V Ordering Provider: Keyona Joel D.O. PROCEDURE:? XR CHEST 1V ? INDICATIONS:? Suspected sepsis ? TECHNIQUE:? One view of the chest was acquired.? ? COMPARISON:? [facility], CT, CT ANGIO CHEST PE PROTOCOL, 03/31/2020, 13:51.? [facility], CR, XR CHEST 1V, 10/11/2021, 20:26. ? FINDINGS:? ? Severe bilateral pulmonary artery enlargement severe cardiomegaly.? No definite pleural effusion.? No findings of pneumothorax.? No obvious airspace disease although the marked cardiac and pulmonary artery enlargement limits evaluation of the lungs. ? IMPRESSION:? Limited lung evaluation due to severe cardiomegaly and severe pulmonary artery enlargement.? No acute airspace opacity identified.? ? ? Dictated by: Bert Douglass M.D. on 04/13/2022 at 14:3 CT scan - chest: Radiologist's Impression: [address] [address] [address] Scan Report Signed Patient: Dagmar Lawrence MR#: [id number] : 1965 Acct:[id number] Age/Sex: 56 / F Date of Service: 04/13/22 Loc: ED Accession Number: [id number] ?? Procedure: CT chest w con Ordering Provider: Keyona Joel D.O. PROCEDURE:? CT CHEST W CON ? INDICATIONS:? rights sided swelling superior to catheter ? TECHNIQUE:? After the administration of intravenous contrast, 5 mm thick sections acquired from the pulmonary apices to the posterior costophrenic angles.? 1 mm axial lung, 5 mm thick coronal and sagittal reformats and 7 mm axial MIP were acquired.? For radiation dose reduction, the following was used:? automated exposure control, adjustment of mA and/or kV according to patient size.? ? COMPARISON:? [facility], CT, CT ANGIO CHEST PE PROTOCOL, 03/31/2020, 13:51. ? FINDINGS:? Image quality:? Excellent.? ? Lungs and pleura:? No acute air space opacities.? No pleural effusions or pneumothorax.? Central and peripheral airways are patent and normal in caliber.? ? Mediastinum:? Pulmonary arteries are massively dilated.? The right pulmonary main artery measures 6 cm in diameter, previously 5.3 cm in diameter.? Mural plaquing around the main left pulmonary artery has decreased in the interval.? Aorta is appropriate in size.? Heart size is enlarged as well. ? Bones and chest wall:? There is subcutaneous edema noted along the soft tissue tract of a tunneled right central venous catheter.? No evidence of active bleeding. ? Abdomen:? Visualized upper abdominal solid organs appear normal.? Upper abdominal bowel loops are normal in caliber.? ? IMPRESSION:? ? Edema along the tunneled portion right central venous catheter.? No evidence of active bleeding or organized abscess. ? Worsening massive pulmonary artery dilation.? Main right pulmonary now measures 6 cm, previously 5.3 cm.? Bilateral lobar pulmonary artery mural plaquing has improved from the prior.? ? ? Approved by: Sarthak Liriano M.D. on 04/13/2022 at 16:24? ECG Data Interpretation: Sinus rhythm rate 99 AK interval 192 QRS 130 QTC 515 Q-waves noted in lead [address] elevation also seen in AVF similar to previous EKG on 10/14/2021. Probable left ventricular hypertrophy MDM Narrative Medical decision making narrative: Patient has chronic pulmonary hypertension with chronic indwelling catheter presents today with swelling and mild erythema. Blood work is overall reassuring she is afebrile no sinus sepsis. CT does not show any sign of abscess but only tissue edema. Patient says that she is previously had an infection and gotten antibiotics. She denies any history of MRSA. I have discussed case with Cardiology Dr. Reaves, who states can start antibiotics and they will follow-up in clinic. Agrees with no need for transfer. Patient is updated recommendations and agrees with discharge plan. Discharge Plan Departure Patient Disposition: Home Clinical Impression: Cellulitis Instructions: DI for Cellulitis -- Adult Activity Restrictions/Additional Instructions: *You have been diagnosed with cellulitis *What to do: Due to appear have a very slight infection. I have called and spoken to her team at [facility] they are aware. Please call them and follow-up with them closely. Please have your INR checked antibiotics can cause it to change. Today INR is 3.5. Apply ice 20-30 minutes at a time this will help with swelling and pain *Continue to take medications as directed Keflex 500 mg 3 times a day for 7 days--> SENT TO [facility] in [place] *Follow up with your primary care provider in 2-3 days or call [phone] *Return to ER if you should have increased redness swelling pain fever or any new, worsening or concerning symptoms Prescriptions: New cephalexin 500 mg capsule 500 mg PO TID Qty: 21 0RF No Action furosemide 20 mg tablet See Rx Instructions .ROUTE .COMPLEX Qty: 180 0RF Dose Instruction: TAKE 1 TABLET BY MOUTH TWICE DAILY Rx Instructions: TAKE 1 TABLET BY MOUTH TWICE DAILY albuterol sulfate 90 mcg/actuation HFA aerosol inhaler See Rx Instructions .ROUTE .COMPLEX Qty: 18 3RF Dose Instruction: INHALE 2 PUFFS BY MOUTH EVERY 4 TO 6 HOURS NEEDED FOR SHORTNESS OF BREATH OR WHEEZING Rx Instructions: INHALE 2 PUFFS BY MOUTH EVERY 4 TO 6 HOURS NEEDED FOR SHORTNESS OF BREATH OR WHEEZING Combivent Respimat 20-100 mcg/actuation mist 1 puff inhalation Q4H Qty: 4 3RF lorazepam 0.5 mg tablet 0.5 mg PO BID PRN (Reason: anxiety) Qty: 60 0RF hydromorphone 2 mg tablet 2 mg PO Q6H PRN (Reason: pain) Qty: 90 0RF remodulin auto-injector See Rx Instructions .ROUTE .COMPLEX Rx Instructions: 39 ng/kg/min subcutaneously using wearable injector Adempas 2.5 mg tablet 2.5 mg PO BID rosuvastatin 20 mg tablet 20 mg PO DAILY alendronate 70 mg tablet 70 mg PO QWEEK Qty: 56 0RF warfarin 6 mg tablet See Rx Instructions .ROUTE .COMPLEX Dose Instruction: TAKE 1 TABLET BY MOUTH EVERY DAY OR DIRECTED Rx Instructions: TAKE 1 TABLET BY MOUTH EVERY DAY OR DIRECTED doxycycline hyclate 100 mg capsule 100 mg PO BID Qty: 20 0RF Rx Instructions: Take 1 tab twice per day for 10 days prednisone 20 mg tablet 40 mg PO DAILY Qty: 8 0RF Rx Instructions: Take 2 tabs with food before 2pm daily to prevent insomnia benzonatate 100 mg capsule 100 mg PO BID-TID PRN (Reason: cough) Qty: 20 1RF Rx Instructions: Take 1 tab 2-3 times per day (do not bite or crush) as needed for cough albuterol sulfate 2.5 mg /3 mL (0.083 %) solution for nebulization 2.5 mg inhalation Q4-6H PRN (Reason: shortness of breath or wheezing, cough) Qty: 180 3RF cholecalciferol (vitamin D3) [Vitamin D3] 25 mcg (1,000 unit) Capsule 25 mcg PO DAILY clopidogrel 75 mg PO DAILY acetaminophen 325 mg Tablet 650 mg PO Q6HR PRN (Reason: Fever/Mild Pain (1-3)) Qty: 60 0RF Referrals: Vj Sullivan MD [Primary Care Provider] -
--- NOTE | 2022-04-13 16:15 | DI.CT.S_ITS ---
PROCEDURE: CT CHEST W CON INDICATIONS: rights sided swelling superior to catheter TECHNIQUE: After the administration of intravenous contrast, 5 mm thick sections acquired from the pulmonary apices to the posterior costophrenic angles. 1 mm axial lung, 5 mm thick coronal and sagittal reformats and 7 mm axial MIP were acquired. For radiation dose reduction, the following was used: automated exposure control, adjustment of mA and/or kV according to patient size. COMPARISON: [facility], CT, CT ANGIO CHEST PE PROTOCOL, 03/31/2020, 13:51. FINDINGS: Image quality: Excellent. Lungs and pleura: No acute air space opacities. No pleural effusions or pneumothorax. Central and peripheral airways are patent and normal in caliber. Mediastinum: Pulmonary arteries are massively dilated. The right pulmonary main artery measures 6 cm in diameter, previously 5.3 cm in diameter. Mural plaquing around the main left pulmonary artery has decreased in the interval. Aorta is appropriate in size. Heart size is enlarged as well. Bones and chest wall: There is subcutaneous edema noted along the soft tissue tract of a tunneled right central venous catheter. No evidence of active bleeding. Abdomen: Visualized upper abdominal solid organs appear normal. Upper abdominal bowel loops are normal in caliber. IMPRESSION: Edema along the tunneled portion right central venous catheter. No evidence of active bleeding or organized abscess. Worsening massive pulmonary artery dilation. Main right pulmonary now measures 6 cm, previously 5.3 cm. Bilateral lobar pulmonary artery mural plaquing has improved from the prior. Approved by: Sarthak Liriano M.D. on 04/13/2022 at 16:24
[2022-04-13 17:53] LABS: INR 3.5 (0.9-1.3); Prothrombin Time 40.3 SECONDS (10.1-12.7)
[2022-04-13 18:37] VITALS: BP 103/65; PULSE 109; O2SAT 95
[2022-04-13] MEDS: cephALEXin 250 MG PREPACK 1 BOTTLE MISC (18:38)
== END 2022-04-13 18:44 | disposition home or self-care (01) ==
PROVIDERS: Emergency Provider Emergency Medicine; PCP Family Medicine
DX: T81.49XA Infection following a procedure, other surgical site, initial encounter (principal); L03.313 Cellulitis of chest wall
CPT/HCPCS: 36415; 71045; 71260; 80053; 83605; 83690; 84145; 85025; 85610; 85730; 87040; 93005; 96360; 96361; 99284; Q9967

== ENCOUNTER → 2022-05-01 12:13 | Outpatient (CLI) | payer OTHER, MEDICAID, SELFPAY ==
[2022-05-01 09:11] VITALS: PULSE 98; RESP 29; O2SAT 93; BMI 21.9
== END ==
PROVIDERS: PCP Family Medicine; Visit Provider Family Medicine
DX: T14.8XXA Other injury of unspecified body region, initial encounter (principal); T80.212A Local infection due to central venous catheter, initial encounter
CPT/HCPCS: 87070; 87075; 87077; 87147; 87185; 87186; 87205

== ENCOUNTER → 2022-05-14 12:11 | Outpatient (CLI) | payer OTHER, MEDICAID, SELFPAY ==
[2022-05-01 09:11] VITALS: PULSE 98; RESP 29; O2SAT 93; BMI 21.9
== END ==
PROVIDERS: PCP Family Medicine; Referring Provider Family Medicine; Visit Provider Family Medicine
DX: M81.0 Age-related osteoporosis without current pathological fracture (principal); Z78.0 Asymptomatic menopausal state
CPT/HCPCS: 77080

== ENCOUNTER 2022-07-02 16:08 | Emergency (ER) | payer OTHER, MEDICAID, SELFPAY ==
[2022-05-01 09:11] VITALS: PULSE 98; RESP 29; O2SAT 93; BMI 21.9
[2022-07-02] VITALS (35 sets, daily range): BP systolic 97–129; BP diastolic 64–83; PULSE 99–124; RESP 16–42; TEMP 36.7; O2SAT 74–100
--- NOTE | 2022-07-02 16:21 | ED.GENADULT ---
HPI - General Adult <Benigno Guerra DO - Last Filed: 07/03/22 07:35> General Chief complaint: Shortness of Breath/Dyspnea Stated complaint: SOB Time Seen by Provider: 07/02/22 16:21 Source: patient, family () and EMS Mode of arrival: EMS Limitations: no limitations History of Present Illness HPI narrative: Patient is a 57-year-old female. Does have a history of fairly severe pulmonary hypertension. Initial report was that she was waiting for a lung transplant. Is being followed by the [facility]. She is currently getting remodulin infusion through a left-sided chest port. She is here for evaluation of progressively worsening shortness of breath. She did test positive for COVID approximately 4 days ago. Her had COVID approximately 1 week ago. Over the past several days patient has had progressively worsening shortness of breath. She does have a CPAP at home which she is been using almost continuously over the past couple days. Today got to the point where things were getting so much worse she contacted EMS. When EMS arrived they did find her hypoxic. She was alert oriented. She received 40 Lasix, 125 mg of Solu-Medrol, 2 nebulizer treatments and 1 DuoNeb prior to arrival. Plus a total of 5 of Versed. They attempted her on CPAP however the patient would not tolerate this secondary to anxiety. Given her respiratory status was somewhat difficult to obtain a complete review of systems although she states she is having chest discomfort and shortness of breath but no abdominal pain. Related Data Home Medications Medication Instructions Recorded Confirmed remodulin See Rx Instructions .Route .COMPLEX 04/27/19 05/01/22 riociguat 2.5 mg tablet (Adempas) 2.5 mg PO BID 11/10/19 05/01/22 rosuvastatin 20 mg tablet 20 mg PO DAILY 11/10/20 05/01/22 cholecalciferol (vitamin D3) 25 25 mcg PO DAILY 06/12/21 05/01/22 mcg (1,000 unit) capsule (Vitamin D3) clopidogrel 75 mg PO DAILY 10/12/21 05/01/22 Previous Rx's Medication Instructions Recorded albuterol sulfate 2.5 mg/3 mL 2.5 mg (3 mL) inhalation Q4-6H PRN 10/11/21 (0.083 %) solution for nebulization shortness of breath or wheezing, cough #180 mL acetaminophen 325 mg tablet 650 mg PO Q6HR PRN Fever/Mild Pain 10/20/21 (1-3) #60 tabs furosemide 20 mg tablet See Rx Instructions .Route 12/07/21 .COMPLEX #180 tabs albuterol sulfate 90 mcg/actuation See Rx Instructions .Route 05/24/22 aerosol inhaler .COMPLEX #18 grams alendronate 70 mg tablet 70 mg PO QWEEK #12 tabs 05/30/22 warfarin 6 mg tablet See Rx Instructions .Route 05/30/22 .COMPLEX #90 tabs cefpodoxime 200 mg tablet 400 mg PO Q12H #60 tabs 06/03/22 hydromorphone 2 mg tablet 2 mg PO Q6H PRN pain #90 tabs 06/13/22 lorazepam 0.5 mg tablet 0.5 mg PO BID PRN anxiety #60 tabs 06/13/22 nirmatrelvir 300 mg (150 mg See Rx Instructions PO .COMPLEX 06/28/22 x2)-ritonavir 100 mg tablet,dose #30 ea pack(EUA) (Paxlovid) Allergies Allergy/AdvReac Type Severity Reaction Status Date / Time adhesive tape Allergy Intermediate rash Verified 04/13/22 11:44 bupropion [From Wellbutrin] AdvReac Severe mood Verified 04/13/22 11:44 Review of Systems <Benigno Guerra DO - Last Filed: 07/03/22 07:35> Review of Systems Narrative: Limited given her initial presentation Constitutional Comments: No reports of fevers Cardiovascular Cardiovascular: Reports chest pain and Reports dyspnea Respiratory Respiratory: Reports cough and Reports dyspnea Gastrointestinal Gastrointestinal: Denies abdominal pain Musculoskeletal Comments: No lower extremity swelling Integumentary/Breasts Skin/Breast: Reports system reviewed and no additional complaints, except as documented Neurologic Comments: No behavioral changes per Hematologic/Lymphatic On Anticoagulants: No Patient History <Benigno Guerra DO - Last Filed: 07/03/22 07:35> Medical History Anxiety Asthma Chronic back pain Encounter for routine gynecological examination Encounter for wellness examination in adult History of blood clots (~2009) History of myocardial infarction (03/2019) Infection due to Port-A-Cath 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 (2018) 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 LV dysfunction (2018) Menopause Osteopenia after menopause (10/2019) Osteoporosis (10/2019) Pre-procedural examination Pulmonary embolism (2010) Pulmonary hypertension (2010) Respiratory failure Situational anxiety Systolic heart failure (~2018) Vision disturbance (09/2019) Social History household members: significant other Smoking Status: Former smoker second hand exposure: No alcohol intake: former substance use type: marijuana Smoking Status: Former smoker tobacco type: cigarettes alcohol intake frequency: a few times a week Substance Use Type: does not use Exam <DO Gema Hurtado Last Filed: 07/03/22 07:35> Initial Vital Signs Initial Vital Signs: Vital Signs Temperature 98.1 F 07/02/22 16:21 Pulse Rate 124 H 07/02/22 16:21 Respiratory Rate 33 H 07/02/22 16:21 Blood Pressure 129/75 07/02/22 16:21 Pulse Oximetry 74 L 07/02/22 16:21 Oxygen Delivery Method High Flow Nasal Cannula 07/02/22 16:21 Oxygen Flow Rate 8 07/02/22 16:21 Const General: cooperative, in distress and ill appearing [facility] Head: normal to inspection and normocephalic Nose: external nose normal Resp Effort & Inspection: labored, respiratory distress and tachypneic Auscultation: diminished lung sounds and wheezes Cardio Rate: tachycardic Rhythm: regular rhythm GI Inspection: normal to inspection and non-distended Palpation: soft Skin General: no rashes or lesions noted Neuro General: patient alert, patient awake and moves all extremities Extrem General: No edema Psych Appearance: well kempt <Shantanu Velasquez DO - Last Filed: 07/03/22 00:55> Initial Vital Signs Initial Vital Signs: Vital Signs Temperature 98.1 F 07/02/22 16:21 Pulse Rate 124 H 07/02/22 16:21 Respiratory Rate 33 H 07/02/22 16:21 Blood Pressure 129/75 07/02/22 16:21 Pulse Oximetry 74 L 07/02/22 16:21 Oxygen Delivery Method High Flow Nasal Cannula 07/02/22 16:21 Oxygen Flow Rate 8 07/02/22 16:21 Course <DO Gema Hurtado Last Filed: 07/03/22 07:35> Orders Ordered: Discontinued Medications Albuterol (Albuterol 2.5 Mg/3 Ml Neb (Adult)) 2.5 mg INH [id number] PRN PRN Reason: Shortness Of Breath Last Admin: 07/02/22 16:33 Dose: 2.5 mg Documented By: CHUN Albuterol (Albuterol 2.5 Mg/3 Ml Neb (Adult)) 2.5 mg INH NOW ONE Stop: 07/02/22 16:32 Albuterol (Albuterol 2.5 Mg/3 Ml Neb (Adult)) 2.5 mg INH NOW ONE Stop: 07/02/22 16:33 Last Admin: 07/02/22 16:42 Dose: 2.5 mg Documented By: CHUN Albuterol/Ipratropium (Albuterol/Ipratropium 3 Ml Ampul) 3 ml INH NOW ONE Stop: 07/02/22 16:28 Last Admin: 07/02/22 16:53 Dose: Not Given Documented By: CHUN Albuterol/Ipratropium (Albuterol/Ipratropium 3 Ml Ampul) 3 ml INH NOW ONE Stop: 07/02/22 16:28 Last Admin: 07/02/22 16:53 Dose: Not Given Documented By: CHUN Sodium Chloride (Normal Saline 0.9%) 1,000 mls @ 100 mls/hr IV CONT JESSY Last Infusion: 07/02/22 19:43 Dose: 0 mls/hr Documented By: Admin: 07/02/22 16:32 Dose: 100 mls/hr Documented By: CHUN Remdesivir 200 mg/ Sodium (Chloride) 250 mls @ 250 mls/hr IV NOW ONE Stop: 07/02/22 18:44 Last Infusion: 07/02/22 19:44 Dose: 0 mls/hr Documented By: Admin: 07/02/22 18:05 Dose: 250 mls/hr Documented By: LUZ Azithromycin 500 mg/ Dextrose 250 mls @ 250 mls/hr IV NOW ONE Stop: 07/02/22 18:31 Last Infusion: 07/02/22 20:30 Dose: 0 mls/hr Documented By: Admin: 07/02/22 19:30 Dose: 250 mls/hr Documented By: CRISTINA Ipratropium [place] (Ipratropium 0.5 Mg/2.5 Ml Neb) 0.5 mg INH NOW ONE Stop: 07/02/22 16:32 Last Admin: 07/02/22 16:34 Dose: 0.5 mg Documented By: CHUN Ipratropium [place] (Ipratropium 0.5 Mg/2.5 Ml Neb) 0.5 mg INH NOW ONE Stop: 07/02/22 16:33 Last Admin: 07/02/22 16:42 Dose: 0.5 mg Documented By: CHUN Lorazepam (Lorazepam 2 Mg/Ml Inj) 1 mg IV NOW ONE Stop: 07/02/22 16:52 Last Admin: 07/02/22 16:57 Dose: 1 mg Documented By: CHUN Lorazepam (Lorazepam 2 Mg/Ml Inj) 1 mg IV NOW ONE Stop: 07/02/22 19:15 Last Admin: 07/02/22 19:28 Dose: 1 mg Documented By: CRISTINA Lorazepam (Lorazepam 2 Mg/Ml Inj) 1 mg IV NOW ONE Stop: 07/02/22 21:31 Last Admin: 07/02/22 21:34 Dose: 1 mg Documented By: JESSICA Vital Signs Vital signs: Vital Signs - 8 hr 07/02/22 17:27 07/02/22 17:54 07/02/22 16:55 Pulse Rate 120 H 113 H Respiratory Rate 33 H 42 H Blood Pressure Pulse Oximetry 92 99 Oxygen Delivery Method Oxygen Flow Rate Fraction of Inspired Oxygen 40 07/02/22 17:00 07/02/22 17:05 07/02/22 17:10 Pulse Rate 115 H 113 H 114 H Respiratory Rate 34 H 34 H 38 H Blood Pressure Pulse Oximetry 99 97 90 L Oxygen Delivery Method Oxygen Flow Rate Fraction of Inspired Oxygen 07/02/22 17:15 07/02/22 17:20 07/02/22 17:25 Pulse Rate 115 H 116 H 117 H Respiratory Rate 33 H 33 H 35 H Blood Pressure Pulse Oximetry 91 93 93 Oxygen Delivery Method Oxygen Flow Rate Fraction of Inspired Oxygen 07/02/22 17:30 07/02/22 17:35 07/02/22 17:40 Pulse Rate 115 H 114 H 114 H Respiratory Rate 40 H 39 H 36 H Blood Pressure Pulse Oximetry 90 L 96 96 Oxygen Delivery Method Oxygen Flow Rate Fraction of Inspired Oxygen 07/02/22 17:45 07/02/22 17:50 07/02/22 17:55 Pulse Rate 117 H 114 H 111 H Respiratory Rate 23 31 H 29 H Blood Pressure Pulse Oximetry 93 92 93 Oxygen Delivery Method Oxygen Flow Rate Fraction of Inspired Oxygen 07/02/22 18:05 07/02/22 18:10 07/02/22 18:10 Pulse Rate 112 H 112 H Respiratory Rate 28 H 27 H Blood Pressure 97/76 Pulse Oximetry 91 88 L Oxygen Delivery Method BiPAP Oxygen Flow Rate Fraction of Inspired Oxygen 07/02/22 18:20 07/02/22 18:20 07/02/22 18:30 Pulse Rate 109 H 108 H Respiratory Rate 27 H 25 H Blood Pressure 103/76 Pulse Oximetry 95 90 L Oxygen Delivery Method Oxygen Flow Rate Fraction of Inspired Oxygen 07/02/22 18:40 07/02/22 18:40 07/02/22 19:00 Pulse Rate 106 H Respiratory Rate 34 H Blood Pressure 107/70 104/75 Pulse Oximetry 100 Oxygen Delivery Method BiPAP Oxygen Flow Rate 65 Fraction of Inspired Oxygen 07/02/22 19:00 07/02/22 19:20 07/02/22 19:20 Pulse Rate 101 H 100 H Respiratory Rate 27 H 30 H Blood Pressure 117/83 Pulse Oximetry 99 98 Oxygen Delivery Method Oxygen Flow Rate Fraction of Inspired Oxygen 07/02/22 19:30 07/02/22 19:40 07/02/22 19:40 Pulse Rate 100 H 99 H Respiratory Rate 29 H 26 H Blood Pressure 99/68 Pulse Oximetry 99 98 Oxygen Delivery Method Oxygen Flow Rate Fraction of Inspired Oxygen 07/02/22 20:00 07/02/22 20:00 07/02/22 20:20 Pulse Rate 103 H 107 H Respiratory Rate 26 H 29 H Blood Pressure 100/72 Pulse Oximetry 94 Oxygen Delivery Method Oxygen Flow Rate Fraction of Inspired Oxygen 07/02/22 20:20 07/02/22 20:30 07/02/22 20:40 Pulse Rate 107 H 102 H Respiratory Rate 26 H 25 H Blood Pressure 104/67 Pulse Oximetry 98 98 Oxygen Delivery Method Oxygen Flow Rate Fraction of Inspired Oxygen 07/02/22 20:40 Pulse Rate Respiratory Rate Blood Pressure 104/64 Pulse Oximetry Oxygen Delivery Method Oxygen Flow Rate Fraction of Inspired Oxygen <Shantanu Velasquez DO - Last Filed: 07/03/22 00:55> Orders Ordered: Discontinued Medications Albuterol (Albuterol 2.5 Mg/3 Ml Neb (Adult)) 2.5 mg INH [id number] PRN PRN Reason: Shortness Of Breath Last Admin: 07/02/22 16:33 Dose: 2.5 mg Documented By: CHUN Albuterol (Albuterol 2.5 Mg/3 Ml Neb (Adult)) 2.5 mg INH NOW ONE Stop: 07/02/22 16:32 Albuterol (Albuterol 2.5 Mg/3 Ml Neb (Adult)) 2.5 mg INH NOW ONE Stop: 07/02/22 16:33 Last Admin: 07/02/22 16:42 Dose: 2.5 mg Documented By: CHUN Albuterol/Ipratropium (Albuterol/Ipratropium 3 Ml Ampul) 3 ml INH NOW ONE Stop: 07/02/22 16:28 Last Admin: 07/02/22 16:53 Dose: Not Given Documented By: CHUN Albuterol/Ipratropium (Albuterol/Ipratropium 3 Ml Ampul) 3 ml INH NOW ONE Stop: 07/02/22 16:28 Last Admin: 07/02/22 16:53 Dose: Not Given Documented By: CHUN Sodium Chloride (Normal Saline 0.9%) 1,000 mls @ 100 mls/hr IV CONT JESSY Last Infusion: 07/02/22 19:43 Dose: 0 mls/hr Documented By: Admin: 07/02/22 16:32 Dose: 100 mls/hr Documented By: CUHN Remdesivir 200 mg/ Sodium (Chloride) 250 mls @ 250 mls/hr IV NOW ONE Stop: 07/02/22 18:44 Last Infusion: 07/02/22 19:44 Dose: 0 mls/hr Documented By: Admin: 07/02/22 18:05 Dose: 250 mls/hr Documented By: LUZ Azithromycin 500 mg/ Dextrose 250 mls @ 250 mls/hr IV NOW ONE Stop: 07/02/22 18:31 Last Infusion: 07/02/22 20:30 Dose: 0 mls/hr Documented By: Admin: 07/02/22 19:30 Dose: 250 mls/hr Documented By: CRISTINA Ipratropium [place] (Ipratropium 0.5 Mg/2.5 Ml Neb) 0.5 mg INH NOW ONE Stop: 07/02/22 16:32 Last Admin: 07/02/22 16:34 Dose: 0.5 mg Documented By: CHUN Ipratropium [place] (Ipratropium 0.5 Mg/2.5 Ml Neb) 0.5 mg INH NOW ONE Stop: 07/02/22 16:33 Last Admin: 07/02/22 16:42 Dose: 0.5 mg Documented By: CHUN Lorazepam (Lorazepam 2 Mg/Ml Inj) 1 mg IV NOW ONE Stop: 07/02/22 16:52 Last Admin: 07/02/22 16:57 Dose: 1 mg Documented By: CHUN Lorazepam (Lorazepam 2 Mg/Ml Inj) 1 mg IV NOW ONE Stop: 07/02/22 19:15 Last Admin: 07/02/22 19:28 Dose: 1 mg Documented By: CRISTINA Lorazepam (Lorazepam 2 Mg/Ml Inj) 1 mg IV NOW ONE Stop: 07/02/22 21:31 Last Admin: 07/02/22 21:34 Dose: 1 mg Documented By: JESSICA Vital Signs Vital signs: Vital Signs - 8 hr 07/02/22 17:27 07/02/22 17:54 07/02/22 16:55 Pulse Rate 120 H 113 H Respiratory Rate 33 H 42 H Blood Pressure Pulse Oximetry 92 99 Oxygen Delivery Method Oxygen Flow Rate Fraction of Inspired Oxygen 40 07/02/22 17:00 07/02/22 17:05 07/02/22 17:10 Pulse Rate 115 H 113 H 114 H Respiratory Rate 34 H 34 H 38 H Blood Pressure Pulse Oximetry 99 97 90 L Oxygen Delivery Method Oxygen Flow Rate Fraction of Inspired Oxygen 07/02/22 17:15 07/02/22 17:20 07/02/22 17:25 Pulse Rate 115 H 116 H 117 H Respiratory Rate 33 H 33 H 35 H Blood Pressure Pulse Oximetry 91 93 93 Oxygen Delivery Method Oxygen Flow Rate Fraction of Inspired Oxygen 07/02/22 17:30 07/02/22 17:35 07/02/22 17:40 Pulse Rate 115 H 114 H 114 H Respiratory Rate 40 H 39 H 36 H Blood Pressure Pulse Oximetry 90 L 96 96 Oxygen Delivery Method Oxygen Flow Rate Fraction of Inspired Oxygen 07/02/22 17:45 07/02/22 17:50 07/02/22 17:55 Pulse Rate 117 H 114 H 111 H Respiratory Rate 23 31 H 29 H Blood Pressure Pulse Oximetry 93 92 93 Oxygen Delivery Method Oxygen Flow Rate Fraction of Inspired Oxygen 07/02/22 18:05 07/02/22 18:10 07/02/22 18:10 Pulse Rate 112 H 112 H Respiratory Rate 28 H 27 H Blood Pressure 97/76 Pulse Oximetry 91 88 L Oxygen Delivery Method BiPAP Oxygen Flow Rate Fraction of Inspired Oxygen 07/02/22 18:20 07/02/22 18:20 07/02/22 18:30 Pulse Rate 109 H 108 H Respiratory Rate 27 H 25 H Blood Pressure 103/76 Pulse Oximetry 95 90 L Oxygen Delivery Method Oxygen Flow Rate Fraction of Inspired Oxygen 07/02/22 18:40 07/02/22 18:40 07/02/22 19:00 Pulse Rate 106 H Respiratory Rate 34 H Blood Pressure 107/70 104/75 Pulse Oximetry 100 Oxygen Delivery Method BiPAP Oxygen Flow Rate 65 Fraction of Inspired Oxygen 07/02/22 19:00 07/02/22 19:20 07/02/22 19:20 Pulse Rate 101 H 100 H Respiratory Rate 27 H 30 H Blood Pressure 117/83 Pulse Oximetry 99 98 Oxygen Delivery Method Oxygen Flow Rate Fraction of Inspired Oxygen 07/02/22 19:30 07/02/22 19:40 07/02/22 19:40 Pulse Rate 100 H 99 H Respiratory Rate 29 H 26 H Blood Pressure 99/68 Pulse Oximetry 99 98 Oxygen Delivery Method Oxygen Flow Rate Fraction of Inspired Oxygen 07/02/22 20:00 07/02/22 20:00 07/02/22 20:20 Pulse Rate 103 H 107 H Respiratory Rate 26 H 29 H Blood Pressure 100/72 Pulse Oximetry 94 Oxygen Delivery Method Oxygen Flow Rate Fraction of Inspired Oxygen 07/02/22 20:20 07/02/22 20:30 07/02/22 20:40 Pulse Rate 107 H 102 H Respiratory Rate 26 H 25 H Blood Pressure 104/67 Pulse Oximetry 98 98 Oxygen Delivery Method Oxygen Flow Rate Fraction of Inspired Oxygen 07/02/22 20:40 Pulse Rate Respiratory Rate Blood Pressure 104/64 Pulse Oximetry Oxygen Delivery Method Oxygen Flow Rate Fraction of Inspired Oxygen Medical Decision Making <Benigno Guerra DO - Last Filed: 07/03/22 07:35> Medical Records Medical records reviewed: Yes I reviewed the patient's medical records. Lab Data Lab results reviewed: Yes I reviewed the patient's lab results. 07/02/22 16:20 07/02/22 16:20 Labs: Lab Results 07/02/22 07/02/22 07/02/22 Range/Units 16:20 16:20 16:20 WBC 6.4 (4.5-11.0) X10^3/uL RBC 5.13 (4.0-5.2) X10^6/uL Hgb 12.8 (12.0-16.0) g/dL Hct 41.6 (36-46) % MCV 81.2 (80-100) fL MCH 25.0 L (26-34) PG MCHC 30.9 (30-36) % RDW 18.7 H (11.6-14.8) % Plt Count 109 L (150-400) X10^3/uL Neut % (Auto) 62.5 (50-75) % Lymph % (Auto) 27.4 (25-40) % [place] % (Auto) 9.0 (3-14) % Eos % (Auto) 0.5 L (2-4) % Baso % (Auto) 0.6 (0-2) % Neut # (Auto) 4000 (4495-9194) /uL Lymph # (Auto) 1800 (2307-2938) /uL [place] # (Auto) 600 (0-900) /uL Eos # (Auto) 0 (0-450) /uL Baso # (Auto) 0 (0-100) /uL PT 51.6 H (10.1-12.7) SECONDS INR 4.4 H (0.9-1.3) APTT 47 H (26-36) SECONDS Sodium 138 (137-145) mmol/L Potassium 4.2 (3.4-5.1) mmol/L Chloride 93 L (98-107) mmol/L Carbon Dioxide 39 H (22-32) mmol/L BUN 16 (7-17) mg/dL Creatinine 0.80 (0.52-1.04) mg/dL Estimated GFR > 60 (>60) mL/min BUN/Creatinine Ratio 20.0 (6-22) Glucose 121 H (70-100) mg/dL Lactate (0.7-2.1) mmol/L Calcium 8.5 (8.4-10.2) mg/dL Magnesium 2.3 (1.6-2.3) mg/dL Total Bilirubin 0.7 (0.2-1.3) mg/dL AST 34 (14-36) IU/L ALT 30 (<35) IU/L Alkaline Phosphatase 79 (38-126) U/L Total Creatine Kinase 45 (30-135) U/L CK-MB (CK-2) TNP CK-MB (CK-2) Rel Index TNP Troponin I < 0.012 (0.01-0.034) ng/mL NT-Pro-B Natriuret Pep 1790 H (<125) pg/mL Total Protein 7.7 (6.3-8.2) g/dL Albumin 4.3 (3.5-5.0) g/dL Globulin 3.4 (1.7-4.1) g/dL Albumin/Globulin Ratio 1.3 (1.0-2.8) Lipase 155 (23-300) U/L Procalcitonin 0.05 (<0.5) ng/mL Chlamy pneumoniae PCR (Not Detect) Adenovirus (PCR) (Not Detect) B. pertussis DNA (PCR) (Not Detecte) B.parapertussis DNA PCR (Not Detecte) Coronavirus OC43 (PCR) (Not Detect) Coronavirus HKU1 (PCR) (Not Detect) Coronavirus 229E (PCR) (Not Detect) SARS-CoV-2 (PCR) (Not Detecte) Coronavirus NL63 (PCR) (Not Detect) Human Metapneumovir PCR (Not Detect) Influenza Type A (PCR) (Not Detect) Influenza Type B (PCR) (Not Detect) M. pneumoniae (PCR) (Not Detect) Parainfluenza 1 (PCR) (Not Detect) Parainfluenza 2 (PCR) (Not Detect) Parainfluenza 3 (PCR) (Not Detect) Parainfluenza 4 (PCR) (Not Detect) RSV (PCR) (Not Detect) Entero/Rhino (PCR) (Not Detect) 07/02/22 07/02/22 Range/Units 16:20 16:20 WBC (4.5-11.0) X10^3/uL RBC (4.0-5.2) X10^6/uL Hgb (12.0-16.0) g/dL Hct (36-46) % MCV (80-100) fL MCH (26-34) PG MCHC (30-36) % RDW (11.6-14.8) % Plt Count (150-400) X10^3/uL Neut % (Auto) (50-75) % Lymph % (Auto) (25-40) % [place] % (Auto) (3-14) % Eos % (Auto) (2-4) % Baso % (Auto) (0-2) % Neut # (Auto) (4792-4560) /uL Lymph # (Auto) (9324-4930) /uL [place] # (Auto) (0-900) /uL Eos # (Auto) (0-450) /uL Baso # (Auto) (0-100) /uL PT (10.1-12.7) SECONDS INR (0.9-1.3) APTT (26-36) SECONDS Sodium (137-145) mmol/L Potassium (3.4-5.1) mmol/L Chloride (98-107) mmol/L Carbon Dioxide (22-32) mmol/L BUN (7-17) mg/dL Creatinine (0.52-1.04) mg/dL Estimated GFR (>60) mL/min BUN/Creatinine Ratio (6-22) Glucose (70-100) mg/dL Lactate 1.3 (0.7-2.1) mmol/L Calcium (8.4-10.2) mg/dL Magnesium (1.6-2.3) mg/dL Total Bilirubin (0.2-1.3) mg/dL AST (14-36) IU/L ALT (<35) IU/L Alkaline Phosphatase (38-126) U/L Total Creatine Kinase (30-135) U/L CK-MB (CK-2) CK-MB (CK-2) Rel Index Troponin I (0.01-0.034) ng/mL NT-Pro-B Natriuret Pep (<125) pg/mL Total Protein (6.3-8.2) g/dL Albumin (3.5-5.0) g/dL Globulin (1.7-4.1) g/dL Albumin/Globulin Ratio (1.0-2.8) Lipase (23-300) U/L Procalcitonin (<0.5) ng/mL Chlamy pneumoniae PCR Not detected (Not Detect) Adenovirus (PCR) Not detected (Not Detect) B. pertussis DNA (PCR) Not detected (Not Detecte) B.parapertussis DNA PCR Not detected (Not Detecte) Coronavirus OC43 (PCR) Not detected (Not Detect) Coronavirus HKU1 (PCR) Not detected (Not Detect) Coronavirus 229E (PCR) Not detected (Not Detect) SARS-CoV-2 (PCR) Detected H (Not Detecte) Coronavirus NL63 (PCR) Not detected (Not Detect) Human Metapneumovir PCR Not detected (Not Detect) Influenza Type A (PCR) Not detected (Not Detect) Influenza Type B (PCR) Not detected (Not Detect) M. pneumoniae (PCR) Not detected (Not Detect) Parainfluenza 1 (PCR) Not detected (Not Detect) Parainfluenza 2 (PCR) Not detected (Not Detect) Parainfluenza 3 (PCR) Not detected (Not Detect) Parainfluenza 4 (PCR) Not detected (Not Detect) RSV (PCR) Not detected (Not Detect) Entero/Rhino (PCR) Detected H (Not Detect) Imaging Data Chest x-ray: Attestation: I personally reviewed and interpreted this imaging study as follows: Radiologist's Impression: PROCEDURE:? XR CHEST 1V ? INDICATIONS:? shortness of breath ? TECHNIQUE:? One view of the chest was acquired.? ? COMPARISON:? [facility], CR, XR CHEST 1V, 04/13/2022, 13:55.? [facility], CR, XR CHEST FOR PICC 1V, 10/16/2021, 13:49. ? FINDINGS:? ? Surgical changes and devices:? Left central line terminates in the right atrium.? Sternotomy wires are present. ? Lungs and pleura:? Suspected basal opacities are present, difficult to evaluate due to mediastinal enlargement. ? Mediastinum:? Massive pulmonary artery enlargement, better seen on CT.? Heart borders are obscured. ? Bones and chest wall:? No suspicious bony lesions.? Overlying soft tissues appear unremarkable.? ? IMPRESSION:? Possible mild basal pulmonary opacities could represent airspace disease versus atelectasis.? Consider future imaging surveillance to assess for resolution.? This is obscured by the massive pulmonary artery enlargement and widened mediastinal contour, which is overall similar to prior and better evaluated on CT. ? Left central line terminates in the right atrium. ECG Data Attestation: I personally reviewed and interpreted this ECG as follows: Interpretation: Sinus tachycardia Ventricular rate 115 Occasional PVC QRS 130 milliseconds QTC 453 MDM Narrative Medical decision making narrative: Patient arrived in fairly significant respiratory distress. She was satting in the mid 70s on the non-rebreather for which she was getting the nebulizer treatment by EMS. She was switched to high-flow. Initially requiring 100% FiO2 and 60 L. her oxygen saturation improved. Room air able to wean this down to 40% at 40 L. patient was maintaining her oxygen saturations on this however she did admit that she was becoming fairly tired. She states she does feel much better now than when she initially arrived. Patient does have BiPAP at home. She was agreeable to try BiPAP again here in the ER. Patient is on Coumadin secondary to history of pulmonary emboli. Has had a sternotomy because she had a procedure in order to remove the blood clots in her lungs. She is positive for COVID and also rhino virus. She is already received steroids and Lasix. I do not feel that this is a CHF exacerbation. Potentially some minor improvement from the nebulizer treatments. Patient was also started on remdesivir. Patient does require higher level of care. Care turned over to Dr. Velasquez to continue to observe until disposition. 1830: Dr guerra: I did discuss the case with Dr. Worrell the ICU provider at [facility] who agrees with the current treatment. He accepts the patient for transfer however there is no current beds. They will work on prioritizing the patient. Care again turned over to Dr. Velasquez to continue to observe and disposition. <Shantanu Velasquez, - Last Filed: 07/03/22 00:55> Lab Data Labs: Lab Results 07/02/22 07/02/22 07/02/22 Range/Units 16:20 16:20 16:20 WBC 6.4 (4.5-11.0) X10^3/uL RBC 5.13 (4.0-5.2) X10^6/uL Hgb 12.8 (12.0-16.0) g/dL Hct 41.6 (36-46) % MCV 81.2 (80-100) fL MCH 25.0 L (26-34) PG MCHC 30.9 (30-36) % RDW 18.7 H (11.6-14.8) % Plt Count 109 L (150-400) X10^3/uL Neut % (Auto) 62.5 (50-75) % Lymph % (Auto) 27.4 (25-40) % [place] % (Auto) 9.0 (3-14) % Eos % (Auto) 0.5 L (2-4) % Baso % (Auto) 0.6 (0-2) % Neut # (Auto) 4000 (3108-9250) /uL Lymph # (Auto) 1800 (2258-4514) /uL [place] # (Auto) 600 (0-900) /uL Eos # (Auto) 0 (0-450) /uL Baso # (Auto) 0 (0-100) /uL PT 51.6 H (10.1-12.7) SECONDS INR 4.4 H (0.9-1.3) APTT 47 H (26-36) SECONDS Sodium 138 (137-145) mmol/L Potassium 4.2 (3.4-5.1) mmol/L Chloride 93 L (98-107) mmol/L Carbon Dioxide 39 H (22-32) mmol/L BUN 16 (7-17) mg/dL Creatinine 0.80 (0.52-1.04) mg/dL Estimated GFR > 60 (>60) mL/min BUN/Creatinine Ratio 20.0 (6-22) Glucose 121 H (70-100) mg/dL Lactate (0.7-2.1) mmol/L Calcium 8.5 (8.4-10.2) mg/dL Magnesium 2.3 (1.6-2.3) mg/dL Total Bilirubin 0.7 (0.2-1.3) mg/dL AST 34 (14-36) IU/L ALT 30 (<35) IU/L Alkaline Phosphatase 79 (38-126) U/L Total Creatine Kinase 45 (30-135) U/L CK-MB (CK-2) TNP CK-MB (CK-2) Rel Index TNP Troponin I < 0.012 (0.01-0.034) ng/mL NT-Pro-B Natriuret Pep 1790 H (<125) pg/mL Total Protein 7.7 (6.3-8.2) g/dL Albumin 4.3 (3.5-5.0) g/dL Globulin 3.4 (1.7-4.1) g/dL Albumin/Globulin Ratio 1.3 (1.0-2.8) Lipase 155 (23-300) U/L Procalcitonin 0.05 (<0.5) ng/mL Chlamy pneumoniae PCR (Not Detect) Adenovirus (PCR) (Not Detect) B. pertussis DNA (PCR) (Not Detecte) B.parapertussis DNA PCR (Not Detecte) Coronavirus OC43 (PCR) (Not Detect) Coronavirus HKU1 (PCR) (Not Detect) Coronavirus 229E (PCR) (Not Detect) SARS-CoV-2 (PCR) (Not Detecte) Coronavirus NL63 (PCR) (Not Detect) Human Metapneumovir PCR (Not Detect) Influenza Type A (PCR) (Not Detect) Influenza Type B (PCR) (Not Detect) M. pneumoniae (PCR) (Not Detect) Parainfluenza 1 (PCR) (Not Detect) Parainfluenza 2 (PCR) (Not Detect) Parainfluenza 3 (PCR) (Not Detect) Parainfluenza 4 (PCR) (Not Detect) RSV (PCR) (Not Detect) Entero/Rhino (PCR) (Not Detect) 07/02/22 07/02/22 Range/Units 16:20 16:20 WBC (4.5-11.0) X10^3/uL RBC (4.0-5.2) X10^6/uL Hgb (12.0-16.0) g/dL Hct (36-46) % MCV (80-100) fL MCH (26-34) PG MCHC (30-36) % RDW (11.6-14.8) % Plt Count (150-400) X10^3/uL Neut % (Auto) (50-75) % Lymph % (Auto) (25-40) % [place] % (Auto) (3-14) % Eos % (Auto) (2-4) % Baso % (Auto) (0-2) % Neut # (Auto) (1560-0487) /uL Lymph # (Auto) (9499-9753) /uL [place] # (Auto) (0-900) /uL Eos # (Auto) (0-450) /uL Baso # (Auto) (0-100) /uL PT (10.1-12.7) SECONDS INR (0.9-1.3) APTT (26-36) SECONDS Sodium (137-145) mmol/L Potassium (3.4-5.1) mmol/L Chloride (98-107) mmol/L Carbon Dioxide (22-32) mmol/L BUN (7-17) mg/dL Creatinine (0.52-1.04) mg/dL Estimated GFR (>60) mL/min BUN/Creatinine Ratio (6-22) Glucose (70-100) mg/dL Lactate 1.3 (0.7-2.1) mmol/L Calcium (8.4-10.2) mg/dL Magnesium (1.6-2.3) mg/dL Total Bilirubin (0.2-1.3) mg/dL AST (14-36) IU/L ALT (<35) IU/L Alkaline Phosphatase (38-126) U/L Total Creatine Kinase (30-135) U/L CK-MB (CK-2) CK-MB (CK-2) Rel Index Troponin I (0.01-0.034) ng/mL NT-Pro-B Natriuret Pep (<125) pg/mL Total Protein (6.3-8.2) g/dL Albumin (3.5-5.0) g/dL Globulin (1.7-4.1) g/dL Albumin/Globulin Ratio (1.0-2.8) Lipase (23-300) U/L Procalcitonin (<0.5) ng/mL Chlamy pneumoniae PCR Not detected (Not Detect) Adenovirus (PCR) Not detected (Not Detect) B. pertussis DNA (PCR) Not detected (Not Detecte) B.parapertussis DNA PCR Not detected (Not Detecte) Coronavirus OC43 (PCR) Not detected (Not Detect) Coronavirus HKU1 (PCR) Not detected (Not Detect) Coronavirus 229E (PCR) Not detected (Not Detect) SARS-CoV-2 (PCR) Detected H (Not Detecte) Coronavirus NL63 (PCR) Not detected (Not Detect) Human Metapneumovir PCR Not detected (Not Detect) Influenza Type A (PCR) Not detected (Not Detect) Influenza Type B (PCR) Not detected (Not Detect) M. pneumoniae (PCR) Not detected (Not Detect) Parainfluenza 1 (PCR) Not detected (Not Detect) Parainfluenza 2 (PCR) Not detected (Not Detect) Parainfluenza 3 (PCR) Not detected (Not Detect) Parainfluenza 4 (PCR) Not detected (Not Detect) RSV (PCR) Not detected (Not Detect) Entero/Rhino (PCR) Detected H (Not Detect) MDM Narrative Medical decision making narrative: Patient arrived in fairly significant respiratory distress. She was satting in the mid 70s on the non-rebreather for which she was getting the nebulizer treatment by EMS. She was switched to high-flow. Initially requiring 100% FiO2 and 60 L. her oxygen saturation improved. Room air able to wean this down to 40% at 40 L. patient was maintaining her oxygen saturations on this however she did admit that she was becoming fairly tired. She states she does feel much better now than when she initially arrived. Patient does have BiPAP at home. She was agreeable to try BiPAP again here in the ER. Patient is on Coumadin secondary to history of pulmonary emboli. Has had a sternotomy because she had a procedure in order to remove the blood clots in her lungs. She is positive for COVID and also rhino virus. She is already received steroids and Lasix. I do not feel that this is a CHF exacerbation. Potentially some minor improvement from the nebulizer treatments. Patient was also started on remdesivir. Patient does require higher level of care. Care turned over to Dr. Velasquez to continue to observe until disposition. 1830: Dr guerra: I did discuss the case with Dr. Worrell the ICU provider at [facility] who agrees with the current treatment. He accepts the patient for transfer however there is no current beds. They will work on prioritizing the patient. Care again turned over to Dr. Velasquez to continue to observe and disposition. [1900] (Ron) Patient received in sign out from [Mari]. I have reviewed the clinical course and performed an independent history and physical exam. Patient has been accepted at the [facility] and is awaiting arrival transport team Critical Care Time <Benigno Guerra DO - Last Filed: 07/03/22 07:35> Critical Care Time Critical Care Time: Yes <Shantanu Avery, DO - Last Filed: 07/03/22 00:55> Critical Care Time Total Critical Care Time: 40 Attestation: The high probability of a clinically significant, sudden or life threatening deterioration of the [CV] system(s) required my full and direct attention, intervention and personal management. The aggregate critical care time was [40] minutes. This time is in addition to time spent performing reported procedures but includes the following: [x] Data Review and interpretation [x] Patient assessment and monitoring of vital signs [x] Documentation [x] Medication orders and management Discharge Plan Departure Patient Disposition: [facility] Clinical Impression: Acute respiratory distress, Pulmonary hypertension, COVID-19, Rhinovirus, Supratherapeutic INR Prescriptions: No Action furosemide 20 mg tablet See Rx Instructions .ROUTE .COMPLEX Qty: 180 0RF Dose Instruction: TAKE 1 TABLET BY MOUTH TWICE DAILY Rx Instructions: TAKE 1 TABLET BY MOUTH TWICE DAILY albuterol sulfate 90 mcg/actuation HFA aerosol inhaler See Rx Instructions .ROUTE .COMPLEX Qty: 18 3RF Dose Instruction: INHALE 2 PUFFS BY MOUTH EVERY 4 TO 6 HOURS NEEDED FOR SHORTNESS OF BREATH OR WHEEZING Rx Instructions: INHALE 2 PUFFS BY MOUTH EVERY 4 TO 6 HOURS NEEDED FOR SHORTNESS OF BREATH OR WHEEZING warfarin 6 mg tablet See Rx Instructions .ROUTE .COMPLEX Qty: 90 1RF Dose Instruction: TAKE 1 TABLET BY MOUTH EVERY DAY OR DIRECTED Rx Instructions: TAKE 1 TABLET BY MOUTH EVERY DAY OR DIRECTED alendronate 70 mg tablet 70 mg PO QWEEK Qty: 12 3RF hydromorphone 2 mg tablet 2 mg PO Q6H PRN (Reason: pain) Qty: 90 0RF lorazepam 0.5 mg tablet 0.5 mg PO BID PRN (Reason: anxiety) Qty: 60 0RF Paxlovid (EUA) 300 mg (150 mg x 2)-100 mg tablets,dose pack See Rx Instructions PO .COMPLEX Qty: 30 0RF Rx Instructions: take TWO 150 mg tablets of nirmatrelvir with ONE 100 mg tablet of ritonavir twice daily for 5 days PO remodulin auto-injector See Rx Instructions .ROUTE .COMPLEX Rx Instructions: 39 ng/kg/min subcutaneously using wearable injector Adempas 2.5 mg tablet 2.5 mg PO BID rosuvastatin 20 mg tablet 20 mg PO DAILY albuterol sulfate 2.5 mg /3 mL (0.083 %) solution for nebulization 2.5 mg inhalation Q4-6H PRN (Reason: shortness of breath or wheezing, cough) Qty: 180 3RF cefpodoxime 200 mg tablet 400 mg PO Q12H Qty: 60 0RF Rx Instructions: must administer with a meal/food cholecalciferol (vitamin D3) [Vitamin D3] 25 mcg (1,000 unit) Capsule 25 mcg PO DAILY clopidogrel 75 mg PO DAILY acetaminophen 325 mg Tablet 650 mg PO Q6HR PRN (Reason: Fever/Mild Pain (1-3)) Qty: 60 0RF Referrals: Vj Sullivan MD [Primary Care Provider] -
--- NOTE | 2022-07-02 16:23 | DI.RAD.S_ITS ---
PROCEDURE: XR CHEST 1V INDICATIONS: shortness of breath TECHNIQUE: One view of the chest was acquired. COMPARISON: [facility], CR, XR CHEST 1V, 04/13/2022, 13:55. [facility], CR, XR CHEST FOR PICC 1V, 10/16/2021, 13:49. FINDINGS: Surgical changes and devices: Left central line terminates in the right atrium. Sternotomy wires are present. Lungs and pleura: Suspected basal opacities are present, difficult to evaluate due to mediastinal enlargement. Mediastinum: Massive pulmonary artery enlargement, better seen on CT. Heart borders are obscured. Bones and chest wall: No suspicious bony lesions. Overlying soft tissues appear unremarkable. IMPRESSION: Possible mild basal pulmonary opacities could represent airspace disease versus atelectasis. Consider future imaging surveillance to assess for resolution. This is obscured by the massive pulmonary artery enlargement and widened mediastinal contour, which is overall similar to prior and better evaluated on CT. Left central line terminates in the right atrium. Dictated by: Lauro Whitt M.D. on 07/02/2022 at 16:50 Approved by: Lauro Whitt M.D. on 07/02/2022 at 16:52
[2022-07-02] MEDS: SODIUM CHLORIDE 0.9% 1,000 ML 100 ML IV (16:32)
[2022-07-02] MEDS: ALBUTEROL 2.5 MG/3 ML NEB (ADULT) INH ×2 (16:33→16:42)
[2022-07-02] MEDS: IPRATROPIUM 0.5 MG/2.5 ML NEB INH ×2 (16:34→16:42)
[2022-07-02 16:36] LABS: Add Manual Diff / Slide Review NO; Basophils Absolute Auto 0 /uL (0-100); Basophils Percent Auto 0.6 % (0-2); Eosinophils Absolute Auto 0 /uL (0-450); Eosinophils Percent Auto 0.5 % (2-4); Hematocrit 41.6 % (36-46); Hemoglobin 12.8 g/dL (12.0-16.0); Lymphocytes Absolute Auto 1800 /uL (1100-4500); Lymphocytes Percent Auto 27.4 % (25-40); Mean Corpuscular HGB Conc 30.9 % (30-36); Mean Corpuscular Volume 81.2 fL (80-100); Monocytes Absolute Auto 600 /uL (0-900); Neutrophils Absolute Auto 4000 /uL (1500-7000); Neutrophils Percent Auto 62.5 % (50-75); Platelet Count 109 X10^3/uL (150-400); Red Blood Cell Count 5.13 X10^6/uL (4.0-5.2); Red Cell Distribution Width 18.7 % (11.6-14.8); White Blood Cell Count 6.4 X10^3/uL (4.5-11.0)
[2022-07-02 16:46] LABS: INR 4.4 (0.9-1.3); Prothrombin Time 51.6 SECONDS (10.1-12.7)
[2022-07-02 16:47] LABS: Lactate (Lactic Acid) 1.3 mmol/L (0.7-2.1)
[2022-07-02 16:48] LABS: Alanine Aminotransferase 30 IU/L (<35); Albumin 4.3 g/dL (3.5-5.0); Albumin Globulin Ratio 1.3 (1.0-2.8); Alkaline Phosphatase 79 U/L (38-126); Aspartate Aminotransferase 34 IU/L (14-36); Bilirubin Total 0.7 mg/dL (0.2-1.3); Blood Urea Nitrogen 16 mg/dL (7-17); Calcium 8.5 mg/dL (8.4-10.2); Carbon Dioxide 39 mmol/L (22-32); Chloride 93 mmol/L (98-107); Creatine Kinase 45 U/L (30-135); Estimated Glomerular Filt Rate > 60 mL/min (>60); Globulin 3.4 g/dL (1.7-4.1); Glucose 121 mg/dL (70-100); HEMOLYSIS < 15 (0-50); Lipase 155 U/L (23-300); Magnesium 2.3 mg/dL (1.6-2.3); Potassium 4.2 mmol/L (3.4-5.1); Sodium 138 mmol/L (137-145); Total Protein 7.7 g/dL (6.3-8.2)
[2022-07-02 16:49] LABS: PTT Partial Thromboplastin Tim 47 SECONDS (26-36)
[2022-07-02] MEDS: LORazepam 2 MG/ML INJ 1 MG IV ×3 (16:57→21:34)
[2022-07-02 16:59] LABS: NT-proBNP (BNP-Adult 18+) 1790 pg/mL (<125); Troponin I < 0.012 ng/mL (0.01-0.034)
[2022-07-02 17:04] LABS: Procalcitonin 0.05 ng/mL (<0.5)
[2022-07-02 17:23] LABS: Adenovirus Not Detected (Not Detect); B. parapertussis Not Detected (Not Detecte); Bordetella pertussis Not Detected (Not Detecte); Chlamydophila pneumoniae Not Detected (Not Detect); Coronavirus 229E Not Detected (Not Detect); Coronavirus HKU1 Not Detected (Not Detect); Coronavirus NL 63 Not Detected (Not Detect); Coronavirus OC43 Not Detected (Not Detect); Human Metapneumovirus Not Detected (Not Detect); Human Rhinovirus/Enterovirus Detected (Not Detect); Influenza A Not Detected (Not Detect); Influenza B Not Detected (Not Detect); Mycoplasma pneumoniae Not Detected (Not Detect); Parainfluenza Virus 1 Not Detected (Not Detect); Parainfluenza Virus 2 Not Detected (Not Detect); Parainfluenza Virus 3 Not Detected (Not Detect); Parainfluenza Virus 4 Not Detected (Not Detect); Respiratory Syncytial Virus Not Detected (Not Detect)
[2022-07-02 17:28] LABS: SARS- CoV-2 Detected (Not Detecte)
[2022-07-02] MEDS: REMDESIVIR 200 MG in SODIUM CHLORIDE 0.9% 210 ML 250 MG IV (18:05)
[2022-07-02] MEDS: AZITHROMYCIN 500 MG in DEXTROSE 5% IN WATER 250 ML 250 MG IV (19:30)
[2022-07-03 09:26] LABS: HCO3 ABG 37 mmol/L (23-27); Oxygen Saturation ABG 99 % (95-100); PCO2 ABG 55.3 mmHg (35-45); PO2 ABG 146 mmHg (80-100); TCO2 ABG 38 mmol/L (23-27); pH ABG 7.43 (7.35-7.45)
[2022-07-03 09:27] LABS: Fractionated Inspired Oxygen 55
== END 2022-07-02 22:18 | disposition short-term general hospital (02) ==
PROVIDERS: Emergency Medicine; Emergency Provider Emergency Medicine; PCP Family Medicine
DX: R06.03 Acute respiratory distress (principal); I27.20 Pulmonary hypertension, unspecified; U07.1 COVID-19; B34.8 Other viral infections of unspecified site; R79.1 Abnormal coagulation profile; R07.9 Chest pain, unspecified; Z79.01 Long term (current) use of anticoagulants; Z79.899 Other long term (current) drug therapy
CPT/HCPCS: 36415; 36600; 71045; 80053; 82550; 82805; 83605; 83690; 83735; 83880; 84145; 84484; 85025; 85610; 85730; 87040; 87633; 93005; 93010; 94660; 96365; 96366; 96367; 96375; 96376; 99285; 99291; J2060; J7613